=== PATIENT | male | born 1960 | race African-American/Black ===

== ENCOUNTER 2016-12-31 10:41 | Inpatient (IN) | payer OTHER ==
[2016-12-31 11:24] VITALS: BMI 21.8
--- NOTE | 2016-12-31 16:50 | HP ---
COWS - Scale Resting Pulse: 1= [place] 81-100 Sweatin= Chills/Flushing Restless Observation: 3= Extraneous Movement Pupil Size: 1= Pupils >than Normal Bone or Joint Aches: 2= Severe Diffuse Aches Runny Nose/ Eye Tearin= Runny Nose/Eyes GI Upset > 30mins: 3= Vomiting/Diarrhea Tremor Observation: 1= Tremor [place], Not Seen Yawning Observation: 1= 1-2x During Session Anxiety or Irritability: 1=Feels Anxious/Irritable Goose Flesh Skin: 0=Smooth Skin COWS Score: 16 CIWA Score - CIWA Score Nausea/Vomitin Muscle Tremors: 4-Moderate,w/Arms Extend Anxiety: 4-Mod. Anxious/Guarded Agitation: 1-Slight > Activity Paroxysmal Sweats: 1-Minimal Palms Moist Orientation: 3-Disoriented Date>2 days Tacttile Disturbances: 0-None Auditory Disturbances: 1-Very Mild Visual Disturbances: 1-Very Mild Sensitivity Headache: 2-Mild CIWA-Ar Total Score: 19 Admission [facility] - HPI Chief Complaint: WITHDRAWAL SX FELL 3-5 DAYS AGO, TREATED IN ED WITH LEFT KNEE SKIN ABRASION, AND ALCOHOL INTOXICATION AUDITORY HALLUCINATION - VOICES - UNKNOWN Allergies/Adverse Reactions: Allergies Allergy/AdvReac Type Severity Reaction Status Date / Time erythromycin base Allergy Severe Rash Verified 12/31/16 16:55 [Erythromycin Base] vancomycin Allergy Severe Rash Verified 12/31/16 16:55 chocolate flavor Allergy Intermediate Verified 12/31/16 16:55 History of Present Illness: 56 YEARS OLD MALE WITH LONG HISTORY OF ALCOHOL OPIATE NICOTINE DEPENDENCE, HIV 2008 ASTHMA AND SCHIZOPHRENIA IS ADMITTED TO DETOX Exam Limitations: No Limitations - Ebola screening Have you traveled outside of the country in the last 21 days: No Have you had contact with anyone from an Ebola affected area: No Have you been sick,other than usual withdrawal symptoms: No Do you have a fever: No - Review of Systems Constitutional: Chills, Loss of Appetite, Changes in sleep, Unintentional Wgt. Loss EENT: reports: Dental Problems (MULTIPLE TEETH MISSING) Respiratory: reports: SOB with Exertion, Productive cough (WHITISH) Cardiac: reports: No Symptoms Reported GI: reports: Diarrhea, Nausea, Poor Appetite, Poor Fluid Intake, Vomiting, Indigestion, Abdominal cramping : reports: No Symptoms Reported Musculoskeletal: reports: Back Pain, Joint Pain, Muscle Pain, Muscle Weakness, Neck Pain Integumentary: reports: Change in Color (LEFT KNEE SKIN ABRASION) Neuro: reports: Tingling (RIGHT ARM), Tremors Endocrine: reports: No Symptoms Reported Hematology: reports: No Symptoms Reported Psychiatric: reports: Judgement Intact, Anxious, Depressed Other Systems: Reviewed and Negative Patient History - Patient Medical History Hx Anemia: No Hx Asthma: Yes (ventolin) Hx Chronic Obstructive Pulmonary Disease (COPD): No Hx Cancer: No Hx Cardiac Disorders: No Hx Congestive Heart Failure: No Hx Hypertension: No Hx Hypercholesterolemia: No Hx Pacemaker: No HX Cerebrovascular Accident: No Hx Seizures: No Hx Dementia: No Hx Diabetes: No Hx Gastrointestinal Disorders: Yes Hx Liver Disease: No Hx Genitourinary Disorders: No Hx Sexually Transmitted Disorders: Yes (GONORRHEA ) Hx Renal Disease (ESRD): No Hx Thyroid Disease: No Hx Human Immunodeficiency Virus (HIV): Yes (since 2007; ON MEDS) Hx Hepatitis C: Yes Hx Depression: No Hx Suicide Attempt: Yes (tried to overdose in the .) Hx Bipolar Disorder: No Hx Schizophrenia: Yes - Patient Surgical History Past Surgical History: Yes Hx Neurologic Surgery: No Hx Cataract Extraction: No Hx Cardiac Surgery: No Hx Lung Surgery: No Hx Breast Surgery: No Hx Breast Biopsy: No Hx Abdominal Surgery: No Hx Appendectomy: No Hx Cholecystectomy: No Hx Genitourinary Surgery: No Hx Orthopedic Surgery: Yes Other Surgical History: skin graft/abscess, left upper arm in 1992 Anesthesia Reaction: No - PPD History Previous Implant?: Yes Documented Results: Negative w/o proof Implanted On Prior [facility] Admission?: Yes Date: 11/13/15 Results: 0 mm PPD to be Administered?: Yes - Smoking Cessation Smoking history: Current every day smoker Have you smoked in the past 12 months: Yes Aproximately how many cigarettes per day: 10 Cigars Per Day: 0 Hx Chewing Tobacco Use: No Initiated information on smoking cessation: Yes 'Breaking Loose' booklet given: 12/31/16 - Substance & Tx. History Hx Alcohol Use: Yes Hx Substance Use: Yes Substance Use Type: Alcohol, Opiates Hx Substance Use Treatment: Yes - Substances Abused Alcohol Route: Oral Frequency: Daily Amount used: CRISTINA BUNN Age of first use: 13 Date of Last Use: 12/31/16 Heroin Route: Inhalation Frequency: Daily Amount used: 8 BAGS Age of first use: 13 Date of Last Use: 12/31/16 Family Disease History - Family Disease History Family Disease History: Diabetes: Mother (etoh), CA: Father (COLON [place], etoh), Other: Father, Mother Admission Physical Exam S - Vital Signs Vital Signs: Vital Signs - 24 hr 12/31/16 11:21 Temperature 98.4 F Pulse Rate 87 Respiratory 18 Rate Blood Pressure 110/80 - Physical General Appearance: Yes: Appropriately Dressed, Moderate Distress, Alcohol on Breath, Thin, Tremorous, Irritable, Sweating, Anxious HEENTM: Yes: Hearing grossly Normal, Normal ENT Inspection, Normocephalic, Normal Voice Respiratory: Yes: Chest Non-Tender, No Respiratory Distress, No Accessory Muscle Use, Wheezing, Expiration Neck: Yes: Supple, Trachea in good position Breast: Yes: Breasts Symetrical Cardiology: Yes: Regular Rhythm, Regular Rate, S1, S2 Abdominal: Yes: Non Tender, Soft Genitourinary: Yes: Within Normal Limits Back: Yes: Normal Inspection Musculoskeletal: Yes: full range of Motion, Gait Steady, Back pain, Muscle Pain (LEFT KNEE) Extremities: Yes: Non-Tender, Tremors, Inflammation (LEFT KNEE SKIN ABRASION, TREATED IN ER X 3-5 DAYS AGO) Neurological: Yes: Alert, Motor Strength 5/5 (LEFT LEG WITHOUT GRAVITY), Normal Response, Numbness (RIGHT ARM) Integumentary: Yes: Warm, Erythema (LEFT KNEE), Clammy Lymphatic: Yes: Within Normal Limits - Diagnostic (1) Alcohol dependence with uncomplicated withdrawal Current Visit: Yes Status: Acute (2) Nicotine dependence Current Visit: Yes Status: Acute Qualifiers: Nicotine product type: cigarettes Substance use status: in withdrawal Qualified Code(s): F17.213 - Nicotine dependence, cigarettes, with withdrawal (3) Opioid dependence with withdrawal Current Visit: Yes Status: Acute (4) Asthma Current Visit: Yes Status: Acute (5) Hepatitis C Current Visit: Yes Status: Chronic Qualifiers: Viral hepatitis chronicity: unspecified Hepatic coma status: without hepatic coma Qualified Code(s): B19.20 - Unspecified viral hepatitis C without hepatic coma (6) GERD (gastroesophageal reflux disease) Current Visit: Yes Status: Acute Qualifiers: Esophagitis presence: without esophagitis Qualified Code(s): K21.9 - Gastro-esophageal reflux disease without esophagitis (7) Vomiting Current Visit: Yes Status: Acute Qualifiers: Vomiting type: unspecified Vomiting Intractability: unspecified Nausea presence: with nausea Qualified Code(s): R11.2 - Nausea with vomiting, unspecified Comment: ALCOHOL OPIATE WITHDRAWAL RELATED Cleared for Admission S - Detox or Rehab [facility] Level of Care: Medically Managed Detox Regimen/Protocol: Methadone/Librium S Breath Alcohol Content Breath Alcohol Content: 0.031 Vital Signs - Vital Signs Vital Signs Refused: No Temperature: 98.4 F Temperature Source: Oral Pulse Rate: 87 Respiratory Rate: 18 Blood Pressure: 110/80 BP Location: Left Arm Blood Pressure Position: Sitting - Height Height: 5 ft 9 in - Weight Weight: 148 lb Weight Measurement Method: Standing Scale Body Mass Index (BMI): 21.8 - Bowel Function Bowel Movement: Yes Urine Drug Screen - Control Is Test Valid: Yes - Results Drug Screen Negative: No Urine Drug Screen Results: OPI-Opiates, BZO-Benzodiazepines
[2016-12-31] MEDS ORDERED: MAG HYDROX/AL HYDROX/SIMETH 30 ML UNIT-DOSE CUP PO PRN (17:01)
[2016-12-31] MEDS ORDERED: MAGNESIUM HYDROX 2400MG/30ML ORAL SUSPENSION 30 ML CUP PO PRN (17:01)
[2016-12-31] MEDS ORDERED: chlordiazePOXIDE HCL 25 MG CAPSULE PO PRN (17:01)
[2016-12-31] MEDS ORDERED: P-EPHED 60MG/TRIPROLIDI 2.5MG TABLET PO PRN (17:01)
[2016-12-31] MEDS ORDERED: MENTHOL/PHENOL 1 EACH UD MM PRN (17:01)
[2016-12-31] MEDS ORDERED: NICOTINE POLACRILEX 4 MG GUM BC PRN (17:01)
[2016-12-31] MEDS ORDERED: ACETAMINOPHEN 325 MG TABLET (FP) PO PRN (17:01)
[2016-12-31] MEDS ORDERED: LOPERAMIDE HCL 2 MG CAPSULE PO PRN (17:01)
[2016-12-31] MEDS ORDERED: guaiFENesin/D-METHORPHAN HB 10 ML UNIT-DOSE CUPS PO PRN (17:01)
[2016-12-31] MEDS ORDERED: MAGNESIUM CITRATE 300 ML BOTTLE PO PRN (17:01)
[2016-12-31] MEDS ORDERED: ALBUTEROL SO4 6.7 GM HFA INHALER IH PRN (17:04)
[2016-12-31] MEDS ORDERED: ALBUTEROL SO4 2.5/IPRATROPIUM 0.5 INH SOL 3 ML VIAL.NEB. NEB PRN (17:05)
[2016-12-31] MEDS ORDERED: chlordiazePOXIDE HCL 25 MG CAPSULE PO ONE (18:30)
[2016-12-31] MEDS ORDERED: METHADONE HCL 10 MG TABLET (FOR DETOX USE ONLY) PO ONE ×2 (18:45→23:00)
[2016-12-31] MEDS: chlordiazePOXIDE HCL 25 MG CAPSULE PO SCH (22:43)
[2016-12-31] MEDS: THIAMINE HCL 100 MG TABLET (FP) PO SCH (22:43)
[2016-12-31] MEDS: RANITIDINE HCL 150 MG TABLET (FP) PO SCH (22:55)
[2016-12-31 23:34] LABS: URINE APPEARANCE CLEAR; URINE BILIRUBIN NEGATIVE (NEGATIVE); URINE BLOOD NEGATIVE (NEGATIVE); URINE COLOR DKYELLOW; URINE GLUCOSE (UA) NEGATIVE (NEGATIVE); URINE KETONE NEGATIVE (NEGATIVE); URINE LEUK ESTERASE NEGATIVE (NEGATIVE); URINE NITRITE NEGATIVE (NEGATIVE); URINE UROBILINOGEN 2.0 E.U/dl E.U./dl (0.2-1.0)
[2016-12-31 23:37] LABS: URINE PROTEIN 1+ (NEGATIVE)
[2016-12-31 23:39] LABS: URINE BACTERIA RARE /hpf (NONE SEEN); URINE HYALINE CAST 2 /lpf; URINE MUCUS RARE; URINE RBC 1 /hpf (0-3); URINE WBC 2 /hpf (3-5)
[2017-01-01] MEDS: chlordiazePOXIDE HCL 25 MG CAPSULE PO SCH ×4 (05:28→22:17)
[2017-01-01] MEDS ORDERED: METHADONE HCL 10 MG TABLET (FOR DETOX USE ONLY) PO SCH (10:00)
[2017-01-01 10:18] LABS: MCH 29.6 pg (25.7-33.7); MCHC 32.1 g/dl (32.0-35.9); MEAN CELL VOLUME 92.4 fl (80-96); MEAN PLT VOLUME 10.4 fl (7.5-11.1); PLATELET COUNT 136 K/MM3 (134-434); RDW 16.3 % (11.9-15.9); WHITE BLOOD COUNT 4.3 K/mm3 (4.0-10.0)
[2017-01-01] MEDS: PRENATAL VITAMINS W/ FOLIC ACID TABLET (FP) PO SCH (10:28)
[2017-01-01] MEDS: RANITIDINE HCL 150 MG TABLET (FP) PO SCH ×2 (10:29→22:17)
[2017-01-01] MEDS: NICOTINE 21 MG/24 HOURS TOPICAL PATCH TD SCH (10:30)
[2017-01-01 10:37] LABS: ALBUMIN 2.8 g/dl (3.4-5.0); ALK PHOS 261 U/L (45-117); ANION GAP 9 (8-16); BILIRUBIN,TOTAL 0.6 mg/dL (0.2-1.0); CALCIUM 8.1 mg/dL (8.5-10.1); CO2 23 mmol/L (21-32); CREATININE 1.1 mg/dL (0.7-1.3); GLUCOSE,RANDOM 105 mg/dL (74-106); SGOT/AST 66 U/L (15-37); SGPT/ALT 29 U/L (12-78); TOT PROT 8.1 g/dl (6.4-8.2)
--- NOTE | 2017-01-01 11:29 | PN ---
S CIWA - CIWA Score Nausea/Vomitin Muscle Tremors: 2 Anxiety: 2 Agitation: 2 Paroxysmal Sweats: 2 Orientation: 0-Oriented Tacttile Disturbances: 2-Mild Itch/Numbness/Burn Auditory Disturbances: 1-Very Mild Visual Disturbances: 2-Mild Sensitivity Headache: 2-Mild CIWA-Ar Total Score: 17 BHS COWS - Scale Resting Pulse: 0= [place] 80 or Below Sweatin=Flushed/Facial Moisture Restless Observation: 1= Difficult to Sit Still Pupil Size: 0= Normal to Room Light Bone or Joint Aches: 2= Severe Diffuse Aches Runny Nose/ Eye Tearin= Runny Nose/Eyes GI Upset > 30mins: 2= Nausea/Diarrhea Tremor Observation of Outstretched Hands: 2= Slight Tremor Visible Yawning Observation: 0= None Anxiety or Irritability: 2=Irritable/Anxious Goose Flesh Skin: 3=Piloerection COWS Score: 16 BHS Progress Note (SOAP) Subjective: shakes, sweats, nausea, sleeplessness and muscle/joint pain Objective: 01/01/17 11:28 withdrawal sx Vital Signs - 8 hr 01/01/17 01/01/17 01/01/17 03:30 06:00 11:06 Temperature 99.0 F 97.5 F L Pulse Rate 73 71 Respiratory 18 16 16 Rate Blood Pressure 139/64 110/79 Laboratory Last Values WBC 4.3 K/mm3 (4.0-10.0) 01/01/17 06:20 RBC 4.27 M/mm3 (4.00-5.60) 01/01/17 06:20 Hgb 12.7 GM/dL (11.7-16.9) 01/01/17 06:20 Hct 39.4 % (35.4-49) 01/01/17 06:20 MCV 92.4 fl (80-96) 01/01/17 06:20 MCHC 32.1 g/dl (32.0-35.9) 01/01/17 06:20 RDW 16.3 % (11.9-15.9) H D 01/01/17 06:20 Plt Count 136 K/MM3 (134-434) 01/01/17 06:20 MPV 10.4 fl (7.5-11.1) D 01/01/17 06:20 Sodium 137 mmol/L (136-145) 01/01/17 06:20 Potassium 4.0 mmol/L (3.5-5.1) 01/01/17 06:20 Chloride 105 mmol/L (98-107) 01/01/17 06:20 Carbon Dioxide 23 mmol/L (21-32) 01/01/17 06:20 Anion Gap 9 (8-16) 01/01/17 06:20 BUN 14 mg/dL (7-18) D 01/01/17 06:20 Creatinine 1.1 mg/dL (0.7-1.3) D 01/01/17 06:20 Creat Clearance w eGFR > 60 (>60) 01/01/17 06:20 Random Glucose 105 mg/dL (74-106) 01/01/17 06:20 Calcium 8.1 mg/dL (8.5-10.1) L 01/01/17 06:20 Total Bilirubin 0.6 mg/dL (0.2-1.0) 01/01/17 06:20 AST 66 U/L (15-37) H D 01/01/17 06:20 ALT 29 U/L (12-78) 01/01/17 06:20 Alkaline Phosphatase 261 U/L (45-117) H 01/01/17 06:20 Total Protein 8.1 g/dl (6.4-8.2) 01/01/17 06:20 Albumin 2.8 g/dl (3.4-5.0) L 01/01/17 06:20 Urine Color Dkyellow 12/31/16 20:00 Urine Appearance Clear 12/31/16 20:00 Urine pH 5.0 (5.0-8.0) 12/31/16 20:00 Ur Specific [place] 1.020 (1.001-1.035) 12/31/16 20:00 Urine Protein 1+ (NEGATIVE) H 12/31/16 20:00 Urine Glucose (UA) Negative (NEGATIVE) 12/31/16 20:00 Urine Ketones Negative (NEGATIVE) 12/31/16 20:00 Urine Blood Negative (NEGATIVE) 12/31/16 20:00 Urine Nitrite Negative (NEGATIVE) 12/31/16 20:00 Urine Bilirubin Negative (NEGATIVE) 12/31/16 20:00 Urine Urobilinogen 2.0 e.u/dl E.U./dl (0.2-1.0) 12/31/16 20:00 Ur Leukocyte Esterase Negative (NEGATIVE) 12/31/16 20:00 Urine RBC 1 /hpf (0-3) 12/31/16 20:00 Urine WBC 2 /hpf (3-5) 12/31/16 20:00 Ur Epithelial Cells Rare /hpf (FEW) 12/31/16 20:00 Urine Bacteria Rare /hpf (NONE SEEN) 12/31/16 20:00 Hyaline Casts 2 /lpf 12/31/16 20:00 Urine Mucus Rare 12/31/16 20:00 Labs noted Assessment: 01/01/17 11:28 withdrawal sx Plan: continue detox
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
--- NOTE | 2017-01-01 21:06 | EKG ---
Test Reason : Blood Pressure : / mmHG Vent. Rate : 085 BPM Atrial Rate : 085 BPM P-R Int : 142 ms QRS Dur : 090 ms QT Int : 374 ms P-R-T Axes : 074 -03 021 degrees QTc Int : 445 ms NORMAL SINUS RHYTHM POSSIBLE LEFT ATRIAL ENLARGEMENT BORDERLINE ECG NO PREVIOUS ECGS AVAILABLE Confirmed by ADA VELIZ, ALEX ([id number]) on 01/01/2017 9:05:29 PM Referred By: Penny Yancey Confirmed By:ALEX CABALLERO MD
[2017-01-01] MEDS: THIAMINE HCL 100 MG TABLET (FP) PO SCH (22:17)
[2017-01-02] MEDS: chlordiazePOXIDE HCL 25 MG CAPSULE PO SCH ×3 (05:44→17:05)
[2017-01-02] MEDS: PRENATAL VITAMINS W/ FOLIC ACID TABLET (FP) PO SCH (10:13)
[2017-01-02] MEDS: RANITIDINE HCL 150 MG TABLET (FP) PO SCH ×2 (10:13→23:01)
[2017-01-02] MEDS: METHADONE HCL 5 MG TABLET (FOR DETOX USE ONLY) PO SCH (10:14)
[2017-01-02] MEDS: NICOTINE 21 MG/24 HOURS TOPICAL PATCH TD SCH (10:14)
--- NOTE | 2017-01-02 11:04 | PN ---
S CIWA - CIWA Score Nausea/Vomitin Muscle Tremors: 4-Moderate,w/Arms Extend Anxiety: 4-Mod. Anxious/Guarded Agitation: 4-Moderately Restless Paroxysmal Sweats: No Perspiration Orientation: 0-Oriented Tacttile Disturbances: 1-Very Mild Itch/Numbness Auditory Disturbances: 0-None Visual Disturbances: 0-None Headache: 3-Moderate CIWA-Ar Total Score: 19 BHS COWS - Scale Resting Pulse: 1= [place] 81-100 Sweatin= Chills/Flushing Restless Observation: 1= Difficult to Sit Still Pupil Size: 1= Pupils >than Normal Bone or Joint Aches: 2= Severe Diffuse Aches Runny Nose/ Eye Tearin= Nasal Congestion GI Upset > 30mins: 2= Nausea/Diarrhea Tremor Observation of Outstretched Hands: 2= Slight Tremor Visible Yawning Observation: 1= 1-2x During Session Anxiety or Irritability: 2=Irritable/Anxious Goose Flesh Skin: 0=Smooth Skin COWS Score: 14 S Progress Note (SOAP) Subjective: Restlessness, Anxiety, Tremors, Interrupted sleep, Diarrhea, Reports sweats at night Objective: 01/02/17 11:03 Vital Signs Temperature 98.2 F 01/02/17 10:00 Pulse Rate 75 01/02/17 10:00 Respiratory Rate 18 01/02/17 10:00 Blood Pressure 116/88 01/02/17 10:00 O2 Sat by Pulse Oximetry (%) Laboratory Last Values WBC 4.3 K/mm3 (4.0-10.0) 01/01/17 06:20 RBC 4.27 M/mm3 (4.00-5.60) 01/01/17 06:20 Hgb 12.7 GM/dL (11.7-16.9) 01/01/17 06:20 Hct 39.4 % (35.4-49) 01/01/17 06:20 MCV 92.4 fl (80-96) 01/01/17 06:20 MCHC 32.1 g/dl (32.0-35.9) 01/01/17 06:20 RDW 16.3 % (11.9-15.9) H D 01/01/17 06:20 Plt Count 136 K/MM3 (134-434) 01/01/17 06:20 MPV 10.4 fl (7.5-11.1) D 01/01/17 06:20 Sodium 137 mmol/L (136-145) 01/01/17 06:20 Potassium 4.0 mmol/L (3.5-5.1) 01/01/17 06:20 Chloride 105 mmol/L (98-107) 01/01/17 06:20 Carbon Dioxide 23 mmol/L (21-32) 01/01/17 06:20 Anion Gap 9 (8-16) 01/01/17 06:20 BUN 14 mg/dL (7-18) D 01/01/17 06:20 Creatinine 1.1 mg/dL (0.7-1.3) D 01/01/17 06:20 Creat Clearance w eGFR > 60 (>60) 01/01/17 06:20 Random Glucose 105 mg/dL (74-106) 01/01/17 06:20 Calcium 8.1 mg/dL (8.5-10.1) L 01/01/17 06:20 Total Bilirubin 0.6 mg/dL (0.2-1.0) 01/01/17 06:20 AST 66 U/L (15-37) H D 01/01/17 06:20 ALT 29 U/L (12-78) 01/01/17 06:20 Alkaline Phosphatase 261 U/L (45-117) H 01/01/17 06:20 Total Protein 8.1 g/dl (6.4-8.2) 01/01/17 06:20 Albumin 2.8 g/dl (3.4-5.0) L 01/01/17 06:20 Urine Color Dkyellow 12/31/16 20:00 Urine Appearance Clear 12/31/16 20:00 Urine pH 5.0 (5.0-8.0) 12/31/16 20:00 Ur Specific [place] 1.020 (1.001-1.035) 12/31/16 20:00 Urine Protein 1+ (NEGATIVE) H 12/31/16 20:00 Urine Glucose (UA) Negative (NEGATIVE) 12/31/16 20:00 Urine Ketones Negative (NEGATIVE) 12/31/16 20:00 Urine Blood Negative (NEGATIVE) 12/31/16 20:00 Urine Nitrite Negative (NEGATIVE) 12/31/16 20:00 Urine Bilirubin Negative (NEGATIVE) 12/31/16 20:00 Urine Urobilinogen 2.0 e.u/dl E.U./dl (0.2-1.0) 12/31/16 20:00 Ur Leukocyte Esterase Negative (NEGATIVE) 12/31/16 20:00 Urine RBC 1 /hpf (0-3) 12/31/16 20:00 Urine WBC 2 /hpf (3-5) 12/31/16 20:00 Ur Epithelial Cells Rare /hpf (FEW) 12/31/16 20:00 Urine Bacteria Rare /hpf (NONE SEEN) 12/31/16 20:00 Hyaline Casts 2 /lpf 12/31/16 20:00 Urine Mucus Rare 12/31/16 20:00 RPR Titer Nonreactive (NONREACTIVE) 01/01/17 06:20 Labs noted Assessment: Withdrawal Symptoms Plan: Continue Detox
[2017-01-02] MEDS: EMTRICITABINE 200MG/TENOFOVIR 300MG PO SCH (14:08)
[2017-01-02] MEDS: RITONAVIR 100 MG TABLET PO SCH (14:09)
[2017-01-02] MEDS: DARUNAVIR ETHANOLATE 800 MG TAB PO SCH (14:10)
[2017-01-02] MEDS: ONDANSETRON *ODT* 4 MG TABLET SL PRN (17:05)
[2017-01-02] MEDS: THIAMINE HCL 100 MG TABLET (FP) PO SCH (22:12)
[2017-01-02] MEDS: diphenhydrAMINE HCL 50 MG CAPSULE PO PRN (22:12)
[2017-01-02] MEDS: chlordiazePOXIDE 5 MG CAPSULE PO SCH (22:14)
[2017-01-03] MEDS: chlordiazePOXIDE 5 MG CAPSULE PO SCH ×3 (05:40→17:59)
[2017-01-03] MEDS: RITONAVIR 100 MG TABLET PO SCH (07:08)
[2017-01-03] MEDS: DARUNAVIR ETHANOLATE 800 MG TAB PO SCH (07:08)
[2017-01-03] MEDS: METHADONE HCL 5 MG TABLET (FOR DETOX USE ONLY) PO SCH (10:11)
[2017-01-03] MEDS: RANITIDINE HCL 150 MG TABLET (FP) PO SCH ×2 (10:11→22:06)
[2017-01-03] MEDS: PRENATAL VITAMINS W/ FOLIC ACID TABLET (FP) PO SCH (10:11)
[2017-01-03] MEDS: NICOTINE 21 MG/24 HOURS TOPICAL PATCH TD SCH (10:12)
[2017-01-03] MEDS: EMTRICITABINE 200MG/TENOFOVIR 300MG PO SCH (10:12)
--- NOTE | 2017-01-03 11:36 | PN ---
BHS Progress Note (SOAP) Subjective: interrupted sleep, sweats, diarrhea, left knee scrap Objective: 01/03/17 11:34 Vital Signs Temperature 97.9 F 01/03/17 10:10 Pulse Rate 96 H 01/03/17 10:10 Respiratory Rate 18 01/03/17 10:10 Blood Pressure 122/80 01/03/17 10:10 O2 Sat by Pulse Oximetry (%) Laboratory Tests 12/31/16 01/01/17 01/01/17 20:00 06:20 06:20 WBC 4.3 RBC 4.27 Hgb 12.7 Hct 39.4 MCV 92.4 MCHC 32.1 RDW 16.3 H D Plt Count 136 MPV 10.4 D Sodium 137 Potassium 4.0 Chloride 105 Carbon Dioxide 23 Anion Gap 9 BUN 14 D Creatinine 1.1 D Creat Clearance w eGFR > 60 Random Glucose 105 Calcium 8.1 L Total Bilirubin 0.6 AST 66 H D ALT 29 Alkaline Phosphatase 261 H Total Protein 8.1 Albumin 2.8 L Urine Color Dkyellow Urine Appearance Clear Urine pH 5.0 Ur Specific [place] 1.020 Urine Protein 1+ H Urine Glucose (UA) Negative Urine Ketones Negative Urine Blood Negative Urine Nitrite Negative Urine Bilirubin Negative Urine Urobilinogen 2.0 e.u/dl Ur Leukocyte Esterase Negative Urine RBC 1 Urine WBC 2 Ur Epithelial Cells Rare Urine Bacteria Rare Hyaline Casts 2 Urine Mucus Rare RPR Titer 01/01/17 06:20 WBC RBC Hgb Hct MCV MCHC RDW Plt Count MPV Sodium Potassium Chloride Carbon Dioxide Anion Gap BUN Creatinine Creat Clearance w eGFR Random Glucose Calcium Total Bilirubin AST ALT Alkaline Phosphatase Total Protein Albumin Urine Color Urine Appearance Urine pH Ur Specific [place] Urine Protein Urine Glucose (UA) Urine Ketones Urine Blood Urine Nitrite Urine Bilirubin Urine Urobilinogen Ur Leukocyte Esterase Urine RBC Urine WBC Ur Epithelial Cells Urine Bacteria Hyaline Casts Urine Mucus RPR Titer Nonreactive pt aox3 in nad ambulating left knee abrasion -clean w/o d/c Assessment: 01/03/17 11:35 withdrawl sx;s left knee abrasion healing Plan: cont. detox increase fluids daily wound care imodium prn
[2017-01-03] MEDS ORDERED: COLLOIDAL OATMEAL 1 BAR EACH TP PRN (13:56)
[2017-01-03] MEDS: BACITRACIN 0.9 GM PACKET TP SCH (22:06)
[2017-01-03] MEDS: THIAMINE HCL 100 MG TABLET (FP) PO SCH (22:06)
[2017-01-03] MEDS: chlordiazePOXIDE HCL 10 MG CAPSULE PO SCH (22:06)
[2017-01-03] MEDS: AMMONIUM LACTATE 12% LOTION 225 GM BOTTLE TP PRN (22:07)
[2017-01-03] MEDS: TOLNAFTATE 1% CREAM 15 GM TUBE TP SCH (22:45)
[2017-01-04] MEDS: chlordiazePOXIDE HCL 10 MG CAPSULE PO SCH ×3 (05:20→17:59)
[2017-01-04] MEDS: DARUNAVIR ETHANOLATE 800 MG TAB PO SCH (07:55)
[2017-01-04] MEDS: RITONAVIR 100 MG TABLET PO SCH (07:55)
--- NOTE | 2017-01-04 09:46 | PN ---
BHS Progress Note (SOAP) Subjective: stomach ache sweats Objective: 01/04/17 09:46 Vital Signs Temperature 98.2 F 01/04/17 06:20 Pulse Rate 72 01/04/17 06:20 Respiratory Rate 18 01/04/17 06:20 Blood Pressure 116/72 01/04/17 06:20 O2 Sat by Pulse Oximetry (%) awake/alert lying in bed no acute distress Assessment: 01/04/17 09:46 withdrawal sx Plan: continue detox [place] d/c in am
[2017-01-04] MEDS: PRENATAL VITAMINS W/ FOLIC ACID TABLET (FP) PO SCH (09:53)
[2017-01-04] MEDS: BACITRACIN 0.9 GM PACKET TP SCH ×2 (09:53→22:14)
[2017-01-04] MEDS: EMTRICITABINE 200MG/TENOFOVIR 300MG PO SCH (09:53)
[2017-01-04] MEDS: NICOTINE 21 MG/24 HOURS TOPICAL PATCH TD SCH (09:54)
[2017-01-04] MEDS ORDERED: METHADONE HCL 10 MG TABLET (FOR DETOX USE ONLY) PO SCH (10:00)
[2017-01-04] MEDS: TOLNAFTATE 1% CREAM 15 GM TUBE TP SCH ×2 (10:06→22:14)
[2017-01-04] MEDS: AMMONIUM LACTATE 12% LOTION 225 GM BOTTLE TP PRN (10:07)
[2017-01-04] MEDS: RANITIDINE HCL 150 MG TABLET (FP) PO SCH ×2 (10:15→22:13)
--- NOTE | 2017-01-04 16:12 | PN ---
Psychiatric Progress Note Vital Signs: Vital Signs Period Temp Pulse Resp BP Sys/Blank Pulse Ox Last 24 Hr 97.9 F-98.6 F 63-74 18-20 94-123/64-88 Date of Session: 01/04/17 Chief Complaint:: " I feel fine." HPI: Case of a 56 y/o AA male undergoing detoxification for alcohol and heroin dependence.Nearing completion of his protocol. ROS: Unremarkable except for a persistent,dry cough.Alert and fully oriented.No evidence of distress.Patient is ambulatory,visible on the unit.Pleasant on approach.Not a management problem. Current Medications: Active Medications Generic Name Dose Route Start Last Admin Trade Name Freq PRN Reason Stop Dose Admin Acetaminophen 650 mg 12/31/16 17:01 Tylenol - PO Q4H PRN FEVER OR PAIN Al Hydroxide/Mg Hydroxide 30 ml 12/31/16 17:01 01/04/17 09:55 Mylanta Oral Suspension - PO 30 ml Q6H PRN Administration DYSPEPSIA Albuterol Sulfate 2 puff 12/31/16 17:04 Ventolin Hfa Inhaler - IH Q4H PRN SHORT OF BREATH/WHEEZING Bacitracin 0.9 gm 01/03/17 22:00 01/04/17 09:53 Bacitracin - TP 0.9 gm BID CATARINO Administration Chlordiazepoxide HCl 10 mg 01/03/17 23:00 01/04/17 10:06 Librium - PO 01/04/17 17:01 10 mg [id number] CATARINO Administration Colloidal Oatmeal 1 applic 01/03/17 13:56 Aveeno Soap - TP DAILY PRN HYGEINE Darunavir 800 mg 01/02/17 10:00 01/04/17 07:55 Prezista - PO 800 mg DAILY@0800 CATARINO Administration Diphenhydramine HCl 50 mg 12/31/16 17:01 01/02/17 22:12 Benadryl - PO 50 mg HSMR1 PRN Administration INSOMNIA Emtricitabine/Tenofovir 1 tab 01/02/17 10:00 01/04/17 09:53 Truvada PO 1 tab DAILY CATARINO Administration Eucalyptus/Menthol/Phenol/Sorbitol 1 each 12/31/16 17:01 Cepastat Lozenge - MM Q4H PRN SORE THROAT Guaifenesin 10 ml 12/31/16 17:01 01/04/17 15:50 Robitussin Dm - PO 10 ml Q6H PRN Administration COUGH Lactic Acid 1 applic 01/03/17 13:56 01/04/17 10:07 Lac-Hydrin 12 TP 1 applic BID PRN Administration FOR ITCHING Loperamide HCl 4 mg 12/31/16 17:01 Imodium - PO Q6H PRN DIARRHEA Magnesium Citrate 300 ml 12/31/16 17:01 Citroma - PO Q48H PRN CONSTIPATION Magnesium Hydroxide 30 ml 12/31/16 17:01 Milk Of Magnesia - PO DAILY PRN CONSTIPATION Methadone HCl 5 mg 01/05/17 06:00 Dolophine - PO 01/05/17 06:01 DAILY@0600 CATARINO Nicotine 21 mg 01/01/17 10:00 01/04/17 09:54 Nicoderm Patch - TD Not Given DAILY CATARINO Nicotine Polacrilex 4 mg 12/31/16 17:01 Nicorette Gum - BC Q2H PRN NICOTINE REPLACEMENT RX Ondansetron HCl 4 mg 12/31/16 17:06 01/02/17 17:05 Zofran Odt - SL 4 mg Q8H PRN Administration NAUSEA AND/OR VOMITING Multivit/Folic Acid/Iron 1 tab 01/01/17 10:00 01/04/17 09:53 Vitamins (Sjr) - PO 1 tab DAILY CATARINO Administration Pseudoephedrine/Triprolidine 1 combo 12/31/16 17:01 Actifed - PO TID PRN NASAL CONGESTION Ranitidine HCl 150 mg 12/31/16 22:00 01/04/17 10:15 Zantac - PO 150 mg BID CATARINO Administration Ritonavir 100 mg 01/02/17 10:00 01/04/17 07:55 Norvir - PO 100 mg DAILY@0800 CATARINO Administration Thiamine HCl 100 mg 12/31/16 22:00 01/03/17 22:06 Vitamin B1 - PO 100 mg HS CATARINO Administration Tolnaftate 1 applic 01/03/17 22:00 01/04/17 10:06 Tinactin 1% Cream - TP 1 applic BID CATARINO Administration Medication(s) Change(s): Patient maintains his decision to abstain from psychotropic medications. Current Side Effect: No Lab tests ordered: No Lab tests reviewed: Yes Provider note:: Asked to re-evaluate this patient.Reason (s) : unclear.Progress notes reviewed.Met with the patient at bedside.Mr Tomas is calm,conversant, friendly and well controlled.He states that he has no issues to discuss with psychiatrists.Pipe Stem Sawyer did observe this patient throughout the day.No acting out.Mr Tomas has been seen going around,staying in his own space without interfering into the matters of others.Besides appearing odd,the patient has not exhibited any behavior which would raise concern of any kind.He is adherent to his medical treatments and he remains compliant to unit rules.No evidence of psychosis.No complaint offered by the patient.Mr Tomas is at his baseline.See MSE report for details. Total face to face time:: 30 Mental Status Exam - Mental Status Exam Alert and Oriented to: Time, Place, Person Cognitive Function: Grossly Intact Patient Appearance: Well Groomed (acceptable level of personal hygiene) Mood: Euthymic (calm) Affect: Normal Range Patient Behavior: Appropriate (friendly), Cooperative Speech Pattern: Clear Voice Loudness: Normal Thought Process: Goal Oriented Thought Disorder: Bizarre (which seems to be his baseline) Hallucinations: Denies Suicidal Ideation: Denies Homicidal Ideation: Denies Insight/Judgement: Fair Sleep: Well Appetite: Good Muscle strength/Tone: Normal Gait/Station: Normal (ambulatory,steady gait) Psychiatric Treatment Plan - Problem List (1) Alcohol dependence with uncomplicated withdrawal Comment: . (2) Opioid dependence with withdrawal Comment: . (3) Nicotine dependence Qualifiers: Nicotine product type: cigarettes Substance use status: uncomplicated Qualified Code(s): F17.210 - Nicotine dependence, cigarettes, uncomplicated (4) Bipolar disorder Comment: By history. (5) Drug-induced mood disorder Comment: . (6) Asthma Comment: . (7) GERD (gastroesophageal reflux disease) Qualifiers: Esophagitis presence: without esophagitis Qualified Code(s): K21.9 - Gastro-esophageal reflux disease without esophagitis Comment: . (8) Hepatitis C Qualifiers: Viral hepatitis chronicity: unspecified Hepatic coma status: without hepatic coma Qualified Code(s): B19.20 - Unspecified viral hepatitis C without hepatic coma Comment: . (9) Acquired immune deficiency syndrome (AIDS) Comment: .
[2017-01-04] MEDS: THIAMINE HCL 100 MG TABLET (FP) PO SCH (22:13)
[2017-01-04] MEDS: diphenhydrAMINE HCL 50 MG CAPSULE PO PRN (22:14)
[2017-01-05] MEDS: ONDANSETRON *ODT* 4 MG TABLET SL PRN (00:06)
[2017-01-05] MEDS ORDERED: METHADONE HCL 5 MG TABLET (FOR DETOX USE ONLY) PO SCH (06:00)
[2017-01-05 06:21] VITALS: BP 123/76; PULSE 75; TEMP 97.5
--- NOTE | 2017-01-05 08:53 | DS ---
[facility] Summary Admission Date: 12/31/16 Discharge Date: 01/05/17 - History Present History: Alcohol Dependence, Cocaine Dependence, Opioid Dependence - Physical Exam Results Vital Signs: Vital Signs Temperature 97.5 F L 01/05/17 06:21 Pulse Rate 75 01/05/17 06:21 Respiratory Rate 18 01/05/17 06:21 Blood Pressure 123/76 01/05/17 06:21 O2 Sat by Pulse Oximetry (%) - Treatment Hospital Course: Detox Protocol Followed, Detoxed Safely, Responded well, Discharged Condition Good, Rehab Referral Accepted - Medication Discharge Medications: Ambulatory Orders Albuterol Sulfate Inhaler - [Ventolin HFA Inhaler -] 2 inh PO Q4H PRN #1 cartridge 12/15/15 Darunavir Ethanolate [Prezista] 800 mg PO DAILY #30 tablet 12/15/15 Emtricitabine/Tenofovir [Truvada -] 1 tab PO DAILY #30 tablet 12/15/15 Ritonavir [Norvir] 100 mg PO DAILY #30 tablet 12/15/15 - Diagnosis (1) Alcohol dependence with uncomplicated withdrawal Current Visit: Yes Status: Chronic (2) Asthma Current Visit: Yes Status: Chronic (3) Drug-induced mood disorder Current Visit: Yes Status: Acute (4) Nicotine dependence Current Visit: Yes Status: Chronic Qualifiers: Nicotine product type: cigarettes Substance use status: uncomplicated Qualified Code(s): F17.210 - Nicotine dependence, cigarettes, uncomplicated (5) Opioid dependence with withdrawal Current Visit: Yes Status: Chronic (6) Vomiting Current Visit: Yes Status: Acute Qualifiers: Vomiting type: unspecified Vomiting Intractability: unspecified Nausea presence: with nausea Qualified Code(s): R11.2 - Nausea with vomiting, unspecified (7) Acquired immune deficiency syndrome (AIDS) Current Visit: Yes Status: Chronic (8) GERD (gastroesophageal reflux disease) Current Visit: Yes Status: Chronic Qualifiers: Esophagitis presence: without esophagitis Qualified Code(s): K21.9 - Gastro-esophageal reflux disease without esophagitis (9) Hepatitis C Current Visit: Yes Status: Chronic Qualifiers: Viral hepatitis chronicity: unspecified Hepatic coma status: without hepatic coma Qualified Code(s): B19.20 - Unspecified viral hepatitis C without hepatic coma (10) Cocaine dependence Current Visit: Yes Status: Chronic Qualifiers: Substance use status: uncomplicated Qualified Code(s): F14.20 - Cocaine dependence, uncomplicated (11) Insomnia Current Visit: No Status: Acute (12) Open wound, lower leg Current Visit: No Status: Resolved Qualifiers: Encounter type: initial encounter Laterality: right Qualified Code( s): S81.801A - Unspecified open wound, right lower leg, initial encounter (13) Heartburn Current Visit: Yes Status: Chronic (14) Hypertension Current Visit: Yes Status: Chronic Qualifiers: Hypertension type: essential hypertension Qualified Code(s): I10 - Essential (primary) hypertension (15) Peripheral neuralgia Current Visit: No Status: Chronic (16) Tinea pedis Current Visit: No Status: Chronic Qualifiers: Laterality: bilateral Qualified Code(s): B35.3 - Tinea pedis (17) Vascular insufficiency of extremity Current Visit: No Status: Chronic (18) Blackout Current Visit: No Status: Suspected - AMA Did Patient Leave Against Medical Advice: No
[2017-01-05] MEDS: PRENATAL VITAMINS W/ FOLIC ACID TABLET (FP) PO SCH (09:50)
[2017-01-05] MEDS: DARUNAVIR ETHANOLATE 800 MG TAB PO SCH (09:50)
[2017-01-05] MEDS: EMTRICITABINE 200MG/TENOFOVIR 300MG PO SCH (09:51)
[2017-01-05] MEDS: RITONAVIR 100 MG TABLET PO SCH (09:51)
[2017-01-05] MEDS: RANITIDINE HCL 150 MG TABLET (FP) PO SCH (09:51)
[2017-01-05] MEDS: NICOTINE 21 MG/24 HOURS TOPICAL PATCH TD SCH (09:53)
[2017-01-05] MEDS: TOLNAFTATE 1% CREAM 15 GM TUBE TP SCH (10:03)
[2017-01-05] MEDS: BACITRACIN 0.9 GM PACKET TP SCH (10:03)
== END 2017-01-05 12:30 | disposition other institution (70) | DRG 773 ==
LOC: YASAS 10:41 → Y6N 18:11
PROVIDERS: ADMIT Internal Medicine; ATTEND Internal Medicine
PROC: HZ2ZZZZ Detoxification Services for Substance Abuse Treatment (ICD-10-PCS; principal; 2017-01-05)
PROC: HZ2ZZZZ Detoxification Services for Substance Abuse Treatment (ICD-10-PCS; 2017-01-05)
DX: F11.23 Opioid dependence with withdrawal (principal); F10.230 Alcohol dependence with withdrawal, uncomplicated; F14.20 Cocaine dependence, uncomplicated; F17.210 Nicotine dependence, cigarettes, uncomplicated; F19.24 Other psychoactive substance dependence with psychoactive substance-induced mood disorder; I10 Essential (primary) hypertension; J45.909 Unspecified asthma, uncomplicated; B18.2 Chronic viral hepatitis C; B20 Human immunodeficiency virus [HIV] disease; R11.2 Nausea with vomiting, unspecified; B35.3 Tinea pedis; S81.801A Unspecified open wound, right lower leg, initial encounter; I87.2 Venous insufficiency (chronic) (peripheral); K21.9 Gastro-esophageal reflux disease without esophagitis; M79.2 Neuralgia and neuritis, unspecified
CPT/HCPCS: 36415; 80053; 81003; 81015; 85027; 86593; 93005; 93010

== ENCOUNTER 2017-01-05 12:46 | Inpatient (IN) | payer OTHER ==
[2017-01-05] MEDS ORDERED: MAGNESIUM CITRATE 300 ML BOTTLE PO PRN (13:51)
[2017-01-05] MEDS ORDERED: MENTHOL/PHENOL 1 EACH UD MM PRN (13:51)
[2017-01-05] MEDS ORDERED: MAGNESIUM HYDROX 2400MG/30ML ORAL SUSPENSION 30 ML CUP PO PRN (13:51)
[2017-01-05] MEDS ORDERED: IBUPROFEN 400 MG TABLET (FP) PO PRN (13:51)
[2017-01-05] MEDS ORDERED: ACETAMINOPHEN 325 MG TABLET (FP) PO PRN (13:51)
[2017-01-05] MEDS ORDERED: LOPERAMIDE HCL 2 MG CAPSULE PO PRN (13:51)
[2017-01-05] MEDS ORDERED: NICOTINE POLACRILEX 4 MG GUM BUC PRN (13:51)
[2017-01-05] MEDS ORDERED: MAG HYDROX/AL HYDROX/SIMETH 30 ML UNIT-DOSE CUP PO PRN (13:51)
[2017-01-05] MEDS ORDERED: ALBUTEROL SO4 6.7 GM HFA INHALER IH PRN (13:52)
--- NOTE | 2017-01-05 16:24 | HP ---
[facility] Rehab Assess/Revision - Admission History Admitted to Rehab from: [facility] Date of Admission to Rehab: 01/05/17 - Vital signs Vital Signs: Vital Signs Period Temp Pulse Resp BP Sys/Blank Pulse Ox Last 24 Hr 97.7 F 73 18 98/68 - Findings Detox History & Physical reviewed: Yes Concur with findings: Yes Comments/Additional Findings: trasnferred from detox to rehab admission as per protocol
[2017-01-05] MEDS ORDERED: hydrOXYzine HCL 25 MG TABLET (FP) PO PRN (20:57)
[2017-01-05] MEDS: diphenhydrAMINE HCL 50 MG CAPSULE PO PRN (21:59)
[2017-01-05] MEDS: BACITRACIN 0.9 GM PACKET TP SCH (21:59)
[2017-01-05] MEDS: THIAMINE HCL 100 MG TABLET (FP) PO SCH (21:59)
[2017-01-05] MEDS: TOLNAFTATE 1% CREAM 15 GM TUBE TP SCH (22:00)
[2017-01-06] MEDS: DARUNAVIR ETHANOLATE 800 MG TAB PO SCH (07:00)
[2017-01-06] MEDS: EMTRICITABINE 200MG/TENOFOVIR 300MG PO SCH (07:00)
[2017-01-06] MEDS: RITONAVIR 100 MG TABLET PO SCH (07:00)
[2017-01-06] MEDS ORDERED: EMTRICITABINE 200MG/TENOFOVIR 300MG PO SCH ×2 (08:00→10:00)
[2017-01-06] MEDS: TOLNAFTATE 1% CREAM 15 GM TUBE TP SCH ×2 (10:01→21:24)
[2017-01-06] MEDS: NICOTINE 21 MG/24 HOURS TOPICAL PATCH TD SCH (10:01)
[2017-01-06] MEDS: BACITRACIN 0.9 GM PACKET TP SCH ×2 (10:01→21:24)
[2017-01-06] MEDS: PRENATAL VITAMINS W/ FOLIC ACID TABLET (FP) PO SCH (10:01)
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
[2017-01-06] MEDS: THIAMINE HCL 100 MG TABLET (FP) PO SCH (21:24)
[2017-01-06] MEDS: diphenhydrAMINE HCL 50 MG CAPSULE PO PRN (21:24)
[2017-01-07] MEDS: EMTRICITABINE 200MG/TENOFOVIR 300MG PO SCH (07:08)
[2017-01-07] MEDS: DARUNAVIR ETHANOLATE 800 MG TAB PO SCH (07:08)
[2017-01-07] MEDS: RITONAVIR 100 MG TABLET PO SCH (07:09)
[2017-01-07] MEDS: NICOTINE 21 MG/24 HOURS TOPICAL PATCH TD SCH (10:06)
[2017-01-07] MEDS: PRENATAL VITAMINS W/ FOLIC ACID TABLET (FP) PO SCH (10:06)
[2017-01-07] MEDS: BACITRACIN 0.9 GM PACKET TP SCH ×2 (10:06→21:50)
[2017-01-07] MEDS: TOLNAFTATE 1% CREAM 15 GM TUBE TP SCH ×2 (10:06→21:50)
[2017-01-07] MEDS: buPROPion HCL 100 MG TABLET PO SCH (10:06)
[2017-01-07] MEDS: P-EPHED 60MG/TRIPROLIDI 2.5MG TABLET PO PRN (20:07)
[2017-01-07] MEDS: THIAMINE HCL 100 MG TABLET (FP) PO SCH ×2 (21:50→23:51)
[2017-01-07] MEDS: diphenhydrAMINE HCL 50 MG CAPSULE PO PRN (23:51)
[2017-01-08] MEDS: P-EPHED 60MG/TRIPROLIDI 2.5MG TABLET PO PRN (07:02)
[2017-01-08] MEDS: DARUNAVIR ETHANOLATE 800 MG TAB PO SCH (07:03)
[2017-01-08] MEDS: EMTRICITABINE 200MG/TENOFOVIR 300MG PO SCH (07:03)
[2017-01-08] MEDS: RITONAVIR 100 MG TABLET PO SCH (07:03)
[2017-01-08] MEDS: BACITRACIN 0.9 GM PACKET TP SCH ×2 (10:29→21:26)
[2017-01-08] MEDS: NICOTINE 21 MG/24 HOURS TOPICAL PATCH TD SCH (10:29)
[2017-01-08] MEDS: PRENATAL VITAMINS W/ FOLIC ACID TABLET (FP) PO SCH (10:29)
[2017-01-08] MEDS: buPROPion HCL 100 MG TABLET PO SCH (10:30)
[2017-01-08] MEDS: TOLNAFTATE 1% CREAM 15 GM TUBE TP SCH ×2 (10:30→21:26)
[2017-01-08] MEDS: THIAMINE HCL 100 MG TABLET (FP) PO SCH (21:26)
[2017-01-08] MEDS: diphenhydrAMINE HCL 50 MG CAPSULE PO PRN (21:27)
[2017-01-09] MEDS: RITONAVIR 100 MG TABLET PO SCH (07:03)
[2017-01-09] MEDS: DARUNAVIR ETHANOLATE 800 MG TAB PO SCH (07:03)
[2017-01-09] MEDS: EMTRICITABINE 200MG/TENOFOVIR 300MG PO SCH (07:04)
[2017-01-09] MEDS: buPROPion HCL 100 MG TABLET PO SCH (10:20)
[2017-01-09] MEDS: NICOTINE 21 MG/24 HOURS TOPICAL PATCH TD SCH (10:20)
[2017-01-09] MEDS: PRENATAL VITAMINS W/ FOLIC ACID TABLET (FP) PO SCH (10:20)
[2017-01-09] MEDS: BACITRACIN 0.9 GM PACKET TP SCH ×2 (10:21→21:20)
[2017-01-09] MEDS: TOLNAFTATE 1% CREAM 15 GM TUBE TP SCH ×2 (10:21→21:21)
[2017-01-09] MEDS: diphenhydrAMINE HCL 50 MG CAPSULE PO PRN (21:20)
[2017-01-09] MEDS: THIAMINE HCL 100 MG TABLET (FP) PO SCH (21:20)
[2017-01-10] MEDS: EMTRICITABINE 200MG/TENOFOVIR 300MG PO SCH (07:15)
[2017-01-10] MEDS: RITONAVIR 100 MG TABLET PO SCH (07:15)
[2017-01-10] MEDS: DARUNAVIR ETHANOLATE 800 MG TAB PO SCH (07:15)
[2017-01-10] MEDS: BACITRACIN 0.9 GM PACKET TP SCH ×2 (10:16→22:06)
[2017-01-10] MEDS: buPROPion HCL 100 MG TABLET PO SCH (10:16)
[2017-01-10] MEDS: PRENATAL VITAMINS W/ FOLIC ACID TABLET (FP) PO SCH (10:16)
[2017-01-10] MEDS: TOLNAFTATE 1% CREAM 15 GM TUBE TP SCH ×2 (10:17→22:07)
[2017-01-10] MEDS: NICOTINE 21 MG/24 HOURS TOPICAL PATCH TD SCH (10:17)
[2017-01-10] MEDS: diphenhydrAMINE HCL 50 MG CAPSULE PO PRN (22:06)
[2017-01-10] MEDS: THIAMINE HCL 100 MG TABLET (FP) PO SCH (22:06)
[2017-01-11] MEDS: DARUNAVIR ETHANOLATE 800 MG TAB PO SCH (07:16)
[2017-01-11] MEDS: RITONAVIR 100 MG TABLET PO SCH (07:16)
[2017-01-11] MEDS: EMTRICITABINE 200MG/TENOFOVIR 300MG PO SCH (07:16)
[2017-01-11] MEDS: PRENATAL VITAMINS W/ FOLIC ACID TABLET (FP) PO SCH (10:11)
[2017-01-11] MEDS: BACITRACIN 0.9 GM PACKET TP SCH ×2 (10:11→21:27)
[2017-01-11] MEDS: buPROPion HCL 100 MG TABLET PO SCH (10:11)
[2017-01-11] MEDS: NICOTINE 21 MG/24 HOURS TOPICAL PATCH TD SCH (10:11)
[2017-01-11] MEDS: TOLNAFTATE 1% CREAM 15 GM TUBE TP SCH ×2 (10:13→21:29)
[2017-01-11] MEDS: diphenhydrAMINE HCL 50 MG CAPSULE PO PRN (21:27)
[2017-01-11] MEDS: THIAMINE HCL 100 MG TABLET (FP) PO SCH (21:27)
[2017-01-11] MEDS: guaiFENesin/D-METHORPHAN HB 10 ML UNIT-DOSE CUPS PO PRN (21:28)
[2017-01-12] MEDS: guaiFENesin/D-METHORPHAN HB 10 ML UNIT-DOSE CUPS PO PRN ×2 (06:14→14:28)
[2017-01-12] MEDS: DARUNAVIR ETHANOLATE 800 MG TAB PO SCH (07:08)
[2017-01-12] MEDS: EMTRICITABINE 200MG/TENOFOVIR 300MG PO SCH (07:08)
[2017-01-12] MEDS: RITONAVIR 100 MG TABLET PO SCH (07:08)
[2017-01-12] MEDS: TOLNAFTATE 1% CREAM 15 GM TUBE TP SCH ×2 (10:16→21:24)
[2017-01-12] MEDS: buPROPion HCL 100 MG TABLET PO SCH (10:16)
[2017-01-12] MEDS: NICOTINE 21 MG/24 HOURS TOPICAL PATCH TD SCH (10:16)
[2017-01-12] MEDS: PRENATAL VITAMINS W/ FOLIC ACID TABLET (FP) PO SCH (10:16)
[2017-01-12] MEDS: BACITRACIN 0.9 GM PACKET TP SCH ×2 (10:16→21:23)
[2017-01-12] MEDS: THIAMINE HCL 100 MG TABLET (FP) PO SCH (21:23)
[2017-01-12] MEDS: diphenhydrAMINE HCL 50 MG CAPSULE PO PRN (21:23)
[2017-01-13] MEDS: guaiFENesin/D-METHORPHAN HB 10 ML UNIT-DOSE CUPS PO PRN (06:18)
[2017-01-13] MEDS: RITONAVIR 100 MG TABLET PO SCH (07:03)
[2017-01-13] MEDS: DARUNAVIR ETHANOLATE 800 MG TAB PO SCH (07:03)
[2017-01-13] MEDS: EMTRICITABINE 200MG/TENOFOVIR 300MG PO SCH (07:03)
[2017-01-13] MEDS: PRENATAL VITAMINS W/ FOLIC ACID TABLET (FP) PO SCH (10:17)
[2017-01-13] MEDS: BACITRACIN 0.9 GM PACKET TP SCH ×2 (10:18→21:16)
[2017-01-13] MEDS: TOLNAFTATE 1% CREAM 15 GM TUBE TP SCH ×2 (10:18→21:16)
[2017-01-13] MEDS: buPROPion HCL 100 MG TABLET PO SCH (10:18)
[2017-01-13] MEDS: NICOTINE 21 MG/24 HOURS TOPICAL PATCH TD SCH (10:18)
[2017-01-13] MEDS: diphenhydrAMINE HCL 50 MG CAPSULE PO PRN (21:16)
[2017-01-13] MEDS: THIAMINE HCL 100 MG TABLET (FP) PO SCH (21:16)
[2017-01-14] MEDS: DARUNAVIR ETHANOLATE 800 MG TAB PO SCH (08:29)
[2017-01-14] MEDS: RITONAVIR 100 MG TABLET PO SCH (08:30)
[2017-01-14] MEDS: EMTRICITABINE 200MG/TENOFOVIR 300MG PO SCH (08:30)
[2017-01-14] MEDS: BACITRACIN 0.9 GM PACKET TP SCH ×2 (10:19→21:28)
[2017-01-14] MEDS: PRENATAL VITAMINS W/ FOLIC ACID TABLET (FP) PO SCH (10:19)
[2017-01-14] MEDS: TOLNAFTATE 1% CREAM 15 GM TUBE TP SCH ×2 (10:19→21:28)
[2017-01-14] MEDS: buPROPion HCL 100 MG TABLET PO SCH (10:19)
[2017-01-14] MEDS: NICOTINE 21 MG/24 HOURS TOPICAL PATCH TD SCH (10:20)
[2017-01-14] MEDS: guaiFENesin/D-METHORPHAN HB 10 ML UNIT-DOSE CUPS PO PRN (21:28)
[2017-01-14] MEDS: diphenhydrAMINE HCL 50 MG CAPSULE PO PRN (21:28)
[2017-01-14] MEDS: THIAMINE HCL 100 MG TABLET (FP) PO SCH (21:28)
[2017-01-15] MEDS: P-EPHED 60MG/TRIPROLIDI 2.5MG TABLET PO PRN ×2 (08:38→21:22)
[2017-01-15] MEDS: EMTRICITABINE 200MG/TENOFOVIR 300MG PO SCH (08:38)
[2017-01-15] MEDS: RITONAVIR 100 MG TABLET PO SCH (08:38)
[2017-01-15] MEDS: DARUNAVIR ETHANOLATE 800 MG TAB PO SCH (08:38)
[2017-01-15] MEDS: guaiFENesin/D-METHORPHAN HB 10 ML UNIT-DOSE CUPS PO PRN ×2 (08:39→21:23)
[2017-01-15] MEDS: PRENATAL VITAMINS W/ FOLIC ACID TABLET (FP) PO SCH (10:26)
[2017-01-15] MEDS: buPROPion HCL 100 MG TABLET PO SCH (10:26)
[2017-01-15] MEDS: TOLNAFTATE 1% CREAM 15 GM TUBE TP SCH ×2 (10:26→21:23)
[2017-01-15] MEDS: BACITRACIN 0.9 GM PACKET TP SCH ×2 (10:26→21:20)
[2017-01-15] MEDS: NICOTINE 21 MG/24 HOURS TOPICAL PATCH TD SCH (10:27)
[2017-01-15] MEDS: THIAMINE HCL 100 MG TABLET (FP) PO SCH (21:21)
[2017-01-16] MEDS: guaiFENesin/D-METHORPHAN HB 10 ML UNIT-DOSE CUPS PO PRN ×2 (05:04→21:44)
[2017-01-16] MEDS: P-EPHED 60MG/TRIPROLIDI 2.5MG TABLET PO PRN ×2 (05:04→21:44)
[2017-01-16] MEDS: RITONAVIR 100 MG TABLET PO SCH (08:45)
[2017-01-16] MEDS: EMTRICITABINE 200MG/TENOFOVIR 300MG PO SCH (08:45)
[2017-01-16] MEDS: DARUNAVIR ETHANOLATE 800 MG TAB PO SCH (08:45)
[2017-01-16] MEDS: PRENATAL VITAMINS W/ FOLIC ACID TABLET (FP) PO SCH (10:19)
[2017-01-16] MEDS: TOLNAFTATE 1% CREAM 15 GM TUBE TP SCH ×2 (10:19→21:45)
[2017-01-16] MEDS: buPROPion HCL 100 MG TABLET PO SCH (10:19)
[2017-01-16] MEDS: NICOTINE 21 MG/24 HOURS TOPICAL PATCH TD SCH (10:20)
[2017-01-16] MEDS: BACITRACIN 0.9 GM PACKET TP SCH ×2 (10:20→21:45)
[2017-01-16] MEDS: THIAMINE HCL 100 MG TABLET (FP) PO SCH (21:43)
[2017-01-16] MEDS: diphenhydrAMINE HCL 50 MG CAPSULE PO PRN (21:45)
[2017-01-17] MEDS: RITONAVIR 100 MG TABLET PO SCH (07:14)
[2017-01-17] MEDS: DARUNAVIR ETHANOLATE 800 MG TAB PO SCH (07:14)
[2017-01-17] MEDS: EMTRICITABINE 200MG/TENOFOVIR 300MG PO SCH (07:15)
[2017-01-17] MEDS: PRENATAL VITAMINS W/ FOLIC ACID TABLET (FP) PO SCH (09:44)
[2017-01-17] MEDS: guaiFENesin/D-METHORPHAN HB 10 ML UNIT-DOSE CUPS PO PRN ×2 (09:44→21:33)
[2017-01-17] MEDS: NICOTINE 21 MG/24 HOURS TOPICAL PATCH TD SCH (09:44)
[2017-01-17] MEDS: BACITRACIN 0.9 GM PACKET TP SCH ×2 (09:44→21:33)
[2017-01-17] MEDS: TOLNAFTATE 1% CREAM 15 GM TUBE TP SCH ×2 (09:45→21:33)
[2017-01-17] MEDS: buPROPion HCL 100 MG TABLET PO SCH (09:45)
[2017-01-17] MEDS: P-EPHED 60MG/TRIPROLIDI 2.5MG TABLET PO PRN ×2 (09:46→21:33)
[2017-01-17] MEDS: diphenhydrAMINE HCL 50 MG CAPSULE PO PRN (21:33)
[2017-01-17] MEDS: THIAMINE HCL 100 MG TABLET (FP) PO SCH (21:33)
[2017-01-18] MEDS: EMTRICITABINE 200MG/TENOFOVIR 300MG PO SCH (08:41)
[2017-01-18] MEDS: RITONAVIR 100 MG TABLET PO SCH (08:41)
[2017-01-18] MEDS: DARUNAVIR ETHANOLATE 800 MG TAB PO SCH (08:41)
[2017-01-18] MEDS: guaiFENesin/D-METHORPHAN HB 10 ML UNIT-DOSE CUPS PO PRN ×2 (08:42→21:46)
[2017-01-18] MEDS: P-EPHED 60MG/TRIPROLIDI 2.5MG TABLET PO PRN ×2 (08:44→21:46)
[2017-01-18] MEDS: TOLNAFTATE 1% CREAM 15 GM TUBE TP SCH ×2 (09:50→21:46)
[2017-01-18] MEDS: NICOTINE 21 MG/24 HOURS TOPICAL PATCH TD SCH (09:51)
[2017-01-18] MEDS: BACITRACIN 0.9 GM PACKET TP SCH ×2 (09:51→21:45)
[2017-01-18] MEDS: buPROPion HCL 100 MG TABLET PO SCH (09:51)
[2017-01-18] MEDS: PRENATAL VITAMINS W/ FOLIC ACID TABLET (FP) PO SCH (09:51)
[2017-01-18] MEDS: THIAMINE HCL 100 MG TABLET (FP) PO SCH (21:45)
[2017-01-18] MEDS: diphenhydrAMINE HCL 50 MG CAPSULE PO PRN (21:47)
[2017-01-19] MEDS: DARUNAVIR ETHANOLATE 800 MG TAB PO SCH (09:39)
[2017-01-19] MEDS: RITONAVIR 100 MG TABLET PO SCH (09:39)
[2017-01-19] MEDS: EMTRICITABINE 200MG/TENOFOVIR 300MG PO SCH (09:39)
[2017-01-19] MEDS: buPROPion HCL 100 MG TABLET PO SCH (09:39)
[2017-01-19] MEDS: PRENATAL VITAMINS W/ FOLIC ACID TABLET (FP) PO SCH (09:39)
[2017-01-19] MEDS: NICOTINE 21 MG/24 HOURS TOPICAL PATCH TD SCH (09:40)
[2017-01-19] MEDS: BACITRACIN 0.9 GM PACKET TP SCH ×2 (09:40→21:40)
[2017-01-19] MEDS: P-EPHED 60MG/TRIPROLIDI 2.5MG TABLET PO PRN ×2 (09:42→21:39)
[2017-01-19] MEDS: guaiFENesin/D-METHORPHAN HB 10 ML UNIT-DOSE CUPS PO PRN (09:42)
[2017-01-19] MEDS: TOLNAFTATE 1% CREAM 15 GM TUBE TP SCH ×2 (10:32→21:40)
[2017-01-19] MEDS: diphenhydrAMINE HCL 50 MG CAPSULE PO PRN (21:40)
[2017-01-19] MEDS: THIAMINE HCL 100 MG TABLET (FP) PO SCH (21:40)
[2017-01-20] MEDS: DARUNAVIR ETHANOLATE 800 MG TAB PO SCH (08:54)
[2017-01-20] MEDS: RITONAVIR 100 MG TABLET PO SCH (08:54)
[2017-01-20] MEDS: EMTRICITABINE 200MG/TENOFOVIR 300MG PO SCH (08:55)
[2017-01-20] MEDS: guaiFENesin/D-METHORPHAN HB 10 ML UNIT-DOSE CUPS PO PRN ×2 (08:59→22:10)
[2017-01-20] MEDS: P-EPHED 60MG/TRIPROLIDI 2.5MG TABLET PO PRN ×2 (08:59→22:10)
[2017-01-20] MEDS: buPROPion HCL 100 MG TABLET PO SCH (09:00)
[2017-01-20] MEDS: BACITRACIN 0.9 GM PACKET TP SCH ×2 (09:00→22:09)
[2017-01-20] MEDS: PRENATAL VITAMINS W/ FOLIC ACID TABLET (FP) PO SCH (09:01)
[2017-01-20] MEDS: NICOTINE 21 MG/24 HOURS TOPICAL PATCH TD SCH (09:42)
[2017-01-20] MEDS: TOLNAFTATE 1% CREAM 15 GM TUBE TP SCH ×2 (13:22→22:11)
[2017-01-20] MEDS: THIAMINE HCL 100 MG TABLET (FP) PO SCH (22:08)
[2017-01-20] MEDS: diphenhydrAMINE HCL 50 MG CAPSULE PO PRN (22:10)
[2017-01-21] MEDS: DARUNAVIR ETHANOLATE 800 MG TAB PO SCH (09:44)
[2017-01-21] MEDS: BACITRACIN 0.9 GM PACKET TP SCH ×2 (09:44→21:33)
[2017-01-21] MEDS: buPROPion HCL 100 MG TABLET PO SCH (09:44)
[2017-01-21] MEDS: TOLNAFTATE 1% CREAM 15 GM TUBE TP SCH ×2 (09:44→21:33)
[2017-01-21] MEDS: PRENATAL VITAMINS W/ FOLIC ACID TABLET (FP) PO SCH (09:44)
[2017-01-21] MEDS: EMTRICITABINE 200MG/TENOFOVIR 300MG PO SCH (09:45)
[2017-01-21] MEDS: NICOTINE 21 MG/24 HOURS TOPICAL PATCH TD SCH (09:45)
[2017-01-21] MEDS: RITONAVIR 100 MG TABLET PO SCH (09:52)
[2017-01-21] MEDS: guaiFENesin/D-METHORPHAN HB 10 ML UNIT-DOSE CUPS PO PRN ×2 (09:52→21:35)
[2017-01-21] MEDS: P-EPHED 60MG/TRIPROLIDI 2.5MG TABLET PO PRN ×2 (09:53→21:34)
[2017-01-21] MEDS: diphenhydrAMINE HCL 50 MG CAPSULE PO PRN (21:32)
[2017-01-21] MEDS: THIAMINE HCL 100 MG TABLET (FP) PO SCH (21:32)
[2017-01-22] MEDS: DARUNAVIR ETHANOLATE 800 MG TAB PO SCH (10:27)
[2017-01-22] MEDS: RITONAVIR 100 MG TABLET PO SCH (10:28)
[2017-01-22] MEDS: NICOTINE 21 MG/24 HOURS TOPICAL PATCH TD SCH (10:28)
[2017-01-22] MEDS: BACITRACIN 0.9 GM PACKET TP SCH ×3 (10:28→21:43)
[2017-01-22] MEDS: PRENATAL VITAMINS W/ FOLIC ACID TABLET (FP) PO SCH (10:28)
[2017-01-22] MEDS: TOLNAFTATE 1% CREAM 15 GM TUBE TP SCH ×2 (10:29→21:43)
[2017-01-22] MEDS: EMTRICITABINE 200MG/TENOFOVIR 300MG PO SCH (10:29)
[2017-01-22] MEDS: buPROPion HCL 100 MG TABLET PO SCH (10:30)
[2017-01-22] MEDS: guaiFENesin/D-METHORPHAN HB 10 ML UNIT-DOSE CUPS PO PRN ×2 (10:32→21:42)
[2017-01-22] MEDS: P-EPHED 60MG/TRIPROLIDI 2.5MG TABLET PO PRN ×2 (10:32→21:42)
[2017-01-22] MEDS: THIAMINE HCL 100 MG TABLET (FP) PO SCH (21:41)
[2017-01-22] MEDS: diphenhydrAMINE HCL 50 MG CAPSULE PO PRN (21:42)
[2017-01-23] MEDS ORDERED: PT OWN MED DRAWER 7, Y5N ONE (09:26)
[2017-01-23] MEDS: P-EPHED 60MG/TRIPROLIDI 2.5MG TABLET PO PRN (10:17)
[2017-01-23] MEDS: BACITRACIN 0.9 GM PACKET TP SCH ×2 (10:18→21:34)
[2017-01-23] MEDS: guaiFENesin/D-METHORPHAN HB 10 ML UNIT-DOSE CUPS PO PRN ×2 (10:18→21:34)
[2017-01-23] MEDS: buPROPion HCL 100 MG TABLET PO SCH (10:18)
[2017-01-23] MEDS: PRENATAL VITAMINS W/ FOLIC ACID TABLET (FP) PO SCH (10:19)
[2017-01-23] MEDS: NICOTINE 21 MG/24 HOURS TOPICAL PATCH TD SCH (10:19)
[2017-01-23] MEDS: EMTRICITABINE 200MG/TENOFOVIR 300MG PO SCH (10:19)
[2017-01-23] MEDS: DARUNAVIR ETHANOLATE 800 MG TAB PO SCH (10:19)
[2017-01-23] MEDS: TOLNAFTATE 1% CREAM 15 GM TUBE TP SCH ×2 (10:19→21:35)
[2017-01-23] MEDS: RITONAVIR 100 MG TABLET PO SCH (10:19)
[2017-01-23] MEDS: THIAMINE HCL 100 MG TABLET (FP) PO SCH (21:34)
[2017-01-23] MEDS: diphenhydrAMINE HCL 50 MG CAPSULE PO PRN (21:35)
[2017-01-24 07:01] VITALS: BP 123/84; PULSE 86; TEMP 97.4
[2017-01-24] MEDS: DARUNAVIR ETHANOLATE 800 MG TAB PO SCH (09:52)
[2017-01-24] MEDS: buPROPion HCL 100 MG TABLET PO SCH (09:52)
[2017-01-24] MEDS: NICOTINE 21 MG/24 HOURS TOPICAL PATCH TD SCH (09:52)
[2017-01-24] MEDS: RITONAVIR 100 MG TABLET PO SCH (09:53)
[2017-01-24] MEDS: TOLNAFTATE 1% CREAM 15 GM TUBE TP SCH (09:53)
[2017-01-24] MEDS: EMTRICITABINE 200MG/TENOFOVIR 300MG PO SCH (09:53)
[2017-01-24] MEDS: PRENATAL VITAMINS W/ FOLIC ACID TABLET (FP) PO SCH (09:54)
[2017-01-24] MEDS: BACITRACIN 0.9 GM PACKET TP SCH (09:54)
--- NOTE | 2017-01-24 10:00 | PN ---
Psychiatric Progress Note Vital Signs: Vital Signs Period Temp Pulse Resp BP Sys/Blank Pulse Ox Last 24 Hr 97.4 F 86 18-18 123/84 Date of Session: 01/24/17 Chief Complaint:: Discharge visit HPI: Patient addressed Alcohol and Opioid dependence comorbid with Bipolar disorder. ROS: Significant for AIDS,Hep C,GERD. Current Medications: Active Medications Generic Name Dose Route Start Last Admin Trade Name Freq PRN Reason Stop Dose Admin Acetaminophen 650 mg 01/05/17 13:51 Tylenol - PO Q4H PRN FEVER OR PAIN Al Hydroxide/Mg Hydroxide 30 ml 01/05/17 13:51 Mylanta Oral Suspension - PO Q6H PRN DYSPEPSIA Albuterol Sulfate 2 puff 01/05/17 13:52 Ventolin Hfa Inhaler - IH Q4H PRN ASTHMA Bacitracin 0.9 gm 01/05/17 22:00 01/24/17 09:54 Bacitracin - TP Not Given BID CATARINO Bupropion HCl 100 mg 01/07/17 10:00 01/24/17 09:52 Wellbutrin - PO 100 mg DAILY CATARINO Administration Darunavir 800 mg 01/21/17 10:00 01/24/17 09:52 Prezista - PO 800 mg DAILY@1000 CATARINO Administration Diphenhydramine HCl 50 mg 01/05/17 13:51 01/23/17 21:35 Benadryl - PO 50 mg HSMR1 PRN Administration FOR ITCHING Emtricitabine/Tenofovir 1 tab 01/21/17 10:00 01/24/17 09:53 Truvada PO 1 tab DAILY@1000 CATARINO Administration Eucalyptus/Menthol/Phenol/Sorbitol 1 each 01/05/17 13:51 Cepastat Lozenge - MM Q4H PRN SORE THROAT Guaifenesin 10 ml 01/05/17 13:51 01/23/17 21:34 Robitussin Dm - PO 10 ml Q6H PRN Administration COUGH Ibuprofen 400 mg 01/05/17 13:51 Motrin - PO Q6H PRN PAIN Loperamide HCl 4 mg 01/05/17 13:51 Imodium - PO Q6H PRN DIARRHEA Magnesium Hydroxide 30 ml 01/05/17 13:51 Milk Of Magnesia - PO DAILY PRN CONSTIPATION Nicotine 21 mg 01/06/17 10:00 01/24/17 09:52 Nicoderm Patch - TD Not Given DAILY CATARINO Nicotine Polacrilex 4 mg 01/05/17 13:51 Nicorette Gum - BUC Q2H PRN NICOTINE REPLACEMENT RX Multivit/Folic Acid/Iron 1 tab 01/06/17 10:00 01/24/17 09:54 Vitamins (Sjr) - PO Not Given DAILY CATARINO Pseudoephedrine/Triprolidine 1 combo 01/05/17 13:51 01/23/17 10:17 Actifed - PO 1 combo TID PRN Administration NASAL CONGESTION Ritonavir 100 mg 01/21/17 10:00 01/24/17 09:53 Norvir - PO 100 mg DAILY@1000 CATARINO Administration Thiamine HCl 100 mg 01/05/17 22:00 01/23/17 21:34 Vitamin B1 - PO 100 mg HS CATARINO Administration Tolnaftate 1 applic 01/05/17 22:00 01/24/17 09:53 Tinactin 1% Cream - TP Not Given BID CATARINO Current Side Effect: No Lab tests ordered: No Lab tests reviewed: Yes Provider note:: PAtient completed this program today.he has met his treatment plan and will continue to address his issues on outpatient basis at [facility]. Patient continues to find that Wellbutrin 100 mg po daily help to reduce his depressed mood,anxiety.Script for 30 days provided. Therapy provided focusing on relapse prevention including coping skills,support utilization to maintain recovery. Patient is stable for discharge today. Total face to face time:: 30 Mental Status Exam - Mental Status Exam Alert and Oriented to: Time, Place, Person Cognitive Function: Grossly Intact Patient Appearance: Well Groomed Mood: Euthymic Affect: Appropriate, Mood Congruent Patient Behavior: Cooperative Speech Pattern: Clear Voice Loudness: Normal Thought Process: Goal Oriented Thought Disorder: Not Present Hallucinations: Denies Suicidal Ideation: Denies Homicidal Ideation: Denies Insight/Judgement: Fair Sleep: Fair Appetite: Fair Muscle strength/Tone: Normal Gait/Station: Normal Psychiatric Treatment Plan - Problem List (1) Acquired immune deficiency syndrome (AIDS) Comment: . (3) Asthma Comment: . (5) GERD (gastroesophageal reflux disease) Qualifiers: Esophagitis presence: without esophagitis Qualified Code(s): K21.9 - Gastro-esophageal reflux disease without esophagitis Comment: . (6) Hypertension Qualifiers: Hypertension type: essential hypertension Qualified Code(s): I10 - Essential (primary) hypertension (7) Nicotine dependence Qualifiers: Nicotine product type: cigarettes Substance use status: uncomplicated Qualified Code(s): F17.210 - Nicotine dependence, cigarettes, uncomplicated
== END 2017-01-24 10:35 | disposition home or self-care (01) | DRG 772 ==
LOC: YASAS 12:46 → Y5N 12:47
PROVIDERS: ADMIT Psychiatry & Neurology Psychiatry; ATTEND Psychiatry & Neurology Psychiatry
PROC: HZ42ZZZ Group Counseling for Substance Abuse Treatment, Cognitive-Behavioral (ICD-10-PCS; principal; 2017-01-24)
DX: F11.20 Opioid dependence, uncomplicated (principal); F10.20 Alcohol dependence, uncomplicated; F17.210 Nicotine dependence, cigarettes, uncomplicated; F31.81 Bipolar II disorder

== ENCOUNTER 2017-12-02 09:42 | Inpatient (IN) | payer OTHER ==
[2017-12-02 10:08] VITALS: BMI 20.5
--- NOTE | 2017-12-02 13:21 | HP ---
COWS - Scale Resting Pulse: 0= [place] 80 or Below Sweatin= Chills/Flushing Restless Observation: 1= Difficult to Sit Still Pupil Size: 0= Normal to Room Light Bone or Joint Aches: 2= Severe Diffuse Aches Runny Nose/ Eye Tearin= Runny Nose/Eyes GI Upset > 30mins: 3= Vomiting/Diarrhea Tremor Observation: 2= Slight Tremor Visible Yawning Observation: 1= 1-2x During Session Anxiety or Irritability: 2=Irritable/Anxious Goose Flesh Skin: 3=Piloerection COWS Score: 17 CIWA Score - CIWA Score Nausea/Vomitin Muscle Tremors: 4-Moderate,w/Arms Extend Anxiety: 3 Agitation: 0-Normal Activity Paroxysmal Sweats: 3 Orientation: 0-Oriented Tacttile Disturbances: 2-Mild Itch/Numbness/Burn Auditory Disturbances: 1-Very Mild Visual Disturbances: 1-Very Mild Sensitivity Headache: 0-None Present CIWA-Ar Total Score: 19 Admission ROS BHS - HPI Chief Complaint: "I need to get off of this stuff. It does not do me any good." Patient is here to Detox from Alcohol and Heroin. Allergies/Adverse Reactions: Allergies Allergy/AdvReac Type Severity Reaction Status Date / Time erythromycin base Allergy Severe Rash Verified 12/02/17 10:32 [Erythromycin Base] vancomycin Allergy Severe Rash Verified 12/02/17 10:32 chocolate flavor Allergy Intermediate Verified 12/02/17 10:32 nut - unspecified AdvReac Mild Itching Verified 12/02/17 13:14 History of Present Illness: Patient is a 57 YO male here to Detox from Heroin and Alcohol. Patient has had several previous detox admissions at [facility] (last: 01/2018). Patient had a Detox admission at [facility] in 09/2017. Patient denies any periods of sobriety/non-drug use in recent years. Exam Limitations: No Limitations - Ebola screening Have you traveled outside of the country in the last 21 days: No Have you had contact with anyone from an Ebola affected area: No Have you been sick,other than usual withdrawal symptoms: No Do you have a fever: No - Review of Systems Constitutional: Chills, Diaphoresis, Fever, Loss of Appetite, Malaise, Night Sweats, Changes in sleep, Unintentional Wgt. Loss (Lost approx. 40 lbs. over last 6 months.) EENT: reports: Tearing, Nose Congestion, Sinus Pressure, Dental Problems ( Missing several teeth. Patient reports that he is still okay to chew regular diet.) Respiratory: reports: SOB with Exertion, Productive cough Cardiac: reports: No Symptoms Reported GI: reports: Diarrhea, Nausea, Poor Appetite, Vomiting, Indigestion : reports: No Symptoms Reported Musculoskeletal: reports: Back Pain, Joint Pain, Muscle Pain, Neck Pain, Joint Stiffness Integumentary: reports: No Symptoms Reported Neuro: reports: Numbness (Bilateral Hands and Bilateral Feet.), Tingling ( Bilateral Hands and Bilateral Feet.), Tremors Endocrine: reports: No Symptoms Reported Hematology: reports: No Symptoms Reported Psychiatric: reports: Judgement Intact, Mood/Affect Appropiate, Orientated x3, Anxious, Depressed Other Systems: Reviewed and Negative Patient History - Patient Medical History Hx Anemia: No Hx Asthma: Yes (Pt is on MDI) Hx Chronic Obstructive Pulmonary Disease (COPD): No Hx Cancer: No Hx Cardiac Disorders: Yes (Heart Murmur, Diagnosed 2016.) Hx Congestive Heart Failure: No Hx Hypertension: Yes (not on meds.) Hx Hypercholesterolemia: No Hx Pacemaker: No HX Cerebrovascular Accident: No Hx Seizures: No Hx Dementia: No Hx Diabetes: No Hx Gastrointestinal Disorders: No Hx Liver Disease: Yes (Hepatitis C (Diagnosed approx. 4 years ago); elevated Liver Enzymes.) Hx Genitourinary Disorders: No Hx Sexually Transmitted Disorders: Yes (Gonorrhea, syphilis, during teenage years, Both treated.) Hx Renal Disease (ESRD): No Hx Thyroid Disease: No Hx Human Immunodeficiency Virus (HIV): Yes (since 2007; Not currently on meds.) Hx Hepatitis C: Yes (Diagnosed @ 2013. No treatment yet.) Hx Depression: Yes (No previous treatment.) Hx Suicide Attempt: No (PATIENT DENIES CURRENT SI / HI.) Hx Bipolar Disorder: Yes (No treatment.) Hx Schizophrenia: No Other Medical History: DENIES. - Patient Surgical History Past Surgical History: Yes Hx Neurologic Surgery: No Hx Cataract Extraction: No Hx Cardiac Surgery: No Hx Lung Surgery: No Hx Breast Surgery: No Hx Breast Biopsy: No Hx Abdominal Surgery: No Hx Appendectomy: No Hx Cholecystectomy: No Hx Genitourinary Surgery: No Hx Section: No Hx Orthopedic Surgery: Yes Other Surgical History: skin graft/abscess, left upper arm in 1992 Anesthesia Reaction: No - PPD History Previous Implant?: Yes Documented Results: Negative w/proof Implanted On Prior [facility] Admission?: Yes Date: 01/02/17 Results: 0 mm PPD to be Administered?: No - Reproductive History Patient is a Female of Child Bearing Age (11 -55 yrs old): No (PATIENT IS MALE.) - Smoking Cessation Smoking history: Current every day smoker Have you smoked in the past 12 months: Yes Aproximately how many cigarettes per day: 20 Cigars Per Day: 0 Hx Chewing Tobacco Use: No Initiated information on smoking cessation: Yes 'Breaking Loose' booklet given: 12/02/17 (GIVE TO PATIENT.) - Substance & Tx. History Hx Alcohol Use: Yes Hx Substance Use: Yes Substance Use Type: Alcohol, Cocaine, Heroin, Marijuana, Tranquilizers Hx Substance Use Treatment: Yes (Previous Detox at [facility] (01/2017). Detox at [facility] (2016)) - Substances Abused Heroin Route: Inhalation Frequency: Daily Amount used: 7-10 bags Age of first use: 13 Date of Last Use: 12/02/17 Alcohol Route: Oral Frequency: Daily Amount used: 2 pints vodka or bourbon Age of first use: 21 Date of Last Use: 12/02/17 Alprazolam (Xanax) Route: Oral Frequency: 1-3 times last 30 days Amount used: 2mg Age of first use: 51 Date of Last Use: 11/30/17 Crack Route: Smoking Frequency: 1-3 times last 30 days Amount used: $20-30 Age of first use: 13 Date of Last Use: 11/25/17 Marijuana/Hashish Route: Smoking Frequency: 1-3 times last 30 days Amount used: 1 Joint. Age of first use: 13 Date of Last Use: 11/29/17 Family Disease History - Family Disease History Family Disease History: Diabetes: Mother (etoh; , [place].), [place]: Father ( [place], etoh), Mother, Sister (, Lung Ca.; Multiple Sclerosis.), Other : Grandparent (etoh.), Father, Mother, Sister Admission Physical Exam BHS - Vital Signs Vital Signs: Vital Signs - 24 hr 12/02/17 09:59 Temperature 98.2 F Pulse Rate 78 Respiratory 18 Rate Blood Pressure 135/100 - Physical General Appearance: Yes: Nourished, Appropriately Dressed, Mild Distress, Tremorous, Anxious HEENTM: Yes: Hearing grossly Normal, Normocephalic, Normal Voice, DAY[place], Pharynx Normal Respiratory: Yes: Chest Non-Tender, Lungs Clear, No Respiratory Distress, No Accessory Muscle Use Neck: Yes: No masses,lesions,Nodules, Supple, Trachea in good position Breast: Yes: Breast Exam Deferred Cardiology: Yes: Regular Rhythm, Regular Rate, S1, S2 Abdominal: Yes: Normal Bowel Sounds, Non Tender, Flat, Soft Genitourinary: Yes: Within Normal Limits Back: Yes: Decreased Range of Motion Musculoskeletal: Yes: Gait Steady, Back pain, Joint Stiffness, Muscle Pain Extremities: Yes: Tremors Neurological: Yes: Fully Oriented, Alert, Normal Mood/Affect, Normal Response Integumentary: Yes: Normal Color, Dry, Warm, Track [place] (Noted on Bilateral Hands. No signs of infection noted at affected sites.), Other (Break in skin noted near webbing between 2nd and 3rd toes of Ledft Foot. No bleeding noted. Patient denies any history of injury to affected area.) Lymphatic: Yes: Within Normal Limits - Diagnostic (1) History of hypertension Current Visit: Yes Status: Chronic (2) Alcohol dependence with uncomplicated withdrawal Current Visit: Yes Status: Acute Comment: . (3) Asthma Current Visit: Yes Status: Chronic Comment: . (4) GERD (gastroesophageal reflux disease) Current Visit: Yes Status: Chronic Qualifiers: Esophagitis presence: without esophagitis Qualified Code(s): K21.9 - Gastro -esophageal reflux disease without esophagitis Comment: . (5) Nicotine dependence Current Visit: Yes Status: Chronic Qualifiers: Nicotine product type: cigarettes Substance use status: uncomplicated Qualified Code(s): F17.210 - Nicotine dependence, cigarettes, uncomplicated (6) Opioid dependence with withdrawal Current Visit: Yes Status: Acute Comment: . (7) Hepatitis C Current Visit: Yes Status: Chronic Qualifiers: Viral hepatitis chronicity: unspecified Hepatic coma status: without hepatic coma Qualified Code(s): B19.20 - Unspecified viral hepatitis C without hepatic coma Comment: . (8) HIV (human immunodeficiency virus infection) Current Visit: Yes Status: Chronic (9) Depression (emotion) Current Visit: Yes Status: Suspected Qualifiers: Depression Type: unspecified Qualified Code(s): F32.9 - Major depressive disorder, single episode, unspecified (10) History of bipolar disorder Current Visit: Yes Status: Suspected Cleared for Admission [facility] - Detox or Rehab [facility] Level of Care: Medically Managed Detox Regimen/Protocol: Methadone/Librium [facility] Breath Alcohol Content Breath Alcohol Content: 0.020 Urine Drug Screen - Results Urine Drug Screen Results: SKYLAR-Cocaine, OPI-Opiates, BZO-Benzodiazepines, MTD- Methadone
[2017-12-02] MEDS ORDERED: chlordiazePOXIDE HCL 25 MG CAPSULE PO PRN (13:53)
[2017-12-02] MEDS ORDERED: ACETAMINOPHEN 325 MG TABLET (FP) PO PRN (13:53)
[2017-12-02] MEDS ORDERED: MAG HYDROX/AL HYDROX/SIMETH 30 ML UNIT-DOSE CUP PO PRN (13:53)
[2017-12-02] MEDS ORDERED: LOPERAMIDE HCL 2 MG CAPSULE PO PRN (13:53)
[2017-12-02] MEDS ORDERED: P-EPHED 60MG/TRIPROLIDI 2.5MG TABLET PO PRN (13:53)
[2017-12-02] MEDS ORDERED: MAGNESIUM HYDROX 2400MG/30ML ORAL SUSPENSION 30 ML CUP PO PRN (13:53)
[2017-12-02] MEDS ORDERED: MAGNESIUM CITRATE 300 ML BOTTLE PO PRN (13:53)
[2017-12-02] MEDS ORDERED: ALBUTEROL SO4 18 GM HFA INHALER IH PRN (13:56)
[2017-12-02] MEDS ORDERED: chlordiazePOXIDE HCL 25 MG CAPSULE PO ONE (15:42)
[2017-12-02] MEDS ORDERED: METHADONE HCL 10 MG TABLET (FOR DETOX USE ONLY) PO ONE ×2 (15:45→23:00)
[2017-12-02] MEDS ORDERED: METHADONE HCL 10 MG TABLET (FOR DETOX USE ONLY) ONE (18:02)
[2017-12-02] MEDS: NICOTINE 21 MG/24 HOURS TOPICAL PATCH TD SCH (18:05)
[2017-12-02] MEDS: chlordiazePOXIDE HCL 25 MG CAPSULE PO SCH ×2 (18:05→22:37)
[2017-12-02] MEDS: NICOTINE POLACRILEX 2 MG GUM BUC PRN (18:05)
[2017-12-02] MEDS: guaiFENesin/D-METHORPHAN HB 10 ML UNIT-DOSE CUPS PO PRN (18:05)
[2017-12-02 19:52] LABS: HEMATOCRIT 41.5 % (35.4-49); HEMOGLOBIN 13.7 GM/dL (11.7-16.9); MCH 31.9 pg (25.7-33.7); MEAN CELL VOLUME 96.5 fl (80-96); MEAN PLT VOLUME 10.2 fl (7.5-11.1); PLATELET COUNT 121 K/MM3 (134-434); RDW 14.6 % (11.9-15.9); WHITE BLOOD COUNT 4.7 K/mm3 (4.0-10.0)
[2017-12-02 19:56] LABS: CALCIUM 8.2 mg/dL (8.5-10.1); CHLORIDE 104 mmol/L (98-107); POTASSIUM 4.3 mmol/L (3.5-5.1); SODIUM 139 mmol/L (136-145)
[2017-12-02 20:02] LABS: ALBUMIN 2.4 g/dl (3.4-5.0); ALK PHOS 619 U/L (45-117); ANION GAP 5 (8-16); BILIRUBIN,TOTAL 1.1 mg/dL (0.2-1.0); BLOOD UREA NITROGEN 14 mg/dL (7-18); CO2 30 mmol/L (21-32); CREATININE 0.9 mg/dL (0.7-1.3); GLUCOSE,RANDOM 122 mg/dL (74-106); SGOT/AST 113 U/L (15-37); SGPT/ALT 37 U/L (12-78); TOT PROT 9.3 g/dl (6.4-8.2)
[2017-12-02 20:03] LABS: URINE APPEARANCE TURBID; URINE BILIRUBIN NEGATIVE (NEGATIVE); URINE BLOOD NEGATIVE (NEGATIVE); URINE COLOR YELLOW; URINE GLUCOSE (UA) NEGATIVE (NEGATIVE); URINE KETONE NEGATIVE (NEGATIVE); URINE LEUK ESTERASE NEGATIVE (NEGATIVE); URINE NITRITE NEGATIVE (NEGATIVE); URINE UROBILINOGEN 4.0 E.U/dl mg/dL (0.2-1.0)
[2017-12-02 20:27] LABS: URINE PROTEIN 1+ (NEGATIVE)
[2017-12-02 20:36] LABS: CALCIUM OXALATE CRYSTALS MODERATE /hpf (NONE SEEN); EPI CELLS RARE /HPF (FEW); URINE BACTERIA RARE /hpf (NONE SEEN); URINE MUCUS RARE
[2017-12-02] MEDS ORDERED: ALBUTEROL SO4 2.5/IPRATROPIUM 0.5 INH SOL 3 ML VIAL.NEB. NEB PRN (22:24)
[2017-12-02] MEDS: THIAMINE HCL 100 MG TABLET (FP) PO SCH (22:37)
[2017-12-02] MEDS: BACITRACIN 0.9 GM PACKET TP SCH (22:37)
[2017-12-03] MEDS: chlordiazePOXIDE HCL 25 MG CAPSULE PO SCH ×4 (06:11→22:34)
[2017-12-03] MEDS: guaiFENesin/D-METHORPHAN HB 10 ML UNIT-DOSE CUPS PO PRN ×2 (06:12→19:28)
[2017-12-03] MEDS ORDERED: METHADONE HCL 10 MG TABLET (FOR DETOX USE ONLY) PO SCH (10:00)
[2017-12-03] MEDS: BACITRACIN 0.9 GM PACKET TP SCH ×2 (10:17→22:34)
[2017-12-03] MEDS: PRENATAL VITAMINS W/ FOLIC ACID TABLET (FP) PO SCH (10:17)
[2017-12-03] MEDS: NICOTINE POLACRILEX 2 MG GUM BUC PRN (10:18)
[2017-12-03] MEDS: NICOTINE 21 MG/24 HOURS TOPICAL PATCH TD SCH (10:20)
[2017-12-03] MEDS: MENTHOL/PHENOL 1 EACH UD MM PRN (10:25)
--- NOTE | 2017-12-03 12:28 | EKG ---
Test Reason : Blood Pressure : / mmHG Vent. Rate : 066 BPM Atrial Rate : 066 BPM P-R Int : 140 ms QRS Dur : 088 ms QT Int : 412 ms P-R-T Axes : 076 -05 024 degrees QTc Int : 431 ms NORMAL SINUS RHYTHM MINIMAL VOLTAGE CRITERIA FOR LVH, MAY BE NORMAL VARIANT BORDERLINE ECG WHEN COMPARED WITH ECG OF 31-DEC-2016 19:03, NO SIGNIFICANT CHANGE WAS FOUND Confirmed by MD JASMINA, JUNIOR ([id number]) on 12/03/2017 12:27:33 PM Referred By: Confirmed By:JUNIOR FREEDMAN MD
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
--- NOTE | 2017-12-03 15:53 | PN ---
S CIWA - CIWA Score Nausea/Vomitin-No Nausea/No Vomiting Muscle Tremors: 3 Anxiety: 4-Mod. Anxious/Guarded Agitation: 2 Paroxysmal Sweats: No Perspiration Orientation: 0-Oriented Tacttile Disturbances: 2-Mild Itch/Numbness/Burn Auditory Disturbances: 1-Very Mild Visual Disturbances: 3-Moderate Sensitivity Headache: 0-None Present CIWA-Ar Total Score: 15 BHS COWS - Scale Resting Pulse: 0= [place] 80 or Below Sweatin= Chills/Flushing Restless Observation: 1= Difficult to Sit Still Pupil Size: 0= Normal to Room Light Bone or Joint Aches: 2= Severe Diffuse Aches Runny Nose/ Eye Tearin= Nasal Congestion GI Upset > 30mins: 1= Stomach Cramp Tremor Observation of Outstretched Hands: 2= Slight Tremor Visible Yawning Observation: 1= 1-2x During Session Anxiety or Irritability: 2=Irritable/Anxious Goose Flesh Skin: 3=Piloerection COWS Score: 14 BHS Progress Note (SOAP) Subjective: Constipation, Anxious, Stomach cramping, Body Aches, Tremors. Objective: PT. A & O X 3, OBSERVED AMBULATING ON UNIT. NO ACUTE DISTRESS. 12/03/17 15:50 Vital Signs Temperature 98.5 F 12/03/17 13:12 Pulse Rate 70 12/03/17 13:12 Respiratory Rate 18 12/03/17 13:12 Blood Pressure 127/83 12/03/17 13:12 O2 Sat by Pulse Oximetry (%) Laboratory Tests 12/02/17 12/02/17 12/02/17 15:50 15:50 15:50 WBC 4.7 RBC 4.30 Hgb 13.7 Hct 41.5 MCV 96.5 H MCH 31.9 MCHC 33.0 RDW 14.6 D Plt Count 121 L MPV 10.2 Sodium 139 Potassium 4.3 Chloride 104 Carbon Dioxide 30 D Anion Gap 5 L BUN 14 Creatinine 0.9 Creat Clearance w eGFR > 60 Random Glucose 122 H Calcium 8.2 L Total Bilirubin 1.1 H D AST 113 H D ALT 37 D Alkaline Phosphatase 619 H D Total Protein 9.3 H Albumin 2.4 L Urine Color Urine Appearance Urine pH Ur Specific [place] Urine Protein Urine Glucose (UA) Urine Ketones Urine Blood Urine Nitrite Urine Bilirubin Urine Urobilinogen Ur Leukocyte Esterase Urine WBC (Auto) Urine RBC (Auto) Ur Epithelial Cells Calcium Oxalate Crystal Urine Bacteria Urine Mucus RPR Titer Nonreactive 12/02/17 15:50 WBC RBC Hgb Hct MCV MCH MCHC RDW Plt Count MPV Sodium Potassium Chloride Carbon Dioxide Anion Gap BUN Creatinine Creat Clearance w eGFR Random Glucose Calcium Total Bilirubin AST ALT Alkaline Phosphatase Total Protein Albumin Urine Color Yellow Urine Appearance Turbid Urine pH 5.0 Ur Specific [place] 1.023 Urine Protein 1+ H Urine Glucose (UA) Negative Urine Ketones Negative Urine Blood Negative Urine Nitrite Negative Urine Bilirubin Negative Urine Urobilinogen 4.0 e.u/dl Ur Leukocyte Esterase Negative Urine WBC (Auto) <1 Urine RBC (Auto) 2 Ur Epithelial Cells Rare Calcium Oxalate Crystal Moderate Urine Bacteria Rare Urine Mucus Rare RPR Titer labs noted. Assessment: 12/03/17 15:50 WITHDRAWAL SYMPTOMS. Plan: CONTINUE DETOX. REPEAT AST, ALK. PHOS. TOMORROW AM FOR ELEVATED ADMISSION LEVELS. PRN MOM FOR CONSTIPATION. INCREASE DAILY PO FLUID INTAKE.
[2017-12-03] MEDS: IBUPROFEN 400 MG TABLET (FP) PO PRN (19:29)
[2017-12-03] MEDS: THIAMINE HCL 100 MG TABLET (FP) PO SCH (22:34)
[2017-12-04] MEDS: chlordiazePOXIDE HCL 25 MG CAPSULE PO SCH ×2 (05:29→10:35)
[2017-12-04] MEDS: BACITRACIN 0.9 GM PACKET TP SCH ×2 (10:35→22:49)
[2017-12-04] MEDS: METHADONE HCL 5 MG TABLET (FOR DETOX USE ONLY) PO SCH (10:36)
[2017-12-04] MEDS: NICOTINE 21 MG/24 HOURS TOPICAL PATCH TD SCH (10:36)
[2017-12-04] MEDS: PRENATAL VITAMINS W/ FOLIC ACID TABLET (FP) PO SCH (10:36)
[2017-12-04] MEDS: NICOTINE POLACRILEX 2 MG GUM BUC PRN (10:37)
[2017-12-04] MEDS: guaiFENesin/D-METHORPHAN HB 10 ML UNIT-DOSE CUPS PO PRN ×2 (10:37→18:11)
[2017-12-04] MEDS: MENTHOL/PHENOL 1 EACH UD MM PRN (13:22)
--- NOTE | 2017-12-04 13:26 | PN ---
[facility] CIWA - CIWA Score Nausea/Vomitin-Mild Nausea/No Vomiting Muscle Tremors: 4-Moderate,w/Arms Extend Anxiety: 3 Agitation: 3 Paroxysmal Sweats: 3 Orientation: 0-Oriented Tacttile Disturbances: 1-Very Mild Itch/Numbness Auditory Disturbances: 0-None Visual Disturbances: 0-None Headache: 0-None Present CIWA-Ar Total Score: 15 S COWS - Scale Resting Pulse: 0= [place] 80 or Below Sweatin= Chills/Flushing Restless Observation: 3= Extraneous Movement Pupil Size: 0= Normal to Room Light Bone or Joint Aches: 2= Severe Diffuse Aches Runny Nose/ Eye Tearin= Runny Nose/Eyes GI Upset > 30mins: 2= Nausea/Diarrhea Tremor Observation of Outstretched Hands: 2= Slight Tremor Visible Yawning Observation: 1= 1-2x During Session Anxiety or Irritability: 2=Irritable/Anxious Goose Flesh Skin: 0=Smooth Skin COWS Score: 15 [facility] Progress Note (SOAP) Subjective: Anxious, sweating, chills, interrupted sleep Objective: 12/04/17 13:22 Last Vital Signs Temp Pulse Resp BP Pulse Ox 97.5 F L 75 18 140/98 12/04/17 09:52 12/04/17 09:52 12/04/17 09:52 12/04/17 09:52 Laboratory Tests 12/02/17 12/02/17 12/02/17 15:50 15:50 15:50 WBC 4.7 RBC 4.30 Hgb 13.7 Hct 41.5 MCV 96.5 H MCH 31.9 MCHC 33.0 RDW 14.6 D Plt Count 121 L MPV 10.2 Sodium 139 Potassium 4.3 Chloride 104 Carbon Dioxide 30 D Anion Gap 5 L BUN 14 Creatinine 0.9 Creat Clearance w eGFR > 60 Random Glucose 122 H Calcium 8.2 L Total Bilirubin 1.1 H D AST 113 H D ALT 37 D Alkaline Phosphatase 619 H D Total Protein 9.3 H Albumin 2.4 L Urine Color Urine Appearance Urine pH Ur Specific [place] Urine Protein Urine Glucose (UA) Urine Ketones Urine Blood Urine Nitrite Urine Bilirubin Urine Urobilinogen Ur Leukocyte Esterase Urine WBC (Auto) Urine RBC (Auto) Ur Epithelial Cells Calcium Oxalate Crystal Urine Bacteria Urine Mucus RPR Titer Nonreactive 12/02/17 15:50 WBC RBC Hgb Hct MCV MCH MCHC RDW Plt Count MPV Sodium Potassium Chloride Carbon Dioxide Anion Gap BUN Creatinine Creat Clearance w eGFR Random Glucose Calcium Total Bilirubin AST ALT Alkaline Phosphatase Total Protein Albumin Urine Color Yellow Urine Appearance Turbid Urine pH 5.0 Ur Specific [place] 1.023 Urine Protein 1+ H Urine Glucose (UA) Negative Urine Ketones Negative Urine Blood Negative Urine Nitrite Negative Urine Bilirubin Negative Urine Urobilinogen 4.0 e.u/dl Ur Leukocyte Esterase Negative Urine WBC (Auto) <1 Urine RBC (Auto) 2 Ur Epithelial Cells Rare Calcium Oxalate Crystal Moderate Urine Bacteria Rare Urine Mucus Rare RPR Titer Labs noted: Elevated LFTs and abnormal UA Assessment: 12/04/17 13:26 Withdrawal symptoms Noted with elevated LFTs and abnormal UA Plan: Continue detox Elevated LFTs most likely due to hepatitis C, repeat LFTs as ordered Abnormal UA: encouraged to drink lots of water for hydration, repeat UA
[2017-12-04] MEDS: chlordiazePOXIDE 5 MG CAPSULE PO SCH ×2 (18:08→22:49)
[2017-12-04] MEDS: THIAMINE HCL 100 MG TABLET (FP) PO SCH (22:49)
[2017-12-05] MEDS: chlordiazePOXIDE 5 MG CAPSULE PO SCH ×2 (05:57→10:32)
[2017-12-05] MEDS: guaiFENesin/D-METHORPHAN HB 10 ML UNIT-DOSE CUPS PO PRN (05:59)
[2017-12-05] MEDS: NICOTINE POLACRILEX 2 MG GUM BUC PRN (06:00)
[2017-12-05] MEDS: MENTHOL/PHENOL 1 EACH UD MM PRN (10:32)
[2017-12-05] MEDS: BACITRACIN 0.9 GM PACKET TP SCH ×2 (10:32→22:31)
[2017-12-05] MEDS: PRENATAL VITAMINS W/ FOLIC ACID TABLET (FP) PO SCH (10:32)
[2017-12-05] MEDS: NICOTINE 21 MG/24 HOURS TOPICAL PATCH TD SCH (10:32)
[2017-12-05] MEDS: METHADONE HCL 5 MG TABLET (FOR DETOX USE ONLY) PO SCH (10:32)
--- NOTE | 2017-12-05 11:05 | PN ---
BHS Progress Note (SOAP) Subjective: C/O SLIGHT TREMORS,SWEATS, ANXIETY. Objective: 12/05/17 11:05 Vital Signs Temperature 98.3 F 12/05/17 09:12 Pulse Rate 88 12/05/17 09:12 Respiratory Rate 18 12/05/17 09:12 Blood Pressure 123/90 12/05/17 09:12 O2 Sat by Pulse Oximetry (%) Laboratory Last Values WBC 4.7 K/mm3 (4.0-10.0) 12/02/17 15:50 RBC 4.30 M/mm3 (4.00-5.60) 12/02/17 15:50 Hgb 13.7 GM/dL (11.7-16.9) 12/02/17 15:50 Hct 41.5 % (35.4-49) 12/02/17 15:50 MCV 96.5 fl (80-96) H 12/02/17 15:50 MCH 31.9 pg (25.7-33.7) 12/02/17 15:50 MCHC 33.0 g/dl (32.0-35.9) 12/02/17 15:50 RDW 14.6 % (11.9-15.9) D 12/02/17 15:50 Plt Count 121 K/MM3 (134-434) L 12/02/17 15:50 MPV 10.2 fl (7.5-11.1) 12/02/17 15:50 Sodium 139 mmol/L (136-145) 12/02/17 15:50 Potassium 4.3 mmol/L (3.5-5.1) 12/02/17 15:50 Chloride 104 mmol/L (98-107) 12/02/17 15:50 Carbon Dioxide 30 mmol/L (21-32) D 12/02/17 15:50 Anion Gap 5 (8-16) L 12/02/17 15:50 BUN 14 mg/dL (7-18) 12/02/17 15:50 Creatinine 0.9 mg/dL (0.7-1.3) 12/02/17 15:50 Creat Clearance w eGFR > 60 (>60) 12/02/17 15:50 Random Glucose 122 mg/dL (74-106) H 12/02/17 15:50 Calcium 8.2 mg/dL (8.5-10.1) L 12/02/17 15:50 Total Bilirubin 1.1 mg/dL (0.2-1.0) H D 12/02/17 15:50 AST 113 U/L (15-37) H D 12/02/17 15:50 ALT 37 U/L (12-78) D 12/02/17 15:50 Alkaline Phosphatase 619 U/L (45-117) H D 12/02/17 15:50 Total Protein 9.3 g/dl (6.4-8.2) H 12/02/17 15:50 Albumin 2.4 g/dl (3.4-5.0) L 12/02/17 15:50 Urine Color Yellow 12/02/17 15:50 Urine Appearance Turbid 12/02/17 15:50 Urine pH 5.0 (5.0-8.0) 12/02/17 15:50 Ur Specific [place] 1.023 (1.001-1.035) 12/02/17 15:50 Urine Protein 1+ (NEGATIVE) H 12/02/17 15:50 Urine Glucose (UA) Negative (NEGATIVE) 12/02/17 15:50 Urine Ketones Negative (NEGATIVE) 12/02/17 15:50 Urine Blood Negative (NEGATIVE) 12/02/17 15:50 Urine Nitrite Negative (NEGATIVE) 12/02/17 15:50 Urine Bilirubin Negative (NEGATIVE) 12/02/17 15:50 Urine Urobilinogen 4.0 e.u/dl mg/dL (0.2-1.0) 12/02/17 15:50 Ur Leukocyte Esterase Negative (NEGATIVE) 12/02/17 15:50 Urine WBC (Auto) <1 /hpf (3-5) 12/02/17 15:50 Urine RBC (Auto) 2 /hpf (0-3) 12/02/17 15:50 Ur Epithelial Cells Rare /HPF (FEW) 12/02/17 15:50 Calcium Oxalate Crystal Moderate /hpf (NONE SEEN) 12/02/17 15:50 Urine Bacteria Rare /hpf (NONE SEEN) 12/02/17 15:50 Urine Mucus Rare 12/02/17 15:50 RPR Titer Nonreactive (NONREACTIVE) 12/02/17 15:50 Assessment: 12/05/17 11:05 WITHDRAWAL SX Plan: CONTINUE DETOX
[2017-12-05 13:41] LABS: URINE APPEARANCE CLEAR; URINE BILIRUBIN NEGATIVE (NEGATIVE); URINE BLOOD NEGATIVE (NEGATIVE); URINE COLOR YELLOW; URINE GLUCOSE (UA) NEGATIVE (NEGATIVE); URINE KETONE NEGATIVE (NEGATIVE); URINE LEUK ESTERASE NEGATIVE (NEGATIVE); URINE NITRITE NEGATIVE (NEGATIVE); URINE PROTEIN NEGATIVE (NEGATIVE); URINE UROBILINOGEN 4.0 E.U/dl mg/dL (0.2-1.0)
[2017-12-05] MEDS: HYDROCORTISONE 1% TOPICAL CREAM 30 GM TUBE TP SCH ×2 (14:17→22:31)
[2017-12-05] MEDS: chlordiazePOXIDE HCL 10 MG CAPSULE PO SCH ×2 (17:18→22:31)
[2017-12-05] MEDS: THIAMINE HCL 100 MG TABLET (FP) PO SCH (22:31)
[2017-12-06] MEDS: chlordiazePOXIDE HCL 10 MG CAPSULE PO SCH ×2 (05:37→10:23)
[2017-12-06] MEDS: guaiFENesin/D-METHORPHAN HB 10 ML UNIT-DOSE CUPS PO PRN ×2 (05:39→15:08)
[2017-12-06] MEDS ORDERED: METHADONE HCL 10 MG TABLET (FOR DETOX USE ONLY) PO SCH (10:00)
[2017-12-06] MEDS: PRENATAL VITAMINS W/ FOLIC ACID TABLET (FP) PO SCH (10:23)
[2017-12-06] MEDS: BACITRACIN 0.9 GM PACKET TP SCH ×2 (10:23→22:27)
[2017-12-06] MEDS: HYDROCORTISONE 1% TOPICAL CREAM 30 GM TUBE TP SCH ×2 (10:24→22:28)
[2017-12-06] MEDS: NICOTINE 21 MG/24 HOURS TOPICAL PATCH TD SCH (10:27)
[2017-12-06] MEDS: NICOTINE POLACRILEX 2 MG GUM BUC PRN (10:27)
--- NOTE | 2017-12-06 12:01 | PN ---
[facility] Progress Note (SOAP) Subjective: ANXIETY, SWEATS,FATIGUE. ABRASION ON NOSE TIP AREA. Objective: 12/06/17 12:00 Vital Signs Temperature 97.1 F L 12/06/17 09:11 Pulse Rate 80 12/06/17 09:11 Respiratory Rate 18 12/06/17 09:11 Blood Pressure 127/84 12/06/17 09:11 O2 Sat by Pulse Oximetry (%) Laboratory Last Values WBC 4.7 K/mm3 (4.0-10.0) 12/02/17 15:50 RBC 4.30 M/mm3 (4.00-5.60) 12/02/17 15:50 Hgb 13.7 GM/dL (11.7-16.9) 12/02/17 15:50 Hct 41.5 % (35.4-49) 12/02/17 15:50 MCV 96.5 fl (80-96) H 12/02/17 15:50 MCH 31.9 pg (25.7-33.7) 12/02/17 15:50 MCHC 33.0 g/dl (32.0-35.9) 12/02/17 15:50 RDW 14.6 % (11.9-15.9) D 12/02/17 15:50 Plt Count 121 K/MM3 (134-434) L 12/02/17 15:50 MPV 10.2 fl (7.5-11.1) 12/02/17 15:50 Sodium 139 mmol/L (136-145) 12/02/17 15:50 Potassium 4.3 mmol/L (3.5-5.1) 12/02/17 15:50 Chloride 104 mmol/L (98-107) 12/02/17 15:50 Carbon Dioxide 30 mmol/L (21-32) D 12/02/17 15:50 Anion Gap 5 (8-16) L 12/02/17 15:50 BUN 14 mg/dL (7-18) 12/02/17 15:50 Creatinine 0.9 mg/dL (0.7-1.3) 12/02/17 15:50 Creat Clearance w eGFR > 60 (>60) 12/02/17 15:50 Random Glucose 122 mg/dL (74-106) H 12/02/17 15:50 Calcium 8.2 mg/dL (8.5-10.1) L 12/02/17 15:50 Total Bilirubin 1.1 mg/dL (0.2-1.0) H D 12/02/17 15:50 AST 113 U/L (15-37) H D 12/02/17 15:50 ALT 37 U/L (12-78) D 12/02/17 15:50 Alkaline Phosphatase 619 U/L (45-117) H D 12/02/17 15:50 Total Protein 9.3 g/dl (6.4-8.2) H 12/02/17 15:50 Albumin 2.4 g/dl (3.4-5.0) L 12/02/17 15:50 Urine Color Yellow 12/05/17 11:05 Urine Appearance Clear 12/05/17 11:05 Urine pH 6.0 (5.0-8.0) 12/05/17 11:05 Ur Specific [place] 1.015 (1.001-1.035) 12/05/17 11:05 Urine Protein Negative (NEGATIVE) 12/05/17 11:05 Urine Glucose (UA) Negative (NEGATIVE) 12/05/17 11:05 Urine Ketones Negative (NEGATIVE) 12/05/17 11:05 Urine Blood Negative (NEGATIVE) 12/05/17 11:05 Urine Nitrite Negative (NEGATIVE) 12/05/17 11:05 Urine Bilirubin Negative (NEGATIVE) 12/05/17 11:05 Urine Urobilinogen 4.0 e.u/dl mg/dL (0.2-1.0) 12/05/17 11:05 Ur Leukocyte Esterase Negative (NEGATIVE) 12/05/17 11:05 Urine WBC (Auto) <1 /hpf (3-5) 12/02/17 15:50 Urine RBC (Auto) 2 /hpf (0-3) 12/02/17 15:50 Ur Epithelial Cells Rare /HPF (FEW) 12/02/17 15:50 Calcium Oxalate Crystal Moderate /hpf (NONE SEEN) 12/02/17 15:50 Urine Bacteria Rare /hpf (NONE SEEN) 12/02/17 15:50 Urine Mucus Rare 12/02/17 15:50 RPR Titer Nonreactive (NONREACTIVE) 12/02/17 15:50 Assessment: 12/06/17 12:01 WITHDRAWAL SX Plan: CONTINUE DETOX APPLY BACITRACIN OINTMENT TO AFFECTED AREA
[2017-12-06] MEDS: IBUPROFEN 400 MG TABLET (FP) PO PRN (20:17)
[2017-12-06] MEDS ORDERED: ZOLPIDEM TARTRATE 5 MG TABLET PO PRN ×2 (22:00)
[2017-12-06] MEDS: THIAMINE HCL 100 MG TABLET (FP) PO SCH (22:27)
[2017-12-07] MEDS ORDERED: METHADONE HCL 5 MG TABLET (FOR DETOX USE ONLY) PO SCH (06:00)
--- NOTE | 2017-12-07 09:09 | DS ---
[facility] Detox Discharge Summary Admission Date: 12/02/17 Discharge Date: 12/07/17 - History Present History: Alcohol Dependence, Cocaine Dependence Additional Comments: DETOX COMPLETED. REFERRED TO REHAB TODAY. Pertinent Past History: SEE DX BELOW - Physical Exam Results Vital Signs: Vital Signs Temperature 97.4 F L 12/07/17 05:57 Pulse Rate 71 12/07/17 05:57 Respiratory Rate 20 12/07/17 05:57 Blood Pressure 152/94 12/07/17 05:57 O2 Sat by Pulse Oximetry (%) Pertinent Admission Physical Exam Findings: WITHDRAWAL SX Laboratory Last Values WBC 4.7 K/mm3 (4.0-10.0) 12/02/17 15:50 RBC 4.30 M/mm3 (4.00-5.60) 12/02/17 15:50 Hgb 13.7 GM/dL (11.7-16.9) 12/02/17 15:50 Hct 41.5 % (35.4-49) 12/02/17 15:50 MCV 96.5 fl (80-96) H 12/02/17 15:50 MCH 31.9 pg (25.7-33.7) 12/02/17 15:50 MCHC 33.0 g/dl (32.0-35.9) 12/02/17 15:50 RDW 14.6 % (11.9-15.9) D 12/02/17 15:50 Plt Count 121 K/MM3 (134-434) L 12/02/17 15:50 MPV 10.2 fl (7.5-11.1) 12/02/17 15:50 Sodium 139 mmol/L (136-145) 12/02/17 15:50 Potassium 4.3 mmol/L (3.5-5.1) 12/02/17 15:50 Chloride 104 mmol/L (98-107) 12/02/17 15:50 Carbon Dioxide 30 mmol/L (21-32) D 12/02/17 15:50 Anion Gap 5 (8-16) L 12/02/17 15:50 BUN 14 mg/dL (7-18) 12/02/17 15:50 Creatinine 0.9 mg/dL (0.7-1.3) 12/02/17 15:50 Creat Clearance w eGFR > 60 (>60) 12/02/17 15:50 Random Glucose 122 mg/dL (74-106) H 12/02/17 15:50 Calcium 8.2 mg/dL (8.5-10.1) L 12/02/17 15:50 Total Bilirubin 1.1 mg/dL (0.2-1.0) H D 12/02/17 15:50 AST 113 U/L (15-37) H D 12/02/17 15:50 ALT 37 U/L (12-78) D 12/02/17 15:50 Alkaline Phosphatase 619 U/L (45-117) H D 12/02/17 15:50 Total Protein 9.3 g/dl (6.4-8.2) H 12/02/17 15:50 Albumin 2.4 g/dl (3.4-5.0) L 12/02/17 15:50 Urine Color Yellow 12/05/17 11:05 Urine Appearance Clear 12/05/17 11:05 Urine pH 6.0 (5.0-8.0) 12/05/17 11:05 Ur Specific [place] 1.015 (1.001-1.035) 12/05/17 11:05 Urine Protein Negative (NEGATIVE) 12/05/17 11:05 Urine Glucose (UA) Negative (NEGATIVE) 12/05/17 11:05 Urine Ketones Negative (NEGATIVE) 12/05/17 11:05 Urine Blood Negative (NEGATIVE) 12/05/17 11:05 Urine Nitrite Negative (NEGATIVE) 12/05/17 11:05 Urine Bilirubin Negative (NEGATIVE) 12/05/17 11:05 Urine Urobilinogen 4.0 e.u/dl mg/dL (0.2-1.0) 12/05/17 11:05 Ur Leukocyte Esterase Negative (NEGATIVE) 12/05/17 11:05 Urine WBC (Auto) <1 /hpf (3-5) 12/02/17 15:50 Urine RBC (Auto) 2 /hpf (0-3) 12/02/17 15:50 Ur Epithelial Cells Rare /HPF (FEW) 12/02/17 15:50 Calcium Oxalate Crystal Moderate /hpf (NONE SEEN) 12/02/17 15:50 Urine Bacteria Rare /hpf (NONE SEEN) 12/02/17 15:50 Urine Mucus Rare 12/02/17 15:50 RPR Titer Nonreactive (NONREACTIVE) 12/02/17 15:50 - Treatment Hospital Course: Detox Protocol Followed, Detoxed Safely, Responded well, Discharged Condition Good, Rehab Referral Accepted Patient has Accepted a Rehab Referral to: [address] - Medication Discharge Medications: Ambulatory Orders Albuterol Sulfate Inhaler - [Ventolin HFA Inhaler -] 2 inh PO Q4H PRN #1 cartridge 12/15/15 - Diagnosis (1) Alcohol dependence with uncomplicated withdrawal Status: Acute (2) Asthma Status: Chronic (3) GERD (gastroesophageal reflux disease) Status: Chronic Qualifiers: Esophagitis presence: without esophagitis Qualified Code(s): K21.9 - Gastro -esophageal reflux disease without esophagitis (4) Hepatitis C Status: Chronic Qualifiers: Viral hepatitis chronicity: unspecified Hepatic coma status: without hepatic coma Qualified Code(s): B19.20 - Unspecified viral hepatitis C without hepatic coma (5) Nicotine dependence Status: Chronic Qualifiers: Nicotine product type: cigarettes Substance use status: uncomplicated Qualified Code(s): F17.210 - Nicotine dependence, cigarettes, uncomplicated (6) Acquired immune deficiency syndrome (AIDS) Status: Chronic (7) Cocaine dependence Status: Acute Qualifiers: Substance use status: uncomplicated Qualified Code(s): F14.20 - Cocaine dependence, uncomplicated (8) History of hypertension Status: Chronic - AMA Did Patient Leave Against Medical Advice: No
[2017-12-07 09:10] VITALS: BP 133/96; PULSE 78; TEMP 97
[2017-12-07] MEDS: NICOTINE 21 MG/24 HOURS TOPICAL PATCH TD SCH (10:36)
[2017-12-07] MEDS: HYDROCORTISONE 1% TOPICAL CREAM 30 GM TUBE TP SCH (10:36)
[2017-12-07] MEDS: PRENATAL VITAMINS W/ FOLIC ACID TABLET (FP) PO SCH (10:36)
[2017-12-07] MEDS: guaiFENesin/D-METHORPHAN HB 10 ML UNIT-DOSE CUPS PO PRN (10:38)
[2017-12-07] MEDS: NICOTINE POLACRILEX 2 MG GUM BUC PRN (10:38)
[2017-12-07] MEDS: BACITRACIN 0.9 GM PACKET TP SCH (10:39)
== END 2017-12-07 13:04 | disposition other institution (70) | DRG 773 ==
LOC: YASAS 09:42 → Y6N 15:40 → Y3N 17:15
PROVIDERS: ADMIT Internal Medicine; ATTEND Internal Medicine
PROC: HZ2ZZZZ Detoxification Services for Substance Abuse Treatment (ICD-10-PCS; principal; 2017-12-02)
DX: F11.23 Opioid dependence with withdrawal (principal); F10.230 Alcohol dependence with withdrawal, uncomplicated; F14.20 Cocaine dependence, uncomplicated; F17.210 Nicotine dependence, cigarettes, uncomplicated; F32.9 Major depressive disorder, single episode, unspecified; B20 Human immunodeficiency virus [HIV] disease; B19.20 Unspecified viral hepatitis C without hepatic coma; J45.909 Unspecified asthma, uncomplicated; K21.9 Gastro-esophageal reflux disease without esophagitis; I10 Essential (primary) hypertension; R01.1 Cardiac murmur, unspecified; R94.5 Abnormal results of liver function studies; R82.90 Unspecified abnormal findings in urine; Z88.1 Allergy status to other antibiotic agents; Z87.438 Personal history of other diseases of male genital organs
CPT/HCPCS: 36415; 80053; 81003; 81015; 85027; 86593; 93005; 93010; 94640

== ENCOUNTER 2017-12-07 12:45 | Inpatient (IN) | payer OTHER ==
[2017-12-07] MEDS ORDERED: ACETAMINOPHEN 325 MG TABLET (FP) PO PRN (13:36)
[2017-12-07] MEDS ORDERED: MENTHOL/PHENOL 1 EACH UD MM PRN (13:36)
[2017-12-07] MEDS ORDERED: IBUPROFEN 400 MG TABLET (FP) PO PRN (13:36)
[2017-12-07] MEDS ORDERED: MAGNESIUM HYDROX 2400MG/30ML ORAL SUSPENSION 30 ML CUP PO PRN (13:36)
[2017-12-07] MEDS ORDERED: LOPERAMIDE HCL 2 MG CAPSULE PO PRN (13:36)
[2017-12-07] MEDS ORDERED: MAGNESIUM CITRATE 300 ML BOTTLE PO PRN (13:36)
[2017-12-07] MEDS ORDERED: P-EPHED 60MG/TRIPROLIDI 2.5MG TABLET PO PRN (13:36)
[2017-12-07] MEDS ORDERED: MAG HYDROX/AL HYDROX/SIMETH 30 ML UNIT-DOSE CUP PO PRN (13:36)
[2017-12-07] MEDS ORDERED: ALBUTEROL SO4 2.5/IPRATROPIUM 0.5 INH SOL 3 ML VIAL.NEB. NEB PRN (13:37)
--- NOTE | 2017-12-07 13:38 | HP ---
[facility] Rehab Assess/Revision - Admission History Admitted to Rehab [facility]: [facility] Date of Admission to Rehab: 12/07/2017 - Vital signs Vital Signs: revewied, labs reveiwed from detox medically stable malnourised - Findings Detox History & Physical reviewed: Yes Concur with findings: Yes Inpatient Rehab Admission - Initial Determination Are CD services needed?: Yes Free of communicable disease: Yes Not in need of hospitalization: Yes - Rehab Admission Criteria Comorbidities: Yes Patient is meeting Inpatient Rehab admission criteria:: Yes
[2017-12-07] MEDS: ALBUTEROL SO4 18 GM HFA INHALER IH PRN (17:36)
[2017-12-07] MEDS: guaiFENesin/D-METHORPHAN HB 10 ML UNIT-DOSE CUPS PO PRN (17:36)
[2017-12-07] MEDS ORDERED: DOXYCYCLINE HYCLATE 100 MG CAPSULE PO SCH (19:15)
[2017-12-07] MEDS: THIAMINE HCL 100 MG TABLET (FP) PO SCH (21:44)
--- NOTE | 2017-12-07 22:24 | PN ---
S Progress Note (SOAP) Subjective: Patient reports cough x 1 month, generalized weakness, body ache, malaise / fatigue Objective: V/S BP 138/93, P108, T98.3 T98.3 Patient AOx3, self directing, THROAT: Normal, no erythema, Tonsillar exudate NECK: Cervical lymph nodes: mild Anterior adenopathy Bilaterally LUNGS: + cough and Scattered rhonchi through out HEART: Normal rate and rythm Assessment: 12/07/17 22:24 atypical pneumonia Plan: Increase Fluids Continue to monitor Doxy 100mg BID x 7 days
--- NOTE | 2017-12-07 23:44 | PN ---
S Progress Note Note: Patient stable. Patient to start on Suboxone 2mg s/l film qd, starting 12/08/17 at 10AM. Dose will be adjusted when patient has decided on out patient clinic for after care . Continue to monitor as needed.
[2017-12-07] MEDS ORDERED: hydrOXYzine PAMOATE 50 MG CAPSULE (FP) PO ONE (23:45)
[2017-12-08] MEDS ORDERED: BUPRENORPHINE/NALOXONE 2 MG/0.5 MG FILM PACKET SL SCH (10:00)
[2017-12-08] MEDS: PRENATAL VITAMINS W/ FOLIC ACID TABLET (FP) PO SCH (10:39)
[2017-12-08] MEDS: DOXYCYCLINE HYCLATE 100 MG TABLET PO SCH ×2 (10:39→17:53)
[2017-12-08] MEDS: guaiFENesin/D-METHORPHAN HB 10 ML UNIT-DOSE CUPS PO PRN (10:40)
[2017-12-08] MEDS ORDERED: FLU VACCINE QUAD 60 MCG/0.5 ML (MDV 17-18) IM ONE (12:00)
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
--- NOTE | 2017-12-08 16:15 | PN ---
[facility] Progress Note (SOAP) Subjective: C/o of weakness with moderate improvement from yesterday Objective: 12/08/17 16:15 Gertrudis through out Plan: Contonie abx Continue Neb PRN Increase Fluids Continue Suboxone
[2017-12-08] MEDS: THIAMINE HCL 100 MG TABLET (FP) PO SCH (21:47)
[2017-12-08] MEDS ORDERED: SUVOREXANT 10 MG TABLET PO PRN (22:00)
[2017-12-09] MEDS: buPROPion HCL 100 MG TABLET PO SCH (06:06)
[2017-12-09] MEDS: guaiFENesin/D-METHORPHAN HB 10 ML UNIT-DOSE CUPS PO PRN (06:45)
[2017-12-09] MEDS: PRENATAL VITAMINS W/ FOLIC ACID TABLET (FP) PO SCH (10:38)
[2017-12-09] MEDS ORDERED: DOXYCYCLINE HYCLATE 100 MG TABLET PO ONE (11:03)
[2017-12-09] MEDS: BUPRENORPHINE/NALOXONE 2 MG/0.5 MG FILM PACKET SL SCH (11:09)
[2017-12-09] MEDS: DOXYCYCLINE HYCLATE 100 MG TABLET PO SCH (17:09)
[2017-12-09] MEDS: THIAMINE HCL 100 MG TABLET (FP) PO SCH (21:51)
[2017-12-10] MEDS: buPROPion HCL 100 MG TABLET PO SCH (06:58)
[2017-12-10] MEDS: BUPRENORPHINE/NALOXONE 2 MG/0.5 MG FILM PACKET SL SCH (10:50)
[2017-12-10] MEDS: PRENATAL VITAMINS W/ FOLIC ACID TABLET (FP) PO SCH (10:50)
[2017-12-10] MEDS: DOXYCYCLINE HYCLATE 100 MG TABLET PO SCH ×2 (10:50→17:13)
[2017-12-10] MEDS ORDERED: NICOTINE POLACRILEX 2 MG GUM BUC PRN (11:46)
[2017-12-10] MEDS: THIAMINE HCL 100 MG TABLET (FP) PO SCH (22:22)
[2017-12-11] MEDS: buPROPion HCL 100 MG TABLET PO SCH (06:40)
[2017-12-11 07:06] VITALS: TEMP 97.9
[2017-12-11] MEDS: PRENATAL VITAMINS W/ FOLIC ACID TABLET (FP) PO SCH (11:00)
[2017-12-11] MEDS: DOXYCYCLINE HYCLATE 100 MG TABLET PO SCH ×2 (11:00→17:09)
[2017-12-11] MEDS: BUPRENORPHINE/NALOXONE 2 MG/0.5 MG FILM PACKET SL SCH (11:00)
[2017-12-11] MEDS: THIAMINE HCL 100 MG TABLET (FP) PO SCH (22:11)
[2017-12-12] MEDS: buPROPion HCL 100 MG TABLET PO SCH (06:36)
[2017-12-12 07:23] VITALS: BP 121/83; PULSE 91
[2017-12-12] MEDS: guaiFENesin/D-METHORPHAN HB 10 ML UNIT-DOSE CUPS PO PRN (10:58)
[2017-12-12] MEDS: BUPRENORPHINE/NALOXONE 2 MG/0.5 MG FILM PACKET SL SCH (10:58)
[2017-12-12] MEDS: ALBUTEROL SO4 18 GM HFA INHALER IH PRN (10:59)
[2017-12-12] MEDS: PRENATAL VITAMINS W/ FOLIC ACID TABLET (FP) PO SCH (10:59)
[2017-12-12] MEDS: DOXYCYCLINE HYCLATE 100 MG TABLET PO SCH (10:59)
[2017-12-12] MEDS ORDERED: AZITHROMYCIN 1 GM PACKET PO ONE (11:44)
--- NOTE | 2017-12-12 11:57 | PN ---
S Progress Note (SOAP) Subjective: kathy insisting on green pill for atypical pneumonia, he does not want doxycycline because it is causing him diarrhea, does not want increase in suboxone, very anxieous and agiatated stating he will leave if we cannot find the green pill, we are currently unaalbe to locate green pill. kathy also has allergy to erythromycin so zpak relatively contraindicated. Objective: 12/12/17 11:55 Vital Signs - 24 hr 12/12/17 12/12/17 12/12/17 00:30 03:30 07:23 Temperature 97.9 F Pulse Rate 91 H Respiratory 16 16 18 Rate Blood Pressure 121/83 labs revewied 12/12/17 11:56 chest congested, no SOB,no wheeze, medically stable Assessment: 12/12/17 11:56 broncitis, unablet o locate green pill, patient is not willing to take anything else at this time, 12/12/17 11:57 d/c doxycycline
[2017-12-12] MEDS ORDERED: hydrOXYzine PAMOATE 50 MG CAPSULE (FP) PO ONE (12:25)
--- NOTE | 2017-12-12 13:33 | PN ---
Psychiatric Progress Note Vital Signs: Vital Signs Period Temp Pulse Resp BP Sys/Blank Pulse Ox Last 24 Hr 97.9 F 91 16-18 121/83 Date of Session: 12/12/17 Chief Complaint:: "i need my green pills" HPI: patient is addressing alcohol, cocaine, benzo, opioid dependence comorbid bipolar disorder. Current Medications: Active Medications Generic Name Dose Route Start Last Admin Trade Name Freq PRN Reason Stop Dose Admin Acetaminophen 650 mg 12/07/17 13:36 Tylenol - PO Q4H PRN FEVER Al Hydroxide/Mg Hydroxide 30 ml 12/07/17 13:36 Mylanta Oral Suspension - PO Q6H PRN DYSPEPSIA Albuterol Sulfate 2 puff 12/07/17 13:37 12/12/17 10:59 Ventolin Hfa Inhaler - IH 2 puff Q4H PRN Administration ASTHMA Albuterol/Ipratropium 1 amp 12/07/17 13:37 Duoneb - NEB Q4H PRN SHORTNESS OF BREATH Buprenorphine/Naloxone 2 each 12/13/17 10:00 Suboxone 2mg/0.5mg Sl Film - SL 12/19/17 09:59 DAILY CATARINO Bupropion HCl 100 mg 12/09/17 07:00 12/12/17 06:36 Wellbutrin - PO Not Given AM CATARINO Eucalyptus/Menthol/Phenol/Sorbitol 1 each 12/07/17 13:36 Cepastat Lozenge - MM Q4H PRN SORE THROAT Guaifenesin 10 ml 12/07/17 13:36 12/12/17 10:58 Robitussin Dm - PO 10 ml Q6H PRN Administration COUGH Hydroxyzine Pamoate 50 mg 12/13/17 12:10 Vistaril - PO 12/13/17 12:11 DAILY ONE Ibuprofen 400 mg 12/07/17 13:36 Motrin - PO Q6H PRN Pain Level 4-6 Loperamide HCl 4 mg 12/07/17 13:36 Imodium - PO Q6H PRN DIARRHEA Magnesium Citrate 300 ml 12/07/17 13:36 Citroma - PO Q48H PRN CONSTIPATION Magnesium Hydroxide 30 ml 12/07/17 13:36 Milk Of Magnesia - PO DAILY PRN CONSTIPATION Nicotine Polacrilex 2 mg 12/10/17 11:46 12/11/17 06:40 Nicorette Gum - BUC 2 mg Q2H PRN Administration NICOTINE REPLACEMENT RX Multivit/Folic Acid/Iron 1 tab 12/08/17 10:00 12/12/17 10:59 Vitamins (Sjr) - PO Not Given DAILY CATARINO Pseudoephedrine/Triprolidine 1 combo 12/07/17 13:36 Actifed - PO TID PRN NASAL CONGESTION Thiamine HCl 100 mg 12/07/17 22:00 12/11/17 22:11 Vitamin B1 - PO Not Given HS CATARINO Current Side Effect: No Lab tests ordered: No Lab tests reviewed: Yes Provider note:: Patient was seen toay, he reported that he needs a green pills, states that it's not a wellbutrin he was on in his last treatment at [facility] on 01/21, "it's a different color" . patient visibly upset and states he does not want to continue with "this wellbutrin which is not a green color" and he is leaving ama , then he was talking about antibiotics he is on for bronchitis, which is not a green color, later he met with clinical electrician supervisor airplane Marcus Awan and Dr. Low Rodriguez for the same reaons(please see notes), he reported he is leaving this place and does not need any medications. Intervention to prevent patient from signing ama failed and patient is adamant to leave. Total face to face time:: 15 Mental Status Exam - Mental Status Exam Alert and Oriented to: Time, Place, Person Cognitive Function: Grossly Intact Patient Appearance: Well Groomed Mood: Irritable Affect: Mood Congruent Patient Behavior: Cooperative Speech Pattern: Clear, Appropriate Voice Loudness: Normal Thought Process: Intact Thought Disorder: Not Present Hallucinations: Denies Suicidal Ideation: Denies Homicidal Ideation: Denies Insight/Judgement: Fair Sleep: Fair Appetite: Fair Muscle strength/Tone: Normal Gait/Station: Normal Psychiatric Treatment Plan - Problem List (1) Alcohol dependence Current Visit: No (2) Benzodiazepine dependence Current Visit: No (3) Cocaine dependence Current Visit: No Qualifiers: Substance use status: uncomplicated Qualified Code(s): F14.20 - Cocaine dependence, uncomplicated (4) Opioid dependence Current Visit: No (5) Marijuana abuse Current Visit: No (6) Nicotine dependence Current Visit: No Qualifiers: Nicotine product type: cigarettes Substance use status: uncomplicated Qualified Code(s): F17.210 - Nicotine dependence, cigarettes, uncomplicated (7) Bipolar disorder Current Visit: No Comment: By history.
[2017-12-13] MEDS ORDERED: BUPRENORPHINE/NALOXONE 2 MG/0.5 MG FILM PACKET SL SCH ×2 (10:00)
[2017-12-13] MEDS ORDERED: hydrOXYzine PAMOATE 50 MG CAPSULE (FP) PO ONE (12:10)
== END 2017-12-12 13:00 | disposition left against medical advice (07) | DRG 770 ==
LOC: YASAS 12:45 → Y5N 12:46
PROVIDERS: ADMIT Psychiatry & Neurology Psychiatry; ATTEND Psychiatry & Neurology Psychiatry
PROC: HZ42ZZZ Group Counseling for Substance Abuse Treatment, Cognitive-Behavioral (ICD-10-PCS; principal; 2017-12-07)
DX: F11.20 Opioid dependence, uncomplicated (principal); F13.20 Sedative, hypnotic or anxiolytic dependence, uncomplicated; F10.20 Alcohol dependence, uncomplicated; F14.20 Cocaine dependence, uncomplicated; F12.20 Cannabis dependence, uncomplicated; F17.210 Nicotine dependence, cigarettes, uncomplicated; F31.9 Bipolar disorder, unspecified; J18.9 Pneumonia, unspecified organism; I10 Essential (primary) hypertension; B18.2 Chronic viral hepatitis C; G62.9 Polyneuropathy, unspecified; K21.9 Gastro-esophageal reflux disease without esophagitis; J45.909 Unspecified asthma, uncomplicated; Z21 Asymptomatic human immunodeficiency virus [HIV] infection status

== ENCOUNTER 2018-01-31 13:59 | Inpatient (IN) | payer OTHER ==
[2018-01-31 15:53] VITALS: BMI 20.9
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
[2018-01-31] MEDS ORDERED: MAG HYDROX/AL HYDROX/SIMETH 30 ML UNIT-DOSE CUP PO PRN (16:56)
[2018-01-31] MEDS ORDERED: NICOTINE POLACRILEX 4 MG GUM BC PRN (16:56)
[2018-01-31] MEDS ORDERED: P-EPHED 60MG/TRIPROLIDI 2.5MG TABLET PO PRN (16:56)
[2018-01-31] MEDS ORDERED: ACETAMINOPHEN 325 MG TABLET (FP) PO PRN (16:56)
[2018-01-31] MEDS ORDERED: MENTHOL/PHENOL 1 EACH UD MM PRN (16:56)
[2018-01-31] MEDS ORDERED: MAGNESIUM HYDROX 2400MG/30ML ORAL SUSPENSION 30 ML CUP PO PRN (16:56)
[2018-01-31] MEDS ORDERED: MAGNESIUM CITRATE 300 ML BOTTLE PO PRN (16:56)
[2018-01-31] MEDS ORDERED: LOPERAMIDE HCL 2 MG CAPSULE PO PRN (16:56)
[2018-01-31] MEDS ORDERED: ALBUTEROL SO4 18 GM HFA INHALER IH PRN (17:09)
[2018-01-31] MEDS ORDERED: diazePAM 5 MG TABLET PO ONE (18:00)
[2018-01-31] MEDS ORDERED: METHADONE HCL 10 MG TABLET (FOR DETOX USE ONLY) PO ONE ×2 (18:00→23:00)
[2018-01-31] MEDS: NICOTINE 21 MG/24 HOURS TOPICAL PATCH TD SCH (18:49)
[2018-01-31] MEDS: IBUPROFEN 400 MG TABLET (FP) PO PRN (20:57)
[2018-01-31 21:25] LABS: URINE APPEARANCE CLEAR; URINE BILIRUBIN NEGATIVE (<2.0 mg/dL); URINE BLOOD NEGATIVE (NEGATIVE); URINE COLOR YELLOW; URINE GLUCOSE (UA) NEGATIVE (NEGATIVE); URINE KETONE NEGATIVE (NEGATIVE); URINE LEUK ESTERASE NEGATIVE (NEGATIVE); URINE NITRITE NEGATIVE (NEGATIVE); URINE PROTEIN NEGATIVE (NEGATIVE)
[2018-01-31] MEDS ORDERED: ALBUTEROL SO4 0.083% IH SOL 2.5 MG/3 ML VIAL.NEB. NEB PRN (22:12)
[2018-01-31] MEDS: TOLNAFTATE 1% CREAM 15 GM TUBE TP SCH (22:54)
[2018-01-31] MEDS: THIAMINE HCL 100 MG TABLET (FP) PO SCH (22:54)
[2018-01-31] MEDS: diazePAM 5 MG TABLET PO SCH (22:55)
[2018-01-31] MEDS: MELATONIN 5 MG TABLETS PO PRN (22:55)
[2018-02-01] MEDS: diazePAM 5 MG TABLET PO PRN ×2 (01:37→10:36)
[2018-02-01] MEDS: diazePAM 5 MG TABLET PO SCH ×3 (05:43→22:19)
--- NOTE | 2018-02-01 09:48 | EKG ---
Test Reason : Blood Pressure : / mmHG Vent. Rate : 071 BPM Atrial Rate : 071 BPM P-R Int : 140 ms QRS Dur : 092 ms QT Int : 404 ms P-R-T Axes : 078 -18 018 degrees QTc Int : 439 ms NORMAL SINUS RHYTHM MINIMAL VOLTAGE CRITERIA FOR LVH, MAY BE NORMAL VARIANT BORDERLINE ECG WHEN COMPARED WITH ECG OF 02-DEC-2017 17:58, NO SIGNIFICANT CHANGE WAS FOUND Confirmed by LEONOR VELIZ, SHAMEKA ([id number]) on 02/01/2018 9:48:24 AM Referred By: Confirmed By:SHAMEKA GALVEZ MD
[2018-02-01] MEDS ORDERED: METHADONE HCL 10 MG TABLET (FOR DETOX USE ONLY) PO SCH (10:00)
[2018-02-01 10:17] LABS: CHLORIDE 102 mmol/L (98-107); POTASSIUM 4.2 mmol/L (3.5-5.1); SODIUM 134 mmol/L (136-145)
[2018-02-01 10:20] LABS: HEMOGLOBIN 12.6 GM/dL (11.7-16.9); MCH 31.9 pg (25.7-33.7); MEAN CELL VOLUME 96.5 fl (80-96); MEAN PLT VOLUME 8.4 fl (7.5-11.1); PLATELET COUNT 129 K/MM3 (134-434); RBC 3.94 M/mm3 (4.00-5.60); WHITE BLOOD COUNT 2.9 K/mm3 (4.0-10.0)
[2018-02-01 10:26] LABS: ALK PHOS 554 U/L (45-117); ANION GAP 5 (8-16); BILIRUBIN,TOTAL 0.6 mg/dL (0.2-1.0); BLOOD UREA NITROGEN 13 mg/dL (7-18); CALCIUM 8.2 mg/dL (8.5-10.1); CO2 27 mmol/L (21-32); CREATININE 0.7 mg/dL (0.7-1.3); GLUCOSE,RANDOM 57 mg/dL (74-106); SGOT/AST 85 U/L (15-37); SGPT/ALT 25 U/L (12-78); TOT PROT 8.6 g/dl (6.4-8.2)
[2018-02-01] MEDS: TOLNAFTATE 1% CREAM 15 GM TUBE TP SCH ×2 (10:36→22:21)
[2018-02-01] MEDS: PRENATAL VITAMINS W/ FOLIC ACID TABLET (FP) PO SCH (10:36)
[2018-02-01] MEDS: NICOTINE 21 MG/24 HOURS TOPICAL PATCH TD SCH (10:36)
[2018-02-01] MEDS: guaiFENesin/D-METHORPHAN HB 10 ML UNIT-DOSE CUPS PO PRN ×2 (10:39→23:02)
--- NOTE | 2018-02-01 11:28 | PN ---
[facility] CIWA - CIWA Score Nausea/Vomitin-No Nausea/No Vomiting Muscle Tremors: 4-Moderate,w/Arms Extend Anxiety: 4-Mod. Anxious/Guarded Agitation: 4-Moderately Restless Paroxysmal Sweats: 1-Minimal Palms Moist Orientation: 0-Oriented Tacttile Disturbances: 3-Moderate Itch/Numb/Burn Auditory Disturbances: 0-None Visual Disturbances: 0-None Headache: 0-None Present CIWA-Ar Total Score: 16 S COWS - Scale Resting Pulse: 1= SD 81-100 Sweatin= Chills/Flushing Restless Observation: 3= Extraneous Movement Pupil Size: 0= Normal to Room Light Bone or Joint Aches: 4=Acute Joint/Muscle Pain Runny Nose/ Eye Tearin= Nasal Congestion GI Upset > 30mins: 1= Stomach Cramp Tremor Observation of Outstretched Hands: 1= Tremor [place], Not Seen Yawning Observation: 1= 1-2x During Session Anxiety or Irritability: 2=Irritable/Anxious Goose Flesh Skin: 0=Smooth Skin COWS Score: 15 [facility] Progress Note (SOAP) Subjective: TREMORS,ANXIETY, DRY, SCALY ITCHY FEET. SWEATS AND INTERMITTENT SLEEP. Objective: 02/01/18 11:27 Vital Signs Temperature 96 F L 02/01/18 09:27 Pulse Rate 82 02/01/18 10:00 Respiratory Rate 20 02/01/18 10:00 Blood Pressure 141/86 02/01/18 09:27 O2 Sat by Pulse Oximetry (%) Laboratory Last Values WBC 2.9 K/mm3 (4.0-10.0) L D 02/01/18 07:30 RBC 3.94 M/mm3 (4.00-5.60) L 02/01/18 07:30 Hgb 12.6 GM/dL (11.7-16.9) 02/01/18 07:30 Hct 38.0 % (35.4-49) 02/01/18 07:30 MCV 96.5 fl (80-96) H 02/01/18 07:30 MCH 31.9 pg (25.7-33.7) 02/01/18 07:30 MCHC 33.0 g/dl (32.0-35.9) 02/01/18 07:30 RDW 15.0 % (11.9-15.9) 02/01/18 07:30 Plt Count 129 K/MM3 (134-434) L 02/01/18 07:30 MPV 8.4 fl (7.5-11.1) D 02/01/18 07:30 Sodium 134 mmol/L (136-145) L 02/01/18 07:30 Potassium 4.2 mmol/L (3.5-5.1) 02/01/18 07:30 Chloride 102 mmol/L (98-107) 02/01/18 07:30 Carbon Dioxide 27 mmol/L (21-32) 02/01/18 07:30 Anion Gap 5 (8-16) L 02/01/18 07:30 BUN 13 mg/dL (7-18) 02/01/18 07:30 Creatinine 0.7 mg/dL (0.7-1.3) D 02/01/18 07:30 Creat Clearance w eGFR > 60 (>60) 02/01/18 07:30 Random Glucose 57 mg/dL (74-106) L D 02/01/18 07:30 Calcium 8.2 mg/dL (8.5-10.1) L 02/01/18 07:30 Total Bilirubin 0.6 mg/dL (0.2-1.0) D 02/01/18 07:30 AST 85 U/L (15-37) H D 02/01/18 07:30 ALT 25 U/L (12-78) D 02/01/18 07:30 Alkaline Phosphatase 554 U/L (45-117) H 02/01/18 07:30 Total Protein 8.6 g/dl (6.4-8.2) H 02/01/18 07:30 Albumin 2.0 g/dl (3.4-5.0) L 02/01/18 07:30 Urine Color Yellow 01/31/18 20:00 Urine Appearance Clear 01/31/18 20:00 Urine pH 6.0 (5.0-8.0) 01/31/18 20:00 Ur Specific [place] 1.013 (1.001-1.035) 01/31/18 20:00 Urine Protein Negative (NEGATIVE) 01/31/18 20:00 Urine Glucose (UA) Negative (NEGATIVE) 01/31/18 20:00 Urine Ketones Negative (NEGATIVE) 01/31/18 20:00 Urine Blood Negative (NEGATIVE) 01/31/18 20:00 Urine Nitrite Negative (NEGATIVE) 01/31/18 20:00 Urine Bilirubin Negative (<2.0 mg/dL) 01/31/18 20:00 Urine Urobilinogen 2.0 mg/dL (0.2-1.0) 01/31/18 20:00 Ur Leukocyte Esterase Negative (NEGATIVE) 01/31/18 20:00 Assessment: 02/01/18 11:27 WITHDRAWAL SX Plan: CONTINUE DETOX WARM WATER AND BETADINE SOLUTION FOOT SOAKS DIRECTED.
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
[2018-02-01] MEDS ORDERED: ZOLPIDEM TARTRATE 5 MG TABLET PO PRN (22:00)
[2018-02-01] MEDS: THIAMINE HCL 100 MG TABLET (FP) PO SCH (22:19)
[2018-02-01] MEDS: IBUPROFEN 400 MG TABLET (FP) PO PRN (22:20)
[2018-02-01] MEDS: MELATONIN 5 MG TABLETS PO PRN (22:20)
[2018-02-02] MEDS: guaiFENesin/D-METHORPHAN HB 10 ML UNIT-DOSE CUPS PO PRN ×2 (08:12→19:54)
[2018-02-02] MEDS: NICOTINE 21 MG/24 HOURS TOPICAL PATCH TD SCH (10:20)
[2018-02-02] MEDS: diazePAM 5 MG TABLET PO SCH ×2 (10:20→22:45)
[2018-02-02] MEDS: PRENATAL VITAMINS W/ FOLIC ACID TABLET (FP) PO SCH (10:20)
[2018-02-02] MEDS: TOLNAFTATE 1% CREAM 15 GM TUBE TP SCH ×2 (10:20→22:46)
[2018-02-02] MEDS: METHADONE HCL 5 MG TABLET (FOR DETOX USE ONLY) PO SCH (10:20)
--- NOTE | 2018-02-02 15:39 | PN ---
[facility] CIWA - CIWA Score Nausea/Vomitin-No Nausea/No Vomiting Muscle Tremors: 4-Moderate,w/Arms Extend Anxiety: 4-Mod. Anxious/Guarded Agitation: 4-Moderately Restless Paroxysmal Sweats: 1-Minimal Palms Moist Orientation: 0-Oriented Tacttile Disturbances: 3-Moderate Itch/Numb/Burn Auditory Disturbances: 0-None Visual Disturbances: 0-None Headache: 0-None Present CIWA-Ar Total Score: 16 [facility] COWS - Scale Resting Pulse: 1= [place] 81-100 Sweatin= Chills/Flushing Restless Observation: 3= Extraneous Movement Pupil Size: 0= Normal to Room Light Bone or Joint Aches: 4=Acute Joint/Muscle Pain Runny Nose/ Eye Tearin= Nasal Congestion GI Upset > 30mins: 0= None Tremor Observation of Outstretched Hands: 2= Slight Tremor Visible Yawning Observation: 1= 1-2x During Session Anxiety or Irritability: 2=Irritable/Anxious Goose Flesh Skin: 0=Smooth Skin COWS Score: 15 S Progress Note (SOAP) Subjective: ANXIETY,SWEATS,SLIGHT TREMORS. OOB WITH STEADY GAIT USING CANE. Objective: 02/02/18 15:38 Vital Signs Temperature 95.5 F L 02/02/18 13:27 Pulse Rate 93 H 02/02/18 13:27 Respiratory Rate 18 02/02/18 13:27 Blood Pressure 136/95 02/02/18 13:27 O2 Sat by Pulse Oximetry (%) Laboratory Last Values WBC 2.9 K/mm3 (4.0-10.0) L D 02/01/18 07:30 RBC 3.94 M/mm3 (4.00-5.60) L 02/01/18 07:30 Hgb 12.6 GM/dL (11.7-16.9) 02/01/18 07:30 Hct 38.0 % (35.4-49) 02/01/18 07:30 MCV 96.5 fl (80-96) H 02/01/18 07:30 MCH 31.9 pg (25.7-33.7) 02/01/18 07:30 MCHC 33.0 g/dl (32.0-35.9) 02/01/18 07:30 RDW 15.0 % (11.9-15.9) 02/01/18 07:30 Plt Count 129 K/MM3 (134-434) L 02/01/18 07:30 MPV 8.4 fl (7.5-11.1) D 02/01/18 07:30 Sodium 134 mmol/L (136-145) L 02/01/18 07:30 Potassium 4.2 mmol/L (3.5-5.1) 02/01/18 07:30 Chloride 102 mmol/L (98-107) 02/01/18 07:30 Carbon Dioxide 27 mmol/L (21-32) 02/01/18 07:30 Anion Gap 5 (8-16) L 02/01/18 07:30 BUN 13 mg/dL (7-18) 02/01/18 07:30 Creatinine 0.7 mg/dL (0.7-1.3) D 02/01/18 07:30 Creat Clearance w eGFR > 60 (>60) 02/01/18 07:30 Random Glucose 57 mg/dL (74-106) L D 02/01/18 07:30 Calcium 8.2 mg/dL (8.5-10.1) L 02/01/18 07:30 Total Bilirubin 0.6 mg/dL (0.2-1.0) D 02/01/18 07:30 AST 85 U/L (15-37) H D 02/01/18 07:30 ALT 25 U/L (12-78) D 02/01/18 07:30 Alkaline Phosphatase 554 U/L (45-117) H 02/01/18 07:30 Total Protein 8.6 g/dl (6.4-8.2) H 02/01/18 07:30 Albumin 2.0 g/dl (3.4-5.0) L 02/01/18 07:30 Urine Color Yellow 01/31/18 20:00 Urine Appearance Clear 01/31/18 20:00 Urine pH 6.0 (5.0-8.0) 01/31/18 20:00 Ur Specific [place] 1.013 (1.001-1.035) 01/31/18 20:00 Urine Protein Negative (NEGATIVE) 01/31/18 20:00 Urine Glucose (UA) Negative (NEGATIVE) 01/31/18 20:00 Urine Ketones Negative (NEGATIVE) 01/31/18 20:00 Urine Blood Negative (NEGATIVE) 01/31/18 20:00 Urine Nitrite Negative (NEGATIVE) 01/31/18 20:00 Urine Bilirubin Negative (<2.0 mg/dL) 01/31/18 20:00 Urine Urobilinogen 2.0 mg/dL (0.2-1.0) 01/31/18 20:00 Ur Leukocyte Esterase Negative (NEGATIVE) 01/31/18 20:00 RPR Titer Nonreactive (NONREACTIVE) 02/01/18 07:30 LABS NOTED Assessment: 02/02/18 15:38 WITHDRAWAL SX Plan: CONTINUE DETOX REPEAT CMP AND CBC IN AM
[2018-02-02] MEDS: IBUPROFEN 400 MG TABLET (FP) PO PRN (19:53)
[2018-02-02] MEDS: THIAMINE HCL 100 MG TABLET (FP) PO SCH (22:45)
[2018-02-03] MEDS: IBUPROFEN 400 MG TABLET (FP) PO PRN (03:05)
[2018-02-03] MEDS: guaiFENesin/D-METHORPHAN HB 10 ML UNIT-DOSE CUPS PO PRN (03:08)
[2018-02-03] MEDS: TOLNAFTATE 1% CREAM 15 GM TUBE TP SCH (10:35)
[2018-02-03] MEDS: PRENATAL VITAMINS W/ FOLIC ACID TABLET (FP) PO SCH (10:35)
[2018-02-03] MEDS: METHADONE HCL 5 MG TABLET (FOR DETOX USE ONLY) PO SCH (10:35)
[2018-02-03] MEDS: diazePAM 5 MG TABLET PO SCH (10:36)
[2018-02-03] MEDS: NICOTINE 21 MG/24 HOURS TOPICAL PATCH TD SCH (10:36)
[2018-02-03 13:38] VITALS: BP 123/90; PULSE 81; TEMP 97.7
--- NOTE | 2018-02-03 15:19 | PN ---
[facility] Progress Note (SOAP) Subjective: PT DECLINE TO CONTINUE WITH DETOX(PLEASE SEE NURSING NOTE). NURSE DOLLY INFORMED CUSTOMER SERVICER OF PATIENT'S INTENTION AND PT DECLINED TO BE SPOKEN TO FURTHER AND INSIST ON LEAVING. PT WAS ENCOURAGED AND SPOKEN TO BY HIS NURSE AND COUNSELOR BUT DECLINED TO STAY TO RECIEVE FURTHER CARE. PT STATED HE WILL FOLLOW UP WITH THE [facility] IN [place] TO REMOVE THE 3 STITCHES THEY PUT ON HIS LEFT UPPER EYEBROW. ALERT O X 3. Objective: 02/03/18 15:22 Vital Signs Temperature 97.7 F 02/03/18 13:37 Pulse Rate 81 02/03/18 13:37 Respiratory Rate 18 02/03/18 13:37 Blood Pressure 123/90 02/03/18 13:37 O2 Sat by Pulse Oximetry (%) Laboratory Last Values WBC 2.9 K/mm3 (4.0-10.0) L D 02/01/18 07:30 RBC 3.94 M/mm3 (4.00-5.60) L 02/01/18 07:30 Hgb 12.6 GM/dL (11.7-16.9) 02/01/18 07:30 Hct 38.0 % (35.4-49) 02/01/18 07:30 MCV 96.5 fl (80-96) H 02/01/18 07:30 MCH 31.9 pg (25.7-33.7) 02/01/18 07:30 MCHC 33.0 g/dl (32.0-35.9) 02/01/18 07:30 RDW 15.0 % (11.9-15.9) 02/01/18 07:30 Plt Count 129 K/MM3 (134-434) L 02/01/18 07:30 MPV 8.4 fl (7.5-11.1) D 02/01/18 07:30 Sodium 134 mmol/L (136-145) L 02/01/18 07:30 Potassium 4.2 mmol/L (3.5-5.1) 02/01/18 07:30 Chloride 102 mmol/L (98-107) 02/01/18 07:30 Carbon Dioxide 27 mmol/L (21-32) 02/01/18 07:30 Anion Gap 5 (8-16) L 02/01/18 07:30 BUN 13 mg/dL (7-18) 02/01/18 07:30 Creatinine 0.7 mg/dL (0.7-1.3) D 02/01/18 07:30 Creat Clearance w eGFR > 60 (>60) 02/01/18 07:30 Random Glucose 57 mg/dL (74-106) L D 02/01/18 07:30 Calcium 8.2 mg/dL (8.5-10.1) L 02/01/18 07:30 Total Bilirubin 0.6 mg/dL (0.2-1.0) D 02/01/18 07:30 AST 85 U/L (15-37) H D 02/01/18 07:30 ALT 25 U/L (12-78) D 02/01/18 07:30 Alkaline Phosphatase 554 U/L (45-117) H 02/01/18 07:30 Total Protein 8.6 g/dl (6.4-8.2) H 02/01/18 07:30 Albumin 2.0 g/dl (3.4-5.0) L 02/01/18 07:30 Urine Color Yellow 01/31/18 20:00 Urine Appearance Clear 01/31/18 20:00 Urine pH 6.0 (5.0-8.0) 01/31/18 20:[address] 1.013 (1.001-1.035) 01/31/18 20:00 Urine Protein Negative (NEGATIVE) 01/31/18 20:00 Urine Glucose (UA) Negative (NEGATIVE) 01/31/18 20:00 Urine Ketones Negative (NEGATIVE) 01/31/18 20:00 Urine Blood Negative (NEGATIVE) 01/31/18 20:00 Urine Nitrite Negative (NEGATIVE) 01/31/18 20:00 Urine Bilirubin Negative (<2.0 mg/dL) 01/31/18 20:00 Urine Urobilinogen 2.0 mg/dL (0.2-1.0) 01/31/18 20:00 Ur Leukocyte Esterase Negative (NEGATIVE) 01/31/18 20:00 RPR Titer Nonreactive (NONREACTIVE) 02/01/18 07:30 Assessment: 02/03/18 15:22 NAD Plan: PT SIGNED OUT AMA
--- NOTE | 2018-02-03 15:27 | DS ---
[facility] Detox Discharge Summary Admission Date: 01/31/18 Discharge Date: 02/03/18 - History Present History: Alcohol Dependence, Opioid Dependence Additional Comments: PT SIGNED OUT AMA. IN NO ACUTE DISTRESS. INSTRUCTED TO FOLLOW UP WITH THE [facility] IN [place] FOR MEDICAL. Pertinent Past History: PLEASE SEE DX BELOW - Physical Exam Results Vital Signs: Vital Signs Temperature 97.7 F 02/03/18 13:37 Pulse Rate 81 02/03/18 13:37 Respiratory Rate 18 02/03/18 13:37 Blood Pressure 123/90 02/03/18 13:37 O2 Sat by Pulse Oximetry (%) Pertinent Admission Physical Exam Findings: WITHDRAWAL SX Laboratory Last Values WBC 2.9 K/mm3 (4.0-10.0) L D 02/01/18 07:30 RBC 3.94 M/mm3 (4.00-5.60) L 02/01/18 07:30 Hgb 12.6 GM/dL (11.7-16.9) 02/01/18 07:30 Hct 38.0 % (35.4-49) 02/01/18 07:30 MCV 96.5 fl (80-96) H 02/01/18 07:30 MCH 31.9 pg (25.7-33.7) 02/01/18 07:30 MCHC 33.0 g/dl (32.0-35.9) 02/01/18 07:30 RDW 15.0 % (11.9-15.9) 02/01/18 07:30 Plt Count 129 K/MM3 (134-434) L 02/01/18 07:30 MPV 8.4 fl (7.5-11.1) D 02/01/18 07:30 Sodium 134 mmol/L (136-145) L 02/01/18 07:30 Potassium 4.2 mmol/L (3.5-5.1) 02/01/18 07:30 Chloride 102 mmol/L (98-107) 02/01/18 07:30 Carbon Dioxide 27 mmol/L (21-32) 02/01/18 07:30 Anion Gap 5 (8-16) L 02/01/18 07:30 BUN 13 mg/dL (7-18) 02/01/18 07:30 Creatinine 0.7 mg/dL (0.7-1.3) D 02/01/18 07:30 Creat Clearance w eGFR > 60 (>60) 02/01/18 07:30 Random Glucose 57 mg/dL (74-106) L D 02/01/18 07:30 Calcium 8.2 mg/dL (8.5-10.1) L 02/01/18 07:30 Total Bilirubin 0.6 mg/dL (0.2-1.0) D 02/01/18 07:30 AST 85 U/L (15-37) H D 02/01/18 07:30 ALT 25 U/L (12-78) D 02/01/18 07:30 Alkaline Phosphatase 554 U/L (45-117) H 02/01/18 07:30 Total Protein 8.6 g/dl (6.4-8.2) H 02/01/18 07:30 Albumin 2.0 g/dl (3.4-5.0) L 02/01/18 07:30 Urine Color Yellow 01/31/18 20:00 Urine Appearance Clear 01/31/18 20:00 Urine pH 6.0 (5.0-8.0) 01/31/18 20:00 Ur Specific [place] 1.013 (1.001-1.035) 01/31/18 20:00 Urine Protein Negative (NEGATIVE) 01/31/18 20:00 Urine Glucose (UA) Negative (NEGATIVE) 01/31/18 20:00 Urine Ketones Negative (NEGATIVE) 01/31/18 20:00 Urine Blood Negative (NEGATIVE) 01/31/18 20:00 Urine Nitrite Negative (NEGATIVE) 01/31/18 20:00 Urine Bilirubin Negative (<2.0 mg/dL) 01/31/18 20:00 Urine Urobilinogen 2.0 mg/dL (0.2-1.0) 01/31/18 20:00 Ur Leukocyte Esterase Negative (NEGATIVE) 01/31/18 20:00 RPR Titer Nonreactive (NONREACTIVE) 02/01/18 07:30 - Treatment Hospital Course: Discharged Condition Good - Medication Discharge Medications: Ambulatory Orders Albuterol Sulfate Inhaler - [Ventolin HFA Inhaler -] 2 inh PO Q4H PRN #1 cartridge 12/12/17 Darunavir Ethanolate [Prezista -] 800 mg PO DAILY 01/31/18 Gabapentin [Neurontin -] 100 mg PO Q8H 01/31/18 Ritonavir [Norvir -] 100 mg PO DAILY 01/31/18 - Diagnosis (1) Alcohol dependence with uncomplicated withdrawal Status: Acute (2) Opioid dependence with withdrawal Status: Acute (3) Acquired immune deficiency syndrome (AIDS) Status: Chronic (4) GERD (gastroesophageal reflux disease) Status: Chronic Qualifiers: Esophagitis presence: without esophagitis Qualified Code(s): K21.9 - Gastro -esophageal reflux disease without esophagitis (5) Hepatitis C Status: Chronic Qualifiers: Viral hepatitis chronicity: unspecified Hepatic coma status: without hepatic coma Qualified Code(s): B19.20 - Unspecified viral hepatitis C without hepatic coma (6) History of hypertension Status: Chronic (7) Nicotine dependence Status: Acute Qualifiers: Nicotine product type: cigarettes Substance use status: in withdrawal Qualified Code(s): F17.213 - Nicotine dependence, cigarettes, with withdrawal (8) Tinea pedis Status: Chronic Qualifiers: Laterality: bilateral Qualified Code(s): B35.3 - Tinea pedis (9) Vascular insufficiency of extremity Status: Chronic (10) Hx of onychomycosis Status: Chronic - AMA Did Patient Leave Against Medical Advice: Yes (AMA)
[2018-02-04] MEDS ORDERED: METHADONE HCL 10 MG TABLET (FOR DETOX USE ONLY) PO SCH (10:00)
[2018-02-04] MEDS ORDERED: diazePAM 5 MG TABLET PO SCH (10:00)
[2018-02-05] MEDS ORDERED: METHADONE HCL 5 MG TABLET (FOR DETOX USE ONLY) PO SCH (06:00)
== END 2018-02-03 13:55 | disposition left against medical advice (07) | DRG 770 ==
LOC: YASAS 13:59 → Y3N 17:21
PROVIDERS: ADMIT Internal Medicine; ATTEND Internal Medicine
PROC: HZ2ZZZZ Detoxification Services for Substance Abuse Treatment (ICD-10-PCS; principal; 2018-01-31)
DX: F11.23 Opioid dependence with withdrawal (principal); F10.230 Alcohol dependence with withdrawal, uncomplicated; F17.210 Nicotine dependence, cigarettes, uncomplicated; F31.9 Bipolar disorder, unspecified; Z21 Asymptomatic human immunodeficiency virus [HIV] infection status; I10 Essential (primary) hypertension; B35.3 Tinea pedis; I99.8 Other disorder of circulatory system; I73.9 Peripheral vascular disease, unspecified; B35.1 Tinea unguium
CPT/HCPCS: 36415; 80053; 81003; 85027; 86593; 93005; 93010

== ENCOUNTER 2018-03-30 20:11 | Inpatient (IN) | payer OTHER ==
[~2018-03-30 20:11] MED LIST: METHADONE HCL 10 MG TABLET (FOR DETOX USE ONLY) PO ONE
[2018-03-30] MEDS ORDERED: MELATONIN 5 MG TABLETS PO PRN (22:00)
[2018-03-30] MEDS ORDERED: METHADONE HCL 10 MG TABLET (FOR DETOX USE ONLY) PO ONE ×2 (22:00→23:35)
--- NOTE | 2018-03-30 23:26 | HP ---
COWS - Scale Resting Pulse: 0= [place] 80 or Below Sweatin= Chills/Flushing Restless Observation: 1= Difficult to Sit Still Pupil Size: 0= Normal to Room Light Bone or Joint Aches: 4=Acute Joint/Muscle Pain Runny Nose/ Eye Tearin= None GI Upset > 30mins: 1= Stomach Cramp Tremor Observation: 2= Slight Tremor Visible Yawning Observation: 0= None Anxiety or Irritability: 4=Extreme Anxiety Goose Flesh Skin: 0=Smooth Skin COWS Score: 13 CIWA Score - CIWA Score Nausea/Vomitin Muscle Tremors: 4-Moderate,w/Arms Extend Anxiety: 4-Mod. Anxious/Guarded Agitation: 4-Moderately Restless Paroxysmal Sweats: 2 Orientation: 0-Oriented Tacttile Disturbances: 0-None Auditory Disturbances: 0-None Visual Disturbances: 0-None Headache: 0-None Present CIWA-Ar Total Score: 16 Admission ROS [facility] Chief Complaint: Heroin and alcohol withdrawal symptoms Allergies/Adverse Reactions: Allergies Allergy/AdvReac Type Severity Reaction Status Date / Time erythromycin base Allergy Severe Rash Verified 01/31/18 16:05 [Erythromycin Base] vancomycin Allergy Severe Rash Verified 01/31/18 16:05 chocolate flavor Allergy Intermediate Verified 01/31/18 16:05 nut - unspecified AdvReac Mild Itching Verified 01/31/18 16:05 History of Present Illness: 57 years old male with a long history of heroin and alcohol dependence is seeking admission to detox. Patient has been to previous detox and reports insignificant period of sobriety. He has medical history of asthma, GERD, Hep.C , syphilis, gonorrhea, HIV and depression. Reports suicide attempt in 1979 and denies suicidal ideation at this time. Exam Limitations: No Limitations - Ebola screening Have you traveled outside of the country in the last 21 days: No (N) Have you had contact with anyone from an Ebola affected area: No Have you been sick,other than usual withdrawal symptoms: No Do you have a fever: No - Review of Systems Constitutional: Chills, Loss of Appetite, Malaise, Night Sweats, Changes in sleep EENT: reports: Sinus Pressure Respiratory: reports: No Symptoms reported Cardiac: reports: No Symptoms Reported GI: reports: Diarrhea, Poor Appetite, Poor Fluid Intake : reports: No Symptoms Reported Musculoskeletal: reports: Back Pain, Muscle Pain, Neck Pain Integumentary: reports: Dryness, Flushing Neuro: reports: Headache, Tingling, Tremors Endocrine: reports: No Symptoms Reported Hematology: reports: No Symptoms Reported Psychiatric: reports: Orientated x3, Anxious, Depressed Other Systems: Reviewed and Negative Patient History - Patient Medical History Hx Anemia: No Hx Asthma: Yes (Pt is on MDI) Hx Chronic Obstructive Pulmonary Disease (COPD): No Hx Cancer: No Hx Cardiac Disorders: No (HEART MURMUR PER PT REPORT) Hx Congestive Heart Failure: No Hx Hypertension: No Hx Hypercholesterolemia: No Hx Pacemaker: No HX Cerebrovascular Accident: No Hx Seizures: No Hx Dementia: No Hx Diabetes: No Hx Gastrointestinal Disorders: Yes (GERD- Not on medication) Hx Liver Disease: Yes (Hepatitis C - Not on medication) Hx Genitourinary Disorders: No Hx Sexually Transmitted Disorders: Yes (HX SYPHILIS AND GONORHEA IN TEEN YEARS) Hx Renal Disease (ESRD): No Hx Thyroid Disease: No Hx Human Immunodeficiency Virus (HIV): Yes (since 2007;NOT TAKING ANY MEDS) Hx Hepatitis C: Yes (Diagnosed @ 2013. No treatment yet.) Hx Depression: Yes (Not on medication) Hx Suicide Attempt: Yes (SELF CUTTING OF WRIST IN ; DENIES CURRENT S/I) Hx Bipolar Disorder: Yes (No treatment.) Hx Schizophrenia: No - Patient Surgical History Past Surgical History: Yes Hx Neurologic Surgery: No Hx Cataract Extraction: No Hx Cardiac Surgery: No Hx Lung Surgery: No Hx Breast Surgery: No Hx Breast Biopsy: No Hx Abdominal Surgery: No Hx Appendectomy: No Hx Cholecystectomy: No Hx Genitourinary Surgery: No Hx Section: No Hx Orthopedic Surgery: Yes Other Surgical History: skin graft/abscess, left upper arm in 1992 Anesthesia Reaction: No - PPD History Previous Implant?: Yes Documented Results: Negative w/o proof Implanted On Prior R Admission?: Yes Date: 02/02/18 Results: 0 mm PPD to be Administered?: No - Reproductive History Patient is a Female of Child Bearing Age (11 -55 yrs old): No (Male) - Smoking Cessation Smoking history: Current every day smoker Have you smoked in the past 12 months: Yes Aproximately how many cigarettes per day: 20 Cigars Per Day: 0 Hx Chewing Tobacco Use: No Initiated information on smoking cessation: Yes 'Breaking Loose' booklet given: 03/30/18 - Substance & Tx. History Hx Alcohol Use: Yes Hx Substance Use: Yes Substance Use Type: Alcohol, Heroin, Marijuana Hx Substance Use Treatment: Yes ([facility]) - Substances Abused Heroin Route: Smoking Frequency: Daily Amount used: 70 bags Age of first use: 13 Date of Last Use: 03/30/18 Marijuana/Hashish Route: Smoking Frequency: Daily Amount used: 2 joints Age of first use: 13 Date of Last Use: 03/30/18 Family Disease History - Family Disease History Family Disease History: Diabetes: Mother (etoh; , [place]: Father ( [place], etoh), Mother, Sister (, Lung Ca.; Multiple Sclerosis.), Other : Grandparent (etoh.), Father, Mother, Sister Admission Physical Exam [facility] - Vital Signs Vital Signs: Vital Signs - 24 hr 03/30/18 22:36 Temperature 98.6 F Pulse Rate 79 Respiratory 20 Rate Blood Pressure 138/94 - Physical General Appearance: Yes: Disheveled, Moderate Distress, Tremorous, Irritable, Sweating, Anxious HEENTM: Yes: EOMI, Normal ENT Inspection, Normal Voice, DAYANA Respiratory: Yes: Lungs Clear, Normal Breath Sounds, No Respiratory Distress Neck: Yes: Supple Breast: Yes: Breast Exam Deferred Cardiology: Yes: Regular Rhythm, Regular Rate Abdominal: Yes: Normal Bowel Sounds, Soft Genitourinary: Yes: Within Normal Limits Back: Yes: Normal Inspection Musculoskeletal: Yes: Within Normal Limits Extremities: Yes: Tremors Neurological: Yes: Alert, Normal Mood/Affect Integumentary: Yes: Dry Lymphatic: Yes: Within Normal Limits - Diagnostic (1) Alcohol dependence with uncomplicated withdrawal Current Visit: Yes Status: Chronic Comment: . (2) Benzodiazepine dependence Current Visit: Yes Status: Chronic (3) Cocaine dependence Current Visit: Yes Status: Chronic Qualifiers: Substance use status: uncomplicated Qualified Code(s): F14.20 - Cocaine dependence, uncomplicated (4) Nicotine dependence Current Visit: Yes Status: Chronic Qualifiers: Nicotine product type: cigarettes Substance use status: in withdrawal Qualified Code(s): F17.213 - Nicotine dependence, cigarettes, with withdrawal (5) Asthma Current Visit: Yes Status: Chronic Comment: . (6) GERD (gastroesophageal reflux disease) Current Visit: No Status: Chronic Qualifiers: Esophagitis presence: without esophagitis Qualified Code(s): K21.9 - Gastro -esophageal reflux disease without esophagitis Comment: . (7) HIV (human immunodeficiency virus infection) Current Visit: Yes Status: Chronic (8) Hepatitis C Current Visit: Yes Status: Chronic Qualifiers: Viral hepatitis chronicity: unspecified Hepatic coma status: without hepatic coma Qualified Code(s): B19.20 - Unspecified viral hepatitis C without hepatic coma Comment: . (9) Hypertension Current Visit: Yes Status: Chronic Qualifiers: Hypertension type: essential hypertension Qualified Code(s): I10 - Essential (primary) hypertension (10) Depression (emotion) Current Visit: Yes Status: Suspected Qualifiers: Depression Type: unspecified Qualified Code(s): F32.9 - Major depressive disorder, single episode, unspecified Cleared for Admission [facility] - Detox or Rehab [facility] Level of Care: Medically Managed Detox Regimen/Protocol: Methadone/Librium S Breath Alcohol Content Breath Alcohol Content: 0 Urine Drug Screen - Results Drug Screen Negative: No Urine Drug Screen Results: THC-Marijuana, SKYLAR-Cocaine, BZO-Benzodiazepines
[2018-03-30] MEDS ORDERED: ACETAMINOPHEN 325 MG TABLET (FP) PO PRN (23:35)
[2018-03-30] MEDS ORDERED: NICOTINE POLACRILEX 2 MG GUM BC PRN (23:35)
[2018-03-30] MEDS ORDERED: chlordiazePOXIDE HCL 25 MG CAPSULE PO PRN (23:35)
[2018-03-30] MEDS ORDERED: guaiFENesin/D-METHORPHAN HB 10 ML UNIT-DOSE CUPS PO PRN (23:35)
[2018-03-30] MEDS ORDERED: LOPERAMIDE HCL 2 MG CAPSULE PO PRN (23:35)
[2018-03-30] MEDS ORDERED: P-EPHED 60MG/TRIPROLIDI 2.5MG TABLET PO PRN (23:35)
[2018-03-30] MEDS ORDERED: MAG HYDROX/AL HYDROX/SIMETH 30 ML UNIT-DOSE CUP PO PRN (23:35)
[2018-03-30] MEDS ORDERED: MAGNESIUM HYDROX 2400MG/30ML ORAL SUSPENSION 30 ML CUP PO PRN (23:35)
[2018-03-30] MEDS ORDERED: MAGNESIUM CITRATE 300 ML BOTTLE PO PRN (23:35)
[2018-03-30] MEDS ORDERED: MENTHOL/PHENOL 1 EACH UD MM PRN (23:35)
[2018-03-30] MEDS ORDERED: ALBUTEROL SO4 18 GM HFA INHALER IH PRN (23:37)
[2018-03-31] MEDS ORDERED: METHADONE HCL 10 MG TABLET (FOR DETOX USE ONLY) PO ONE ×3 (00:46→22:00)
[2018-03-31] MEDS: IBUPROFEN 400 MG TABLET (FP) PO PRN ×2 (01:27→22:57)
[2018-03-31] MEDS: chlordiazePOXIDE HCL 25 MG CAPSULE PO PRN (01:30)
[2018-03-31] MEDS: chlordiazePOXIDE HCL 25 MG CAPSULE PO SCH ×6 (01:33→22:51)
[2018-03-31] MEDS ORDERED: chlordiazePOXIDE HCL 25 MG CAPSULE PO SCH (05:00)
[2018-03-31] MEDS ORDERED: METHADONE HCL 5 MG TABLET (FOR DETOX USE ONLY) PO SCH (10:00)
[2018-03-31 10:04] LABS: HEMATOCRIT 45.6 % (35.4-49); HEMOGLOBIN 14.5 GM/dL (11.7-16.9); MCH 30.5 pg (25.7-33.7); MCHC 31.8 g/dl (32.0-35.9); MEAN PLT VOLUME 9.1 fl (7.5-11.1); PLATELET COUNT 175 K/MM3 (134-434); RBC 4.75 M/mm3 (4.00-5.60); RDW 15.6 % (11.9-15.9); WHITE BLOOD COUNT 3.6 K/mm3 (4.0-10.0)
[2018-03-31] MEDS: PRENATAL VITAMINS W/ FOLIC ACID TABLET (FP) PO SCH (10:22)
[2018-03-31] MEDS: NICOTINE 14 MG/24 HOURS TOPICAL PATCH TD SCH (10:22)
[2018-03-31 10:28] LABS: CHLORIDE 109 mmol/L (98-107); POTASSIUM 4.8 mmol/L (3.5-5.1); SODIUM 138 mmol/L (136-145)
[2018-03-31 10:54] LABS: ALBUMIN 2.1 g/dl (3.4-5.0); ALK PHOS 664 U/L (45-117); ANION GAP 6 (8-16); BILIRUBIN,TOTAL 1.8 mg/dL (0.2-1.0); BLOOD UREA NITROGEN 26 mg/dL (7-18); CALCIUM 8.5 mg/dL (8.5-10.1); CO2 23 mmol/L (21-32); CREATININE 1.2 mg/dL (0.7-1.3); GLUCOSE,RANDOM 59 mg/dL (74-106); SGOT/AST 97 U/L (15-37); SGPT/ALT 45 U/L (12-78)
--- NOTE | 2018-03-31 15:05 | CONSULT ---
[facility] Psychiatric Consult - Data Date of interview: 03/31/18 Admission source: [facility] Identifying data: Readmission to [facility] for this 57 y/o AA male seeking detox treatment on for alcohol,cocaine,cannabis and heroin dependence.Patient is single,a father of one,domiciled ([facility] setting),unemployed and supported on [employer] funds. Substance Abuse History: Confirmed by patient in this session.Smoking history: Current every day smoker. Have you smoked in the past 12 months: Yes. Aproximately how many cigarettes per day: 20. Cigars Per Day: 0. Hx Chewing Tobacco Use: No. Initiated information on smoking cessation: Yes. 'Breaking Loose' booklet given: 03/30/18. - Substance & Tx. History. Hx Alcohol Use: Yes. Hx Substance Use: Yes. Substance Use Type: Alcohol, Heroin, Marijuana. Hx Substance Use Treatment: Yes ([facility]). - Substances Abused. Heroin. Route : Smoking. Frequency: Daily. Amount used: 70 bags. Age of first use: 13. Date of Last Use: 03/30/18. Marijuana/Hashish. Route: Smoking. Frequency: Daily. Amount used: 2 joints. Age of first use: 13. Date of Last Use: Medical History: Medical co-morbidities : bronchial asthma,hypertension, hepatitis C,peripheral neuropathy,HIV infection since 2007 (on ART),GERD,past treatment for syphilis + gonorrhea (in the s) and surgery on left upper arm in 1992 (skin graft) due to abcesses from drug injection sites. Psychiatric History: Patient denies history of mental illness or psychiatric hospitalizations in spite of existing records attesting to multiple admissions to various facilities.Non-adherent to psychotropic medications.Totally lost to psychiatric OPD care.A more accurate history is taken from previous records at [facility] : " onset of emotional disturbances : age 18. Diagnosed with Learning Disorder.First psychiatric hospitalization was at [facility] in late s ( stayed for 3 weeks) for depression and suicidal ruminations.Also known to [facility] and [facility].Never follows with referrals after discharge.Past history of suicide attempts (wrist-cutting,overdoses with street drugs or medications)." End of quotation. Physical/Sexual Abuse/Trauma History: Patient denies. Additional Comment: Urine Drug Screen Results: THC-Marijuana, SKYLAR-Cocaine, BZO- Benzodiazepines.Noted. Mental Status Exam - Mental Status Exam Alert and Oriented to: Time, Place, Person Cognitive Function: Grossly Intact Patient Appearance: Unkempt, Disheveled Mood: Nervous, Withdrawn Affect: Mood Congruent, Constricted Patient Behavior: Fatigued, Cooperative (marginally cooperative) Speech Pattern: Clear Voice Loudness: Moderately Soft/Quiet Thought Process: Goal Oriented Hallucinations: Denies Suicidal Ideation: Denies Homicidal Ideation: Denies Insight/Judgement: Poor Sleep: Well Appetite: Poor, Weight loss Muscle strength/Tone: Normal Gait/Station: Other (slow gait) Psychiatric Findings - Problem List ([place] 1, 2,3) (1) Alcohol dependence with uncomplicated withdrawal Current Visit: Yes Status: Acute Comment: . (2) Opioid dependence with withdrawal Current Visit: Yes Status: Acute Comment: . (3) Cocaine dependence Current Visit: Yes Status: Acute Qualifiers: Substance use status: uncomplicated Qualified Code(s): F14.20 - Cocaine dependence, uncomplicated (4) Cannabis dependence Current Visit: Yes Status: Acute (5) Nicotine dependence Current Visit: Yes Status: Acute Qualifiers: Nicotine product type: cigarettes Substance use status: in withdrawal Qualified Code(s): F17.213 - Nicotine dependence, cigarettes, with withdrawal (6) Substance induced mood disorder Current Visit: Yes Status: Acute (7) Insomnia Current Visit: Yes Status: Acute - Initial Treatment Plan Initial Treatment Plan: Psychoeducation.Sleep hygiene.Detoxification in progress.Ambien 5 mg po hs prn.Side effects/benefits discussed with the patient.Agrees to this careplan.Observation.
--- NOTE | 2018-03-31 15:56 | PN ---
[facility] CIWA - CIWA Score Nausea/Vomitin-No Nausea/No Vomiting Muscle Tremors: 3 Anxiety: 4-Mod. Anxious/Guarded Agitation: 4-Moderately Restless Paroxysmal Sweats: 3 Orientation: 0-Oriented Tacttile Disturbances: 0-None Auditory Disturbances: 1-Very Mild Visual Disturbances: 2-Mild Sensitivity Headache: 0-None Present CIWA-Ar Total Score: 17 S COWS - Scale Resting Pulse: 1= [place] 81-100 Sweatin= Chills/Flushing Restless Observation: 1= Difficult to Sit Still Pupil Size: 0= Normal to Room Light Bone or Joint Aches: 0= None Runny Nose/ Eye Tearin= Nasal Congestion GI Upset > 30mins: 1= Stomach Cramp Tremor Observation of Outstretched Hands: 0= None Yawning Observation: 2= >3x During Session Anxiety or Irritability: 2=Irritable/Anxious Goose Flesh Skin: 3=Piloerection COWS Score: 12 S Progress Note (SOAP) Subjective: Tremors, Anxious, Sweating, Fatigue, Interrupted sleep, Stomach Cramping. Objective: PATIENT A & O X 3. NO ACUTE DISTRESS. 03/31/18 15:53 Vital Signs Temperature 97.7 F 03/31/18 13:05 Pulse Rate 81 03/31/18 13:05 Respiratory Rate 18 03/31/18 13:05 Blood Pressure 148/87 03/31/18 13:05 O2 Sat by Pulse Oximetry (%) Laboratory Tests 03/31/18 03/31/18 07:30 07:30 WBC 3.6 L RBC 4.75 D Hgb 14.5 D Hct 45.6 D MCV 96.0 MCH 30.5 MCHC 31.8 L RDW 15.6 Plt Count 175 D MPV 9.1 Sodium 138 Potassium 4.8 Chloride 109 H Carbon Dioxide 23 Anion Gap 6 L BUN 26 H D Creatinine 1.2 D Creat Clearance w eGFR > 60 Random Glucose 59 L Calcium 8.5 Total Bilirubin 1.8 H D AST 97 H ALT 45 D Alkaline Phosphatase 664 H Total Protein 10.0 H Albumin 2.1 L LABS NOTED. UA, RPR RESULTS PENDING. Assessment: 03/31/18 15:54 WITHDRAWAL SYMPTOMS. Plan: CONTINUE DETOX. CONTINUE TO MONITOR BP. HEPATIC FUNCTION PANEL AND PT/INR ON 04/02/2018 FOR ADMISSION HEPATIC ABNORMAL LAB VALUES.
[2018-03-31 16:42] VITALS: BMI 20.9
[2018-03-31] MEDS: ZOLPIDEM TARTRATE 5 MG TABLET PO PRN (22:51)
[2018-03-31] MEDS: THIAMINE HCL 100 MG TABLET (FP) PO SCH (22:51)
[2018-04-01] MEDS: chlordiazePOXIDE HCL 25 MG CAPSULE PO PRN (02:06)
[2018-04-01] MEDS ORDERED: chlordiazePOXIDE 5 MG CAPSULE PO SCH (05:00)
[2018-04-01] MEDS: chlordiazePOXIDE HCL 25 MG CAPSULE PO SCH ×4 (05:09→22:10)
--- NOTE | 2018-04-01 08:49 | EKG ---
Test Reason : Blood Pressure : / mmHG Vent. Rate : 071 BPM Atrial Rate : 071 BPM P-R Int : 140 ms QRS Dur : 096 ms QT Int : 406 ms P-R-T Axes : 063 -23 015 degrees QTc Int : 441 ms NORMAL SINUS RHYTHM NORMAL ECG WHEN COMPARED WITH ECG OF 31-MAR-2018 01:37, NO SIGNIFICANT CHANGE WAS FOUND Confirmed by SHAMEKA GALVEZ MD ([id number]) on 04/01/2018 8:48:24 AM Referred By: Confirmed By:SHAMEKA GALVEZ MD
--- NOTE | 2018-04-01 08:50 | EKG ---
Test Reason : Blood Pressure : / mmHG Vent. Rate : 070 BPM Atrial Rate : 070 BPM P-R Int : 140 ms QRS Dur : 094 ms QT Int : 402 ms P-R-T Axes : 076 -23 013 degrees QTc Int : 434 ms NORMAL SINUS RHYTHM CANNOT RULE OUT ANTERIOR INFARCT , AGE UNDETERMINED ABNORMAL ECG WHEN COMPARED WITH ECG OF 31-JAN-2018 18:36, NO SIGNIFICANT CHANGE WAS FOUND Confirmed by LEONOR VELIZ, SHAMEKA ([id number]) on 04/01/2018 8:49:42 AM Referred By: Confirmed By:SHAMEKA GALVEZ MD
[2018-04-01] MEDS ORDERED: METHADONE HCL 10 MG TABLET (FOR DETOX USE ONLY) PO SCH (10:00)
[2018-04-01] MEDS ORDERED: METHADONE HCL 5 MG TABLET (FOR DETOX USE ONLY) PO SCH (10:00)
[2018-04-01] MEDS: PRENATAL VITAMINS W/ FOLIC ACID TABLET (FP) PO SCH (10:21)
[2018-04-01] MEDS: NICOTINE 14 MG/24 HOURS TOPICAL PATCH TD SCH (10:21)
[2018-04-01] MEDS: AMMONIUM LACTATE 12% LOTION 225 GM BOTTLE TP SCH ×2 (12:24→22:13)
[2018-04-01] MEDS: NAPROXEN 250 MG TABLET (FP) PO SCH ×2 (14:03→22:10)
--- NOTE | 2018-04-01 14:51 | PN ---
[facility] CIWA - CIWA Score Nausea/Vomitin-No Nausea/No Vomiting Muscle Tremors: 3 Anxiety: 4-Mod. Anxious/Guarded Agitation: 3 Paroxysmal Sweats: No Perspiration Orientation: 2-Disoriented Date<2 days Tacttile Disturbances: 2-Mild Itch/Numbness/Burn Auditory Disturbances: 0-None Visual Disturbances: 2-Mild Sensitivity Headache: 0-None Present CIWA-Ar Total Score: 16 S COWS - Scale Resting Pulse: 1= [place] 81-100 Sweatin= No chills or Flushing Restless Observation: 1= Difficult to Sit Still Pupil Size: 0= Normal to Room Light Bone or Joint Aches: 4=Acute Joint/Muscle Pain Runny Nose/ Eye Tearin= None GI Upset > 30mins: 0= None Tremor Observation of Outstretched Hands: 2= Slight Tremor Visible Yawning Observation: 2= >3x During Session Anxiety or Irritability: 2=Irritable/Anxious Goose Flesh Skin: 0=Smooth Skin COWS Score: 12 S Progress Note (SOAP) Subjective: Body Aches, Tremors, Fatigue, Anxious. Objective: PATIENT A & O X 2 (UNCERTAIN ABOUT CURRENT DAY / DATE). PATIENT OBSERVED AMBULATING ON UNIT. NO ACUTE DISTRESS. 04/01/18 14:48 Vital Signs Temperature 98.6 F 04/01/18 14:42 Pulse Rate 98 H 04/01/18 14:42 Respiratory Rate 18 04/01/18 14:42 Blood Pressure 141/95 04/01/18 14:42 O2 Sat by Pulse Oximetry (%) Laboratory Tests 03/31/18 03/31/18 03/31/18 07:30 07:30 07:30 WBC 3.6 L RBC 4.75 D Hgb 14.5 D Hct 45.6 D MCV 96.0 MCH 30.5 MCHC 31.8 L RDW 15.6 Plt Count 175 D MPV 9.1 Sodium 138 Potassium 4.8 Chloride 109 H Carbon Dioxide 23 Anion Gap 6 L BUN 26 H D Creatinine 1.2 D Creat Clearance w eGFR > 60 Random Glucose 59 L Calcium 8.5 Total Bilirubin 1.8 H D AST 97 H ALT 45 D Alkaline Phosphatase 664 H Total Protein 10.0 H Albumin 2.1 L RPR Titer Nonreactive LABS NOTED. UA RESULTS PENDING. Assessment: 04/01/18 14:50 WITHDRAWAL SYMPTOMS. Plan: CONTINUE DETOX. INCREASE DAILY PO FLUID INTAKE. HEPATIC FUNCTION PANEL AND PT/INR FOR TOMORROW FOR ABNORMAL ADMISSION HEPATIC LAB VALUES.
[2018-04-01] MEDS: THIAMINE HCL 100 MG TABLET (FP) PO SCH (22:10)
[2018-04-02] MEDS: ZOLPIDEM TARTRATE 5 MG TABLET PO PRN (01:48)
[2018-04-02] MEDS ORDERED: chlordiazePOXIDE HCL 10 MG CAPSULE PO SCH (05:00)
[2018-04-02] MEDS: chlordiazePOXIDE 5 MG CAPSULE PO SCH ×4 (05:38→23:12)
[2018-04-02] MEDS: NAPROXEN 250 MG TABLET (FP) PO SCH ×2 (10:15→23:12)
[2018-04-02] MEDS: PRENATAL VITAMINS W/ FOLIC ACID TABLET (FP) PO SCH (10:15)
[2018-04-02] MEDS: METHADONE HCL 5 MG TABLET (FOR DETOX USE ONLY) PO SCH (10:15)
[2018-04-02] MEDS: AMMONIUM LACTATE 12% LOTION 225 GM BOTTLE TP SCH ×2 (10:16→23:12)
[2018-04-02] MEDS: NICOTINE 14 MG/24 HOURS TOPICAL PATCH TD SCH (10:16)
[2018-04-02 10:19] LABS: INR 1.06 (0.82-1.09)
[2018-04-02 10:39] LABS: BILIRUBIN,TOTAL 1.1 mg/dL (0.2-1.0); TOT PROT 9.2 g/dl (6.4-8.2)
--- NOTE | 2018-04-02 13:06 | PN ---
[facility] Progress Note (SOAP) Subjective: Chills, interrupted sleep, runny nose, anxious Objective: 04/02/18 13:04 Last Vital Signs Temp Pulse Resp BP Pulse Ox 96.9 F L 84 20 137/97 04/02/18 10:13 04/02/18 10:13 04/02/18 10:13 04/02/18 10:13 Laboratory Tests 03/31/18 03/31/18 03/31/18 07:30 07:30 07:30 WBC 3.6 L RBC 4.75 D Hgb 14.5 D Hct 45.6 D MCV 96.0 MCH 30.5 MCHC 31.8 L RDW 15.6 Plt Count 175 D MPV 9.1 PT with INR INR Sodium 138 Potassium 4.8 Chloride 109 H Carbon Dioxide 23 Anion Gap 6 L BUN 26 H D Creatinine 1.2 D Creat Clearance w eGFR > 60 Random Glucose 59 L Calcium 8.5 Total Bilirubin 1.8 H D Direct Bilirubin AST 97 H ALT 45 D Alkaline Phosphatase 664 H Total Protein 10.0 H Albumin 2.1 L RPR Titer Nonreactive 04/02/18 04/02/18 08:45 08:45 WBC RBC Hgb Hct MCV MCH MCHC RDW Plt Count MPV PT with INR 12.00 INR 1.06 Sodium Potassium Chloride Carbon Dioxide Anion Gap BUN Creatinine Creat Clearance w eGFR Random Glucose Calcium Total Bilirubin 1.1 H D Direct Bilirubin 1.0 H D AST 62 H D ALT 31 D Alkaline Phosphatase 500 H D Total Protein 9.2 H Albumin 2.0 L RPR Titer Labs reviewed: pre renal azotemia Assessment: 04/02/18 13:05 Withdrawal symptoms Noted with prerenal azotemia Plan: Continue detox Prerenal azotemia: encouraged PO hydration (water)
[2018-04-02] MEDS: THIAMINE HCL 100 MG TABLET (FP) PO SCH (23:12)
[2018-04-03] MEDS: chlordiazePOXIDE HCL 10 MG CAPSULE PO SCH ×4 (05:50→22:55)
--- NOTE | 2018-04-03 09:42 | PN ---
[facility] Progress Note (SOAP) Subjective: Sleep disturbance shakes sweats Objective: 04/03/18 09:40 A & O x 3 Ambulatory Vital Signs Temperature 96.9 F L 04/03/18 06:35 Pulse Rate 79 04/03/18 06:35 Respiratory Rate 18 04/03/18 06:35 Blood Pressure 132/83 04/03/18 06:35 O2 Sat by Pulse Oximetry (%) Assessment: 04/03/18 09:41 withdrawal sx Plan: continue detox
--- NOTE | 2018-04-03 09:49 | PN ---
S Progress Note Note: Was called to pt's room because he was found on the floor. Fall unwitnessed. Pt stated he tripped because "my leg got caught in something". A & O x 3, irritable, denies pain nor LOC Decline ED transfer, gets agitated while being educated on need for ED visit. Shouts angrily that "I am fine, nothing wrong with me, I just tripped. Will continue to have pt monitored by Nursing
[2018-04-03] MEDS ORDERED: METHADONE HCL 10 MG TABLET (FOR DETOX USE ONLY) PO SCH (10:00)
[2018-04-03] MEDS: METHADONE HCL 5 MG TABLET (FOR DETOX USE ONLY) PO SCH (10:48)
[2018-04-03] MEDS: NICOTINE 14 MG/24 HOURS TOPICAL PATCH TD SCH (10:49)
[2018-04-03] MEDS: PRENATAL VITAMINS W/ FOLIC ACID TABLET (FP) PO SCH (10:49)
[2018-04-03] MEDS: NAPROXEN 250 MG TABLET (FP) PO SCH ×2 (10:49→22:54)
[2018-04-03] MEDS: AMMONIUM LACTATE 12% LOTION 225 GM BOTTLE TP SCH ×2 (10:49→22:55)
[2018-04-03] MEDS: THIAMINE HCL 100 MG TABLET (FP) PO SCH (22:55)
[2018-04-04] MEDS ORDERED: METHADONE HCL 10 MG TABLET (FOR DETOX USE ONLY) PO SCH ×2 (06:00→10:00)
[2018-04-04 09:04] VITALS: BP 132/95; PULSE 89; TEMP 97.7
[2018-04-04] MEDS: PRENATAL VITAMINS W/ FOLIC ACID TABLET (FP) PO SCH (10:09)
[2018-04-04] MEDS: NAPROXEN 250 MG TABLET (FP) PO SCH (10:09)
[2018-04-04] MEDS: AMMONIUM LACTATE 12% LOTION 225 GM BOTTLE TP SCH (10:10)
[2018-04-04] MEDS: NICOTINE 14 MG/24 HOURS TOPICAL PATCH TD SCH (10:11)
--- NOTE | 2018-04-04 15:02 | PN ---
[facility] Progress Note (SOAP) Subjective: Patient denies current Detox symptoms and reports that he feels well overall. Objective: PATIENT A & O X 3, OBSERVED AMBULATING ON UNIT. NO ACUTE DISTRESS. 04/04/18 15:00 Vital Signs Temperature 97.7 F 04/04/18 09:30 Pulse Rate 89 04/04/18 09:30 Respiratory Rate 18 04/04/18 09:30 Blood Pressure 132/95 04/04/18 09:30 O2 Sat by Pulse Oximetry (%) Laboratory Tests 03/31/18 03/31/18 03/31/18 07:30 07:30 07:30 WBC 3.6 L RBC 4.75 D Hgb 14.5 D Hct 45.6 D MCV 96.0 MCH 30.5 MCHC 31.8 L RDW 15.6 Plt Count 175 D MPV 9.1 PT with INR INR Sodium 138 Potassium 4.8 Chloride 109 H Carbon Dioxide 23 Anion Gap 6 L BUN 26 H D Creatinine 1.2 D Creat Clearance w eGFR > 60 Random Glucose 59 L Calcium 8.5 Total Bilirubin 1.8 H D Direct Bilirubin AST 97 H ALT 45 D Alkaline Phosphatase 664 H Total Protein 10.0 H Albumin 2.1 L RPR Titer Nonreactive 04/02/18 04/02/18 08:45 08:45 WBC RBC Hgb Hct MCV MCH MCHC RDW Plt Count MPV PT with INR 12.00 INR 1.06 Sodium Potassium Chloride Carbon Dioxide Anion Gap BUN Creatinine Creat Clearance w eGFR Random Glucose Calcium Total Bilirubin 1.1 H D Direct Bilirubin 1.0 H D AST 62 H D ALT 31 D Alkaline Phosphatase 500 H D Total Protein 9.2 H Albumin 2.0 L RPR Titer LABS NOTED. Assessment: 04/04/18 15:01 COMPLETION OF DETOX REGIMEN. 04/04/18 15:05 Plan: PATIENT SCHEDULED FOR DISCHARGE FROM DETOX UNIT TODAY.
--- NOTE | 2018-04-04 15:12 | DS ---
[facility] Detox Discharge Summary Admission Date: 03/31/18 Discharge Date: 04/04/18 - History Present History: Alcohol Dependence, Cannabis Dependence, Opioid Dependence Additional Comments: PATIENT GOING TO [facility] ([place] [facility]) FOR AFTERCARE. PATIENT WAS DISCHARGED FROM DETOX UNIT IN STABLE MEDICAL CONDITION. Pertinent Past History: Hep C, HIV, Insomnia, HTN, Asthma, GERD, Bipolar Disorder, Nicotine Dependence. - Physical Exam Results Vital Signs: Vital Signs Temperature 97.7 F 04/04/18 09:30 Pulse Rate 89 04/04/18 09:30 Respiratory Rate 18 04/04/18 09:30 Blood Pressure 132/95 04/04/18 09:30 O2 Sat by Pulse Oximetry (%) Pertinent Admission Physical Exam Findings: WITHDRAWAL SYMPTOMS. Laboratory Tests 03/31/18 03/31/18 03/31/18 07:30 07:30 07:30 WBC 3.6 L RBC 4.75 D Hgb 14.5 D Hct 45.6 D MCV 96.0 MCH 30.5 MCHC 31.8 L RDW 15.6 Plt Count 175 D MPV 9.1 PT with INR INR Sodium 138 Potassium 4.8 Chloride 109 H Carbon Dioxide 23 Anion Gap 6 L BUN 26 H D Creatinine 1.2 D Creat Clearance w eGFR > 60 Random Glucose 59 L Calcium 8.5 Total Bilirubin 1.8 H D Direct Bilirubin AST 97 H ALT 45 D Alkaline Phosphatase 664 H Total Protein 10.0 H Albumin 2.1 L RPR Titer Nonreactive 04/02/18 04/02/18 08:45 08:45 WBC RBC Hgb Hct MCV MCH MCHC RDW Plt Count MPV PT with INR 12.00 INR 1.06 Sodium Potassium Chloride Carbon Dioxide Anion Gap BUN Creatinine Creat Clearance w eGFR Random Glucose Calcium Total Bilirubin 1.1 H D Direct Bilirubin 1.0 H D AST 62 H D ALT 31 D Alkaline Phosphatase 500 H D Total Protein 9.2 H Albumin 2.0 L RPR Titer LABS NOTED. - Treatment Hospital Course: Detox Protocol Followed, Detoxed Safely, Responded well, Discharged Condition Good, Rehab Referral Accepted Patient has Accepted a Rehab Referral to: [facility] ([place] [facility]) . - Medication Discharge Medications: Ambulatory Orders Albuterol Sulfate Inhaler - [Ventolin HFA Inhaler -] 2 inh PO Q4H PRN #1 cartridge 12/12/17 - Diagnosis (1) Alcohol dependence with uncomplicated withdrawal Status: Acute (2) Asthma Status: Chronic (3) Benzodiazepine dependence Status: Acute (4) Cocaine dependence Status: Chronic Qualifiers: Substance use status: uncomplicated Qualified Code(s): F14.20 - Cocaine dependence, uncomplicated (5) HIV (human immunodeficiency virus infection) Status: Chronic (6) Hepatitis C Status: Chronic Qualifiers: Viral hepatitis chronicity: unspecified Hepatic coma status: without hepatic coma Qualified Code(s): B19.20 - Unspecified viral hepatitis C without hepatic coma (7) Hypertension Status: Chronic Qualifiers: Hypertension type: essential hypertension Qualified Code(s): I10 - Essential (primary) hypertension (8) Nicotine dependence Status: Acute Qualifiers: Nicotine product type: cigarettes Substance use status: in withdrawal Qualified Code(s): F17.213 - Nicotine dependence, cigarettes, with withdrawal (9) GERD (gastroesophageal reflux disease) Status: Chronic Qualifiers: Esophagitis presence: without esophagitis Qualified Code(s): K21.9 - Gastro -esophageal reflux disease without esophagitis (10) Opioid dependence with withdrawal Status: Acute (11) Acquired immune deficiency syndrome (AIDS) Status: Chronic (12) Insomnia Status: Acute Qualifiers: Insomnia type: unspecified Qualified Code(s): G47.00 - Insomnia, unspecified (13) Substance induced mood disorder Status: Acute - AMA Did Patient Leave Against Medical Advice: No
[2018-04-05] MEDS ORDERED: METHADONE HCL 5 MG TABLET (FOR DETOX USE ONLY) PO SCH (06:00)
== END 2018-04-04 13:17 | disposition other institution (70) | DRG 773 ==
LOC: YASAS 20:11 → Y3N 03-31 00:05
PROVIDERS: ADMIT Internal Medicine; ATTEND Internal Medicine
PROC: HZ2ZZZZ Detoxification Services for Substance Abuse Treatment (ICD-10-PCS; principal; 2018-03-31)
DX: F11.23 Opioid dependence with withdrawal (principal); F13.20 Sedative, hypnotic or anxiolytic dependence, uncomplicated; F14.20 Cocaine dependence, uncomplicated; F12.20 Cannabis dependence, uncomplicated; F17.213 Nicotine dependence, cigarettes, with withdrawal; F31.9 Bipolar disorder, unspecified; F19.24 Other psychoactive substance dependence with psychoactive substance-induced mood disorder; I10 Essential (primary) hypertension; J45.909 Unspecified asthma, uncomplicated; K21.9 Gastro-esophageal reflux disease without esophagitis; G47.00 Insomnia, unspecified; B20 Human immunodeficiency virus [HIV] disease; B18.2 Chronic viral hepatitis C; R82.90 Unspecified abnormal findings in urine; R79.89 Other specified abnormal findings of blood chemistry; Z88.8 Allergy status to other drugs, medicaments and biological substances; Z91.5 Personal history of self-harm
CPT/HCPCS: 36415; 80053; 80076; 85027; 85610; 86593; 93005; 93010

== ENCOUNTER 2018-04-04 13:14 | Inpatient (IN) | payer OTHER ==
[2018-04-04 13:28] VITALS: BMI 20.8
[2018-04-04] MEDS ORDERED: P-EPHED 60MG/TRIPROLIDI 2.5MG TABLET PO PRN (15:16)
[2018-04-04] MEDS ORDERED: LOPERAMIDE HCL 2 MG CAPSULE PO PRN (15:16)
[2018-04-04] MEDS ORDERED: NICOTINE POLACRILEX 2 MG GUM BUC PRN (15:16)
[2018-04-04] MEDS ORDERED: MAG HYDROX/AL HYDROX/SIMETH 30 ML UNIT-DOSE CUP PO PRN (15:16)
[2018-04-04] MEDS ORDERED: ALBUTEROL SO4 18 GM HFA INHALER IH PRN (15:16)
[2018-04-04] MEDS ORDERED: MENTHOL/PHENOL 1 EACH UD MM PRN (15:16)
[2018-04-04] MEDS ORDERED: MAGNESIUM CITRATE 300 ML BOTTLE PO PRN (15:16)
[2018-04-04] MEDS ORDERED: MAGNESIUM HYDROX 2400MG/30ML ORAL SUSPENSION 30 ML CUP PO PRN (15:16)
[2018-04-04] MEDS ORDERED: ACETAMINOPHEN 325 MG TABLET (FP) PO PRN (15:16)
[2018-04-04] MEDS ORDERED: guaiFENesin/D-METHORPHAN HB 10 ML UNIT-DOSE CUPS PO PRN (15:16)
--- NOTE | 2018-04-04 15:18 | HP ---
[facility] Rehab Assess/Revision - Admission History Admitted to Rehab from: [facility] Date of Admission to Rehab: 04/04/2018 - Vital signs Vital Signs: Vital Signs Period Temp Pulse Resp BP Sys/Blank Pulse Ox Last 24 Hr 97.5 F 84 18 140/84 - Findings Detox History & Physical reviewed: Yes Concur with findings: Yes Comments/Additional Findings: PATIENT'S MEDICAL / MEDICATION HISTORY REVIEWED PRIOR TO DISCHARGE FROM DETOX UNIT. PATIENT WAS DISCHARGED FROM DETOX UNIT TO BE TAKEN TO REHAB UNIT IN STABLE MEDICAL CONDITION. Inpatient Rehab Admission - Initial Determination Are CD services needed?: Yes Free of communicable disease: Yes Not in need of hospitalization: Yes - Rehab Admission Criteria Previous failed treatment: Yes Comorbidities: Yes Patient is meeting Inpatient Rehab admission criteria:: Yes
[2018-04-04] MEDS: IBUPROFEN 400 MG TABLET (FP) PO PRN (17:10)
[2018-04-04] MEDS: THIAMINE HCL 100 MG TABLET (FP) PO SCH (21:57)
[2018-04-04] MEDS ORDERED: MELATONIN 5 MG TABLETS PO PRN (22:00)
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
[2018-04-05] MEDS ORDERED: PRENATAL VITAMINS W/ FOLIC ACID TABLET (FP) PO SCH (10:00)
[2018-04-05] MEDS ORDERED: NICOTINE 21 MG/24 HOURS TOPICAL PATCH TD SCH (10:00)
[2018-04-05] MEDS: IBUPROFEN 400 MG TABLET (FP) PO PRN (15:30)
[2018-04-05 15:41] VITALS: BP 148/108; PULSE 20; TEMP 97.4
--- NOTE | 2018-04-05 16:19 | PN ---
[facility] Progress Note Note: Patient presents with c/o pain to left heel. Patient has history of Hepatitis C (untreated) and HIV. Admitted for detox on 03/30/18 from Heroin and Alcohol withdrawal. Vital Signs Temperature 97.4 F L 04/05/18 15:35 Pulse Rate 20 L 04/05/18 15:35 Respiratory Rate 67 H 04/05/18 15:35 Blood Pressure 148/108 04/05/18 15:35 O2 Sat by Pulse Oximetry (%) subj: patient has c/o left heel pain. Denies fever, sob and chest pain. Obj: General: alert and oriented x 3. In no acute distress. Afebrile Skin: warm and dry Car: S1S2 Resp: CTA BL. No wheezes or rales Ext: left heel with open wound, +foul smell, +yellow brown discharge. Surrounding area macerated. + tenderness to left heel. A/P: Infected left heel ulcer Will transfer to [facility] ER for evaluation Report given to Dr. Stroud.
[2018-04-05] MEDS ORDERED: SUVOREXANT 10 MG TABLET PO PRN (22:00)
[2018-04-05] MEDS: THIAMINE HCL 100 MG TABLET (FP) PO SCH (22:05)
== END 2018-04-05 23:55 | disposition short-term general hospital (02) | DRG 772 ==
LOC: YASAS 13:14 → Y3W 13:15
PROVIDERS: ADMIT Psychiatry & Neurology Psychiatry; ATTEND Internal Medicine
PROC: HZ42ZZZ Group Counseling for Substance Abuse Treatment, Cognitive-Behavioral (ICD-10-PCS; principal; 2018-04-04)
DX: F11.20 Opioid dependence, uncomplicated (principal); F10.20 Alcohol dependence, uncomplicated; F14.20 Cocaine dependence, uncomplicated; F12.20 Cannabis dependence, uncomplicated; F17.213 Nicotine dependence, cigarettes, with withdrawal; F19.24 Other psychoactive substance dependence with psychoactive substance-induced mood disorder; I10 Essential (primary) hypertension; G47.00 Insomnia, unspecified; K21.9 Gastro-esophageal reflux disease without esophagitis; Z21 Asymptomatic human immunodeficiency virus [HIV] infection status; G62.9 Polyneuropathy, unspecified; J45.909 Unspecified asthma, uncomplicated; B18.2 Chronic viral hepatitis C; Z87.438 Personal history of other diseases of male genital organs; Z88.1 Allergy status to other antibiotic agents; Z91.018 Allergy to other foods; Z91.5 Personal history of self-harm

== ENCOUNTER 2018-04-05 16:58 | Inpatient (IN) | payer OTHER ==
--- NOTE | 2018-04-05 17:10 | PDOC ---
History of Present Illness - General Stated Complaint: Wound Time Seen by Provider: 04/05/18 17:10 - History of Present Illness Initial Comments: 57 year old male with PMH of heroin dependence, alcohol dependence, Hep C, syphilis, gonorrhea, HIV (non-medicated), depression, asthma, and GERD presenting from detox at [facility] for a large right heel ulcer that has been draining purulent fluid. Patient complains of overall fatigue, pain, cough, fevers, and chills for the past days. Per the detox facility, he has finished his treatment course and they noticed a blister on his right heel a few days prior that has now opened and is draining purulent, malodorous fluid. 04/05/18 17:13 Past History - Past Medical History Allergies/Adverse Reactions: Allergies Allergy/AdvReac Type Severity Reaction Status Date / Time erythromycin base Allergy Severe Rash Verified 04/04/18 14:20 [Erythromycin Base] vancomycin Allergy Severe Rash Verified 04/04/18 14:20 chocolate flavor Allergy Intermediate Verified 04/04/18 14:20 nut - unspecified AdvReac Mild Itching Verified 04/04/18 14:20 Home Medications: Ambulatory Orders Albuterol Sulfate Inhaler - [Ventolin HFA Inhaler -] 2 inh PO Q4H PRN #1 cartridge 12/12/17 Anemia: No Asthma: Yes (Pt is on MDI) Cancer: No Cardiac Disorders: No (HEART MURMUR PER PT REPORT) CVA: No COPD: No CHF: No Dementia: No Diabetes: No GI Disorders: Yes (GERD- Not on medication) Disorders: No HTN: No Hypercholesterolemia: No Kidney Stones: No Liver Disease: Yes (Hepatitis C - Not on medication) Seizures: No Thyroid Disease: No - Surgical History Abdominal Surgery: No Appendectomy: No Cardiac Surgery: No Cholecystectomy: No Lung Surgery: No Neurologic Surgery: No Orthopedic Surgery: Yes - Reproductive History Testicular Surgery: No - Suicide/Smoking/Psychosocial Hx Smoking History: Current every day smoker Have you smoked in the past 12 months: Yes Number of Cigarettes Smoked Daily: 20 Cigars Per Day: 0 'Breaking Loose' booklet given: 03/30/18 Hx Alcohol Use: Yes Drug/Substance Use Hx: Yes Substance Use Type: Alcohol, Heroin, Marijuana Hx Substance Use Treatment: Yes ([facility]) ED Treatment Course - LABORATORY CBC & Chemistry Diagram: 04/05/18 17:25 04/05/18 17:25
--- NOTE | 2018-04-05 17:24 | PDOC ---
Attending Attestation - HPI HPI: 04/05/18 18:43 The patient is a 57 year old male with past medical history of HIV (untreated), Hepatitis C (untreated), syphilis, gonorrhea, depression, GERD, asthma, alcohol dependence, and heroine dependence presents to the emergency department from [facility] with a right heel ulcer. The patient was admitted at [facility] for heroin and alcohol detox (completed). The patient reports he first noticed the wound about a month ago, but denies seeking care. As per the [facility] facility , they noticed a small blister recently which has increased in size then eventually opened up. The facility recommend that the patient to seek care yesterday which he refused. The wound is noted to have pus discharge but no odor. The patient reports associated symptoms of generalized weakness, chills, cough and malise. Denies any numbness, tingling or loss of sensation. Denies chest pain or sob. Denies diarrhea or constipation. Denies dysuria, hematuria, frequency or urgency to urinate. Allergies: erythromycin base, vancomycin, chocolate flavor, nut - unspecified] Social history: Reports the daily history of smoking. Reports the use of alcohol , marijuana,and heroin. Surgical History: Orthopedic surgery PCP: None reported. <Ya Tineo - Last Filed: 04/05/18 18:43> - Resident Resident Name: Kevin Stroud - ED Attending Attestation I have performed the following: I have examined & evaluated the patient, The case was reviewed & discussed with the resident, I agree w/resident's findings & plan, Exceptions are as noted - Physicial Exam PE: GENERAL: Awake, alert, and fully oriented, in no acute distress. Appears thin, chronically ill. HEAD: No signs of trauma EYES: PERRLA, EOMI, sclera anicteric, conjunctiva clear ENT: Auricles normal inspection, hearing grossly normal, nares patent, oropharynx clear without exudates. Moist mucosa NECK: Normal ROM, supple, no lymphadenopathy, JVD, or masses LUNGS: Breath sounds equal, +rhonchi B/L. HEART: Regular rate and rhythm, normal S1 and S2, no murmurs, rubs or gallops ABDOMEN: Soft, nontender, normoactive bowel sounds. No guarding, no rebound. No masses EXTREMITIES: Normal range of motion, no edema. No clubbing or cyanosis. No cords, erythema, or tenderness NEUROLOGICAL: Cranial nerves II through XII grossly intact. Normal speech. Motor and sensation grossly intact. SKIN: Warm, Dry, normal turgor, no rashes or lesions noted. +Tactile fever. - Medical Decision Making 04/05/18 18:16 Pt with R heel ulcer, worsening for past few weeks. Now with subjective fevers, weakness x1 week. Patient appears ill but nontoxic. Will send basic labs, CRP, UA/UCx, BCx. Will obtain CXR and foot XR. Likely admission. <Maryjo Mendoza - Last Filed: 04/06/18 01:48>
[2018-04-05 17:45] LABS: HEMATOCRIT 40.2 % (35.4-49); HEMOGLOBIN 13.3 GM/dL (11.7-16.9); MCH 31.3 pg (25.7-33.7); MEAN CELL VOLUME 94.8 fl (80-96); MEAN PLT VOLUME 9.3 fl (7.5-11.1); PLATELET COUNT 100 K/MM3 (134-434); RBC 4.24 M/mm3 (4.00-5.60); RDW 15.3 % (11.9-15.9); WHITE BLOOD COUNT 4.4 K/mm3 (4.0-10.0)
[2018-04-05 18:11] LABS: ALBUMIN 1.7 g/dl (3.4-5.0); ANION GAP -1 (8-16); BILIRUBIN,TOTAL 0.9 mg/dL (0.2-1.0); BLOOD UREA NITROGEN 17 mg/dL (7-18); CALCIUM 7.5 mg/dL (8.5-10.1); CHLORIDE 108 mmol/L (98-107); CO2 30 mmol/L (21-32); CREATININE 0.7 mg/dL (0.7-1.3); GLUCOSE,RANDOM 88 mg/dL (74-106); POTASSIUM 3.9 mmol/L (3.5-5.1); SGOT/AST 50 U/L (15-37); SGPT/ALT 25 U/L (12-78); SODIUM 137 mmol/L (136-145); TOT PROT 8.5 g/dl (6.4-8.2)
[2018-04-05 18:12] LABS: ALK PHOS 366 U/L (45-117)
[2018-04-05 18:16] LABS: INR 1.09 (0.82-1.09); PROTHROMBIN TIME (PATIENT) 12.3 SEC (9.7-13.0)
[2018-04-05] MEDS ORDERED: PIPERACILLIN/TAZOB 4.5 GM 4.5 GM in DEXTROSE 5%-WATER 100 ML IVPB ONE (19:05)
--- NOTE | 2018-04-05 19:10 | PDOC ---
*Physical Exam - Vital Signs Last Vital Signs Temp Pulse Resp BP Pulse Ox 98.4 F 68 20 152/102 100 04/05/18 17:13 04/05/18 17:13 04/05/18 17:13 04/05/18 17:13 04/05/18 17:13 ED Treatment Course - LABORATORY CBC & Chemistry Diagram: 04/05/18 17:25 04/05/18 17:25 - ADDITIONAL ORDERS Additional order review: Laboratory Results 04/05/18 04/05/18 04/05/18 17:29 17:25 17:25 PT with INR 12.30 INR 1.09 Sodium 137 Potassium 3.9 Chloride 108 H Carbon Dioxide 30 D Anion Gap -1 L BUN 17 D Creatinine 0.7 D Creat Clearance w eGFR > 60 Random Glucose 88 D Calcium 7.5 L Total Bilirubin 0.9 AST 50 H ALT 25 Alkaline Phosphatase 366 H D LD Total 142 C-Reactive Protein < 0.3 Total Protein 8.5 H Albumin 1.7 L 04/05/18 17:25 RBC 4.24 MCV 94.8 MCHC 33.0 RDW 15.3 MPV 9.3 Neutrophils % No Result Required. Lymphocytes % No Result Required. Medical Decision Making - Medical Decision Making 04/05/18 19:10 Care taken over from Dr. Stroud. 04/05/18 19:45 Patient evaluation concerning for infected foot with untreated HIV/Hepatitis C. Admitting patient to hospitalist for further care. 04/05/18 20:14 Patient admitted to inpatient team. *DC/Admit/Observation/Transfer Diagnosis at time of Disposition: Acquired immune deficiency syndrome (AIDS), Cellulitis and abscess of foot Hepatitis C Qualifiers: Viral hepatitis chronicity: unspecified Hepatic coma status: without hepatic coma Qualified Code(s): B19.20 - Unspecified viral hepatitis C without hepatic coma - Discharge Dispostion Decision to Admit order: Yes - Referrals - Patient Instructions - Post Discharge Activity
[2018-04-05] MEDS ORDERED: PIPERACILLIN/TAZOB 4.5 GM 4.5 GM/100 ML BAG IVPB ONE (19:24)
[2018-04-05 19:36] LABS: ERYTHROCYTE SEDIMENTATION RATE 72 mm/hr (0-20)
[2018-04-05 19:49] LABS: PLATELET ESTIMATE DECREASED
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
[2018-04-05] MEDS ORDERED: ACETAMINOPHEN 325 MG TABLET (FP) PO PRN (22:15)
[2018-04-05] MEDS ORDERED: IBUPROFEN 600 MG TABLET (FP) PO PRN (22:15)
--- NOTE | 2018-04-05 22:31 | PN ---
Teaching Attending Note Name of Resident: Pauly Gant ATTENDING PHYSICIAN STATEMENT I saw and evaluated the patient. Chart, data, imaging reviewed. I reviewed the resident's note and discussed the case with the resident. I agree with the resident's findings and plan as documented. SUBJECTIVE: 57yo man with PMH of HIV (dx 2007, not on ART, VL/CD4 unknown), HCV (no tx), syphillis and gonorrhea (RPR non-reactive), depression, GERD, asthma, polysubstance abuse (EtOH, heroin, marijuana) sent from [facility] for care of infected right heal ulcer. Pt has had this ulcer for about one month and he thinks it may be related to wearing new shoes. No other recent skin infections. OBJECTIVE: Last Vital Signs Temp Pulse Resp BP Pulse Ox 98.4 F 68 20 152/102 100 04/05/18 17:13 04/05/18 17:13 04/05/18 17:13 04/05/18 17:13 04/05/18 17:13 General- nad, aaox3 heent -at, nc neck -supple cv-s1+s2+rrr chest - cta abdomen -soft , nt ext -right heal ulcer with purulence visible Abnormal Lab Results 04/05/18 04/05/18 17:25 17:25 Plt Count 100 L D Eosinophils % (Manual) 6.0 H ESR 72 H Chloride 108 H Anion Gap -1 L Calcium 7.5 L AST 50 H Alkaline Phosphatase 366 H D Total Protein 8.5 H Albumin 1.7 L ASSESSMENT AND PLAN: #Right heal ulcer- appears infected as pus is able to be expelled from ulcer. No signs of systemic infection. Allergy to vancomycin. -blood cultures x2 and wound culture sent -zosyn 3.375g IV q6hrs -podiatry consult -local wound care -esr -f/u foot x ray official read -consider MRI of foot #HIV/Hep C -hiv/ hep c PCRs -CD4 coun -hep B serology -ID consult for ART medications #syphilis -rpr -contact ESTELA to find out treatment history DVT ppx - heparin sc
[2018-04-05] MEDS ORDERED: MELATONIN 5 MG TABLETS PO PRN (22:47)
[2018-04-05] MEDS ORDERED: NICOTINE POLACRILEX 2 MG GUM BUC PRN (22:47)
[2018-04-06] MEDS: THIAMINE HCL 100 MG TABLET (FP) PO SCH ×2 (00:17→21:10)
[2018-04-06] MEDS ORDERED: PIPERACILLIN/TAZOB 3.375 GM 3.375 GM in DEXTROSE 5%-WATER - 50 ML IVPB SCH (02:00)
[2018-04-06] MEDS ORDERED: PIPERACILLIN/TAZOB 3.375 GM 3.375 GM/50 ML BAG IVPB ONE (02:23)
[2018-04-06] MEDS: PIPERACILLIN/TAZOB 3.375 GM 3.375 GM in DEXTROSE 5%-WATER - 50 ML IVPB SCH ×3 (02:27→18:15)
[2018-04-06] MEDS: HEPARIN NA (PORCINE) 5,000 UNITS/ML 1ML VIAL SQ SCH ×4 (06:19→21:10)
[2018-04-06 07:31] LABS: BASO % 1.2 % (0-2.0); EOS % 7.6 % (0-4.5); HEMATOCRIT 39.2 % (35.4-49); HEMOGLOBIN 13.2 GM/dL (11.7-16.9); LYMPH % 29.5 % (8-40); MCH 31.8 pg (25.7-33.7); MCHC 33.5 g/dl (32.0-35.9); MEAN CELL VOLUME 94.7 fl (80-96); MEAN PLT VOLUME 9.7 fl (7.5-11.1); MONO % 15.6 % (3.8-10.2); NEUT % 46.1 % (42.8-82.8); PLATELET COUNT 87 K/MM3 (134-434); RBC 4.14 M/mm3 (4.00-5.60); RDW 15.4 % (11.9-15.9)
--- NOTE | 2018-04-06 07:35 | PN ---
Physical Exam: SUBJECTIVE: Patient seen and examined. No chills or fevers overnight. No heel pain (pt says he feels pain only when bearing pressure on the heel). OBJECTIVE: Vital Signs Period Temp Pulse Resp BP Sys/Blank Pulse Ox Last 24 Hr 98.2 F-98.4 F 68-90 16-20 142-152/91-102 96-100 Vital Signs Temp 98.2 F 04/06/18 06:00 Pulse 74 04/06/18 06:00 Resp 18 04/06/18 06:00 BP 142/100 04/06/18 06:00 Pulse Ox 96 04/05/18 23:23 Intake & Output 04/05/18 04/05/18 04/06/18 11:59 23:59 11:59 Weight 62.142 kg Other: Height 1.75 m Body Mass Index (BMI) 20.2 Weight Measurement Method Est/Stated by Patient GENERAL: Thin, awake, alert, and fully oriented, in no acute distress. EYES: PERRL, extraocular movements intact ENT: Prominent papillae on tongue, oropharynx clear without exudates, moist mucous membranes. NECK: full range of motion, supple. LUNGS: Breath sounds equal, clear to auscultation bilaterally HEART: Regular rate and rhythm, S1, S2 ABDOMEN: Scaphoid, Soft, nontender, nondistended, normoactive bowel sounds EXTREMITIES: 2+ pulses, warm, well-perfused, no edema LLE. RLE hyperpigmented from ankle to toes. R heel with fluctuant swelling medially with 4cm irregular break in skin, with serosanguinous drainage. Non tender, no wayne bleeding. NEUROLOGICAL: Cranial nerves II through XII grossly intact. Normal speech, gait not observed. CBC, BMP 04/06/18 06:20 04/06/18 06:20 Laboratory Results - last 24 hr 04/05/18 04/05/18 04/05/18 17:25 17:25 17:25 WBC 4.4 RBC 4.24 Hgb 13.3 Hct 40.2 MCV 94.8 MCH 31.3 MCHC 33.0 RDW 15.3 Plt Count 100 L D MPV 9.3 Neutrophils % No Result Required. Neutrophils % (Manual) 56.0 Band Neutrophils % 1.0 Lymphocytes % No Result Required. Lymphocytes % (Manual) 25.0 Monocytes % (Manual) 8 Eosinophils % (Manual) 6.0 H Basophils % (Manual) 0.0 Nucleated RBC % 0 Platelet Estimate Decreased Platelet Comment No clumping noted ESR 72 H PT with INR 12.30 INR 1.09 Sodium 137 Potassium 3.9 Chloride 108 H Carbon Dioxide 30 D Anion Gap -1 L BUN 17 D Creatinine 0.7 D Creat Clearance w eGFR > 60 Random Glucose 88 D Lactic Acid Calcium 7.5 L Total Bilirubin 0.9 AST 50 H ALT 25 Alkaline Phosphatase 366 H D LD Total C-Reactive Protein < 0.3 Total Protein 8.5 H Albumin 1.7 L 04/05/18 04/05/18 17:29 19:32 WBC RBC Hgb Hct MCV MCH MCHC RDW Plt Count MPV Neutrophils % Neutrophils % (Manual) Band Neutrophils % Lymphocytes % Lymphocytes % (Manual) Monocytes % (Manual) Eosinophils % (Manual) Basophils % (Manual) Nucleated RBC % Platelet Estimate Platelet Comment ESR PT with INR INR Sodium Potassium Chloride Carbon Dioxide Anion Gap BUN Creatinine Creat Clearance w eGFR Random Glucose Lactic Acid 1.4 Calcium Total Bilirubin AST ALT Alkaline Phosphatase LD Total 142 C-Reactive Protein Total Protein Albumin Active Medications Generic Name Dose Route Start Last Admin Trade Name Freq PRN Reason Stop Dose Admin Acetaminophen 650 mg 04/05/18 22:15 Tylenol - PO Q4H PRN PAIN LEVEL 1-5 Heparin Sodium (Porcine) 5,000 unit 04/06/18 06:00 04/06/18 06:19 Heparin - SQ 5,000 unit TID CATARINO Administration Piperacillin Sod/Tazobactam 50 mls @ 100 mls/hr 04/06/18 02:00 Sod 3.375 gm/ Dextrose IVPB Q8H-IV CATARINO Protocol Piperacillin Sod/Tazobactam 50 mls @ 100 mls/hr 04/06/18 02:00 04/06/18 02:27 Sod 3.375 gm/ Dextrose IVPB 04/06/18 10:29 100 mls/hr Q8H-IV CATARINO Administration Ibuprofen 600 mg 04/05/18 22:15 Motrin - PO Q6H PRN FEVER Melatonin 5 mg 04/05/18 22:47 Melatonin PO HS PRN INSOMNIA Nicotine 21 mg 04/06/18 10:00 Nicoderm Patch - TD DAILY CATARINO Nicotine Polacrilex 2 mg 04/05/18 22:47 Nicorette Gum - BUC Q2H PRN NICOTINE REPLACEMENT RX Multivit/Folic Acid/Iron 1 tab 04/06/18 10:00 Vitamins (Sjr) - PO DAILY [facility] Thiamine HCl 100 mg 04/05/18 22:30 04/06/18 00:17 Vitamin B1 - PO 100 mg HS [facility] Administration Trimethoprim/Sulfamethoxazole 1 each 04/06/18 10:00 Bactrim Ds - PO DAILY [facility] Ambulatory Orders Albuterol Sulfate Inhaler - [Ventolin HFA Inhaler -] 2 inh PO Q4H PRN #1 cartridge 12/12/17 Current Medications Acetaminophen (Tylenol -) 650 mg PO Q4H PRN PRN Reason: PAIN LEVEL 1-5 Heparin Sodium (Porcine) (Heparin -) 5,000 unit SQ TID [facility] Last Admin: 04/06/18 06:19 Dose: 5,000 unit Piperacillin Sod/Tazobactam (Sod 3.375 gm/ Dextrose) 50 mls @ 100 mls/hr IVPB Q8H-IV [facility]; Protocol Piperacillin Sod/Tazobactam (Sod 3.375 gm/ Dextrose) 50 mls @ 100 mls/hr IVPB Q8H-IV [facility] Stop: 04/06/18 10:29 Last Admin: 04/06/18 02:27 Dose: 100 mls/hr Ibuprofen (Motrin -) 600 mg PO Q6H PRN PRN Reason: FEVER Melatonin (Melatonin) 5 mg PO HS PRN PRN Reason: INSOMNIA Nicotine (Nicoderm Patch -) 21 mg TD DAILY [facility] Nicotine Polacrilex (Nicorette Gum -) 2 mg BUC Q2H PRN PRN Reason: NICOTINE REPLACEMENT RX Multivit/Folic Acid/Iron ( Vitamins (Sjr) -) 1 tab PO DAILY [facility] Thiamine HCl (Vitamin B1 -) 100 mg PO HS [facility] Last Admin: 04/06/18 00:17 Dose: 100 mg Trimethoprim/Sulfamethoxazole (Bactrim Ds -) 1 each PO DAILY [facility] ASSESSMENT/PLAN: 57 yo man with PMHx of HIV (dx 2007, not on HAART, VL/CD4 unknown), HCV (no tx) , h/o syphillis and gonorrhea (RPR non-reactive), depression, GERD, asthma, polysubstance abuse (EtOH, heroine, marijuana) who was sent from [facility] for evaluation of R heel ulcer. #R foot ulcer, +purulent drainage without surrounding cellulitis/crepitis, CRP wnl, ESR 72 -Podiatry consulted (Dr. Patel) -F/u wound and blood cultures -Check MRSA nares swab -c/w Zosyn 3.375gm Q8H (patient reports Rash from Vancomycin) - Clindamycin 600mg Q6H added -Motrin 400mg PO Q6H PRN and Tylenol 650mg Q4H PRN for pain #HIV, not on HAART -ID consulted- to likely resume-Truvada, Ritonavir, and Darunavir -Empiric Bactrim DS daily for ppx -Viral load and CD4 counts- pending #h/o HCV -Hepatitis panel and HCV- pending #IVDU, completed Heroine detox -2D ECHO to r/o vegetations #EtOH abuse, completed detox, no signs of withdrawal - 1 tab PO daily -Thiamine 100mg PO HS #Nicotine dependence -Nicotine patch 21mg TD daily -Nicorette gum - 2mg BUC Q2H PRN #Insomnia - Melatonin 5mg PO HS PRN #FEN PO intake Monitor lytes and replete as needed Na controlled diet + Ensure BID #PPX DVT - HSQ Q8H #DISPO - m/s, patient interested in returning to rehab FULL code Visit type - Emergency Visit Emergency Visit: Yes ED Registration Date: 04/05/18 Care time: The patient presented to the Emergency Department on the above date and was hospitalized for further evaluation of their emergent condition. - New Patient This patient is new to me today: Yes Date on this admission: 04/06/18 - Critical Care Critical Care patient: No - Discharge Referral Referred to [facility] Med P.C.: No
[2018-04-06 08:04] LABS: CHLORIDE 107 mmol/L (98-107); POTASSIUM 3.9 mmol/L (3.5-5.1); SODIUM 136 mmol/L (136-145)
[2018-04-06 08:15] LABS: ALBUMIN 1.7 g/dl (3.4-5.0); ALK PHOS 374 U/L (45-117); ANION GAP 6 (8-16); CALCIUM 7.7 mg/dL (8.5-10.1); CO2 23 mmol/L (21-32); CREATININE 0.8 mg/dL (0.7-1.3); GLUCOSE,RANDOM 78 mg/dL (74-106); SGOT/AST 53 U/L (15-37); SGPT/ALT 23 U/L (12-78); TOT PROT 8.3 g/dl (6.4-8.2)
[2018-04-06 08:41] LABS: BLOOD UREA NITROGEN 17 mg/dL (7-18)
--- NOTE | 2018-04-06 09:27 | CONSULT ---
Consultation: REQUESTING PROVIDER: CONSULT REQUEST: We have been asked to medically evaluate this patient for HIV+ , not on medication. HISTORY OF PRESENT ILLNESS: 57M with PMH of HIV (since 2007, most recent viral load and CD4 count unknown, discontinued HAART 1 yr ago), HCV, syphilis (RPR non-reactive), gonorrhea, depression, PSA (just completed detox for etoh with librium and heroin with methadone), presented to hospital from [facility] for infected Right heel ulcer. Pt reports blister appeared 1 mo ago on Right heel, which he attributes to new shoes. Blister progressed to ulcer which is now draining purulent material. Pt reported fever, chills, malaise a few days ago, but none now. Pt denies chest pain, sob, abdominal pain. Pt reports being compliant with HAART medications (Truvada, Ritonavir, and Darunavir) up until 1 yr ago. He was told with his insurance he could only pickling solution maker his medication from a location on [address] and he had no transportation out to that site. Pt endorses being interested in resuming [facility] treatment. REVIEW OF SYSTEMS: CONSTITUTIONAL: Absent: fever, chills, diaphoresis HEENT: Absent: rhinorrhea, nasal congestion, ear pain, eye pain, visual changes CARDIOVASCULAR: Absent: chest pain, palpitations, irregular heart rate, peripheral edema RESPIRATORY: Absent: cough, shortness of breath, wheezing, stridor GASTROINTESTINAL: Absent: abdominal pain, abdominal distension, nausea, vomiting, diarrhea, constipation GENITOURINARY: Absent: dysuria, hematuria MUSCULOSKELETAL: Absent: myalgia, arthralgia, joint swelling, back pain, neck pain SKIN: Absent: rash, itching, pallor NEUROLOGIC: Absent: headache, focal weakness or paresthesias PSYCHIATRIC: Absent: anxiety, depression PHYSICAL EXAMINATION Vital Signs - 24 hr 04/05/18 04/05/18 04/06/18 17:13 23:23 06:00 Temperature 98.4 F 98.2 F Pulse Rate 68 74 Pulse Rate [ 90 Right] Respiratory 20 16 18 Rate Blood Pressure 152/102 142/100 Blood Pressure 149/91 [Left Arm] O2 Sat by Pulse 100 96 Oximetry (%) 04/06/18 07:45 Temperature 98.1 F Pulse Rate Pulse Rate [ Right] Respiratory 18 Rate Blood Pressure Blood Pressure 146/98 [Left Arm] O2 Sat by Pulse 100 Oximetry (%) GENERAL: Awake, alert, and fully oriented, in no acute distress. LUNGS: Breath sounds equal, clear to auscultation bilaterally. No wheezes, and no crackles. No accessory muscle use. HEART: Regular rate and rhythm, normal S1 and S2 without murmur, rub or gallop. ABDOMEN: Soft, nontender, not distended, normoactive bowel sounds, no guarding. LOWER EXTREMITIES: Warm, well-perfused. No calf tenderness. No peripheral edema. PSYCHIATRIC: Cooperative. Good eye contact. Appropriate mood and affect. SKIN: Right medial heel with 3cm x 3cm area of fluctuance and darkened skin, with 2cm vertical slit in skin draining purulent and bloody material Laboratory Results - last 24 hr 04/05/18 04/05/18 04/05/18 17:25 17:25 17:25 WBC 4.4 RBC 4.24 Hgb 13.3 Hct 40.2 MCV 94.8 MCH 31.3 MCHC 33.0 RDW 15.3 Plt Count 100 L D MPV 9.3 Neutrophils % No Result Required. Neutrophils % (Manual) 56.0 Band Neutrophils % 1.0 Lymphocytes % No Result Required. Lymphocytes % (Manual) 25.0 Monocytes % Monocytes % (Manual) 8 Eosinophils % Eosinophils % (Manual) 6.0 H Basophils % Basophils % (Manual) 0.0 Nucleated RBC % 0 Platelet Estimate Decreased Platelet Comment No clumping noted ESR 72 H PT with INR 12.30 INR 1.09 Sodium 137 Potassium 3.9 Chloride 108 H Carbon Dioxide 30 D Anion Gap -1 L BUN 17 D Creatinine 0.7 D Creat Clearance w eGFR > 60 Random Glucose 88 D Lactic Acid Calcium 7.5 L Total Bilirubin 0.9 AST 50 H ALT 25 Alkaline Phosphatase 366 H D LD Total C-Reactive Protein < 0.3 Total Protein 8.5 H Albumin 1.7 L 04/05/18 04/05/18 04/06/18 17:29 19:32 06:20 WBC 4.0 RBC 4.14 Hgb 13.2 Hct 39.2 MCV 94.7 MCH 31.8 MCHC 33.5 RDW 15.4 Plt Count 87 L MPV 9.7 Neutrophils % 46.1 Neutrophils % (Manual) Band Neutrophils % Lymphocytes % 29.5 Lymphocytes % (Manual) Monocytes % 15.6 H Monocytes % (Manual) Eosinophils % 7.6 H Eosinophils % (Manual) Basophils % 1.2 Basophils % (Manual) Nucleated RBC % 0 Platelet Estimate Platelet Comment ESR PT with INR INR Sodium Potassium Chloride Carbon Dioxide Anion Gap BUN Creatinine Creat Clearance w eGFR Random Glucose Lactic Acid 1.4 Calcium Total Bilirubin AST ALT Alkaline Phosphatase LD Total 142 C-Reactive Protein Total Protein Albumin 04/06/18 06:20 WBC RBC Hgb Hct MCV MCH MCHC RDW Plt Count MPV Neutrophils % Neutrophils % (Manual) Band Neutrophils % Lymphocytes % Lymphocytes % (Manual) Monocytes % Monocytes % (Manual) Eosinophils % Eosinophils % (Manual) Basophils % Basophils % (Manual) Nucleated RBC % Platelet Estimate Platelet Comment ESR PT with INR INR Sodium 136 Potassium 3.9 Chloride 107 Carbon Dioxide 23 D Anion Gap 6 L BUN 17 Creatinine 0.8 Creat Clearance w eGFR > 60 Random Glucose 78 Lactic Acid Calcium 7.7 L Total Bilirubin 1.0 AST 53 H ALT 23 Alkaline Phosphatase 374 H LD Total C-Reactive Protein Total Protein 8.3 H Albumin 1.7 L Active Medications Generic Name Dose Route Start Last Admin Trade Name Freq PRN Reason Stop Dose Admin Acetaminophen 650 mg 04/05/18 22:15 Tylenol - PO Q4H PRN PAIN LEVEL 1-5 Heparin Sodium (Porcine) 5,000 unit 04/06/18 06:00 04/06/18 06:19 Heparin - SQ 5,000 unit TID CATARINO Administration Piperacillin Sod/Tazobactam 50 mls @ 100 mls/hr 04/06/18 02:00 Sod 3.375 gm/ Dextrose IVPB Q8H-IV [facility]INO Protocol Piperacillin Sod/Tazobactam 50 mls @ 100 mls/hr 04/06/18 02:00 04/06/18 02:27 Sod 3.375 gm/ Dextrose IVPB 04/06/18 10:29 100 mls/hr Q8H-IV CATARINO Administration Ibuprofen 600 mg 04/05/18 22:15 Motrin - PO Q6H PRN FEVER Melatonin 5 mg 04/05/18 22:47 Melatonin PO HS PRN INSOMNIA Nicotine 21 mg 04/06/18 10:00 Nicoderm Patch - TD DAILY [facility] Nicotine Polacrilex 2 mg 04/05/18 22:47 Nicorette Gum - BUC Q2H PRN NICOTINE REPLACEMENT RX Multivit/Folic Acid/Iron 1 tab 05/31/18 10:00 Vitamins (Sjr) - PO DAILY [facility] Thiamine HCl 100 mg 04/05/18 22:30 04/06/18 00:17 Vitamin B1 - PO 100 mg HS [facility]ARINO Administration Trimethoprim/Sulfamethoxazole 1 each 04/06/18 10:00 Bactrim Ds - PO DAILY [facility] ASSESSMENT/PLAN: 57M with PMH of HIV (since 2007, most recent viral load and CD4 count unknown, discontinued HAART 1 yr ago), HCV, syphilis (RPR non-reactive), gonorrhea, depression, PSA (just completed detox for etoh with librium and heroin with methadone), presented to hospital from [facility] for infected Right heel ulcer. # HIV - f/u HIV, CD4, and hepatitis panel - resume Truvada, Ritonavir, and Darunavir - continue Bactrim for PCP prophylaxis # Right heel ulcer - f/u Right foot xray, consider MRI to assess for OM - pt is afebrile - no leukocytosis - elevated ESR noted - allergy to Vancomycin noted - producing rash - pt received 2 doses of Zosyn in ER - continue IV Zosyn, consider adding an abx to cover MRSA Plan discussed with Dr. Christianson. Dispo: We will continue to follow the patient. Thank you for this consultative opportunity. Visit type - Emergency Visit Emergency Visit: Yes ED Registration Date: 04/05/18 Care time: The patient presented to the Emergency Department on the above date and was hospitalized for further evaluation of their emergent condition. - New Patient This patient is new to me today: Yes Date on this admission: 04/06/18 - Critical Care Critical Care patient: No
[2018-04-06] MEDS ORDERED: PIPERACILLIN/TAZOBACTAM 3.375 GM VIAL IVPB ONE ×2 (10:11→17:38)
[2018-04-06] MEDS ORDERED: DEXTROSE 5%-WATER - 50 ML IVPB ONE ×2 (10:11→17:38)
[2018-04-06] MEDS: SULFAMETHOXAZOLE/TRIMETHOPRIM 800MG/160MG D.S. TABLET PO SCH (10:20)
[2018-04-06] MEDS: NICOTINE 21 MG/24 HOURS TOPICAL PATCH TD SCH (10:20)
[2018-04-06 10:38] LABS: MAGNESIUM 1.2 mg/dL (1.8-2.4); PHOSPHOROUS 3.1 mg/dL (2.5-4.9)
--- NOTE | 2018-04-06 12:19 | PN ---
Teaching Attending Note Name of Resident: Enriqueta Hernandez ATTENDING PHYSICIAN STATEMENT I saw and evaluated the patient. I reviewed the resident's note and discussed the case with the resident. I agree with the resident's findings and plan as documented. SUBJECTIVE:asymptomatic. states he has no pain but has had difficulty ambulating due to the foot requiring him to use a cane. denies CP, SOB, fever, chills, N/V/C/D, pain in the foot. states he was wearing new shoes that cut his heel and then the shoe was rubbing on the back of the foot leading to a larger cut states he was detox at [facility] for heroin and ETOH. he has hx of snorting and injecting heroin, injected only into his arms and never his LE OBJECTIVE: Last Vital Signs Temp Pulse Resp BP Pulse Ox 97.2 F L 65 24 145/91 96 04/06/18 09:04 04/06/18 09:10 04/06/18 09:10 04/06/18 09:10 04/06/18 09:27 General NAD CV S1 S2 RRR no murmur/rub/gallop Lungs CTA B/L no wheezing/rales/rhonchi Extremities R heel with laceration noted to back of heel with surrounding fluctuance. minimal white drainage on expression. area not tender, no swelling ASSESSMENT AND PLAN: 57yo M wtih PMH HIV on HARRT, HCV, syphillis, Continuous polysubstance abuse presented to the ER with progressively worsening R heel ulcer [id number] 1. R heel abscess- concern for underlying OM. elevated ESR. foot XR done awaiting read. may need to consider MRI of the foot. started on zosyn in the ER and not vanco due to vanco allergy. will start clinda for MRSA coverage at this time. ID and podiatry consulted. A1c 5 2. Elevated BP- will monitor for now, consider starting antihypertensive if persists 3. HIV on HARRT- cont medications. ID consulted. PCP ppx with bactrim 4. Syphillis- will need to call [facility] if being treated 5. DVT ppx- hep sq
--- NOTE | 2018-04-06 13:27 | EKG ---
Test Reason : Blood Pressure : / mmHG Vent. Rate : 068 BPM Atrial Rate : 068 BPM P-R Int : 150 ms QRS Dur : 096 ms QT Int : 396 ms P-R-T Axes : 078 -22 015 degrees QTc Int : 421 ms NORMAL SINUS RHYTHM NORMAL ECG WHEN COMPARED WITH ECG OF 31-MAR-2018 09:36, NO SIGNIFICANT CHANGE WAS FOUND Confirmed by ANAIS CHERY MD ([id number]) on 04/06/2018 1:27:02 PM Referred By: Confirmed By:ANAIS CHERY MD
[2018-04-06] MEDS ORDERED: MAGNESIUM SULF 50% (8.12 MEQ/2 ML-1 GM VIAL) IVPB ONE (13:57)
[2018-04-06] MEDS ORDERED: ALBUTEROL SO4 18 GM HFA INHALER IH PRN (14:11)
[2018-04-06] MEDS ORDERED: CLINDAMYCIN 600MG PREMIX IVPB 600 MG/50 ML BAG IVPB SCH (15:00)
[2018-04-06] MEDS ORDERED: MAGNESIUM SULFATE IN WATER 2 GM/50 ML IVPB IVPB ONE (15:15)
[2018-04-06] MEDS ORDERED: DARUNAVIR ETHANOLATE 100 MG/ML BULK BOTTLE PO SCH (16:00)
[2018-04-06] MEDS: RITONAVIR 100 MG TABLET PO SCH (17:31)
[2018-04-06] MEDS: EMTRICITABINE 200MG/TENOFOVIR 300MG PO SCH (17:31)
[2018-04-06] MEDS: PRENATAL VITAMINS W/ FOLIC ACID TABLET (FP) PO SCH (17:32)
[2018-04-06] MEDS: CLINDAMYCIN 600MG PREMIX IVPB 600 MG/50 ML BAG IVPB SCH (18:13)
[2018-04-06] MEDS ORDERED: PT OWN MED DRAWER 7, Y5N ONE ×2 (18:26→23:36)
[2018-04-07] MEDS ORDERED: DEXTROSE 5%-WATER - 50 ML IVPB ONE ×3 (01:20→17:02)
[2018-04-07] MEDS ORDERED: PIPERACILLIN/TAZOBACTAM 3.375 GM VIAL IVPB ONE ×3 (01:20→17:02)
[2018-04-07] MEDS: CLINDAMYCIN 600MG PREMIX IVPB 600 MG/50 ML BAG IVPB SCH ×3 (01:54→18:28)
[2018-04-07] MEDS: PIPERACILLIN/TAZOB 3.375 GM 3.375 GM in DEXTROSE 5%-WATER - 50 ML IVPB SCH ×3 (01:55→17:18)
[2018-04-07] MEDS ORDERED: PT OWN MED DRAWER 7, Y5N ONE ×4 (02:16→17:02)
[2018-04-07 06:11] LABS: HEPATITIS B CORE ANTIBODY,IGM Negative (Negative)
--- NOTE | 2018-04-07 06:50 | FALL ---
Fall Exam - Event Witnessed fall: No Location of Fall: Patient Room Fall from: Bed - Pre-Fall Mental Status: Alert, Oriented, Cooperative Current Medications: Current Medications Generic Name Dose Route Start Last Admin Trade Name Freq PRN Reason Stop Dose Admin Acetaminophen 650 mg 04/05/18 22:15 Tylenol - PO Q4H PRN PAIN LEVEL 1-5 Albuterol Sulfate 2 puff 04/06/18 14:11 04/06/18 15:46 Ventolin Hfa Inhaler - IH 2 puff Q4H PRN Administration ASTHMA Darunavir 800 mg 04/07/18 10:00 Prezista - PO DAILY CATARINO Emtricitabine/Tenofovir 1 tab 04/06/18 16:00 04/06/18 17:31 Truvada PO 1 tab DAILY CATARINO Administration Heparin Sodium (Porcine) 5,000 unit 04/06/18 06:00 04/06/18 21:10 Heparin - SQ 5,000 unit TID CATARINO Administration Piperacillin Sod/Tazobactam 50 mls @ 100 mls/hr 04/06/18 16:30 04/07/18 01:55 Sod 3.375 gm/ Dextrose IVPB 100 mls/hr Q8H-IV CATARINO Administration Protocol Clindamycin Phosphate 600 mg in 50 mls @ 100 mls/hr 04/06/18 18:00 04/07/18 01:54 Cleocin 600 Mg Premix Ivpb - IVPB 100 mls/hr Q8H-IV CATARINO Administration Protocol Ibuprofen 600 mg 04/05/18 22:15 Motrin - PO Q6H PRN FEVER Melatonin 5 mg 04/05/18 22:47 Melatonin PO HS PRN INSOMNIA Nicotine 21 mg 04/06/18 10:00 04/06/18 10:20 Nicoderm Patch - TD 21 mg DAILY CATARINO Administration Nicotine Polacrilex 2 mg 04/05/18 22:47 Nicorette Gum - BUC Q2H PRN NICOTINE REPLACEMENT RX Multivit/Folic Acid/Iron 1 tab 04/06/18 10:00 04/06/18 17:32 Vitamins (Sjr) - PO 1 tab DAILY CATARINO Administration Ritonavir 100 mg 04/06/18 16:00 04/06/18 17:31 Norvir - PO 100 mg DAILY CATARINO Administration Thiamine HCl 100 mg 04/05/18 22:30 04/06/18 21:10 Vitamin B1 - PO 100 mg HS CATARINO Administration Trimethoprim/Sulfamethoxazole 1 each 04/06/18 10:00 04/06/18 10:20 Bactrim Ds - PO 1 each DAILY CATARINO Administration - Post-Fall Patient Outcome: No Injury Exam Findings: Pt reported slipped while getting out of bed and falling on R knee. Denies pain in the R knee. No tenderness to palpation of R knee or surrounding area. Full ROM of R knee. Patient is able to bear weight. Treatment: None Vital Signs: Vital Signs Temperature 97.9 F 04/07/18 06:00 Pulse Rate 71 04/07/18 06:00 Respiratory Rate 20 04/07/18 06:00 Blood Pressure 131/85 04/07/18 06:00 O2 Sat by Pulse Oximetry (%) 96 04/06/18 21:00 Identify factors for HIGH RISK for Head Injury: None of the above
[2018-04-07] MEDS: HEPARIN NA (PORCINE) 5,000 UNITS/ML 1ML VIAL SQ SCH ×3 (06:54→22:11)
[2018-04-07 07:12] LABS: BASO % 0.6 % (0-2.0); EOS % 7.9 % (0-4.5); HEMATOCRIT 40.4 % (35.4-49); HEMOGLOBIN 13.9 GM/dL (11.7-16.9); LYMPH % 36.5 % (8-40); MCH 31.7 pg (25.7-33.7); MCHC 34.5 g/dl (32.0-35.9); MEAN CELL VOLUME 91.9 fl (80-96); MEAN PLT VOLUME 9.6 fl (7.5-11.1); MONO % 15.3 % (3.8-10.2); NEUT % 39.7 % (42.8-82.8); PLATELET COUNT 123 K/MM3 (134-434); RDW 16.3 % (11.9-15.9); WHITE BLOOD COUNT 4.5 K/mm3 (4.0-10.0)
[2018-04-07] MEDS ORDERED: ALBUTEROL SO4 0.083% IH SOL 2.5 MG/3 ML VIAL.NEB. NEB PRN (07:15)
--- NOTE | 2018-04-07 08:24 | PN ---
Physical Exam: SUBJECTIVE: Patient seen and examined. Said to have slipped this morning on to his R knee when trying to sweet pickle maker his urinal. Did not hit his head. No bleedding noted. Pt asking for wound cleaning with iodine. Says he does not want debridement. Requesting percocet for R ankle pain. OBJECTIVE: Vital Signs Period Temp Pulse Resp BP Sys/Blank Pulse Ox Last 24 Hr 97.2 F-98.6 F 64-82 18-28 122-149/81-99 96-96 Vital Signs Temp 97.5 F L 04/07/18 06:47 Pulse 66 04/07/18 06:47 Resp 18 04/07/18 06:47 BP 137/90 04/07/18 06:47 Pulse Ox 96 04/06/18 21:00 Intake & Output 04/06/18 04/06/18 04/07/18 11:59 23:59 11:59 Intake Total 620 500 100 Output Total 600 Balance 620 500 -500 Weight 59.874 kg Intake: IVPB 100 150 100 Oral 520 350 Output: Urine 600 Void 600 Other: Voiding Method Urinal Urinal # Unmeasured Voids Void 1 1 Bowel Movement No Height 1.78 m Body Mass Index (BMI) 18.9 Weight Measurement Method Standing Scale GENERAL: The patient is awake, alert, and fully oriented, in no acute distress. Refusing full exam HEAD: Normal with no signs of trauma. EYES: PERRL, extraocular movements intact, LUNGS: Scattered rhonchi, not dyspneic HEART: Regular rate and rhythm, S1, S2 without murmur ABDOMEN: Soft, nontender, nondistended, normoactive bowel sounds EXTREMITIES: 2+ pulses, warm, well-perfused, no edema. R heel with blood stained dressing. Refusing to have the foot examined. No obvious bleeding or bruising on the R knee. NEUROLOGICAL: AAO x3. Normal speech, gait not observed. CBC, BMP 04/07/18 06:35 04/07/18 09:25 Laboratory Results - last 24 hr 04/05/18 04/06/18 04/06/18 10:20 06:20 06:30 WBC RBC Hgb Hct MCV MCH MCHC RDW Neutrophils % Lymphocytes % Monocytes % Eosinophils % Basophils % Nucleated RBC % Sodium 136 Potassium 3.9 Chloride 107 Carbon Dioxide 23 D Anion Gap 6 L BUN 17 Creatinine 0.8 Creat Clearance w eGFR > 60 Random Glucose 78 Hemoglobin A1c % Calcium 7.7 L Phosphorus 3.1 Cancelled Magnesium 1.2 L Cancelled Total Bilirubin 1.0 AST 53 H ALT 23 Alkaline Phosphatase 374 H Total Protein 8.3 H Albumin 1.7 L Hep B Core IgM Ab Negative 04/06/18 04/07/18 10:52 06:35 WBC 4.5 RBC 4.40 Hgb 13.9 Hct 40.4 MCV 91.9 MCH 31.7 MCHC 34.5 RDW 16.3 H Neutrophils % 39.7 L Lymphocytes % 36.5 D Monocytes % 15.3 H Eosinophils % 7.9 H Basophils % 0.6 Nucleated RBC % 0 Sodium Potassium Chloride Carbon Dioxide Anion Gap BUN Creatinine Creat Clearance w eGFR Random Glucose Hemoglobin A1c % 5.0 Calcium Phosphorus Magnesium Total Bilirubin AST ALT Alkaline Phosphatase Total Protein Albumin Hep B Core IgM Ab Active Medications Generic Name Dose Route Start Last Admin Trade Name Freq PRN Reason Stop Dose Admin Acetaminophen 650 mg 04/05/18 22:15 Tylenol - PO Q4H PRN PAIN LEVEL 1-5 Albuterol Sulfate 1 amp 04/07/18 07:15 Ventolin 0.083% Nebulizer Soln - NEB Q4H PRN SHORT OF BREATH/WHEEZING Darunavir 800 mg 04/07/18 10:00 Prezista - PO DAILY CATARINO Emtricitabine/Tenofovir 1 tab 04/06/18 16:00 04/06/18 17:31 Truvada PO 1 tab DAILY CATARINO Administration Heparin Sodium (Porcine) 5,000 unit 04/06/18 06:00 04/07/18 06:54 Heparin - SQ 5,000 unit TID CATARINO Administration Piperacillin Sod/Tazobactam 50 mls @ 100 mls/hr 04/06/18 16:30 04/07/18 01:55 Sod 3.375 gm/ Dextrose IVPB 100 mls/hr Q8H-IV CATARINO Administration Protocol Clindamycin Phosphate 600 mg in 50 mls @ 100 mls/hr 04/06/18 18:00 04/07/18 01:54 Cleocin 600 Mg Premix Ivpb - IVPB 100 mls/hr Q8H-IV CATARINO Administration Protocol Ibuprofen 600 mg 04/05/18 22:15 Motrin - PO Q6H PRN FEVER Nicotine 21 mg 04/06/18 10:00 04/06/18 10:20 Nicoderm Patch - TD 21 mg DAILY CATARINO Administration Nicotine Polacrilex 2 mg 04/05/18 22:47 Nicorette Gum - BUC Q2H PRN NICOTINE REPLACEMENT RX Multivit/Folic Acid/Iron 1 tab 04/06/18 10:00 04/06/18 17:32 Vitamins (Sjr) - PO 1 tab DAILY CATARINO Administration Ritonavir 100 mg 04/06/18 16:00 04/06/18 17:31 Norvir - PO 100 mg DAILY CATARINO Administration Thiamine HCl 100 mg 04/05/18 22:30 04/06/18 21:10 Vitamin B1 - PO 100 mg HS CATARINO Administration Trimethoprim/Sulfamethoxazole 1 each 04/06/18 10:00 04/06/18 10:20 Bactrim Ds - PO 1 each DAILY CATARINO Administration ASSESSMENT/PLAN: 57 yo man with PMHx of HIV (dx 2007, not on HAART, VL/CD4 unknown), HCV (no tx) , h/o syphillis and gonorrhea (RPR non-reactive), depression, GERD, asthma, polysubstance abuse (EtOH, heroine, marijuana) who was sent from [facility] for evaluation of R heel ulcer. #R foot ulcer, +purulent drainage without surrounding cellulitis/crepitis, CRP wnl, ESR 72 -Podiatry consulted (Dr. Patel)-- for MRI w/w/o contrast -F/u wound and blood cultures -c/w Zosyn 3.375gm Q8H (patient reports Rash from Vancomycin) - Clindamycin 600mg Q6H added -Pt requesting percocet. Will give iv toradol considering substance abuse hx -pending MRI to R/O osteomyelitis #Hx of fall -Pt said to have tripped while trying to sweet pickle maker urinal, no syncope, no palpitations prior -No head trauma, not trauma to knee -Able to move all joints, no need for imaging at this time. -Pain mx as needed #HIV, not on HAART -ID consulted- resumed-Truvada, Ritonavir, and Darunavir -Empiric Bactrim DS daily for ppx -Viral load and CD4 counts- pending #h/o HCV Hep B virus IgM -rest of Hepatitis panel - pending #IVDU, completed Heroine detox -2D ECHO to r/o vegetations #EtOH abuse, completed detox, no signs of withdrawal - 1 tab PO daily -Thiamine 100mg PO HS -Banana bag #Nicotine dependence -Nicotine patch 21mg TD daily -Nicorette gum - 2mg BUC Q2H PRN #Insomnia - Melatonin 5mg PO HS PRN #FEN PO intake Monitor lytes and replete as needed Na controlled diet + Ensure BID #PPX DVT - HSQ Q8H #DISPO - m/s, patient interested in returning to rehab FULL code Visit type - Emergency Visit Emergency Visit: Yes ED Registration Date: 04/05/18 Care time: The patient presented to the Emergency Department on the above date and was hospitalized for further evaluation of their emergent condition. - New Patient This patient is new to me today: No - Critical Care Critical Care patient: No - Discharge Referral Referred to [facility] Med P.C.: No
[2018-04-07 09:53] LABS: PLATELET ESTIMATE DECREASED
[2018-04-07] MEDS: SULFAMETHOXAZOLE/TRIMETHOPRIM 800MG/160MG D.S. TABLET PO SCH (09:54)
[2018-04-07] MEDS: NICOTINE 21 MG/24 HOURS TOPICAL PATCH TD SCH (09:54)
--- NOTE | 2018-04-07 10:11 | CONSULT ---
Consult - text type - Consultation Consultation Note: PT seen at bedside with right heel wound Discussed with medicine service as per potential for calcaneal osteomyelitis PT presents today very lethargic stating he " is just very tired today" Pt has known hepatitis and is HIV (+) DERIC Palpable pedal pulses NVS intact epicritic sensations grossly intact Tender on palpation NO pain or crepitus on ROM of ankle or Subtalar joint No signs of ascending cellulitis Negative popliteal or inguinal adenopathy NO lymphangiitis Impression Calcaneal wound left foot Plan: IVABX MRI ordered Cont local wound care
[2018-04-07 11:29] LABS: ALBUMIN 1.8 g/dl (3.4-5.0); ANION GAP 9 (8-16); BLOOD UREA NITROGEN 14 mg/dL (7-18); CALCIUM 7.7 mg/dL (8.5-10.1); CHLORIDE 105 mmol/L (98-107); CO2 21 mmol/L (21-32); GLUCOSE,RANDOM 130 mg/dL (74-106); MAGNESIUM 1.7 mg/dL (1.8-2.4); POTASSIUM 3.8 mmol/L (3.5-5.1); SGOT/AST 66 U/L (15-37); SODIUM 135 mmol/L (136-145); TOT PROT 8.9 g/dl (6.4-8.2)
[2018-04-07 11:45] LABS: ALK PHOS 370 U/L (45-117); BILIRUBIN,TOTAL 1.1 mg/dL (0.2-1.0); SGPT/ALT 28 U/L (12-78)
[2018-04-07] MEDS ORDERED: MAGNESIUM OXIDE 400 MG TABLET (FP) PO ONE ×2 (12:59→16:45)
--- NOTE | 2018-04-07 13:20 | PN ---
Teaching Attending Note Name of Resident: Enriqueta Hernandez ATTENDING PHYSICIAN STATEMENT I saw and evaluated the patient. I reviewed the resident's note and discussed the case with the resident. I agree with the resident's findings and plan as documented. SUBJECTIVE:c/o pain in the R ankle after falling. stated last night he slipped getting out of bed and landed on his R knee. no pain in the knee or swelling. denies Cp, SOB, fever, chills, N/V/C/D OBJECTIVE: Last Vital Signs Temp Pulse Resp BP Pulse Ox 98.7 F 70 24 118/85 97 04/07/18 12:47 04/07/18 12:47 04/07/18 12:47 04/07/18 12:47 04/07/18 10:45 General NAD Extremities R heel with laceration noted to back of heel with surrounding fluctuance. restricted movement of flexion/dorsiflexion. R knee skin intact, no effusion, full ROM, no patellar pain, no point tenderness, R hip full ROM, no point tenderness. pulse 2+ ASSESSMENT AND PLAN: 57yo M wtih PMH HIV on HARRT, HCV, syphillis, Continuous polysubstance abuse presented to the ER with progressively worsening R heel ulcer [id number] 1. R heel abscess- concern for underlying OM. elevated ESR. foot XR negative. will obtain MRI with/without contrast to further evaluate. cont zosyn/clinda day 2. ID and podiatry on board. toradol as needed for pain. will try to avoid narcotics as pt was recently detox for heroin. 2. Elevated BP- now controlled. 3. HIV on HARRT- cont medications. ID consulted. PCP ppx with bactrim 4. Syphillis- will need to call [facility] if being treated 5. continuous polysubstance abuse- recently detoxed at [facility] for ETOH and heroin. will return to [facility] for rehab once medically optimized 6. DVT ppx- hep sq
[2018-04-07 14:36] VITALS: BMI 19.5
[2018-04-07] MEDS: PRENATAL VITAMINS W/ FOLIC ACID TABLET (FP) PO SCH (15:03)
[2018-04-07] MEDS: EMTRICITABINE 200MG/TENOFOVIR 300MG PO SCH (15:03)
[2018-04-07] MEDS: RITONAVIR 100 MG TABLET PO SCH (15:04)
[2018-04-07] MEDS: DARUNAVIR ETHANOLATE 800 MG TAB PO SCH (15:05)
[2018-04-07] MEDS: THIAMINE HCL 100 MG TABLET (FP) PO SCH (22:11)
[2018-04-08 00:11] LABS: HBSAG SCREEN Negative (Negative); HEP A AB, IGM Negative (Negative); HEP B CORE AB, TOT Positive (Negative)
[2018-04-08] MEDS ORDERED: DEXTROSE 5%-WATER - 50 ML IVPB ONE ×3 (01:22→17:00)
[2018-04-08] MEDS ORDERED: PIPERACILLIN/TAZOBACTAM 3.375 GM VIAL IVPB ONE ×3 (01:22→17:00)
[2018-04-08] MEDS: PIPERACILLIN/TAZOB 3.375 GM 3.375 GM in DEXTROSE 5%-WATER - 50 ML IVPB SCH ×3 (01:34→17:15)
[2018-04-08] MEDS: CLINDAMYCIN 600MG PREMIX IVPB 600 MG/50 ML BAG IVPB SCH ×3 (01:34→17:15)
[2018-04-08] MEDS: HEPARIN NA (PORCINE) 5,000 UNITS/ML 1ML VIAL SQ SCH ×3 (06:48→21:40)
--- NOTE | 2018-04-08 07:12 | PN ---
Progress Note (short form) - Note Progress Note: Podiatry F/U: Seen/evaluated at bedside, NAD. Feels "Tired and lazy" today. Denies F/V/N/C/ SOB/CP. Afebrile. DERIC: R foot: posterior heel pressure ulcer granular base, some fluctuance noted, no soft tissue crepitus, no streaking cellulitis, no signs of active infection. Minimal tenderness to palpation. Wound Cx: staph coag positive, pending org WBC: 4.5 Imp: 57 year old (+) HIV M with R heel pressure wound 1. IV abx 2. Local wound care 3. MRI 4. May need bone biopsy if MRI (+) 5. Will follow Sohail Patel DPM
[2018-04-08 08:13] LABS: BASO % 1.2 % (0-2.0); EOS % 9.9 % (0-4.5); HEMATOCRIT 40.9 % (35.4-49); HEMOGLOBIN 13.6 GM/dL (11.7-16.9); LYMPH % 39.2 % (8-40); MCH 31.3 pg (25.7-33.7); MCHC 33.3 g/dl (32.0-35.9); MEAN PLT VOLUME 9.7 fl (7.5-11.1); MONO % 14.4 % (3.8-10.2); NEUT % 35.3 % (42.8-82.8); PLATELET COUNT 98 K/MM3 (134-434); RBC 4.35 M/mm3 (4.00-5.60); RDW 15.1 % (11.9-15.9); WHITE BLOOD COUNT 4.2 K/mm3 (4.0-10.0)
[2018-04-08 08:31] LABS: ALBUMIN 1.7 g/dl (3.4-5.0); ANION GAP 6 (8-16); BLOOD UREA NITROGEN 14 mg/dL (7-18); CHLORIDE 105 mmol/L (98-107); CO2 23 mmol/L (21-32); GLUCOSE,RANDOM 73 mg/dL (74-106); MAGNESIUM 1.6 mg/dL (1.8-2.4); PHOSPHOROUS 3.1 mg/dL (2.5-4.9); POTASSIUM 4.5 mmol/L (3.5-5.1); SGOT/AST 61 U/L (15-37); SGPT/ALT 26 U/L (12-78); SODIUM 134 mmol/L (136-145)
[2018-04-08 08:34] LABS: ALK PHOS 347 U/L (45-117); TOT PROT 8.5 g/dl (6.4-8.2)
[2018-04-08] MEDS ORDERED: PT OWN MED DRAWER 7, Y5N ONE (10:00)
[2018-04-08] MEDS: SULFAMETHOXAZOLE/TRIMETHOPRIM 800MG/160MG D.S. TABLET PO SCH (10:14)
[2018-04-08] MEDS: RITONAVIR 100 MG TABLET PO SCH (10:14)
[2018-04-08] MEDS: PRENATAL VITAMINS W/ FOLIC ACID TABLET (FP) PO SCH (10:14)
[2018-04-08] MEDS: NICOTINE 21 MG/24 HOURS TOPICAL PATCH TD SCH (10:14)
[2018-04-08] MEDS: EMTRICITABINE 200MG/TENOFOVIR 300MG PO SCH (10:15)
[2018-04-08] MEDS: DARUNAVIR ETHANOLATE 800 MG TAB PO SCH (10:15)
--- NOTE | 2018-04-08 13:37 | PN ---
Progress Note (short form) - Note Progress Note: requesting to shower. denies Cp, SOB, fever, chills, N/V/C/D Current Medications Generic Name Dose Route Start Last Admin Trade Name Freq PRN Reason Stop Dose Admin Acetaminophen 650 mg 04/05/18 22:15 Tylenol - PO Q4H PRN PAIN LEVEL 1-5 Albuterol Sulfate 1 amp 04/07/18 07:15 Ventolin 0.083% Nebulizer Soln - NEB Q4H PRN SHORT OF BREATH/WHEEZING Darunavir 800 mg 04/07/18 10:00 04/08/18 10:15 Prezista - PO 800 mg DAILY CATARINO Administration Emtricitabine/Tenofovir 1 tab 04/06/18 16:00 04/08/18 10:15 Truvada PO 1 tab DAILY CATARINO Administration Heparin Sodium (Porcine) 5,000 unit 04/06/18 06:00 04/08/18 06:48 Heparin - SQ 5,000 unit TID CATARINO Administration Piperacillin Sod/Tazobactam 50 mls @ 100 mls/hr 04/06/18 16:30 04/08/18 10:13 Sod 3.375 gm/ Dextrose IVPB 100 mls/hr Q8H-IV CATARINO Administration Protocol Clindamycin Phosphate 600 mg in 50 mls @ 100 mls/hr 04/06/18 18:00 04/08/18 10:14 Cleocin 600 Mg Premix Ivpb - IVPB 100 mls/hr Q8H-IV CATARINO Administration Protocol Ibuprofen 600 mg 04/05/18 22:15 Motrin - PO Q6H PRN FEVER Ketorolac Tromethamine 15 mg 04/07/18 13:48 Toradol Injection - IVPUSH 04/12/18 13:47 Q6H PRN PAIN LEVEL 4 - 6 Nicotine 21 mg 04/06/18 10:00 04/08/18 10:14 Nicoderm Patch - TD 21 mg DAILY CATARINO Administration Nicotine Polacrilex 2 mg 04/05/18 22:47 Nicorette Gum - BUC Q2H PRN NICOTINE REPLACEMENT RX Multivit/Folic Acid/Iron 1 tab 04/06/18 10:00 04/08/18 10:14 Vitamins (Sjr) - PO 1 tab DAILY CATARINO Administration Ritonavir 100 mg 04/06/18 16:00 04/08/18 10:14 Norvir - PO 100 mg DAILY CATARINO Administration Thiamine HCl 100 mg 04/05/18 22:30 04/07/18 22:11 Vitamin B1 - PO 100 mg HS CATARINO Administration Trimethoprim/Sulfamethoxazole 1 each 04/06/18 10:00 04/08/18 10:14 Bactrim Ds - PO 1 each DAILY CATARINO Administration Last Vital Signs Temp Pulse Resp BP Pulse Ox 98.0 F 79 18 126/79 97 04/08/18 06:00 04/08/18 10:00 04/08/18 10:00 04/08/18 10:00 04/07/18 21:00 General NAD Extremities R heel with laceration noted to back of heel with surrounding fluctuance. restricted movement of flexion/dorsiflexion. R knee skin intact, no effusion, full ROM, no patellar pain, no point tenderness, R hip full ROM, no point tenderness. pulse 2+ CBCD WBC 4.2 K/mm3 (4.0-10.0) 04/08/18 07:00 RBC 4.35 M/mm3 (4.00-5.60) 04/08/18 07:00 Hgb 13.6 GM/dL (11.7-16.9) 04/08/18 07:00 Hct 40.9 % (35.4-49) 04/08/18 07:00 MCV 94.0 fl (80-96) 04/08/18 07:00 MCHC 33.3 g/dl (32.0-35.9) 04/08/18 07:00 RDW 15.1 % (11.9-15.9) 04/08/18 07:00 Plt Count 98 K/MM3 (134-434) L D 04/08/18 07:00 MPV 9.7 fl (7.5-11.1) 04/08/18 07:00 CMP Sodium 134 mmol/L (136-145) L 04/08/18 07:00 Potassium 4.5 mmol/L (3.5-5.1) 04/08/18 07:00 Chloride 105 mmol/L (98-107) 04/08/18 07:00 Carbon Dioxide 23 mmol/L (21-32) 04/08/18 07:00 Anion Gap 6 (8-16) L 04/08/18 07:00 BUN 14 mg/dL (7-18) 04/08/18 07:00 Creatinine 1.0 mg/dL (0.7-1.3) 04/08/18 07:00 Creat Clearance w eGFR > 60 (>60) 04/08/18 07:00 Calcium 8.0 mg/dL (8.5-10.1) L 04/08/18 07:00 Total Bilirubin 1.0 mg/dL (0.2-1.0) 04/08/18 07:00 AST 61 U/L (15-37) H 04/08/18 07:00 ALT 26 U/L (12-78) 04/08/18 07:00 Alkaline Phosphatase 347 U/L (45-117) H 04/08/18 07:00 Total Protein 8.5 g/dl (6.4-8.2) H 04/08/18 07:00 Albumin 1.7 g/dl (3.4-5.0) L 04/08/18 07:00 Microbiology 04/05/18 17:49 Foot - Right Heel Gram Stain - Final 04/05/18 17:49 Foot - Right Heel Wound Culture - Preliminary Staphylococcus Latex Coag Pos Staphylococcus Coagulase Neg Pending Organism 04/05/18 17:25 Blood - Peripheral Venous Blood Culture - Preliminary NO GROWTH OBTAINED AFTER 48 HOURS, INCUBATION TO CONTINUE FOR 3 DAYS. 04/05/18 17:25 Blood - Peripheral Venous Blood Culture - Preliminary NO GROWTH OBTAINED AFTER 48 HOURS, INCUBATION TO CONTINUE FOR 3 DAYS. 04/06/18 06:30 Nares - Mrsa Screen - Left MRSA Screen - Final NO MRSA ISOLATED 04/06/18 06:30 Nares - Right Nares MRSA Screen - Final NO MRSA ISOLATED ASSESSMENT AND PLAN: 57yo M wtih PMH HIV on HARRT, HCV, syphillis, Continuous polysubstance abuse presented to the ER with progressively worsening R heel ulcer [id number] 1. R heel abscess- concern for underlying OM. elevated ESR. foot XR negative. awaiting MRI to r/o OM. Cx with +organism. cont zosyn/clinda day 3. ID and podiatry on board. toradol as needed for pain. will try to avoid narcotics as pt was recently detox for heroin. 2. Elevated BP- now controlled. 3. HIV on HARRT- cont medications. ID consulted. PCP ppx with bactrim 4. Syphillis- will need to call [facility] if being treated 5. continuous polysubstance abuse- recently detoxed at [facility] for ETOH and heroin. will return to [facility] for rehab once medically optimized 6. DVT ppx- hep sq Visit type - Emergency Visit Emergency Visit: Yes ED Registration Date: 04/05/18 Care time: The patient presented to the Emergency Department on the above date and was hospitalized for further evaluation of their emergent condition. - New Patient This patient is new to me today: No - Critical Care Critical Care patient: No - Discharge Referral Referred to [facility] Med P.C.: No
[2018-04-08] MEDS ORDERED: MAGNESIUM OXIDE 400 MG TABLET (FP) PO ONE (14:21)
[2018-04-08] MEDS ORDERED: MELATONIN 5 MG TABLETS PO ONE (21:15)
[2018-04-08] MEDS: THIAMINE HCL 100 MG TABLET (FP) PO SCH (21:40)
[2018-04-09] MEDS ORDERED: DEXTROSE 5%-WATER - 50 ML IVPB ONE ×3 (01:44→17:13)
[2018-04-09] MEDS ORDERED: PIPERACILLIN/TAZOBACTAM 3.375 GM VIAL IVPB ONE ×3 (01:44→17:13)
[2018-04-09] MEDS: CLINDAMYCIN 600MG PREMIX IVPB 600 MG/50 ML BAG IVPB SCH ×3 (01:51→17:32)
[2018-04-09] MEDS: PIPERACILLIN/TAZOB 3.375 GM 3.375 GM in DEXTROSE 5%-WATER - 50 ML IVPB SCH ×3 (02:23→17:32)
[2018-04-09] MEDS: HEPARIN NA (PORCINE) 5,000 UNITS/ML 1ML VIAL SQ SCH ×3 (06:24→21:21)
--- NOTE | 2018-04-09 07:08 | PN ---
Physical Exam: SUBJECTIVE: Patient seen and examined. Pt says he is bored. No fevers, has mild to no pain in R heel. Able to shower yesterday. Sitting up having breakfast. Refused to have the dressing taken off the R foot. OBJECTIVE: Vital Signs Period Temp Pulse Resp BP Sys/Blank Pulse Ox Last 24 Hr 97.9 F-98.3 F 68-79 18-18 124-134/77-93 97-100 Vital Signs Temp 97.9 F 04/09/18 06:00 Pulse 68 04/09/18 06:00 Resp 18 04/09/18 06:00 BP 124/84 04/09/18 06:00 Pulse Ox 100 04/08/18 21:00 Intake & Output 04/06/18 04/07/18 04/08/18 04/09/18 23:59 23:59 23:59 23:59 Intake Total 1120 800 800 100 Output Total 800 1600 Balance 1120 0 -800 100 Weight 59.874 kg 59.874 kg GENERAL: The patient is awake, alert, and fully oriented, in no acute respiratory distress. LUNGS: Breath sounds equal, mild rhonchi, no wheezes, no crackles HEART: Regular rate and rhythm, S1, S2 without murmur ABDOMEN: Soft, nontender, nondistended, normoactive bowel sounds EXTREMITIES: 2+ pulses, warm, well-perfused, no edema. R foot wrapped in dressing , clean dry. NEUROLOGICAL: AAOx3. Normal speech, gait not observed. Normal tone, with muscle strength 5/5 globally. Laboratory Results - last 24 hr 04/08/18 04/08/18 07:00 07:00 WBC 4.2 RBC 4.35 Hgb 13.6 Hct 40.9 MCV 94.0 MCH 31.3 MCHC 33.3 RDW 15.1 Plt Count 98 L D MPV 9.7 Neutrophils % 35.3 L Lymphocytes % 39.2 Monocytes % 14.4 H Eosinophils % 9.9 H Basophils % 1.2 Nucleated RBC % 0 Sodium 134 L Potassium 4.5 Chloride 105 Carbon Dioxide 23 Anion Gap 6 L BUN 14 Creatinine 1.0 Creat Clearance w eGFR > 60 Random Glucose 73 L D Calcium 8.0 L Phosphorus 3.1 Magnesium 1.6 L Total Bilirubin 1.0 AST 61 H ALT 26 Alkaline Phosphatase 347 H Total Protein 8.5 H Albumin 1.7 L Active Medications Generic Name Dose Route Start Last Admin Trade Name Freq PRN Reason Stop Dose Admin Acetaminophen 650 mg 04/05/18 22:15 Tylenol - PO Q4H PRN PAIN LEVEL 1-5 Albuterol Sulfate 1 amp 04/07/18 07:15 Ventolin 0.083% Nebulizer Soln - NEB Q4H PRN SHORT OF BREATH/WHEEZING Darunavir 800 mg 04/07/18 10:00 04/08/18 10:15 Prezista - PO 800 mg DAILY CATARINO Administration Emtricitabine/Tenofovir 1 tab 04/06/18 16:00 04/08/18 10:15 Truvada PO 1 tab DAILY CATARINO Administration Heparin Sodium (Porcine) 5,000 unit 04/06/18 06:00 04/09/18 06:24 Heparin - SQ 5,000 unit TID CATARINO Administration Piperacillin Sod/Tazobactam 50 mls @ 100 mls/hr 04/06/18 16:30 04/09/18 02:23 Sod 3.375 gm/ Dextrose IVPB 100 mls/hr Q8H-IV CATARINO Administration Protocol Clindamycin Phosphate 600 mg in 50 mls @ 100 mls/hr 04/06/18 18:00 04/09/18 01:51 Cleocin 600 Mg Premix Ivpb - IVPB 100 mls/hr Q8H-IV CATARINO Administration Protocol Ibuprofen 600 mg 04/05/18 22:15 Motrin - PO Q6H PRN FEVER Ketorolac Tromethamine 15 mg 04/07/18 13:48 Toradol Injection - IVPUSH 04/12/18 13:47 Q6H PRN PAIN LEVEL 4 - 6 Nicotine 21 mg 04/06/18 10:00 04/08/18 10:14 Nicoderm Patch - TD 21 mg DAILY CATARINO Administration Nicotine Polacrilex 2 mg 04/05/18 22:47 Nicorette Gum - BUC Q2H PRN NICOTINE REPLACEMENT RX Multivit/Folic Acid/Iron 1 tab 04/06/18 10:00 04/08/18 10:14 Vitamins (Sjr) - PO 1 tab DAILY CATARINO Administration Ritonavir 100 mg 04/06/18 16:00 04/08/18 10:14 Norvir - PO 100 mg DAILY CATARINO Administration Thiamine HCl 100 mg 04/05/18 22:30 04/08/18 21:40 Vitamin B1 - PO 100 mg HS CATARINO Administration Trimethoprim/Sulfamethoxazole 1 each 04/06/18 10:00 04/08/18 10:14 Bactrim Ds - PO 1 each DAILY CATARINO Administration CD3-955, % lymphocytes-79.6, CD4-130, %CD4-10.8, Absolute CD8-9%, CD4; CD8 ratio : 0.16 MRI 04/08/18: Negative for osteomyelitis ASSESSMENT/PLAN: 57 yo man with PMHx of HIV (dx 2007, not on HAART, VL/CD4 unknown), HCV (no tx) , h/o syphillis and gonorrhea (RPR non-reactive), depression, GERD, asthma, polysubstance abuse (EtOH, heroine, marijuana) who was sent from [facility] for evaluation of R heel ulcer. #R foot ulcer, s/p dressing - CRP wnl, ESR 72 -Podiatry consulted (Dr. Patel)-- for MRI w/w/o contrast -F/u wound and blood cultures -c/w Zosyn 3.375gm Q8H (patient reports Rash from Vancomycin) - Clindamycin 600mg Q6H added -Pt requesting percocet. Will give iv toradol considering substance abuse hx -MRI -ve for osteomyelitis - D/W Dr Christianson Can be discharged on Augmentin 875 PO bid for 7d - Continue Bactrim DS MWF #Hx of fall -Pt said to have tripped while trying to apple picker urinal, no syncope, no palpitations prior -No head trauma, not trauma to knee -Able to move all joints, no need for imaging at this time. -Pain mx as needed #HIV -ID consulted- resumed-Truvada, Ritonavir, and Darunavir -Empiric Bactrim DS daily for ppx -Viral load and CD4 counts- CD4- 130 #h/o HCV Hep B virus IgM -rest of Hepatitis panel - pending #IVDU, completed Heroine detox No need for ECHO as pt has negative cultures and fevers with no new murmur #EtOH abuse, completed detox, no signs of withdrawal - 1 tab PO daily -Thiamine 100mg PO HS -Banana bag #Nicotine dependence -Nicotine patch 21mg TD daily -Nicorette gum - 2mg BUC Q2H PRN #Insomnia - Melatonin 5mg PO HS PRN #FEN PO intake Monitor lytes and replete as needed Na controlled diet + Ensure BID #PPX DVT - HSQ Q8H #DISPO - m/s, patient interested in returning to rehab FULL code Visit type - Emergency Visit Emergency Visit: Yes ED Registration Date: 04/05/18 Care time: The patient presented to the Emergency Department on the above date and was hospitalized for further evaluation of their emergent condition. - New Patient This patient is new to me today: No - Critical Care Critical Care patient: No - Discharge Referral Referred to [facility] Med P.C[facility] No
[2018-04-09 09:20] LABS: HEMATOCRIT 41.9 % (35.4-49); HEMOGLOBIN 13.9 GM/dL (11.7-16.9); MCH 31.1 pg (25.7-33.7); MCHC 33.2 g/dl (32.0-35.9); MEAN CELL VOLUME 93.6 fl (80-96); MEAN PLT VOLUME 10.1 fl (7.5-11.1); PLATELET COUNT 113 K/MM3 (134-434); RBC 4.47 M/mm3 (4.00-5.60); WHITE BLOOD COUNT 4.7 K/mm3 (4.0-10.0)
[2018-04-09] MEDS ORDERED: PT OWN MED DRAWER 7, Y5N ONE (10:05)
[2018-04-09] MEDS: PRENATAL VITAMINS W/ FOLIC ACID TABLET (FP) PO SCH (10:13)
[2018-04-09] MEDS: NICOTINE 21 MG/24 HOURS TOPICAL PATCH TD SCH (10:13)
[2018-04-09] MEDS: DARUNAVIR ETHANOLATE 800 MG TAB PO SCH (10:13)
[2018-04-09] MEDS: SULFAMETHOXAZOLE/TRIMETHOPRIM 800MG/160MG D.S. TABLET PO SCH (10:13)
[2018-04-09] MEDS: EMTRICITABINE 200MG/TENOFOVIR 300MG PO SCH (10:14)
[2018-04-09] MEDS: RITONAVIR 100 MG TABLET PO SCH (10:14)
--- NOTE | 2018-04-09 13:11 | PN ---
Teaching Attending Note Name of Resident: Enriqueta Hernandez ATTENDING PHYSICIAN STATEMENT I saw and evaluated the patient. I reviewed the resident's note and discussed the case with the resident. I agree with the resident's findings and plan as documented. SUBJECTIVE:agitated and does not want to be here. wants to go home because he is miserable here. OBJECTIVE: Last Vital Signs Temp Pulse Resp BP Pulse Ox 97.9 F 78 18 120/79 100 04/09/18 06:00 04/09/18 10:00 04/09/18 10:00 04/09/18 10:00 04/08/18 21:00 refused my physical exam General mildly annoyed ASSESSMENT AND PLAN: 57yo M wtih PMH HIV on HARRT, HCV, syphillis, Continuous polysubstance abuse presented to the ER with progressively worsening R heel ulcer [id number] 1. R heel abscess- concern for underlying OM. MRI negative for OM. as per RN, podiatry plans to re-evluate the foot tomorrow to monitor improvment to determine if there is underlying OM despite MRI reading. Cx with pending organism. will cont current treatment for now. cont zosyn/clinda day 4. ID and podiatry on board. toradol as needed for pain. will try to avoid narcotics as pt was recently detox for heroin. 2. Elevated BP- now controlled. 3. HIV on HARRT- cont medications. ID consulted. PCP ppx with bactrim 4. Syphillis- will need to call [facility] if being treated 5. continuous polysubstance abuse- recently detoxed at [facility] for ETOH and heroin. no longer desires to complete inpatient rehab once medically optimized. 6. DVT ppx- hep sq 7. agitated about being in the hospital and refusing to go anywhere but home tomorrow. states he does not want to be sent to some SNF because hes a "grown man" expressed how he feels like a "prisoner" in the hospital. expressed to him that he is free to go home at any time but would not recommend until deemed safe to be discharged. explained risks assoc with incomplete treatment of infection and if he does indeed have OM may loose his foot. expressed understanding of the risks and willing to stay at this time but will only go home tomorrow.
[2018-04-09] MEDS ORDERED: MELATONIN 5 MG TABLETS PO PRN (20:16)
[2018-04-09] MEDS: KETOROLAC TROMETHAMINE 15 MG/ML VIAL IVPUSH PRN (20:26)
[2018-04-09] MEDS: THIAMINE HCL 100 MG TABLET (FP) PO SCH (21:22)
[2018-04-10] MEDS ORDERED: DEXTROSE 5%-WATER - 50 ML IVPB ONE ×2 (01:26→10:39)
[2018-04-10] MEDS ORDERED: PIPERACILLIN/TAZOBACTAM 3.375 GM VIAL IVPB ONE ×2 (01:26→10:39)
[2018-04-10] MEDS: CLINDAMYCIN 600MG PREMIX IVPB 600 MG/50 ML BAG IVPB SCH ×2 (01:32→10:44)
[2018-04-10] MEDS: KETOROLAC TROMETHAMINE 15 MG/ML VIAL IVPUSH PRN (02:08)
[2018-04-10] MEDS: PIPERACILLIN/TAZOB 3.375 GM 3.375 GM in DEXTROSE 5%-WATER - 50 ML IVPB SCH ×2 (02:09→11:25)
[2018-04-10] MEDS: HEPARIN NA (PORCINE) 5,000 UNITS/ML 1ML VIAL SQ SCH ×2 (06:27→14:34)
[2018-04-10 07:06] VITALS: TEMP 98.3
[2018-04-10 08:23] LABS: PHOSPHOROUS 3.5 mg/dL (2.5-4.9)
[2018-04-10] MEDS ORDERED: PT OWN MED DRAWER 7, Y5N ONE (10:38)
[2018-04-10] MEDS: NICOTINE 21 MG/24 HOURS TOPICAL PATCH TD SCH (10:44)
[2018-04-10] MEDS: RITONAVIR 100 MG TABLET PO SCH (10:44)
[2018-04-10] MEDS: PRENATAL VITAMINS W/ FOLIC ACID TABLET (FP) PO SCH (10:44)
[2018-04-10] MEDS: SULFAMETHOXAZOLE/TRIMETHOPRIM 800MG/160MG D.S. TABLET PO SCH (10:44)
[2018-04-10] MEDS: DARUNAVIR ETHANOLATE 800 MG TAB PO SCH (10:45)
[2018-04-10] MEDS: EMTRICITABINE 200MG/TENOFOVIR 300MG PO SCH (10:45)
--- NOTE | 2018-04-10 11:01 | PN ---
Physical Exam: SUBJECTIVE: Patient seen and examined OBJECTIVE: Vital Signs Period Temp Pulse Resp BP Sys/Blank Pulse Ox Last 24 Hr 97.6 F-98.3 F 62-80 18-20 108-125/77-89 100 GENERAL: The patient is awake, alert, and fully oriented, in no acute distress. HEAD: Normal with no signs of trauma. EYES: PERRL, extraocular movements intact, sclera anicteric, conjunctiva clear. No ptosis. ENT: Ears normal, nares patent, oropharynx clear without exudates, moist mucous membranes. NECK: Trachea midline, full range of motion, supple. LUNGS: Breath sounds equal, clear to auscultation bilaterally, no wheezes, no crackles, no accessory muscle use. HEART: Regular rate and rhythm, S1, S2 without murmur, rub or gallop. ABDOMEN: Soft, nontender, nondistended, normoactive bowel sounds, no guarding, no rebound, no hepatosplenomegaly, no masses. EXTREMITIES: 2+ pulses, warm, well-perfused, no edema. NEUROLOGICAL: Cranial nerves II through XII grossly intact. Normal speech, gait not observed. PSYCH: Normal mood, normal affect. SKIN: Warm, dry, normal turgor, no rashes or lesions noted Laboratory Results - last 24 hr 04/05/18 04/10/18 10:20 07:00 Phosphorus 3.5 Magnesium 2.0 HIV-1 RNA Quant [id number] HIV-1 RNA (PCR) log10 5.049 Active Medications Generic Name Dose Route Start Last Admin Trade Name Freq PRN Reason Stop Dose Admin Acetaminophen 650 mg 04/05/18 22:15 Tylenol - PO Q4H PRN PAIN LEVEL 1-5 Albuterol Sulfate 1 amp 04/07/18 07:15 Ventolin 0.083% Nebulizer Soln - NEB Q4H PRN SHORT OF BREATH/WHEEZING Darunavir 800 mg 04/07/18 10:00 04/10/18 10:45 Prezista - PO 800 mg DAILY CATARINO Administration Emtricitabine/Tenofovir 1 tab 04/06/18 16:00 04/10/18 10:45 Truvada PO 1 tab DAILY CATARINO Administration Heparin Sodium (Porcine) 5,000 unit 04/06/18 06:00 04/10/18 06:27 Heparin - SQ 5,000 unit TID CATARINO Administration Piperacillin Sod/Tazobactam 50 mls @ 100 mls/hr 04/06/18 16:30 04/10/18 02:09 Sod 3.375 gm/ Dextrose IVPB 100 mls/hr Q8H-IV CATARINO Administration Protocol Clindamycin Phosphate 600 mg in 50 mls @ 100 mls/hr 04/06/18 18:00 04/10/18 10:44 Cleocin 600 Mg Premix Ivpb - IVPB 100 mls/hr Q8H-IV CATARINO Administration Protocol Ibuprofen 600 mg 04/05/18 22:15 Motrin - PO Q6H PRN FEVER Ketorolac Tromethamine 15 mg 04/07/18 13:48 04/10/18 02:08 Toradol Injection - IVPUSH 04/12/18 13:47 15 mg Q6H PRN Administration PAIN LEVEL 4 - 6 Melatonin 5 mg 04/09/18 20:16 04/09/18 21:21 Melatonin PO 5 mg HS PRN Administration INSOMNIA Nicotine 21 mg 04/06/18 10:00 04/10/18 10:44 Nicoderm Patch - TD 21 mg DAILY CATARINO Administration Nicotine Polacrilex 2 mg 04/05/18 22:47 Nicorette Gum - BUC Q2H PRN NICOTINE REPLACEMENT RX Multivit/Folic Acid/Iron 1 tab 04/06/18 10:00 04/10/18 10:44 Vitamins (Sjr) - PO 1 tab DAILY CATARINO Administration Ritonavir 100 mg 04/06/18 16:00 04/10/18 10:44 Norvir - PO 100 mg DAILY CATARINO Administration Thiamine HCl 100 mg 04/05/18 22:30 04/09/18 21:22 Vitamin B1 - PO 100 mg HS CATARINO Administration Trimethoprim/Sulfamethoxazole 1 each 04/06/18 10:00 04/10/18 10:44 Bactrim Ds - PO 1 each DAILY CATARINO Administration ASSESSMENT/PLAN: Pending eval by Dr Patel for osteromyelitis If negative, for likely D/C to rehab
--- NOTE | 2018-04-10 14:21 | PN ---
Progress Note (short form) - Note Progress Note: Podiatry F/U: Seen/evaluated at bedside, NAD. Denies F/V/N/C/SOB/CP. Afebrile, VSS. Anxious to be discharged. DERIC: R foot: medial heel pressure ulcer stage 3 with strong granular base, mild serosanguinous drainage, no probing to bone, no purulence, no fluctuance, no ascending cellulitis, no active SOIs. Minimal tenderness to palpation. Wound Cx: staph coag negative, E. Faecalis Imp: 57 year old DM M with R heel pressure ulcer stage 3 1. Abx per Infectious Disease 2. Rx bactroban + DSD R foot daily 3. Discussed case with Dr. Downs from Radiology. Bone marrow edema not suggestive of osteomyelitis, rather swelling from prior injury. Patient does relate history of injury in the past, and as such is not suggestive of OM. 4. Heel offloading measures. 5. Can f/u upon discharge in wound care. Sohail Patel DPM
--- NOTE | 2018-04-10 14:49 | PN ---
Teaching Attending Note Name of Resident: Enriqueta Hernandez ATTENDING PHYSICIAN STATEMENT I saw and evaluated the patient. I reviewed the resident's note and discussed the case with the resident. I agree with the resident's findings and plan as documented. SUBJECTIVE: OBJECTIVE: Last Vital Signs Temp Pulse Resp BP Pulse Ox 98.3 F 77 20 108/77 97 04/10/18 10:32 04/10/18 10:32 04/10/18 10:32 04/10/18 10:32 04/10/18 10:45 refused my physical exam General mildly annoyed ASSESSMENT AND PLAN: 57yo M wtih PMH HIV on HARRT, HCV, syphillis, Continuous polysubstance abuse presented to the ER with progressively worsening R heel ulcer [id number] 1. R heel abscess- concern for underlying OM. MRI negative for OM. as per RN, podiatry plans to re-evluate the foot tomorrow to monitor improvment to determine if there is underlying OM despite MRI reading. Cx with pending organism. will cont current treatment for now. cont zosyn/clinda day 4. ID and podiatry on board. toradol as needed for pain. will try to avoid narcotics as pt was recently detox for heroin. 2. Elevated BP- now controlled. 3. HIV on HARRT- cont medications. ID consulted. PCP ppx with bactrim 4. Syphillis- will need to call [facility] if being treated 5. continuous polysubstance abuse- recently detoxed at [facility] for ETOH and heroin. no longer desires to complete inpatient rehab once medically optimized. 6. DVT ppx- hep sq 7. agitated about being in the hospital and refusing to go anywhere but home tomorrow. states he does not want to be sent to some SNF because hes a "grown man" expressed how he feels like a "prisoner" in the hospital. expressed to him that he is free to go home at any time but would not recommend until deemed safe to be discharged. explained risks assoc with incomplete treatment of infection and if he does indeed have OM may loose his foot. expressed understanding of the risks and willing to stay at this time but will only go home tomorrow.
--- NOTE | 2018-04-10 14:54 | DS ---
Physical Exam: SUBJECTIVE: Patient seen and examined. No new c/o. Pain is managed on pain medications. Wants to go to [facility] rehab. OBJECTIVE: Vital Signs Period Temp Pulse Resp BP Sys/Blank Pulse Ox Last 24 Hr 97.6 F-98.3 F 62-80 18-20 108-125/77-89 97-100 Vital Signs Temp 98.3 F 04/10/18 14:02 Pulse 86 04/10/18 14:02 Resp 22 04/10/18 14:02 BP 125/90 04/10/18 14:02 Pulse Ox 97 04/10/18 10:45 Intake & Output 04/09/18 04/10/18 04/10/18 23:59 11:59 23:59 Intake Total 420 535 380 Output Total 500 500 Balance -80 35 380 Intake: IVPB 150 Oral 420 385 380 Output: Urine 500 500 Void 500 500 Other: Voiding Method Toilet Urinal # Unmeasured Voids Void 2 2 Bowel Movement Yes No Yes # Bowel Movements 1 Intake & Output 04/07/18 04/08/18 04/09/18 04/10/18 23:59 23:59 23:59 23:59 Intake Total 800 800 980 915 Output Total 800 1600 800 500 Balance 0 -800 180 415 Weight 59.874 kg PHYSICAL EXAM GENERAL: The patient is awake, alert, and fully oriented, in no acute respiratory/ painful distress. LUNGS: Breath sounds equal, clear to auscultation bilaterally, no wheezes, no crackles HEART: Regular rate and rhythm, S1, S2 without murmur ABDOMEN: Soft, nontender, nondistended, normoactive bowel sounds EXTREMITIES: 2+ pulses, warm, well-perfused, no edema. R heel, dry clean no obvious pus. NEUROLOGICAL: AAOx 3. Normal speech, gait not observed. Normal tone, with muscle strength 5/5 globally. CBC, BMP 04/09/18 06:45 04/08/18 07:00 LABS Laboratory Results - last 24 hr 04/05/18 04/10/18 10:20 07:00 Phosphorus 3.5 Magnesium 2.0 HIV-1 RNA Quant [id number] HIV-1 RNA (PCR) log10 5.049 Ambulatory Orders Albuterol Sulfate Inhaler - [Ventolin HFA Inhaler -] 2 inh PO Q4H PRN #1 cartridge 12/12/17 Amoxicillin/Potassium Clav [Augmentin 875-125 Tablet] 1 each PO BID #14 tablet 04/09/18 Sulfamethoxazole/Trimethoprim [Bactrim Ds -] 1 tab PO UTDICT 30 Days #30 tablet 04/09/18 Darunavir Ethanolate [Prezista -] 800 mg PO DAILY #30 tablet 04/10/18 Emtricitabine/Tenofovir [Truvada -] 1 tab PO DAILY #30 tablet 04/10/18 Nicotine Patch [Nicoderm Patch -] 21 mg TD DAILY #30 patch 04/10/18 Nicotine Polacrilex [Nicorelief -] 2 mg BUC Q2H PRN #30 gum 04/10/18 Vitamins (Sjr) - 1 tab PO DAILY #30 tablet 04/10/18 Ritonavir [Norvir -] 100 mg PO DAILY #30 tab 04/10/18 Thiamine HCl [Vitamin B1 -] 100 mg PO HS tablet 04/10/18 Microbiology 04/05/18 17:49 Foot - Right Heel Gram Stain - Final 04/05/18 17:49 Foot - Right Heel Wound Culture - Final Staphylococcus Aureus Staphylococcus Coagulase Neg Enterococcus Faecalis 04/05/18 17:25 Blood - Peripheral Venous Blood Culture - Preliminary NO GROWTH OBTAINED AFTER 96 HOURS, INCUBATION TO CONTINUE FOR 1 DAYS. 04/05/18 17:25 Blood - Peripheral Venous Blood Culture - Preliminary NO GROWTH OBTAINED AFTER 96 HOURS, INCUBATION TO CONTINUE FOR 1 DAYS. 04/06/18 06:30 Nares - Mrsa Screen - Left MRSA Screen - Final NO MRSA ISOLATED 04/06/18 06:30 Nares - Right Nares MRSA Screen - Final NO MRSA ISOLATED Hep B Ab total-positive, Hep B core Ab-positive CD3-955, % lymphocytes-79.6, CD4-130, %CD4-10.8, Absolute CD8-9%, CD4; CD8 ratio : 0.16 MRI 04/08/18: Negative for osteomyelitis CRP wnl, ESR 72 HOSPITAL COURSE: Date of Admission:04/05/18 Date of Discharge: 04/10/18 Prehospital course 57yo man with PMH of HIV (dx 2007, not on HAART, VL/CD4 unknown), HCV (no tx), h /o syphillis and gonorrhea (RPR non-reactive), depression, GERD, asthma, polysubstance abuse (EtOH, heroine, marijuana) who was sent from [facility] for evaluation of R heel wound. Patient completed EtOH and heroine detox with Librium and Methadone, respectively. Patient was last on HAART about 1 year ago (Truvada, ritonavir, darunavir) through [facility] and would like to restart treatment. Patient first noticed small blister on R heel about 1 month ago after wearing new shoes, which has now progressively increased in size and starting yesterday draining pus with malodor. Hospital course: Pt was evaluated for osteomyelitis of the R heel that was negative with both Xrays and MRIs. Foot will be dressed with wet/dry dressing. Pt received Zosyn and - Clindamycin (patient reports Rash from Vancomycin). He is being discharged on Augmentin 875 PO bid for 7d While here, Pt was seen by ID and resumed his HAART -Truvada, Ritonavir, and Darunavir to follow up with ID and to continue Bactrim DS MWF for HIV. Pt completed ETOH detox prior to admission and did not show any signs of withdrawal. He is being discharged on tablets and thiamine. He was also placed Nicotine patch and Nicorette gum Pt was accepted in [facility] rehabilitation and will be evaluated for his functional level. D/W Dr Braun Minutes to complete discharge: 40 Discharge Summary Reason For Visit: ACQUIRED IMMUNE DEFICIENCY SYNDROME (AIDS) Current Active Problems Cellulitis and abscess of foot (Acute) Acquired immune deficiency syndrome (AIDS) (Chronic) Hepatitis C (Chronic) Condition: Improved - Instructions Diet, Activity, Other Instructions: You came in with a wound on your right heel We did tests that did not show infection of your bone We put you on iv antibiotics and are discharging you on outpatient oral antibiotics- augmentin 875mg twice daily for one week You had not been taking medication for HIV for a while We put you back on your HIV medication We checked your CD4 count and because it is low, we are continuing you on Bactrim DS on Tuesday, Tuesday and Fridays Please follow up with the infectious disease doctor as an outpatient to continue to monitor your treatment for HIV and prevent other infections Continue to follow up with your primary care doctor in one week We are discharging you back to [facility] Continue all of your medications as prescribed If you think your symptoms are not getting better nor you have fever, foul smell from the wound or pus drainage from the wound, please return to the nearest emergency room Referrals: Mahendra Patel MD [Staff Physician] - Disposition: I.P. ALCOHOL/SUBS ABUSE REHAB - Home Medications Comprehensive Discharge Medication List: Ambulatory Orders Albuterol Sulfate Inhaler - [Ventolin HFA Inhaler -] 2 inh PO Q4H PRN #1 cartridge 12/12/17 Amoxicillin/Potassium Clav [Augmentin 875-125 Tablet] 1 each PO BID #14 tablet 04/09/18 Sulfamethoxazole/Trimethoprim [Bactrim Ds -] 1 tab PO UTDICT 30 Days #30 tablet 04/09/18 Darunavir Ethanolate [Prezista -] 800 mg PO DAILY #30 tablet 04/10/18 Emtricitabine/Tenofovir [Truvada -] 1 tab PO DAILY #30 tablet 04/10/18 Nicotine Patch [Nicoderm Patch -] 21 mg TD DAILY #30 patch 04/10/18 Nicotine Polacrilex [Nicorelief -] 2 mg BUC Q2H PRN #30 gum 04/10/18 Vitamins (Sjr) - 1 tab PO DAILY #30 tablet 04/10/18 Ritonavir [Norvir -] 100 mg PO DAILY #30 tab 04/10/18 Thiamine HCl [Vitamin B1 -] 100 mg PO HS tablet 04/10/18 This patient is new to me today: No Emergency Visit: Yes ED Registration Date: 04/05/18 Care time: The patient presented to the Emergency Department on the above date and was hospitalized for further evaluation of their emergent condition. Critical Care patient: No - Discharge Referral Referred to [facility] No
[2018-04-10 15:04] VITALS: BP 125/90; PULSE 86
[2018-04-11] MEDS ORDERED: MUPIROCIN 2% TOPICAL OINTMENT 22 GM TUBE TP SCH (10:00)
== END 2018-04-10 17:04 | disposition other institution (70) | DRG 893 ==
LOC: JER 16:58 → JERBED 20:14 → J5S 04-06 08:59
PROVIDERS: ADMIT Internal Medicine; ATTEND Internal Medicine
DX: L03.115 Cellulitis of right lower limb (principal); B20 Human immunodeficiency virus [HIV] disease; L89.613 Pressure ulcer of right heel, stage 3; F11.20 Opioid dependence, uncomplicated; E83.42 Hypomagnesemia; L02.611 Cutaneous abscess of right foot; F10.20 Alcohol dependence, uncomplicated; B19.20 Unspecified viral hepatitis C without hepatic coma; F32.9 Major depressive disorder, single episode, unspecified; J45.909 Unspecified asthma, uncomplicated; K21.9 Gastro-esophageal reflux disease without esophagitis; F17.210 Nicotine dependence, cigarettes, uncomplicated; F12.10 Cannabis abuse, uncomplicated; G47.00 Insomnia, unspecified
CPT/HCPCS: 36415; 71045-TC-FY; 73630-TC-RT-FY; 73721-RT-TC; 80053; 83036; 83605; 83615; 83735; 84100; 85025; 85027; 85610; 85651; 86140; 86359; 86360; 86704; 86705; 86706; 86708; 87040; 87070; 87081; 87186; 87205; 87340; 87522; 93005; 93010; 93306-TC; 99284-25; J1644

== ENCOUNTER 2018-04-10 17:26 | Inpatient (IN) | payer OTHER ==
[2018-04-10 17:53] VITALS: BMI 20.7
--- NOTE | 2018-04-10 19:37 | HP ---
<AlecNathalie Krystle - Last Filed: 04/10/18 19:54> Admission ROS [facility] - [facility] Chief Complaint: Here for rehab post heroin and alcohol detox. Allergies/Adverse Reactions: Allergies Allergy/AdvReac Type Severity Reaction Status Date / Time erythromycin base Allergy Severe Rash Verified 04/10/18 18:33 [Erythromycin Base] vancomycin Allergy Severe Rash Verified 04/10/18 18:33 chocolate flavor Allergy Intermediate Verified 04/10/18 18:33 nut - unspecified AdvReac Mild Itching Verified 04/10/18 18:33 History of Present Illness: Here for rehab. Hx of HIV and recently restarted on HAART meds. Hx depression, GERD, asthma, alcohol, heroin and marijuana use disorder. Was in detox on 03/31 and then wnt to rehab and then transferred to [facility] for evaluation of R heel wound. Patient discharged from [facility] today. Exam Limitations: Physical Impairment (Unable to weight bear on (R) foot secondary to (R) heel lesion.) - Ebola screening Have you traveled outside of the country in the last 21 days: No Have you had contact with anyone from an Ebola affected area: No Have you been sick,other than usual withdrawal symptoms: No Do you have a fever: No - Review of Systems Constitutional: Changes in sleep (Difficulty falling and staying asleep.) EENT: reports: Dental Problems (Only a few teeth. Able to chew most soft foods and meats.) Respiratory: reports: Other (Hx. Asthma w/ recent wheezing episodes.) Cardiac: reports: Irregular Heart Rate, Other (Hx. heart mumur. No chest paoin.) GI: reports: Abd. Pain w/ defecation (Hx. acid reflux w/ chest burning sensation. Occ maalox.), Indigestion : reports: No Symptoms Reported Musculoskeletal: reports: Joint Pain (Hx. (R) ankle sprain 1 month ago.) Integumentary: reports: Lesions (Abrasion (R) heel and discharged from hospital today.) Neuro: reports: No Symptoms reported Endocrine: reports: No Symptoms Reported Hematology: reports: No Symptoms Reported, Other (HIV (+)) Psychiatric: reports: Orientated x3, Depressed (Hx depression for many years. Denies suicide or violent ideation.) Patient History - Patient Medical History Hx Anemia: No Hx Asthma: Yes (Pt is on MDI) Hx Chronic Obstructive Pulmonary Disease (COPD): No Hx Cancer: No Hx Cardiac Disorders: Yes (HEART MURMUR PER PT REPORT) Hx Congestive Heart Failure: No Hx Hypertension: Yes Hx Hypercholesterolemia: No Hx Pacemaker: No HX Cerebrovascular Accident: No Hx Seizures: No Hx Dementia: No Hx Diabetes: No Hx Gastrointestinal Disorders: Yes (GERD- Not on medication) Hx Liver Disease: Yes (Hepatitis C - Not on medication) Hx Genitourinary Disorders: No Hx Sexually Transmitted Disorders: Yes (HX SYPHILIS AND GONORHEA IN TEEN YEARS) Hx Renal Disease (ESRD): No Hx Thyroid Disease: No Hx Human Immunodeficiency Virus (HIV): Yes (since 2007; Started on HAART meds while in [facility].) Hx Hepatitis C: Yes Hx Depression: Yes (Not on medication) Hx Suicide Attempt: Yes (SELF CUTTING OF WRIST IN ; DENIES CURRENT S/I) Hx Bipolar Disorder: Yes (No treatment.) Hx Schizophrenia: No - Patient Surgical History Past Surgical History: Yes Hx Neurologic Surgery: No Hx Cataract Extraction: No Hx Cardiac Surgery: No Hx Lung Surgery: No Hx Breast Surgery: No Hx Breast Biopsy: No Hx Abdominal Surgery: No Hx Appendectomy: No Hx Cholecystectomy: No Hx Genitourinary Surgery: No Hx Section: No Hx Orthopedic Surgery: Yes (l upper arm surgery-skin graft for abscess) Hx Hysterectomy: No Other Surgical History: skin graft/abscess, left upper arm in 1992 Anesthesia Reaction: No - PPD History Previous Implant?: Yes Documented Results: Negative w/proof Implanted On Prior [facility] Admission?: Yes Date: 02/02/18 Results: 0 mm PPD to be Administered?: No - Smoking Cessation Smoking history: Current every day smoker Have you smoked in the past 12 months: Yes Aproximately how many cigarettes per day: 20 Cigars Per Day: 0 Hx Chewing Tobacco Use: No Initiated information on smoking cessation: Yes 'Breaking Loose' booklet given: 04/10/18 - Substance & Tx. History Hx Alcohol Use: Yes Hx Substance Use: Yes Substance Use Type: Alcohol, Heroin, Marijuana Hx Substance Use Treatment: Yes ([facility] detox 04/05/18) - Substances Abused Heroin Route: Injection Frequency: Daily Amount used: 7-8 bags daily Age of first use: 13 Date of Last Use: 03/31/18 Alcohol Route: Oral Frequency: Daily Amount used: 1-2 pints Age of first use: 13 Date of Last Use: 03/31/18 Marijuana/Hashish Route: Smoking Frequency: Daily Amount used: $ 5-10 Age of first use: 13 Date of Last Use: 03/31/18 Family Disease History - Family Disease History Family Disease History: Diabetes: Mother (etoh; , [place]: Father ( [place], etoh), Mother, Sister (, Lung Ca.; Multiple Sclerosis.), Other : Grandparent (etoh.), Father, Mother, Sister Admission Physical Exam [facility] - Vital Signs Vital Signs: Vital Signs - 24 hr 04/10/18 17:51 Temperature 98.8 F Pulse Rate 83 Respiratory 18 Rate Blood Pressure 114/88 - Physical General Appearance: Yes: Mild Distress (c/o heel pain.) HEENTM: Yes: EOMI, Hearing grossly Normal, Normocephalic, Normal Voice, DAYANA, Other (Only 6 lower fron teeth.) Respiratory: Yes: Chest Non-Tender, Lungs Clear, Normal Breath Sounds, No Respiratory Distress Neck: Yes: No masses,lesions,Nodules, Supple Breast: Yes: Breast Exam Deferred Cardiology: Yes: Regular Rhythm, Regular Rate, Systolic Murmur (No edema: denies SOB. Denies chest pain.) Abdominal: Yes: Normal Bowel Sounds, Non Tender, Flat, Soft Genitourinary: Yes: Within Normal Limits Back: Yes: Other (Sitting straight. No spinal tenderness upon palpation.) Musculoskeletal: Yes: full range of Motion, Other (Unable to weight bear on (R) foot secondary to (R) heel lesion.) Extremities: Yes: Normal Capillary Refill, Normal Range of Motion Neurological: Yes: lamination inspector II-XII NML intact, Fully Oriented, Motor Strength 5/5 Integumentary: Yes: Dry, Track Medrano, Other (Superficial (R) heel lesion w/ sero -sanguinous drainage.) Lymphatic: Yes: Within Normal Limits (HIV (+)), Other - Diagnostic (1) Alcohol dependence Current Visit: No Status: Acute Qualifiers: Substance use status: in remission Qualified Code(s): F10.21 - Alcohol dependence, in remission (2) Insomnia Current Visit: Yes Status: Chronic Qualifiers: Insomnia type: unspecified Qualified Code(s): G47.00 - Insomnia, unspecified (3) Nicotine dependence Current Visit: Yes Status: Chronic Qualifiers: Nicotine product type: cigarettes Substance use status: in withdrawal Qualified Code(s): F17.213 - Nicotine dependence, cigarettes, with withdrawal (4) Opioid dependence Current Visit: No Status: Chronic Qualifiers: Substance use status: in remission Qualified Code(s): F11.21 - Opioid dependence, in remission (5) Acquired immune deficiency syndrome (AIDS) Current Visit: Yes Status: Chronic Comment: . (6) Asthma Current Visit: Yes Status: Chronic Comment: . (7) Cannabis dependence Current Visit: No Status: Chronic (8) History of hypertension Current Visit: No Status: Chronic (9) Blister of left heel with infection Current Visit: Yes Status: Acute Qualifiers: Encounter type: subsequent encounter Qualified Code(s): S90.822D - Blister (nonthermal), left foot, subsequent encounter; L08.9 - Local infection of the skin and subcutaneous tissue, unspecified (10) GERD (gastroesophageal reflux disease) Current Visit: No Status: Chronic Qualifiers: Esophagitis presence: without esophagitis Qualified Code(s): K21.9 - Gastro -esophageal reflux disease without esophagitis Comment: . Cleared for Admission [facility] - Detox or Rehab [facility] Level of Care: Medically Managed Claeared for Rehab Admission: Yes [facility] Breath Alcohol Content Breath Alcohol Content: 0 Inpatient Rehab Admission - Initial Determination Are CD services needed?: Yes Free of communicable disease: Yes Not in need of hospitalization: Yes - Rehab Admission Criteria Previous failed treatment: Yes Poor recovery environment: Yes Comorbidities: Yes Lacks judgement: No Patient is meeting Inpatient Rehab admission criteria:: Yes <Bonnie Braun - Last Filed: 04/11/18 07:46> Admission Physical Exam [facility] - Vital Signs Vital Signs: Vital Signs - 24 hr 04/10/18 04/10/18 04/11/18 17:51 23:28 03:30 Temperature 98.8 F 98.7 F Pulse Rate 83 85 Respiratory 18 20 18 Rate Blood Pressure 114/88 110/79 04/11/18 06:51 Temperature 97 F L Pulse Rate 103 H Respiratory 20 Rate Blood Pressure 118/79
[2018-04-10] MEDS ORDERED: P-EPHED 60MG/TRIPROLIDI 2.5MG TABLET PO PRN (20:13)
[2018-04-10] MEDS ORDERED: MAGNESIUM CITRATE 300 ML BOTTLE PO PRN (20:13)
[2018-04-10] MEDS ORDERED: NICOTINE POLACRILEX 2 MG GUM BUC PRN (20:13)
[2018-04-10] MEDS ORDERED: MENTHOL/PHENOL 1 EACH UD MM PRN (20:13)
[2018-04-10] MEDS ORDERED: LOPERAMIDE HCL 2 MG CAPSULE PO PRN (20:13)
[2018-04-10] MEDS ORDERED: MAGNESIUM HYDROX 2400MG/30ML ORAL SUSPENSION 30 ML CUP PO PRN (20:13)
[2018-04-10] MEDS ORDERED: MAG HYDROX/AL HYDROX/SIMETH 30 ML UNIT-DOSE CUP PO PRN (20:13)
[2018-04-10] MEDS ORDERED: VITAMINS A AND D TOPICAL OINTMENT 60 GM TUBE TP PRN (20:15)
[2018-04-10] MEDS ORDERED: ALBUTEROL SO4 18 GM HFA INHALER IH PRN (20:18)
[2018-04-10] MEDS ORDERED: COLLOIDAL OATMEAL 1 BAR EACH TP PRN (20:21)
[2018-04-10] MEDS ORDERED: MELATONIN 5 MG TABLETS PO PRN (22:00)
[2018-04-11] MEDS: AMOX TR/POT CLAV 875MG/125MG TABLETS (FP) PO SCH ×3 (00:02→17:00)
[2018-04-11] MEDS: SULFAMETHOXAZOLE/TRIMETHOPRIM 800MG/160MG D.S. TABLET PO SCH (00:02)
[2018-04-11] MEDS: THIAMINE HCL 100 MG TABLET (FP) PO SCH ×2 (00:02→22:02)
[2018-04-11] MEDS: hydrOXYzine PAMOATE 50 MG CAPSULE (FP) PO PRN ×2 (00:05→22:02)
[2018-04-11] MEDS: IBUPROFEN 400 MG TABLET (FP) PO PRN (07:09)
[2018-04-11] MEDS ORDERED: DARUNAVIR ETHANOLATE 800 MG TAB PO SCH (10:00)
[2018-04-11] MEDS ORDERED: EMTRICITABINE 200MG/TENOFOVIR 300MG PO SCH (10:00)
[2018-04-11] MEDS: PRENATAL VITAMINS W/ FOLIC ACID TABLET (FP) PO SCH (10:55)
[2018-04-11] MEDS: NICOTINE 21 MG/24 HOURS TOPICAL PATCH TD SCH (10:58)
[2018-04-11] MEDS: RITONAVIR 100 MG TABLET PO SCH (11:58)
--- NOTE | 2018-04-11 13:23 | PN ---
Psychiatric Progress Note Vital Signs: Vital Signs Period Temp Pulse Resp BP Sys/Blank Pulse Ox Last 24 Hr 97 F-98.8 F 83-103 18-20 110-118/79-88 Date of Session: 04/11/18 Chief Complaint:: Readmission Note HPI: Patient addressing Alcohol, Opioid and Cannabis Dependence comorbid with Nicotine Dependence and Substance-Induced Mood Disorder ROS: Asthma, HTN, Hep C, HIV, GeRD, Peripheral Neuropathy Current Medications: Active Medications Generic Name Dose Route Start Last Admin Trade Name Freq PRN Reason Stop Dose Admin Al Hydroxide/Mg Hydroxide 30 ml 04/10/18 20:13 Mylanta Oral Suspension - PO Q6H PRN DYSPEPSIA Albuterol Sulfate 2 puff 04/10/18 20:18 Ventolin Hfa Inhaler - IH Q4H PRN ASTHMA Amoxicillin/Clavulanate Potassium 1 tab 04/10/18 22:00 04/11/18 07:11 Augmentin - 875mg Tablet PO 1 tab BIDWM CATARINO Administration Colloidal Oatmeal 1 applic 04/10/18 20:21 Aveeno Soap - TP DAILY PRN HYGEINE Darunavir 800 mg 04/12/18 08:00 Prezista - PO DAILY@0800 CATARINO Emtricitabine/Tenofovir 1 tab 04/12/18 08:00 Truvada PO DAILY@0800 CATARINO Eucalyptus/Menthol/Phenol/Sorbitol 1 each 04/10/18 20:13 Cepastat Lozenge - MM Q4H PRN SORE THROAT Guaifenesin 10 ml 04/10/18 20:13 Robitussin Dm - PO Q6H PRN COUGH Hydroxyzine Pamoate 50 mg 04/10/18 20:13 04/11/18 00:05 Vistaril - PO 50 mg Q4H PRN Administration AGITATION Ibuprofen 400 mg 04/10/18 20:13 04/11/18 07:09 Motrin - PO 400 mg Q6H PRN Administration Pain Level 4-6 Loperamide HCl 4 mg 04/10/18 20:13 Imodium - PO Q6H PRN DIARRHEA Magnesium Citrate 300 ml 04/10/18 20:13 Citroma - PO Q48H PRN CONSTIPATION Magnesium Hydroxide 30 ml 04/10/18 20:13 Milk Of Magnesia - PO DAILY PRN CONSTIPATION Melatonin 5 mg 04/10/18 22:00 Melatonin PO HS PRN INSOMNIA Nicotine 21 mg 04/11/18 10:00 04/11/18 10:58 Nicoderm Patch - TD 21 mg DAILY CATARINO Administration Nicotine Polacrilex 2 mg 04/10/18 20:13 Nicorette Gum - BUC Q2H PRN NICOTINE REPLACEMENT RX Multivit/Folic Acid/Iron 1 tab 04/11/18 10:00 04/11/18 10:55 Vitamins (Sjr) - PO 1 tab DAILY CATARINO Administration Pseudoephedrine/Triprolidine 1 combo 04/10/18 20:13 Actifed - PO TID PRN NASAL CONGESTION Ritonavir 100 mg 04/11/18 11:15 04/11/18 11:58 Norvir - PO 100 mg DAILY@0800 CATARINO Administration Thiamine HCl 100 mg 04/10/18 22:00 04/11/18 00:02 Vitamin B1 - PO 100 mg HS CATARINO Administration Trimethoprim/Sulfamethoxazole 1 each 04/10/18 22:45 04/11/18 00:02 Bactrim Ds - PO 1 each MoWeFr@1000 CATARINO Administration Vitamin A/Vitamin D 1 applic 04/10/18 20:15 Vitamin A & D Top Oint - TP Q6H PRN DRY SKIN Current Side Effect: No Lab tests ordered: Yes Lab tests reviewed: Yes Provider note:: Patient was transferred back from [facility] where he was referred on 04/05/18 due infected left heel ulcer. He was treated with IV antibiotic( Zosyn + Clindamycin). He was dischaged yesterday on Augmaentin 875 mg po BID and transferred back to complete his rehab. He was initially directly admitted to rehab from detox on 04/04/18 Total face to face time:: 25 Mental Status Exam - Mental Status Exam Alert and Oriented to: Time, Place, Person Cognitive Function: Fair Patient Appearance: Unkempt Patient Behavior: Cooperative Speech Pattern: Clear Voice Loudness: Normal Thought Process: Intact, Goal Oriented Thought Disorder: Not Present Hallucinations: Denies Suicidal Ideation: Denies Homicidal Ideation: Denies Insight/Judgement: Fair Sleep: Fair Appetite: Fair Muscle strength/Tone: Normal Gait/Station: Normal Psychiatric Treatment Plan - Problem List (1) Alcohol dependence Current Visit: No Qualifiers: Substance use status: in remission Qualified Code(s): F10.21 - Alcohol dependence, in remission (2) Opioid dependence Current Visit: No Qualifiers: Substance use status: in remission Qualified Code(s): F11.21 - Opioid dependence, in remission (3) Cannabis dependence Current Visit: No (4) Nicotine dependence Current Visit: Yes Qualifiers: Nicotine product type: cigarettes Substance use status: in withdrawal Qualified Code(s): F17.213 - Nicotine dependence, cigarettes, with withdrawal (5) Substance induced mood disorder Current Visit: No (6) Bipolar II disorder Current Visit: No (7) Blister of left heel with infection Current Visit: Yes Qualifiers: Encounter type: subsequent encounter Qualified Code(s): S90.822D - Blister (nonthermal), left foot, subsequent encounter; L08.9 - Local infection of the skin and subcutaneous tissue, unspecified (8) Acquired immune deficiency syndrome (AIDS) Current Visit: Yes Comment: . (9) GERD (gastroesophageal reflux disease) Current Visit: No Qualifiers: Esophagitis presence: without esophagitis Qualified Code(s): K21.9 - Gastro -esophageal reflux disease without esophagitis Comment: . (10) HIV (human immunodeficiency virus infection) Current Visit: No (11) Hepatitis C Current Visit: No Qualifiers: Viral hepatitis chronicity: unspecified Hepatic coma status: without hepatic coma Qualified Code(s): B19.20 - Unspecified viral hepatitis C without hepatic coma Comment: . (12) Hypertension Current Visit: No Qualifiers: Hypertension type: essential hypertension Qualified Code(s): I10 - Essential (primary) hypertension Initial treatment plan: 1) Resume Belsomra 10 mg po HS prn for insomnia. 2) Monitor progress
--- NOTE | 2018-04-11 16:46 | PN ---
S Progress Note Note: Vital Signs Temperature 97 F L 04/11/18 06:51 Pulse Rate 103 H 04/11/18 06:51 Respiratory Rate 20 04/11/18 06:51 Blood Pressure 118/79 04/11/18 06:51 O2 Sat by Pulse Oximetry (%) Patient s/p osteo secondary to wound on right heel. Wound + mild serous sanguineous drainage, wound eges approximate with granualting tissue, no signs of infection present continue wet to dry dressing patient to minimize wearing sneakers which causes friction on the wound continue to monitor
[2018-04-11] MEDS: guaiFENesin/D-METHORPHAN HB 10 ML UNIT-DOSE CUPS PO PRN (22:43)
[2018-04-12] MEDS: IBUPROFEN 400 MG TABLET (FP) PO PRN (06:46)
[2018-04-12] MEDS: RITONAVIR 100 MG TABLET PO SCH (07:13)
[2018-04-12] MEDS: DARUNAVIR ETHANOLATE 800 MG TAB PO SCH (07:13)
[2018-04-12] MEDS: AMOX TR/POT CLAV 875MG/125MG TABLETS (FP) PO SCH ×2 (07:14→16:45)
[2018-04-12] MEDS: EMTRICITABINE 200MG/TENOFOVIR 300MG PO SCH (07:14)
[2018-04-12] MEDS: NICOTINE 21 MG/24 HOURS TOPICAL PATCH TD SCH (10:35)
[2018-04-12] MEDS: PRENATAL VITAMINS W/ FOLIC ACID TABLET (FP) PO SCH (10:35)
[2018-04-12] MEDS: SULFAMETHOXAZOLE/TRIMETHOPRIM 800MG/160MG D.S. TABLET PO SCH (10:35)
[2018-04-12] MEDS: THIAMINE HCL 100 MG TABLET (FP) PO SCH (22:04)
[2018-04-12] MEDS: guaiFENesin/D-METHORPHAN HB 10 ML UNIT-DOSE CUPS PO PRN (22:04)
[2018-04-13] MEDS: DARUNAVIR ETHANOLATE 800 MG TAB PO SCH (07:06)
[2018-04-13] MEDS: AMOX TR/POT CLAV 875MG/125MG TABLETS (FP) PO SCH ×2 (07:06→15:30)
[2018-04-13] MEDS: EMTRICITABINE 200MG/TENOFOVIR 300MG PO SCH (07:06)
[2018-04-13] MEDS: RITONAVIR 100 MG TABLET PO SCH (07:06)
[2018-04-13] MEDS: NICOTINE 21 MG/24 HOURS TOPICAL PATCH TD SCH (10:57)
[2018-04-13] MEDS: PRENATAL VITAMINS W/ FOLIC ACID TABLET (FP) PO SCH (10:57)
[2018-04-13] MEDS: THIAMINE HCL 100 MG TABLET (FP) PO SCH (22:06)
[2018-04-14] MEDS: hydrOXYzine PAMOATE 50 MG CAPSULE (FP) PO PRN (03:34)
[2018-04-14] MEDS: AMOX TR/POT CLAV 875MG/125MG TABLETS (FP) PO SCH ×2 (07:09→16:42)
[2018-04-14] MEDS: EMTRICITABINE 200MG/TENOFOVIR 300MG PO SCH (07:09)
[2018-04-14] MEDS: DARUNAVIR ETHANOLATE 800 MG TAB PO SCH (07:09)
[2018-04-14] MEDS: RITONAVIR 100 MG TABLET PO SCH (07:09)
[2018-04-14] MEDS: SULFAMETHOXAZOLE/TRIMETHOPRIM 800MG/160MG D.S. TABLET PO SCH (10:57)
[2018-04-14] MEDS: NICOTINE 21 MG/24 HOURS TOPICAL PATCH TD SCH (10:57)
[2018-04-14] MEDS: PRENATAL VITAMINS W/ FOLIC ACID TABLET (FP) PO SCH (10:57)
[2018-04-14] MEDS: guaiFENesin/D-METHORPHAN HB 10 ML UNIT-DOSE CUPS PO PRN ×2 (12:47→21:24)
[2018-04-14] MEDS: IBUPROFEN 400 MG TABLET (FP) PO PRN (12:49)
[2018-04-14] MEDS: THIAMINE HCL 100 MG TABLET (FP) PO SCH (21:24)
[2018-04-15] MEDS: EMTRICITABINE 200MG/TENOFOVIR 300MG PO SCH (07:04)
[2018-04-15] MEDS: AMOX TR/POT CLAV 875MG/125MG TABLETS (FP) PO SCH ×2 (07:04→16:37)
[2018-04-15] MEDS: RITONAVIR 100 MG TABLET PO SCH (07:04)
[2018-04-15] MEDS: DARUNAVIR ETHANOLATE 800 MG TAB PO SCH (07:04)
[2018-04-15] MEDS: NICOTINE 21 MG/24 HOURS TOPICAL PATCH TD SCH (09:54)
[2018-04-15] MEDS: PRENATAL VITAMINS W/ FOLIC ACID TABLET (FP) PO SCH (09:54)
[2018-04-15] MEDS: THIAMINE HCL 100 MG TABLET (FP) PO SCH (21:48)
[2018-04-15] MEDS: guaiFENesin/D-METHORPHAN HB 10 ML UNIT-DOSE CUPS PO PRN (21:48)
[2018-04-16] MEDS: hydrOXYzine PAMOATE 50 MG CAPSULE (FP) PO PRN ×2 (02:03→21:26)
[2018-04-16] MEDS: EMTRICITABINE 200MG/TENOFOVIR 300MG PO SCH (07:12)
[2018-04-16] MEDS: DARUNAVIR ETHANOLATE 800 MG TAB PO SCH (07:12)
[2018-04-16] MEDS: AMOX TR/POT CLAV 875MG/125MG TABLETS (FP) PO SCH ×2 (07:12→16:56)
[2018-04-16] MEDS: RITONAVIR 100 MG TABLET PO SCH (07:12)
[2018-04-16] MEDS: NICOTINE 21 MG/24 HOURS TOPICAL PATCH TD SCH (09:44)
[2018-04-16] MEDS: PRENATAL VITAMINS W/ FOLIC ACID TABLET (FP) PO SCH (09:44)
[2018-04-16] MEDS: IBUPROFEN 400 MG TABLET (FP) PO PRN (09:45)
[2018-04-16] MEDS ORDERED: PT OWN MED DRAWER 7, Y5N ONE (16:55)
[2018-04-16] MEDS: THIAMINE HCL 100 MG TABLET (FP) PO SCH (21:26)
[2018-04-17] MEDS: EMTRICITABINE 200MG/TENOFOVIR 300MG PO SCH (07:00)
[2018-04-17] MEDS: AMOX TR/POT CLAV 875MG/125MG TABLETS (FP) PO SCH (07:00)
[2018-04-17] MEDS: RITONAVIR 100 MG TABLET PO SCH (07:00)
[2018-04-17] MEDS: DARUNAVIR ETHANOLATE 800 MG TAB PO SCH (07:00)
[2018-04-17 07:07] VITALS: BP 114/79; PULSE 82; TEMP 97.5
[2018-04-17] MEDS: PRENATAL VITAMINS W/ FOLIC ACID TABLET (FP) PO SCH (10:28)
[2018-04-17] MEDS: SULFAMETHOXAZOLE/TRIMETHOPRIM 800MG/160MG D.S. TABLET PO SCH (10:28)
[2018-04-17] MEDS: NICOTINE 21 MG/24 HOURS TOPICAL PATCH TD SCH (10:28)
--- NOTE | 2018-04-17 12:12 | PN ---
Psychiatric Progress Note Vital Signs: Vital Signs Period Temp Pulse Resp BP Sys/Blank Pulse Ox Last 24 Hr 97.5 F 82 18-18 114/79 Date of Session: 04/17/18 Chief Complaint:: Discharge Note HPI: Patient addessing Alcohol, Opioid and Cannabis Dependence comorbid with Nicotine Dependence and Substance-Induced Mood Disorder ROS: Asthma, HTN, Hep C, HIV, Peripheral neuropathy, GERD, Abscess left upper arm Current Medications: Active Medications Generic Name Dose Route Start Last Admin Trade Name Freq PRN Reason Stop Dose Admin Al Hydroxide/Mg Hydroxide 30 ml 04/10/18 20:13 Mylanta Oral Suspension - PO Q6H PRN DYSPEPSIA Albuterol Sulfate 2 puff 04/10/18 20:18 Ventolin Hfa Inhaler - IH Q4H PRN ASTHMA Amoxicillin/Clavulanate Potassium 1 tab 04/10/18 22:00 04/17/18 07:00 Augmentin - 875mg Tablet PO 1 tab BIDWM CATARINO Administration Colloidal Oatmeal 1 applic 04/10/18 20:21 04/14/18 03:36 Aveeno Soap - TP 1 applic DAILY PRN Administration HYGEINE Darunavir 800 mg 04/12/18 08:00 04/17/18 07:00 Prezista - PO 800 mg DAILY@0800 CATARINO Administration Emtricitabine/Tenofovir 1 tab 04/12/18 08:00 04/17/18 07:00 Truvada PO 1 tab DAILY@0800 CATARINO Administration Eucalyptus/Menthol/Phenol/Sorbitol 1 each 04/10/18 20:13 Cepastat Lozenge - MM Q4H PRN SORE THROAT Guaifenesin 10 ml 04/10/18 20:13 04/15/18 21:48 Robitussin Dm - PO 10 ml Q6H PRN Administration COUGH Hydroxyzine Pamoate 50 mg 04/10/18 20:13 04/16/18 21:26 Vistaril - PO 50 mg Q4H PRN Administration AGITATION Ibuprofen 400 mg 04/10/18 20:13 04/16/18 09:45 Motrin - PO 400 mg Q6H PRN Administration Pain Level 4-6 Loperamide HCl 4 mg 04/10/18 20:13 Imodium - PO Q6H PRN DIARRHEA Magnesium Citrate 300 ml 04/10/18 20:13 Citroma - PO Q48H PRN CONSTIPATION Magnesium Hydroxide 30 ml 04/10/18 20:13 Milk Of Magnesia - PO DAILY PRN CONSTIPATION Melatonin 5 mg 04/10/18 22:00 Melatonin PO HS PRN INSOMNIA Nicotine 21 mg 04/11/18 10:00 04/17/18 10:28 Nicoderm Patch - TD 21 mg DAILY CATARINO Administration Nicotine Polacrilex 2 mg 04/10/18 20:13 Nicorette Gum - BUC Q2H PRN NICOTINE REPLACEMENT RX Multivit/Folic Acid/Iron 1 tab 04/11/18 10:00 04/17/18 10:28 Vitamins (Sjr) - PO 1 tab DAILY CATARINO Administration Pseudoephedrine/Triprolidine 1 combo 04/10/18 20:13 Actifed - PO TID PRN NASAL CONGESTION Ritonavir 100 mg 04/11/18 11:15 04/17/18 07:00 Norvir - PO 100 mg DAILY@0800 CATARINO Administration Thiamine HCl 100 mg 04/10/18 22:00 04/16/18 21:26 Vitamin B1 - PO 100 mg HS CATARINO Administration Trimethoprim/Sulfamethoxazole 1 each 04/10/18 22:45 04/17/18 10:28 Bactrim Ds - PO 1 each MoWeFr@1000 CATARINO Administration Vitamin A/Vitamin D 1 applic 04/10/18 20:15 04/16/18 16:56 Vitamin A & D Top Oint - TP 1 applic Q6H PRN Administration DRY SKIN Current Side Effect: No Lab tests ordered: Yes Lab tests reviewed: Yes Provider note:: Patient has completed this program today. He has partially met his treatment goals but has refused referral to outpatient treatment. Told play writer that from his participation in this program, he has learned the importance of makingmeeings and have a sponsor. He is stable for discharge today Total face to face time:: 35 Mental Status Exam - Mental Status Exam Alert and Oriented to: Time, Place, Person Cognitive Function: Fair Mood: Hopeful, Euthymic Affect: Appropriate Patient Behavior: Cooperative Speech Pattern: Clear Voice Loudness: Normal Thought Process: Intact, Goal Oriented Thought Disorder: Not Present Hallucinations: Denies Suicidal Ideation: Denies Homicidal Ideation: Denies Insight/Judgement: Fair Sleep: Fair Appetite: Good Muscle strength/Tone: Normal Gait/Station: Normal Psychiatric Treatment Plan - Problem List (1) Alcohol dependence Current Visit: No Qualifiers: Substance use status: in remission Qualified Code(s): F10.21 - Alcohol dependence, in remission (2) Opioid dependence Current Visit: No Qualifiers: Substance use status: in remission Qualified Code(s): F11.21 - Opioid dependence, in remission (3) Cannabis dependence Current Visit: No (4) Nicotine dependence Current Visit: Yes Qualifiers: Nicotine product type: cigarettes Substance use status: in withdrawal Qualified Code(s): F17.213 - Nicotine dependence, cigarettes, with withdrawal (5) Substance induced mood disorder Current Visit: No (6) Bipolar II disorder Current Visit: No (7) Blister of left heel with infection Current Visit: Yes Qualifiers: Encounter type: subsequent encounter Qualified Code(s): S90.822D - Blister (nonthermal), left foot, subsequent encounter; L08.9 - Local infection of the skin and subcutaneous tissue, unspecified (8) Acquired immune deficiency syndrome (AIDS) Current Visit: Yes Comment: . (9) GERD (gastroesophageal reflux disease) Current Visit: No Qualifiers: Esophagitis presence: without esophagitis Qualified Code(s): K21.9 - Gastro -esophageal reflux disease without esophagitis Comment: . (10) HIV (human immunodeficiency virus infection) Current Visit: No (11) Hepatitis C Current Visit: No Qualifiers: Viral hepatitis chronicity: unspecified Hepatic coma status: without hepatic coma Qualified Code(s): B19.20 - Unspecified viral hepatitis C without hepatic coma Comment: . (12) Hypertension Current Visit: No Qualifiers: Hypertension type: essential hypertension Qualified Code(s): I10 - Essential (primary) hypertension Initial treatment plan: Patient is discharged today and according to primary counselor, he has refused referral to outpatient treatment.
--- NOTE | 2018-04-17 13:24 | PN ---
[facility] Progress Note Note: Notified by RN patient requesting to sign out AMA for personal reasons. Patient refused to wait to speak to [employer]. Discharge medication ordered.
== END 2018-04-17 13:07 | disposition home or self-care (01) | DRG 772 ==
LOC: YASAS 17:26 → Y3W 18:59
PROVIDERS: ADMIT Psychiatry & Neurology Psychiatry; ATTEND Psychiatry & Neurology Psychiatry
PROC: HZ42ZZZ Group Counseling for Substance Abuse Treatment, Cognitive-Behavioral (ICD-10-PCS; principal; 2018-04-10)
DX: F14.20 Cocaine dependence, uncomplicated (principal); F11.21 Opioid dependence, in remission; F10.21 Alcohol dependence, in remission; F17.213 Nicotine dependence, cigarettes, with withdrawal; F19.24 Other psychoactive substance dependence with psychoactive substance-induced mood disorder; F31.81 Bipolar II disorder; I10 Essential (primary) hypertension; B20 Human immunodeficiency virus [HIV] disease; B19.20 Unspecified viral hepatitis C without hepatic coma; K21.9 Gastro-esophageal reflux disease without esophagitis; S90.822D Blister (nonthermal), left foot, subsequent encounter; L08.9 Local infection of the skin and subcutaneous tissue, unspecified; G62.9 Polyneuropathy, unspecified; G47.00 Insomnia, unspecified; J45.909 Unspecified asthma, uncomplicated; Z88.1 Allergy status to other antibiotic agents; Z87.438 Personal history of other diseases of male genital organs; Z91.5 Personal history of self-harm; X58.XXXD Exposure to other specified factors, subsequent encounter

== ENCOUNTER 2018-06-09 14:00 | Inpatient (IN) | payer OTHER ==
[2018-06-09 16:53] VITALS: BMI 20.3
--- NOTE | 2018-06-09 18:48 | HP ---
"COWS - Scale Resting Pulse: 0= [place] 80 or Below Sweatin= Beads of Sweat on Face Restless Observation: 1= Difficult to Sit Still Pupil Size: 2= Moderately Dilated Bone or Joint Aches: 1= Mild Discomfort Runny Nose/ Eye Tearin= Nasal Congestion GI Upset > 30mins: 2= Nausea/Diarrhea Tremor Observation: 2= Slight Tremor Visible Yawning Observation: 0= None Anxiety or Irritability: 1=Feels Anxious/Irritable Goose Flesh Skin: 0=Smooth Skin COWS Score: 13 CIWA Score - CIWA Score Nausea/Vomitin-Mild Nausea/No Vomiting Muscle Tremors: 4-Moderate,w/Arms Extend Anxiety: 2 Agitation: 1-Slight > Activity Paroxysmal Sweats: 4-Forehead w/Sweat Beads Orientation: 0-Oriented Tacttile Disturbances: 0-None Auditory Disturbances: 0-None Visual Disturbances: 0-None Headache: 2-Mild CIWA-Ar Total Score: 14 Admission [facility] Chief Complaint: Here for heroin and alcohol withdrawal. Allergies/Adverse Reactions: Allergies Allergy/AdvReac Type Severity Reaction Status Date / Time erythromycin base Allergy Severe Rash Verified 06/09/18 17:37 [Erythromycin Base] vancomycin Allergy Severe Rash Verified 06/09/18 17:37 chocolate flavor Allergy Intermediate Verified 06/09/18 17:37 nut - unspecified AdvReac Mild Itching Verified 06/09/18 17:37 History of Present Illness: 57 yom Heroin use via intranasal since age 13. Last use today. Alcohol us since age 13. Currently drinks vodka. Last use today. States took 1 klonopin today for the first time. Denies other illicit drug use. Hx; HIV (+), asthma, tinea pedis, Murmur. Denies chest pain, Here for detox and then wants to go to rehab to get life together. Search Terms: Anand Tomas, 1960 Search Date: 06/09/2018 06:37:20 PM The Drug Utilization Report below displays all of the controlled substance prescriptions, if any, that your patient has filled in the last twelve months. The information displayed on this report is compiled from pharmacy submissions to the Department, and accurately reflects the information as submitted by the pharmacies. This report was requested by: Nathalie Michael | Reference #: [id number] There are no results for the search terms that you entered. Exam Limitations: Clinical Condition (Alert byt slow to respond to questions.) - Ebola screening Have you traveled outside of the country in the last 21 days: No Have you had contact with anyone from an Ebola affected area: No Have you been sick,other than usual withdrawal symptoms: No Do you have a fever: No - Review of Systems Constitutional: Chills, Diaphoresis, Changes in sleep (Difficulty falling and staying asleep), Unintentional Wgt. Loss (r/t drug use) EENT: reports: Dental Problems (Missing alot of teeth. Chews and swallows w/o difficulty.) Respiratory: reports: Other (Occ wheeze r/t increased rushing about. Last wheeze 1 week ago. Resolves on own) Cardiac: reports: Other (Hx murmur. Denies chest pain or irregular heart beat.) GI: reports: Diarrhea (r/t withdrawal), Nausea, Other (acid reflux resolves w/ gingerale.) : reports: Other (Occ difficulty holding urination. Denies burning/pain w/ urination) Musculoskeletal: reports: No Symptoms Reported Integumentary: reports: Other (Itchy, painful feet causes difficulty walking.) Neuro: reports: Headache (mild r/t withdrawal) Endocrine: reports: No Symptoms Reported Hematology: reports: No Symptoms Reported, Other (HIV(+). Does not take medications or follow-up.) Psychiatric: reports: Orientated x3, Agitated, Anxious, Depressed (Denies thoughts of harm to self or others.) Patient History - Patient Medical History Hx Anemia: No Hx Asthma: Yes Hx Chronic Obstructive Pulmonary Disease (COPD): No Hx Cancer: No Hx Cardiac Disorders: No Hx Congestive Heart Failure: No Hx Hypertension: Yes Hx Hypercholesterolemia: No Hx Pacemaker: No HX Cerebrovascular Accident: No Hx Seizures: No Hx Dementia: No Hx Diabetes: No Hx Gastrointestinal Disorders: No Hx Liver Disease: Yes (Hepatitis C - Not on medication) Hx Genitourinary Disorders: No Hx Sexually Transmitted Disorders: No Hx Renal Disease (ESRD): No Hx Thyroid Disease: No Hx Human Immunodeficiency Virus (HIV): Yes (since 2007; Started on HAART meds while in [facility].) Hx Hepatitis C: Yes Hx Depression: Yes Hx Suicide Attempt: No Hx Bipolar Disorder: Yes (No treatment.) Hx Schizophrenia: No - Patient Surgical History Past Surgical History: Yes Hx Neurologic Surgery: No Hx Cataract Extraction: No Hx Cardiac Surgery: No Hx Lung Surgery: No Hx Breast Surgery: No Hx Breast Biopsy: No Hx Abdominal Surgery: No Hx Appendectomy: No Hx Cholecystectomy: No Hx Genitourinary Surgery: No Hx Section: No Hx Orthopedic Surgery: Yes (l upper arm surgery-skin graft for abscess) Hx Hysterectomy: No Other Surgical History: skin graft/abscess, left upper arm in 1992 Anesthesia Reaction: No - PPD History Previous Implant?: Yes Documented Results: Negative w/proof Date: 02/02/18 Results: 0 mm PPD to be Administered?: No - Smoking Cessation Smoking history: Current every day smoker Have you smoked in the past 12 months: Yes Aproximately how many cigarettes per day: 30 Cigars Per Day: 0 Hx Chewing Tobacco Use: No Initiated information on smoking cessation: Yes 'Breaking Loose' booklet given: 06/09/18 - Substance & Tx. History Hx Alcohol Use: Yes Hx Substance Use: Yes Substance Use Type: Alcohol, Heroin Hx Substance Use Treatment: Yes (prior detox and rehabs. ) - Substances Abused Alcohol Route: Oral Frequency: Daily Amount used: liquor- 2 pints Age of first use: 13 Date of Last Use: 06/09/18 (8 am) Heroin Route: Inhalation Frequency: Daily Amount used: 8 bags Age of first use: 13 Date of Last Use: 06/09/18 (7 - 8 am) Family Disease History - Family Disease History Family Disease History: Diabetes: Mother (etoh; , [place]: Father ( [place], etoh), Mother, Sister (, Lung Ca.; Multiple Sclerosis.), Other : Grandparent (etoh.), Father, Mother, Sister Admission Physical Exam S - Vital Signs Vital Signs: Vital Signs - 24 hr 06/09/18 16:38 Temperature 97.6 F Pulse Rate 76 Respiratory 18 Rate Blood Pressure 137/92 - Physical General Appearance: Yes: Disheveled, Thin, Tremorous, Irritable, Sweating, Anxious HEENTM: Yes: EOMI, Hearing grossly Normal, DAYANA (pupils = 4 mm) Respiratory: Yes: Lungs Clear, Normal Breath Sounds, No Respiratory Distress Neck: Yes: No masses,lesions,Nodules, Supple Breast: Yes: Breast Exam Deferred Cardiology: Yes: Regular Rhythm, Regular Rate, S1, S2, Murmur Abdominal: Yes: Normal Bowel Sounds, Non Tender, Flat, Soft Genitourinary: Yes: Within Normal Limits Back: Yes: Normal Inspection Musculoskeletal: Yes: full range of Motion, Other (Gait unsteady r/t foot pain.) Extremities: Yes: Normal Capillary Refill, Normal Inspection, Normal Range of Motion, Tremors Neurological: Yes: 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 Foul smelling. Elongated, thickened, darkenend toe nail. Legs) Lymphatic: Yes: Within Normal Limits - Diagnostic (1) Alcohol dependence with uncomplicated withdrawal Current Visit: Yes Status: Acute Comment: . (2) Opioid dependence with withdrawal Current Visit: Yes Status: Acute Comment: . (3) Acquired immune deficiency syndrome (AIDS) Current Visit: Yes Status: Chronic Comment: . (4) Asthma Current Visit: Yes Status: Chronic Comment: . (5) GERD (gastroesophageal reflux disease) Current Visit: No Status: Chronic Qualifiers: Esophagitis presence: without esophagitis Qualified Code(s): K21.9 - Gastro -esophageal reflux disease without esophagitis Comment: . (6) Hx of onychomycosis Current Visit: Yes Status: Chronic (7) Nicotine dependence Current Visit: Yes Status: Chronic Qualifiers: Nicotine product type: cigarettes Substance use status: in withdrawal Qualified Code(s): F17.213 - Nicotine dependence, cigarettes, with withdrawal (8) Tinea pedis Current Visit: Yes Status: Chronic Qualifiers: Laterality: bilateral Qualified Code(s): B35.3 - Tinea pedis (9) Murmur, cardiac Current Visit: Yes Status: Chronic Cleared for Admission S - Detox or Rehab [facility] Level of Care: Medically Managed Detox Regimen/Protocol: Methadone/Librium S Breath Alcohol Content Breath Alcohol Content: 0 Urine Drug Screen - Results Drug Screen Negative: No Urine Drug Screen Results: OPI-Opiates, BZO-Benzodiazepines"
[2018-06-09] MEDS ORDERED: ACETAMINOPHEN 325 MG TABLET (FP) PO PRN (19:13)
[2018-06-09] MEDS ORDERED: NICOTINE POLACRILEX 4 MG GUM BC PRN (19:13)
[2018-06-09] MEDS ORDERED: MENTHOL/PHENOL 1 EACH UD MM PRN (19:13)
[2018-06-09] MEDS ORDERED: chlordiazePOXIDE HCL 25 MG CAPSULE PO PRN (19:13)
[2018-06-09] MEDS ORDERED: MAG HYDROX/AL HYDROX/SIMETH 30 ML UNIT-DOSE CUP PO PRN (19:13)
[2018-06-09] MEDS ORDERED: MAGNESIUM CITRATE 300 ML BOTTLE PO PRN (19:13)
[2018-06-09] MEDS ORDERED: METHADONE HCL 10 MG TABLET (FOR DETOX USE ONLY) PO ONE ×2 (19:13→23:00)
[2018-06-09] MEDS ORDERED: MAGNESIUM HYDROX 2400MG/30ML ORAL SUSPENSION 30 ML CUP PO PRN (19:13)
[2018-06-09] MEDS ORDERED: LOPERAMIDE HCL 2 MG CAPSULE PO PRN (19:13)
[2018-06-09] MEDS ORDERED: P-EPHED 60MG/TRIPROLIDI 2.5MG TABLET PO PRN (19:13)
[2018-06-09] MEDS ORDERED: guaiFENesin/D-METHORPHAN HB 10 ML UNIT-DOSE CUPS PO PRN (19:13)
[2018-06-09] MEDS ORDERED: hydrOXYzine PAMOATE 25 MG CAPSULE (FP) PO PRN (19:13)
[2018-06-09] MEDS ORDERED: ALBUTEROL SO4 8 GM HFA INHALER IH PRN (19:17)
[2018-06-09] MEDS ORDERED: MELATONIN 5 MG TABLETS PO PRN (22:00)
[2018-06-09] MEDS: THIAMINE HCL 100 MG TABLET (FP) PO SCH (22:41)
[2018-06-09] MEDS: chlordiazePOXIDE HCL 25 MG CAPSULE PO SCH (22:41)
[2018-06-09] MEDS: TOLNAFTATE 1% CREAM 15 GM TUBE TP SCH (22:42)
[2018-06-10] MEDS: chlordiazePOXIDE HCL 25 MG CAPSULE PO SCH ×4 (06:00→23:04)
[2018-06-10] MEDS: IBUPROFEN 400 MG TABLET (FP) PO PRN (08:04)
[2018-06-10] MEDS ORDERED: METHADONE HCL 10 MG TABLET (FOR DETOX USE ONLY) PO SCH (10:00)
--- NOTE | 2018-06-10 10:18 | EKG ---
Test Reason : Blood Pressure : / mmHG Vent. Rate : 073 BPM Atrial Rate : 073 BPM P-R Int : 142 ms QRS Dur : 096 ms QT Int : 402 ms P-R-T Axes : 075 -18 012 degrees QTc Int : 442 ms NORMAL SINUS RHYTHM WITH SINUS ARRHYTHMIA NORMAL ECG WHEN COMPARED WITH ECG OF 05-APR-2018 17:44, NO SIGNIFICANT CHANGE WAS FOUND Confirmed by LEONOR VELIZ, SHAMEKA ([id number]) on 06/10/2018 10:17:54 AM Referred By: Confirmed By:SHAMEKA GALVEZ MD
[2018-06-10 10:34] LABS: HEMOGLOBIN 13.5 GM/dL (11.7-16.9); MCH 31.6 pg (25.7-33.7); MCHC 33.7 g/dl (32.0-35.9); MEAN PLT VOLUME 9.3 fl (7.5-11.1); PLATELET COUNT 57 K/MM3 (134-434); RBC 4.26 M/mm3 (4.00-5.60); RDW 15.4 % (11.9-15.9)
[2018-06-10] MEDS: PRENATAL VITAMINS W/ FOLIC ACID TABLET (FP) PO SCH (10:34)
[2018-06-10] MEDS: TOLNAFTATE 1% CREAM 15 GM TUBE TP SCH ×2 (10:35→23:04)
[2018-06-10] MEDS: NICOTINE 21 MG/24 HOURS TOPICAL PATCH TD SCH (10:37)
[2018-06-10 10:43] LABS: CHLORIDE 103 mmol/L (98-107); SODIUM 134 mmol/L (136-145)
[2018-06-10 11:02] LABS: ALBUMIN 1.6 g/dl (3.4-5.0); ALK PHOS 474 U/L (45-117); ANION GAP 5 (8-16); BILIRUBIN,TOTAL 1.5 mg/dL (0.2-1.0); BLOOD UREA NITROGEN 14 mg/dL (7-18); CALCIUM 7.8 mg/dL (8.5-10.1); CO2 26 mmol/L (21-32); CREATININE 0.8 mg/dL (0.7-1.3); GLUCOSE,RANDOM 100 mg/dL (74-106); SGPT/ALT 26 U/L (12-78); TOT PROT 7.9 g/dl (6.4-8.2)
[2018-06-10 11:05] LABS: POTASSIUM 3.9 mmol/L (3.5-5.1)
[2018-06-10 11:06] LABS: SGOT/AST 111 U/L (15-37)
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
[2018-06-10 13:58] LABS: URINE APPEARANCE CLEAR; URINE BILIRUBIN NEGATIVE (<2.0 mg/dL); URINE COLOR YELLOW; URINE GLUCOSE (UA) NEGATIVE (NEGATIVE); URINE KETONE NEGATIVE (NEGATIVE); URINE LEUK ESTERASE NEGATIVE (NEGATIVE); URINE NITRITE NEGATIVE (NEGATIVE); URINE PROTEIN NEGATIVE (NEGATIVE); URINE UROBILINOGEN 4.0 E.U/dl mg/dL (0.2-1.0)
--- NOTE | 2018-06-10 18:44 | PN ---
S CIWA - CIWA Score Nausea/Vomitin-No Nausea/No Vomiting Muscle Tremors: None Anxiety: 4-Mod. Anxious/Guarded Agitation: 3 Paroxysmal Sweats: 3 Orientation: 0-Oriented Tacttile Disturbances: 2-Mild Itch/Numbness/Burn Auditory Disturbances: 0-None Visual Disturbances: 2-Mild Sensitivity Headache: 0-None Present CIWA-Ar Total Score: 14 S COWS - Scale Resting Pulse: 0= [place] 80 or Below Sweatin=Flushed/Facial Moisture Restless Observation: 1= Difficult to Sit Still Pupil Size: 0= Normal to Room Light Bone or Joint Aches: 2= Severe Diffuse Aches Runny Nose/ Eye Tearin= None GI Upset > 30mins: 0= None Tremor Observation of Outstretched Hands: 0= None Yawning Observation: 1= 1-2x During Session Anxiety or Irritability: 2=Irritable/Anxious Goose Flesh Skin: 3=[place]il[place] COWS Score: 11 S Progress Note (SOAP) Subjective: Interrupted Sleep, Sweating, Body Aches. Objective: PATIENT A & O X 3, OBSERVED AMBULATING ON UNIT. NO ACUTE DISTRESS. PATIENT DENIES CHEST PAIN. 06/10/18 18:45 Vital Signs Temperature 98.6 F 06/10/18 09:56 Pulse Rate 80 06/10/18 09:56 Respiratory Rate 20 06/10/18 09:56 Blood Pressure 140/70 06/10/18 09:56 O2 Sat by Pulse Oximetry (%) Laboratory Tests 06/10/18 06/10/18 06/10/18 08:00 08:00 08:00 WBC 4.0 RBC 4.26 Hgb 13.5 Hct 40.0 MCV 94.0 MCH 31.6 MCHC 33.7 RDW 15.4 Plt Count 57 L D MPV 9.3 Sodium 134 L Potassium 3.9 Chloride 103 Carbon Dioxide 26 Anion Gap 5 L BUN 14 Creatinine 0.8 Creat Clearance w eGFR > 60 Random Glucose 100 D Calcium 7.8 L Total Bilirubin 1.5 H AST 111 H D ALT 26 Alkaline Phosphatase 474 H Total Protein 7.9 Albumin 1.6 L Urine Color Urine Appearance Urine pH Ur Specific [place] Urine Protein Urine Glucose (UA) Urine Ketones Urine Blood Urine Nitrite Urine Bilirubin Urine Urobilinogen Ur Leukocyte Esterase RPR Titer Nonreactive 06/10/18 11:00 WBC RBC Hgb Hct MCV MCH MCHC RDW Plt Count MPV Sodium Potassium Chloride Carbon Dioxide Anion Gap BUN Creatinine Creat Clearance w eGFR Random Glucose Calcium Total Bilirubin AST ALT Alkaline Phosphatase Total Protein Albumin Urine Color Yellow Urine Appearance Clear Urine pH 7.0 Ur Specific [place] 1.011 Urine Protein Negative Urine Glucose (UA) Negative Urine Ketones Negative Urine Blood Negative Urine Nitrite Negative Urine Bilirubin Negative Urine Urobilinogen 4.0 e.u/dl Ur Leukocyte Esterase Negative RPR Titer LABS NOTED. PATIENT HAS HAD LOW PLATELET LEVELS ON SEVERAL PREVIOUS ADMISSIONS. 06/10/18 18:50 Assessment: 06/10/18 18:45 WITHDRAWAL SYMPTOMS. THROMBOCYTOPENIA. Plan: CONTINUE DETOX. INCREASE DAILY PO FLUID INTAKE. REPEAT PLATELET LEVEL AND HEPATIC FUNCTION PANEL ON 06/12/2018 FOR ADMISSION ABNORMALITIES.
[2018-06-10] MEDS: THIAMINE HCL 100 MG TABLET (FP) PO SCH (23:04)
[2018-06-11] MEDS: chlordiazePOXIDE HCL 25 MG CAPSULE PO SCH ×3 (06:05→17:41)
[2018-06-11] MEDS: METHADONE HCL 5 MG TABLET (FOR DETOX USE ONLY) PO SCH (10:28)
[2018-06-11] MEDS: PRENATAL VITAMINS W/ FOLIC ACID TABLET (FP) PO SCH (10:29)
[2018-06-11] MEDS: TOLNAFTATE 1% CREAM 15 GM TUBE TP SCH ×2 (10:29→23:12)
[2018-06-11] MEDS: NICOTINE 21 MG/24 HOURS TOPICAL PATCH TD SCH (10:29)
--- NOTE | 2018-06-11 17:08 | PN ---
S CIWA - CIWA Score Nausea/Vomitin Muscle Tremors: 3 Anxiety: 3 Agitation: 3 Paroxysmal Sweats: 2 Orientation: 0-Oriented Tacttile Disturbances: 0-None Auditory Disturbances: 0-None Visual Disturbances: 0-None Headache: 1-Very Mild CIWA-Ar Total Score: 14 [facility] COWS - Scale Resting Pulse: 0= [place] 80 or Below Sweatin= Chills/Flushing Restless Observation: 3= Extraneous Movement Pupil Size: 1= Pupils >than Normal Bone or Joint Aches: 2= Severe Diffuse Aches Runny Nose/ Eye Tearin= Runny Nose/Eyes GI Upset > 30mins: 2= Nausea/Diarrhea Tremor Observation of Outstretched Hands: 2= Slight Tremor Visible Yawning Observation: 2= >3x During Session Anxiety or Irritability: 2=Irritable/Anxious Goose Flesh Skin: 0=Smooth Skin COWS Score: 17 S Progress Note (SOAP) Subjective: Diarrhea (x 4) today, vomited x 3 this AM, interrupted sleep Objective: 06/11/18 17:06 Last Vital Signs Temp Pulse Resp BP Pulse Ox 97.0 F L 77 18 116/87 06/11/18 15:03 06/11/18 15:03 06/11/18 15:03 06/11/18 15:03 Laboratory Tests 06/10/18 06/10/18 06/10/18 08:00 08:00 08:00 WBC 4.0 RBC 4.26 Hgb 13.5 Hct 40.0 MCV 94.0 MCH 31.6 MCHC 33.7 RDW 15.4 Plt Count 57 L D MPV 9.3 Sodium 134 L Potassium 3.9 Chloride 103 Carbon Dioxide 26 Anion Gap 5 L BUN 14 Creatinine 0.8 Creat Clearance w eGFR > 60 Random Glucose 100 D Calcium 7.8 L Total Bilirubin 1.5 H AST 111 H D ALT 26 Alkaline Phosphatase 474 H Total Protein 7.9 Albumin 1.6 L Urine Color Urine Appearance Urine pH Ur Specific [place] Urine Protein Urine Glucose (UA) Urine Ketones Urine Blood Urine Nitrite Urine Bilirubin Urine Urobilinogen Ur Leukocyte Esterase RPR Titer Nonreactive 06/10/18 11:00 WBC RBC Hgb Hct MCV MCH MCHC RDW Plt Count MPV Sodium Potassium Chloride Carbon Dioxide Anion Gap BUN Creatinine Creat Clearance w eGFR Random Glucose Calcium Total Bilirubin AST ALT Alkaline Phosphatase Total Protein Albumin Urine Color Yellow Urine Appearance Clear Urine pH 7.0 Ur Specific [place] 1.011 Urine Protein Negative Urine Glucose (UA) Negative Urine Ketones Negative Urine Blood Negative Urine Nitrite Negative Urine Bilirubin Negative Urine Urobilinogen 4.0 e.u/dl Ur Leukocyte Esterase Negative RPR Titer Labs reviewed Assessment: 06/11/18 17:07 Withdrawal symptoms Plan: Continue detox Encouraged PO water hydration Repeat BMP in AM due to c/o vomiting and diarrhea
[2018-06-11] MEDS: IBUPROFEN 400 MG TABLET (FP) PO PRN (19:27)
[2018-06-11] MEDS: chlordiazePOXIDE 5 MG CAPSULE PO SCH (23:12)
[2018-06-11] MEDS: THIAMINE HCL 100 MG TABLET (FP) PO SCH (23:12)
[2018-06-12] MEDS: chlordiazePOXIDE 5 MG CAPSULE PO SCH ×3 (05:46→17:55)
[2018-06-12] MEDS: PRENATAL VITAMINS W/ FOLIC ACID TABLET (FP) PO SCH (10:42)
[2018-06-12] MEDS: NICOTINE 21 MG/24 HOURS TOPICAL PATCH TD SCH (10:42)
[2018-06-12] MEDS: METHADONE HCL 5 MG TABLET (FOR DETOX USE ONLY) PO SCH (10:42)
[2018-06-12] MEDS: TOLNAFTATE 1% CREAM 15 GM TUBE TP SCH ×3 (10:42→23:20)
[2018-06-12 13:29] LABS: CHLORIDE 107 mmol/L (98-107); POTASSIUM 4.5 mmol/L (3.5-5.1); SODIUM 141 mmol/L (136-145)
[2018-06-12 14:27] LABS: ALBUMIN 1.8 g/dl (3.4-5.0); ALK PHOS 508 U/L (45-117); ANION GAP 8 (8-16); BILIRUBIN,DIRECT 1.5 mg/dL (0.0-0.2); BILIRUBIN,TOTAL 1.9 mg/dL (0.2-1.0); BLOOD UREA NITROGEN 16 mg/dL (7-18); CALCIUM 8.1 mg/dL (8.5-10.1); CO2 26 mmol/L (21-32); CREATININE 0.9 mg/dL (0.7-1.3); GLUCOSE,RANDOM 79 mg/dL (74-106); SGOT/AST 89 U/L (15-37); SGPT/ALT 25 U/L (12-78); TOT PROT 8.5 g/dl (6.4-8.2)
--- NOTE | 2018-06-12 16:30 | PN ---
[facility] Progress Note (SOAP) Subjective: Body Aches, Interrupted Sleep, Diarrhea. Objective: PATIENT A & O X 3, OBSERVED AMBULATING ON UNIT. NO ACUTE DISTRESS. 06/12/18 16:27 Vital Signs Temperature 96.8 F L 06/12/18 13:48 Pulse Rate 81 06/12/18 13:48 Respiratory Rate 18 06/12/18 13:48 Blood Pressure 130/93 06/12/18 13:48 O2 Sat by Pulse Oximetry (%) Laboratory Tests 06/10/18 06/10/18 06/10/18 08:00 08:00 08:00 WBC 4.0 RBC 4.26 Hgb 13.5 Hct 40.0 MCV 94.0 MCH 31.6 MCHC 33.7 RDW 15.4 Plt Count 57 L D MPV 9.3 Sodium 134 L Potassium 3.9 Chloride 103 Carbon Dioxide 26 Anion Gap 5 L BUN 14 Creatinine 0.8 Creat Clearance w eGFR > 60 Random Glucose 100 D Calcium 7.8 L Total Bilirubin 1.5 H Direct Bilirubin AST 111 H D ALT 26 Alkaline Phosphatase 474 H Total Protein 7.9 Albumin 1.6 L Urine Color Urine Appearance Urine pH Ur Specific [place] Urine Protein Urine Glucose (UA) Urine Ketones Urine Blood Urine Nitrite Urine Bilirubin Urine Urobilinogen Ur Leukocyte Esterase RPR Titer Nonreactive 06/10/18 06/12/18 06/12/18 11:00 08:30 08:30 WBC RBC Hgb Hct MCV MCH MCHC RDW Plt Count 67 L MPV Sodium 141 Potassium 4.5 Chloride 107 Carbon Dioxide 26 Anion Gap 8 BUN 16 Creatinine 0.9 Creat Clearance w eGFR > 60 Random Glucose 79 D Calcium 8.1 L Total Bilirubin 1.9 H Direct Bilirubin 1.5 H D AST 89 H ALT 25 Alkaline Phosphatase 508 H D Total Protein 8.5 H Albumin 1.8 L Urine Color Yellow Urine Appearance Clear Urine pH 7.0 Ur Specific [place] 1.011 Urine Protein Negative Urine Glucose (UA) Negative Urine Ketones Negative Urine Blood Negative Urine Nitrite Negative Urine Bilirubin Negative Urine Urobilinogen 4.0 e.u/dl Ur Leukocyte Esterase Negative RPR Titer LABS NOTED. RESULTS OF REPEAT PLATELET LEVELS AND HEPATIC FUNCTION PANEL NOTED. 06/12/18 16:29 Assessment: 06/12/18 16:28 WITHDRAWAL SYMPTOMS. THROMBOCYTOPENIA. 06/12/18 16:29 Plan: CONTINUE DETOX.
[2018-06-12] MEDS: IBUPROFEN 400 MG TABLET (FP) PO PRN (19:36)
[2018-06-12] MEDS: chlordiazePOXIDE HCL 10 MG CAPSULE PO SCH (22:37)
[2018-06-12] MEDS: THIAMINE HCL 100 MG TABLET (FP) PO SCH (22:37)
[2018-06-13] MEDS: chlordiazePOXIDE HCL 10 MG CAPSULE PO SCH ×2 (05:28→11:20)
[2018-06-13 06:32] VITALS: TEMP 98.2
[2018-06-13 09:39] VITALS: BP 128/93; PULSE 73
[2018-06-13] MEDS ORDERED: METHADONE HCL 10 MG TABLET (FOR DETOX USE ONLY) PO SCH (10:00)
[2018-06-13] MEDS: TOLNAFTATE 1% CREAM 15 GM TUBE TP SCH (10:20)
[2018-06-13] MEDS: NICOTINE 21 MG/24 HOURS TOPICAL PATCH TD SCH (10:20)
[2018-06-13] MEDS: PRENATAL VITAMINS W/ FOLIC ACID TABLET (FP) PO SCH (10:20)
--- NOTE | 2018-06-13 12:50 | PN ---
[facility] Progress Note (SOAP) Subjective: Sweating, Anxious, Body Aches. Objective: PATIENT A & O X 3, OBSERVED AMBULATING ON UNIT WITH ASSISTANCE OF A CANE. NO ACUTE DISTRESS. 06/13/18 12:48 Vital Signs Temperature 98.2 F 06/13/18 09:39 Pulse Rate 73 06/13/18 09:39 Respiratory Rate 16 06/13/18 09:39 Blood Pressure 128/93 06/13/18 09:39 O2 Sat by Pulse Oximetry (%) Laboratory Tests 06/10/18 06/10/18 06/10/18 08:00 08:00 08:00 WBC 4.0 RBC 4.26 Hgb 13.5 Hct 40.0 MCV 94.0 MCH 31.6 MCHC 33.7 RDW 15.4 Plt Count 57 L D MPV 9.3 Sodium 134 L Potassium 3.9 Chloride 103 Carbon Dioxide 26 Anion Gap 5 L BUN 14 Creatinine 0.8 Creat Clearance w eGFR > 60 Random Glucose 100 D Calcium 7.8 L Total Bilirubin 1.5 H Direct Bilirubin AST 111 H D ALT 26 Alkaline Phosphatase 474 H Total Protein 7.9 Albumin 1.6 L Urine Color Urine Appearance Urine pH Ur Specific [place] Urine Protein Urine Glucose (UA) Urine Ketones Urine Blood Urine Nitrite Urine Bilirubin Urine Urobilinogen Ur Leukocyte Esterase RPR Titer Nonreactive 06/10/18 06/12/18 06/12/18 11:00 08:30 08:30 WBC RBC Hgb Hct MCV MCH MCHC RDW Plt Count 67 L MPV Sodium 141 Potassium 4.5 Chloride 107 Carbon Dioxide 26 Anion Gap 8 BUN 16 Creatinine 0.9 Creat Clearance w eGFR > 60 Random Glucose 79 D Calcium 8.1 L Total Bilirubin 1.9 H Direct Bilirubin 1.5 H D AST 89 H ALT 25 Alkaline Phosphatase 508 H D Total Protein 8.5 H Albumin 1.8 L Urine Color Yellow Urine Appearance Clear Urine pH 7.0 Ur Specific [place] 1.011 Urine Protein Negative Urine Glucose (UA) Negative Urine Ketones Negative Urine Blood Negative Urine Nitrite Negative Urine Bilirubin Negative Urine Urobilinogen 4.0 e.u/dl Ur Leukocyte Esterase Negative RPR Titer LABS NOTED. Assessment: 06/13/18 12:49 WITHDRAWAL SYMPTOMS. THROMBOCYTOPENIA. 06/13/18 12:50 Plan: CONTINUE DETOX.
--- NOTE | 2018-06-13 12:55 | DS ---
[facility] Detox Discharge Summary Admission Date: 06/09/18 Discharge Date: 06/13/18 - History Present History: Alcohol Dependence, Opioid Dependence Additional Comments: PATIENT DOES NOT WISH TO REMAIN TO COMPLETE DETOX REGIMEN. RISKS OF LEAVING DETOX UNIT AGAINST MEDICAL ADVICE AND PRIOR TO COMPLETION OF DETOX REGIMEN EXPLAINED TO PATIENT. AT TIME IN WHICH HE WAS LEAVING, PATIENT DECLINED OFFER OF MEDICATION PRESCRIPTION FOR HOME MEDICATION, NOTING THAT HE CURRENTLY HAS ADEQUATE SUPPLIES OF ALL PRESCRIBED HOME MEDICATIONS AT HOME. PATIENT ADVISED TO GO IMMEDIATELY TO NEAREST ER SHOULD ANY INTOLERABLE DETOX SYMPTOMS DEVELOP AT ANY TIME. PATIENT LEFT DETOX UNIT IN STABLE MEDICAL CONDITION. Pertinent Past History: History of Depression, HIV, Hep C, History of Onchmycosis, HTN, Nicotine Dependence, History of Tinea Pedis, History of Cardiac Murmur, Insomnia, Asthma , History of Bipolar Disorder. - Physical Exam Results Vital Signs: Vital Signs Temperature 98.2 F 06/13/18 09:39 Pulse Rate 73 06/13/18 09:39 Respiratory Rate 16 06/13/18 09:39 Blood Pressure 128/93 06/13/18 09:39 O2 Sat by Pulse Oximetry (%) Pertinent Admission Physical Exam Findings: WITHDRAWAL SYMPTOMS. Laboratory Tests 06/10/18 06/10/18 06/10/18 08:00 08:00 08:00 WBC 4.0 RBC 4.26 Hgb 13.5 Hct 40.0 MCV 94.0 MCH 31.6 MCHC 33.7 RDW 15.4 Plt Count 57 L D MPV 9.3 Sodium 134 L Potassium 3.9 Chloride 103 Carbon Dioxide 26 Anion Gap 5 L BUN 14 Creatinine 0.8 Creat Clearance w eGFR > 60 Random Glucose 100 D Calcium 7.8 L Total Bilirubin 1.5 H Direct Bilirubin AST 111 H D ALT 26 Alkaline Phosphatase 474 H Total Protein 7.9 Albumin 1.6 L Urine Color Urine Appearance Urine pH Ur Specific [place] Urine Protein Urine Glucose (UA) Urine Ketones Urine Blood Urine Nitrite Urine Bilirubin Urine Urobilinogen Ur Leukocyte Esterase RPR Titer Nonreactive 06/10/18 06/12/18 06/12/18 11:00 08:30 08:30 WBC RBC Hgb Hct MCV MCH MCHC RDW Plt Count 67 L MPV Sodium 141 Potassium 4.5 Chloride 107 Carbon Dioxide 26 Anion Gap 8 BUN 16 Creatinine 0.9 Creat Clearance w eGFR > 60 Random Glucose 79 D Calcium 8.1 L Total Bilirubin 1.9 H Direct Bilirubin 1.5 H D AST 89 H ALT 25 Alkaline Phosphatase 508 H D Total Protein 8.5 H Albumin 1.8 L Urine Color Yellow Urine Appearance Clear Urine pH 7.0 Ur Specific [place] 1.011 Urine Protein Negative Urine Glucose (UA) Negative Urine Ketones Negative Urine Blood Negative Urine Nitrite Negative Urine Bilirubin Negative Urine Urobilinogen 4.0 e.u/dl Ur Leukocyte Esterase Negative RPR Titer LABS NOTED. - Treatment Hospital Course: Detoxed Safely - Medication Discharge Medications: Ambulatory Orders Amoxicillin/Potassium Clav [Augmentin 875-125 Tablet] 1 each PO BID #14 tablet 04/09/18 Nicotine Patch [Nicoderm Patch -] 21 mg TD DAILY #30 patch 04/10/18 Nicotine Polacrilex [Nicorelief -] 2 mg BUC Q2H PRN #30 gum 04/10/18 Vitamins (Sjr) - 1 tab PO DAILY #30 tablet 04/10/18 Thiamine HCl [Vitamin B1 -] 100 mg PO HS tablet 04/10/18 Albuterol Sulfate Inhaler - [Ventolin HFA Inhaler -] 2 inh PO Q4H PRN #1 cartridge 04/17/18 Darunavir Ethanolate [Prezista -] 800 mg PO DAILY #30 tablet 04/17/18 Emtricitabine/Tenofovir [Truvada -] 1 tab PO DAILY #30 tablet 04/17/18 Ritonavir [Norvir -] 100 mg PO DAILY #30 tab 04/17/18 Sulfamethoxazole/Trimethoprim [Bactrim DS -] 1 tab PO UTDICT 30 Days #30 tablet 04/17/18 - Diagnosis (1) Alcohol dependence with uncomplicated withdrawal Status: Acute (2) Opioid dependence with withdrawal Status: Acute (3) Acquired immune deficiency syndrome (AIDS) Status: Chronic (4) Asthma Status: Chronic (5) GERD (gastroesophageal reflux disease) Status: Chronic Qualifiers: Esophagitis presence: without esophagitis Qualified Code(s): K21.9 - Gastro -esophageal reflux disease without esophagitis (6) Hx of onychomycosis Status: Chronic (7) Murmur, cardiac Status: Chronic (8) Tinea pedis Status: Chronic Qualifiers: Laterality: bilateral Qualified Code(s): B35.3 - Tinea pedis (9) Nicotine dependence Status: Chronic Qualifiers: Nicotine product type: cigarettes Substance use status: in withdrawal Qualified Code(s): F17.213 - Nicotine dependence, cigarettes, with withdrawal (10) Substance induced mood disorder Status: Acute (11) Bipolar disorder Status: Chronic Qualifiers: Active/Remission status: remission status unspecified Qualified Code(s): F31.9 - Bipolar disorder, unspecified (12) HIV (human immunodeficiency virus infection) Status: Chronic (13) Hepatitis C Status: Chronic Qualifiers: Viral hepatitis chronicity: unspecified Hepatic coma status: without hepatic coma Qualified Code(s): B19.20 - Unspecified viral hepatitis C without hepatic coma (14) Hypertension Status: Chronic Qualifiers: Hypertension type: essential hypertension Qualified Code(s): I10 - Essential (primary) hypertension (15) Non compliance w medication regimen Status: Chronic - AMA Did Patient Leave Against Medical Advice: Yes (PATIENT DID NOT WISH TO REMAIN TO COMPLETE DETOX REIGMEN.)
[2018-06-14] MEDS ORDERED: METHADONE HCL 5 MG TABLET (FOR DETOX USE ONLY) PO SCH (06:00)
== END 2018-06-13 12:44 | disposition left against medical advice (07) | DRG 770 ==
LOC: YASAS 14:00 → Y3N 17:44
PROVIDERS: ADMIT Surgery; ATTEND Surgery
PROC: HZ2ZZZZ Detoxification Services for Substance Abuse Treatment (ICD-10-PCS; principal; 2018-06-09)
DX: F11.23 Opioid dependence with withdrawal (principal); F10.230 Alcohol dependence with withdrawal, uncomplicated; F17.213 Nicotine dependence, cigarettes, with withdrawal; F19.24 Other psychoactive substance dependence with psychoactive substance-induced mood disorder; F31.9 Bipolar disorder, unspecified; B20 Human immunodeficiency virus [HIV] disease; K21.9 Gastro-esophageal reflux disease without esophagitis; R01.1 Cardiac murmur, unspecified; B35.3 Tinea pedis; B19.20 Unspecified viral hepatitis C without hepatic coma; J45.909 Unspecified asthma, uncomplicated; I10 Essential (primary) hypertension; Z99.0 Dependence on aspirator; Z87.438 Personal history of other diseases of male genital organs; Z91.14 Patient's other noncompliance with medication regimen; Z59.0 Homelessness
CPT/HCPCS: 36415; 80048; 80053; 80076; 81003; 85027; 85032; 86593; 93005; 93010

== ENCOUNTER 2018-07-18 11:57 | Inpatient (IN) | payer OTHER ==
[2018-07-18 13:41] VITALS: BMI 20.2
--- NOTE | 2018-07-18 20:38 | HP ---
COWS - Scale Resting Pulse: 1= [place] 81-100 Sweatin=Flushed/Facial Moisture Restless Observation: 1= Difficult to Sit Still Pupil Size: 1= Pupils >than Normal Bone or Joint Aches: 4=Acute Joint/Muscle Pain Runny Nose/ Eye Tearin= Nasal Congestion GI Upset > 30mins: 3= Vomiting/Diarrhea (vomiting x 3, diarrhea x 8) Tremor Observation: 2= Slight Tremor Visible Yawning Observation: 0= None Anxiety or Irritability: 1=Feels Anxious/Irritable Goose Flesh Skin: 0=Smooth Skin COWS Score: 16 CIWA Score - CIWA Score Nausea/Vomitin Muscle Tremors: 4-Moderate,w/Arms Extend Anxiety: 4-Mod. Anxious/Guarded Agitation: 4-Moderately Restless Paroxysmal Sweats: No Perspiration Orientation: 1-Uncertain about Date Tacttile Disturbances: 0-None Auditory Disturbances: 0-None Visual Disturbances: 0-None Headache: 0-None Present CIWA-Ar Total Score: [address] [facility] Chief Complaint: .Heroin and alcohol withdrawal symptoms Allergies/Adverse Reactions: Allergies Allergy/AdvReac Type Severity Reaction Status Date / Time erythromycin base Allergy Severe Rash Verified 07/18/18 17:52 [Erythromycin Base] vancomycin Allergy Severe Rash Verified 07/18/18 17:52 chocolate flavor Allergy Intermediate Verified 07/18/18 17:52 nut - unspecified AdvReac Mild Itching Verified 07/18/18 17:52 History of Present Illness: 57 year old male with heroin dependence and alcohol dependence is seeking admission to detox. Patient has been in previous detox and reports insignificant period of sobriety. He has medical history of Hepatitis C ( untreated), syphilis, gonorrhea, HIV + (untreated), depression, asthma, and GERD Patient denies suicide attempt and suicidal ideation at this time - Ebola screening Have you traveled outside of the country in the last 21 days: No Have you had contact with anyone from an Ebola affected area: No Have you been sick,other than usual withdrawal symptoms: No Do you have a fever: No - Review of Systems Constitutional: Chills, Weakness EENT: reports: No Symptoms Reported Respiratory: reports: No Symptoms reported Cardiac: reports: No Symptoms Reported GI: reports: Diarrhea, Nausea, Poor Appetite, Poor Fluid Intake, Vomiting, Abdominal cramping : reports: No Symptoms Reported Musculoskeletal: reports: Back Pain Integumentary: reports: Bruising, Dryness, Flushing, Pallor, Rash Neuro: reports: Headache, Tremors Endocrine: reports: No Symptoms Reported Hematology: reports: Anemia Psychiatric: reports: Anxious, Depressed Other Systems: Reviewed and Negative Patient History - Patient Medical History Hx Anemia: No Hx Asthma: Yes Hx Chronic Obstructive Pulmonary Disease (COPD): No Hx Cancer: No Hx Cardiac Disorders: No Hx Congestive Heart Failure: No Hx Hypertension: Yes Hx Hypercholesterolemia: No Hx Pacemaker: No HX Cerebrovascular Accident: No Hx Seizures: No Hx Dementia: No Hx Diabetes: No Hx Gastrointestinal Disorders: Yes (GERD- Not on medication n) Hx Liver Disease: Yes (Hepatitis C - Not on medication) Hx Genitourinary Disorders: No Hx Sexually Transmitted Disorders: Yes (Gonorrhea, Syphilis) Hx Renal Disease (ESRD): No Hx Thyroid Disease: No Hx Human Immunodeficiency Virus (HIV): Yes (since 2007; Started on HAART meds while in [facility].) Hx Hepatitis C: Yes Hx Depression: Yes Hx Suicide Attempt: No Hx Bipolar Disorder: Yes (No treatment.) Hx Schizophrenia: No - Patient Surgical History Past Surgical History: Yes Hx Neurologic Surgery: No Hx Cataract Extraction: No Hx Cardiac Surgery: No Hx Lung Surgery: No Hx Breast Surgery: No Hx Abdominal Surgery: No Hx Appendectomy: No Hx Cholecystectomy: No Hx Genitourinary Surgery: No Hx Orthopedic Surgery: Yes (l upper arm surgery-skin graft for abscess) Other Surgical History: skin graft/abscess, left upper arm in 1992 Anesthesia Reaction: No - PPD History Documented Results: Negative w/proof Implanted On Prior R Admission?: Yes Date: 02/02/18 Results: 0 mm PPD to be Administered?: No - Reproductive History Patient is a Female of Child Bearing Age (11 -55 yrs old): No (male) - Smoking Cessation Smoking history: Current every day smoker Have you smoked in the past 12 months: Yes Aproximately how many cigarettes per day: 30 Cigars Per Day: 0 Hx Chewing Tobacco Use: No Initiated information on smoking cessation: Yes 'Breaking Loose' booklet given: 07/18/18 - Substance & Tx. History Hx Alcohol Use: Yes Hx Substance Use: Yes Substance Use Type: Opiates Hx Substance Use Treatment: Yes - Substances Abused Alcohol Route: Oral Frequency: Daily Amount used: LIQUOR- 1 PINT, BEER- 2 CANS (16oz) Age of first use: 13 Date of Last Use: 07/18/18 Heroin Route: Injection Frequency: Daily Amount used: 7 bags Age of first use: 13 Date of Last Use: 07/18/18 Family Disease History - Family Disease History Family Disease History: Diabetes: Mother (etoh; , [place]: Father ( [place], etoh), Mother, Sister (, Lung Ca.; Multiple Sclerosis.), Other : Grandparent (etoh.), Father, Mother, Sister Admission Physical Exam S - Vital Signs Vital Signs: Vital Signs - 24 hr 07/18/18 13:37 Temperature 98.3 F Pulse Rate 81 Respiratory 18 Rate Blood Pressure 117/80 - Physical General Appearance: Yes: Moderate Distress, Tremorous, Irritable, Sweating, Anxious HEENTM: Yes: Thrush Respiratory: Yes: Normal Breath Sounds, No Respiratory Distress Neck: Yes: Supple Breast: Yes: Breast Exam Deferred Cardiology: Yes: Regular Rhythm, Regular Rate Abdominal: Yes: Normal Bowel Sounds Genitourinary: Yes: Within Normal Limits Back: Yes: Normal Inspection Extremities: Yes: Normal Inspection Neurological: Yes: Confused Integumentary: Yes: Pale, Rash, Pitting Edema, Other (generalized bnrash and bruises) Lymphatic: Yes: Within Normal Limits - Diagnostic (1) Alcohol dependence with uncomplicated withdrawal Current Visit: Yes Status: Chronic Comment: . (2) Benzodiazepine dependence Current Visit: Yes Status: Chronic (3) Opioid dependence with withdrawal Current Visit: Yes Status: Chronic Comment: . (4) Asthma Current Visit: Yes Status: Chronic Comment: . (5) Depression (emotion) Current Visit: Yes Status: Chronic Qualifiers: Depression Type: unspecified Qualified Code(s): F32.9 - Major depressive disorder, single episode, unspecified (6) GERD (gastroesophageal reflux disease) Current Visit: Yes Status: Chronic Qualifiers: Esophagitis presence: without esophagitis Qualified Code(s): K21.9 - Gastro -esophageal reflux disease without esophagitis Comment: . (7) HIV (human immunodeficiency virus infection) Current Visit: Yes Status: Chronic (8) Hepatitis C Current Visit: Yes Status: Chronic Qualifiers: Viral hepatitis chronicity: unspecified Hepatic coma status: without hepatic coma Qualified Code(s): B19.20 - Unspecified viral hepatitis C without hepatic coma Comment: . (9) Hypertension Current Visit: Yes Status: Chronic Qualifiers: Hypertension type: essential hypertension Qualified Code(s): I10 - Essential (primary) hypertension (10) Nicotine dependence Current Visit: Yes Status: Chronic Qualifiers: Nicotine product type: cigarettes Substance use status: in withdrawal Qualified Code(s): F17.213 - Nicotine dependence, cigarettes, with withdrawal (11) Non compliance w medication regimen Current Visit: Yes Status: Chronic Cleared for Admission S - Detox or Rehab [facility] Level of Care: Medically Managed Detox Regimen/Protocol: Methadone/Librium [facility] Breath Alcohol Content Breath Alcohol Content: 0 Urine Drug Screen - Results Drug Screen Negative: No Urine Drug Screen Results: OPI-Opiates, BZO-Benzodiazepines, MTD-Methadone
[2018-07-18] MEDS ORDERED: LOPERAMIDE HCL 2 MG CAPSULE PO PRN (21:09)
[2018-07-18] MEDS ORDERED: IBUPROFEN 400 MG TABLET (FP) PO PRN (21:09)
[2018-07-18] MEDS ORDERED: MENTHOL/PHENOL 1 EACH UD MM PRN (21:09)
[2018-07-18] MEDS ORDERED: MAGNESIUM HYDROX 2400MG/30ML ORAL SUSPENSION 30 ML CUP PO PRN (21:09)
[2018-07-18] MEDS ORDERED: MAGNESIUM CITRATE 300 ML BOTTLE PO PRN (21:09)
[2018-07-18] MEDS ORDERED: P-EPHED 60MG/TRIPROLIDI 2.5MG TABLET PO PRN (21:09)
[2018-07-18] MEDS ORDERED: METHADONE HCL 10 MG TABLET (FOR DETOX USE ONLY) PO ONE ×2 (21:09→23:00)
[2018-07-18] MEDS ORDERED: guaiFENesin/D-METHORPHAN HB 10 ML UNIT-DOSE CUPS PO PRN (21:09)
[2018-07-18] MEDS ORDERED: MAG HYDROX/AL HYDROX/SIMETH 30 ML UNIT-DOSE CUP PO PRN (21:09)
[2018-07-18] MEDS ORDERED: NICOTINE POLACRILEX 2 MG GUM BC PRN (21:09)
[2018-07-18] MEDS ORDERED: chlordiazePOXIDE HCL 25 MG CAPSULE PO PRN (21:09)
[2018-07-18] MEDS ORDERED: MELATONIN 5 MG TABLETS PO PRN (22:00)
[2018-07-18] MEDS: chlordiazePOXIDE HCL 25 MG CAPSULE PO SCH (22:27)
[2018-07-18] MEDS: THIAMINE HCL 100 MG TABLET (FP) PO SCH (22:27)
[2018-07-18] MEDS: BACITRACIN 0.9 GM PACKET TP SCH (22:29)
[2018-07-19 00:56] LABS: URINE APPEARANCE CLOUDY; URINE COLOR AMBER; URINE GLUCOSE (UA) NEGATIVE (NEGATIVE); URINE KETONE NEGATIVE (NEGATIVE); URINE LEUK ESTERASE NEGATIVE (NEGATIVE); URINE NITRITE NEGATIVE (NEGATIVE); URINE UROBILINOGEN 4.0 E.U/dl mg/dL (0.2-1.0)
[2018-07-19 01:04] LABS: URINE PROTEIN 1+ (NEGATIVE)
[2018-07-19 01:10] LABS: CALCIUM OXALATE CRYSTALS MANY /hpf (NONE SEEN); EPI CELLS RARE /HPF (FEW); URINE BACTERIA RARE /hpf (NONE SEEN); URINE MUCUS RARE
[2018-07-19] MEDS: chlordiazePOXIDE HCL 25 MG CAPSULE PO SCH ×4 (05:31→22:25)
--- NOTE | 2018-07-19 09:12 | CONSULT ---
[facility] Psychiatric Consult - Data Date of interview: 07/19/18 Admission source: [facility] Identifying data: This is a 57 year old male, single, unemployed, homeless, on HASSA support, with history of Bipolar Disorder and with no psychiatric hospitalization history, with multiple medical problems history, with heroin, alcohol, nicotine dependence and alcohol withdrawal symptoms seking detox. Patient has been in previous detoxes and reports insignificant period of sobriety. Substance Abuse History: Smoking history: Current every day smoker. Have you smoked in the past 12 months: Yes. Aproximately how many cigarettes per day: 30. Cigars Per Day: 0. Hx Chewing Tobacco Use: No. Initiated information on smoking cessation: Yes. 'Breaking Loose' booklet given: 07/18/18. - Substance & Tx. History. Hx Alcohol Use: Yes. Hx Substance Use: Yes. Substance Use Type : Opiates. Hx Substance Use Treatment: Yes. - Substances Abused. Alcohol. Route: Oral. Frequency: Daily. Amount used: LIQUOR- 1 PINT, BEER- 2 CANS ( 16oz). Age of first use: 13. Date of Last Use: 07/18/18. Heroin. Route: Injection. Frequency: Daily. Amount used: 7 bags. Age of first use: 13. Date of Last Use: 07/18/18 Medical History: HepC+, HIV+,M Astyhma, GERD, Syphiis history, HTN, Vascular lower extrmities insufficiency, cardiac murmur history Psychiatric History: As per computer patient carries Bipolar Disorder, reports no medications taking prior to admission, denies suicdial, homicidal history. Physical/Sexual Abuse/Trauma History: Denies Additional Comment: Observation. Detox Unit Care Protocol Mental Status Exam - Mental Status Exam Alert and Oriented to: Person Cognitive Function: Fair Patient Appearance: Unkempt Mood: Sad Affect: Flat Patient Behavior: Sedated Speech Pattern: Delayed Voice Loudness: Mildly Soft/Quiet Thought Process: Circumstantial Thought Disorder: Being Controlled Hallucinations: Denies Suicidal Ideation: Denies Homicidal Ideation: Denies Insight/Judgement: Fair Sleep: Difficulty falling asleep Appetite: Weight loss Muscle strength/Tone: Mild Hypotonicity Gait/Station: Shuffling Additional Comments: Observation. Detox Unit Care Protocol Psychiatric Findings - Problem List ([place] 1, 2,3) (1) Alcohol dependence with uncomplicated withdrawal Current Visit: Yes Status: Chronic Comment: . (2) Asthma Current Visit: Yes Status: Chronic Comment: . (3) Benzodiazepine dependence Current Visit: Yes Status: Chronic (4) GERD (gastroesophageal reflux disease) Current Visit: Yes Status: Chronic Qualifiers: Esophagitis presence: without esophagitis Qualified Code(s): K21.9 - Gastro -esophageal reflux disease without esophagitis Comment: . (5) HIV (human immunodeficiency virus infection) Current Visit: Yes Status: Chronic (6) Hepatitis C Current Visit: Yes Status: Chronic Qualifiers: Viral hepatitis chronicity: unspecified Hepatic coma status: without hepatic coma Qualified Code(s): B19.20 - Unspecified viral hepatitis C without hepatic coma Comment: . (7) Hypertension Current Visit: Yes Status: Chronic Qualifiers: Hypertension type: essential hypertension Qualified Code(s): I10 - Essential (primary) hypertension (8) Nicotine dependence Current Visit: Yes Status: Chronic Qualifiers: Nicotine product type: cigarettes Substance use status: in withdrawal Qualified Code(s): F17.213 - Nicotine dependence, cigarettes, with withdrawal (9) Non compliance w medication regimen Current Visit: Yes Status: Chronic (10) Opioid dependence with withdrawal Current Visit: Yes Status: Chronic Comment: . (11) Acute prerenal azotemia Current Visit: No Status: Acute (12) Alcohol dependence Current Visit: No Status: Acute Qualifiers: Substance use status: in remission Qualified Code(s): F10.21 - Alcohol dependence, in remission (13) Atypical pneumonia Current Visit: No Status: Acute (14) Bipolar II disorder Current Visit: No Status: Acute (15) Cellulitis and abscess of foot Current Visit: No Status: Acute (16) Elevated LFTs Current Visit: No Status: Acute (17) Peripheral neuralgia Current Visit: No Status: Acute (18) Substance induced mood disorder Current Visit: No Status: Acute (19) Acquired immune deficiency syndrome (AIDS) Current Visit: No Status: Chronic Comment: . (20) Cannabis dependence Current Visit: No Status: Chronic (21) Cocaine dependence Current Visit: No Status: Chronic Qualifiers: Substance use status: uncomplicated Qualified Code(s): F14.20 - Cocaine dependence, uncomplicated (22) History of hypertension Current Visit: No Status: Chronic (23) Hx of onychomycosis Current Visit: No Status: Chronic (24) Marijuana abuse Current Visit: No Status: Chronic (25) Vascular insufficiency of extremity Current Visit: No Status: Chronic - Initial Treatment Plan Initial Treatment Plan: Observation. Detox Unit Care Protocol
[2018-07-19 09:59] LABS: HEMATOCRIT 41.1 % (35.4-49); HEMOGLOBIN 13.4 GM/dL (11.7-16.9); MCH 30.6 pg (25.7-33.7); MCHC 32.5 g/dl (32.0-35.9); PLATELET COUNT 68 K/MM3 (134-434); RBC 4.37 M/mm3 (4.00-5.60); RDW 15.7 % (11.9-15.9); WHITE BLOOD COUNT 5.6 K/mm3 (4.0-10.0)
[2018-07-19] MEDS ORDERED: METHADONE HCL 10 MG TABLET (FOR DETOX USE ONLY) PO SCH (10:00)
[2018-07-19] MEDS: LIDOCAINE 5% TOPICAL PATCH TP SCH (10:00)
[2018-07-19 10:12] LABS: ALBUMIN 1.7 g/dl (3.4-5.0); ANION GAP 8 MMOL/L (8-16); BLOOD UREA NITROGEN 16 mg/dL (7-18); CALCIUM 7.6 mg/dL (8.5-10.1); CHLORIDE 98 mmol/L (98-107); CO2 26 mmol/L (21-32); GLUCOSE,RANDOM 80 mg/dL (74-106); POTASSIUM 3.2 mmol/L (3.5-5.1); SODIUM 132 mmol/L (136-145)
[2018-07-19 10:14] LABS: ALK PHOS 417 U/L (45-117); BILIRUBIN,TOTAL 1.6 mg/dL (0.2-1.0); CREATININE 0.9 mg/dL (0.7-1.3); SGOT/AST 149 U/L (15-37); SGPT/ALT 38 U/L (12-78); TOT PROT 8.1 g/dl (6.4-8.2)
[2018-07-19] MEDS: PRENATAL VITAMINS W/ FOLIC ACID TABLET (FP) PO SCH (10:35)
[2018-07-19] MEDS: BACITRACIN 0.9 GM PACKET TP SCH ×2 (10:36→22:25)
[2018-07-19] MEDS: NICOTINE 14 MG/24 HOURS TOPICAL PATCH TD SCH (10:36)
[2018-07-19] MEDS: ACETAMINOPHEN 325 MG TABLET (FP) PO PRN (10:37)
--- NOTE | 2018-07-19 11:02 | PN ---
S CIWA - CIWA Score Nausea/Vomitin Muscle Tremors: 3 Anxiety: 3 Agitation: 2 Paroxysmal Sweats: 3 Orientation: 0-Oriented Tacttile Disturbances: 2-Mild Itch/Numbness/Burn Auditory Disturbances: 0-None Visual Disturbances: 0-None Headache: 0-None Present CIWA-Ar Total Score: 15 BHS COWS - Scale Resting Pulse: 0= [place] 80 or Below Sweatin=Flushed/Facial Moisture Restless Observation: 1= Difficult to Sit Still Pupil Size: 1= Pupils >than Normal Bone or Joint Aches: 2= Severe Diffuse Aches Runny Nose/ Eye Tearin= Nasal Congestion GI Upset > 30mins: 1= Stomach Cramp Tremor Observation of Outstretched Hands: 2= Slight Tremor Visible Yawning Observation: 0= None Anxiety or Irritability: 2=Irritable/Anxious Goose Flesh Skin: 0=Smooth Skin COWS Score: 12 BHS Progress Note (SOAP) Subjective: interrupted sleep, sweats, shakes left hip pain Objective: 07/19/18 10:58 Vital Signs Temperature 97.7 F 07/19/18 09:39 Pulse Rate 85 07/19/18 09:39 Respiratory Rate 18 07/19/18 09:39 Blood Pressure 133/90 07/19/18 09:39 O2 Sat by Pulse Oximetry (%) Laboratory Tests 07/18/18 07/19/18 07/19/18 23:22 07:00 07:00 WBC 5.6 RBC 4.37 Hgb 13.4 Hct 41.1 MCV 94.0 MCH 30.6 MCHC 32.5 RDW 15.7 Plt Count 68 L MPV 10.0 Sodium 132 L Potassium 3.2 L D Chloride 98 Carbon Dioxide 26 Anion Gap 8 BUN 16 Creatinine 0.9 Creat Clearance w eGFR > 60 Random Glucose 80 Calcium 7.6 L Total Bilirubin 1.6 H AST 149 H D ALT 38 D Alkaline Phosphatase 417 H Total Protein 8.1 Albumin 1.7 L Urine Color [place] Urine Appearance Cloudy Urine pH 6.0 Ur Specific [place] 1.023 Urine Protein 1+ H Urine Glucose (UA) Negative Urine Ketones Negative Urine Blood Negative Urine Nitrite Negative Urine Bilirubin 2.0 Urine Urobilinogen 4.0 e.u/dl Ur Leukocyte Esterase Negative Urine WBC (Auto) 1 Urine RBC (Auto) 1 Ur Epithelial Cells Rare Calcium Oxalate Crystal Many Urine Bacteria Rare Urine Mucus Rare pt aox3 c/o hip pain left hip ulcer w/o d/c surrounded by hyperpigmented areas / erythema 07/19/18 11:00 Assessment: 07/19/18 11:01 withdrawal sx's rt hip ulcer/pain hiv hyponatremia 132 hypokalemia 3.2 ast 149 thrombocytopenia 68k 07/19/18 11:06 Plan: cont. detox increase fluids x ray left hip bacitracin to ulcer repeat labs basic chemistry
--- NOTE | 2018-07-19 11:45 | EKG ---
Test Reason : Blood Pressure : / mmHG Vent. Rate : 058 BPM Atrial Rate : 058 BPM P-R Int : 136 ms QRS Dur : 098 ms QT Int : 446 ms P-R-T Axes : 073 -10 017 degrees QTc Int : 437 ms SINUS BRADYCARDIA WITH SINUS ARRHYTHMIA OTHERWISE NORMAL ECG WHEN COMPARED WITH ECG OF 09-JUN-2018 20:39, NO SIGNIFICANT CHANGE WAS FOUND Confirmed by SHAMEKA GALVEZ MD ([id number]) on 07/19/2018 11:45:14 AM Referred By: Confirmed By:SHAMEKA GALVEZ MD
[2018-07-19] MEDS: THIAMINE HCL 100 MG TABLET (FP) PO SCH (22:25)
[2018-07-19] MEDS: POTASSIUM CHLORIDE ORAL LIQUID 20 MEQ/15 ML PO SCH (22:25)
[2018-07-19] MEDS: LIDOCAINE PATCH REMOVAL MC SCH (22:28)
[2018-07-20] MEDS: chlordiazePOXIDE HCL 25 MG CAPSULE PO SCH ×3 (06:01→18:38)
--- NOTE | 2018-07-20 09:29 | PN ---
[facility] CIWA - CIWA Score Nausea/Vomitin-Mild Nausea/No Vomiting Muscle Tremors: 3 Anxiety: 3 Agitation: 3 Paroxysmal Sweats: 1-Minimal Palms Moist Orientation: 0-Oriented Tacttile Disturbances: 1-Very Mild Itch/Numbness Auditory Disturbances: 0-None Visual Disturbances: 0-None Headache: 0-None Present CIWA-Ar Total Score: 12 BHS COWS - Scale Resting Pulse: 0= [place] 80 or Below Sweatin= Chills/Flushing Restless Observation: 1= Difficult to Sit Still Pupil Size: 0= Normal to Room Light Bone or Joint Aches: 2= Severe Diffuse Aches Runny Nose/ Eye Tearin= Nasal Congestion GI Upset > 30mins: 2= Nausea/Diarrhea Tremor Observation of Outstretched Hands: 2= Slight Tremor Visible Yawning Observation: 1= 1-2x During Session Anxiety or Irritability: 2=Irritable/Anxious Goose Flesh Skin: 0=Smooth Skin COWS Score: 12 S Progress Note (SOAP) Subjective: tremor sweat shake gi distress constipation Objective: 07/20/18 09:29 Vital Signs Temperature 98.8 F 07/20/18 09:02 Pulse Rate 78 07/20/18 09:02 Respiratory Rate 18 07/20/18 09:02 Blood Pressure 131/84 07/20/18 09:02 O2 Sat by Pulse Oximetry (%) Laboratory Last Values WBC 5.6 K/mm3 (4.0-10.0) 07/19/18 07:00 RBC 4.37 M/mm3 (4.00-5.60) 07/19/18 07:00 Hgb 13.4 GM/dL (11.7-16.9) 07/19/18 07:00 Hct 41.1 % (35.4-49) 07/19/18 07:00 MCV 94.0 fl (80-96) 07/19/18 07:00 MCH 30.6 pg (25.7-33.7) 07/19/18 07:00 MCHC 32.5 g/dl (32.0-35.9) 07/19/18 07:00 RDW 15.7 % (11.9-15.9) 07/19/18 07:00 Plt Count 68 K/MM3 (134-434) L 07/19/18 07:00 MPV 10.0 fl (7.5-11.1) 07/19/18 07:00 Sodium 132 mmol/L (136-145) L 07/19/18 07:00 Potassium 3.2 mmol/L (3.5-5.1) L D 07/19/18 07:00 Chloride 98 mmol/L (98-107) 07/19/18 07:00 Carbon Dioxide 26 mmol/L (21-32) 07/19/18 07:00 Anion Gap 8 MMOL/L (8-16) 07/19/18 07:00 BUN 16 mg/dL (7-18) 07/19/18 07:00 Creatinine 0.9 mg/dL (0.7-1.3) 07/19/18 07:00 Creat Clearance w eGFR > 60 (>60) 07/19/18 07:00 Random Glucose 80 mg/dL (74-106) 07/19/18 07:00 Calcium 7.6 mg/dL (8.5-10.1) L 07/19/18 07:00 Total Bilirubin 1.6 mg/dL (0.2-1.0) H 07/19/18 07:00 AST 149 U/L (15-37) H D 07/19/18 07:00 ALT 38 U/L (12-78) D 07/19/18 07:00 Alkaline Phosphatase 417 U/L (45-117) H 07/19/18 07:00 Total Protein 8.1 g/dl (6.4-8.2) 07/19/18 07:00 Albumin 1.7 g/dl (3.4-5.0) L 07/19/18 07:00 Urine Color [place] 07/18/18 23:22 Urine Appearance Cloudy 07/18/18 23:22 Urine pH 6.0 (5.0-8.0) 07/18/18 23:22 Ur Specific [place] 1.023 (1.001-1.035) 07/18/18 23:22 Urine Protein 1+ (NEGATIVE) H 07/18/18 23:22 Urine Glucose (UA) Negative (NEGATIVE) 07/18/18 23:22 Urine Ketones Negative (NEGATIVE) 07/18/18 23:22 Urine Blood Negative (NEGATIVE) 07/18/18 23:22 Urine Nitrite Negative (NEGATIVE) 07/18/18 23:22 Urine Bilirubin 2.0 (<2.0 mg/dL) 07/18/18 23:22 Urine Urobilinogen 4.0 e.u/dl mg/dL (0.2-1.0) 07/18/18 23:22 Ur Leukocyte Esterase Negative (NEGATIVE) 07/18/18 23:22 Urine WBC (Auto) 1 /hpf (3-5) 07/18/18 23:22 Urine RBC (Auto) 1 /hpf (0-3) 07/18/18 23:22 Ur Epithelial Cells Rare /HPF (FEW) 07/18/18 23:22 Calcium Oxalate Crystal Many /hpf (NONE SEEN) 07/18/18 23:22 Urine Bacteria Rare /hpf (NONE SEEN) 07/18/18 23:22 Urine Mucus Rare 07/18/18 23:22 RPR Titer Nonreactive (NONREACTIVE) 07/19/18 07:00 07/20/18 09:30 lab noted low K+ Assessment: 07/20/18 09:32 withdrawal sx low K+ Plan: continue detox continue K+ repeat K+ lab 07/22/18
[2018-07-20] MEDS: PRENATAL VITAMINS W/ FOLIC ACID TABLET (FP) PO SCH (10:25)
[2018-07-20] MEDS: BACITRACIN 0.9 GM PACKET TP SCH ×2 (10:25→23:02)
[2018-07-20] MEDS: METHADONE HCL 5 MG TABLET (FOR DETOX USE ONLY) PO SCH (10:26)
[2018-07-20] MEDS: LIDOCAINE 5% TOPICAL PATCH TP SCH (10:29)
[2018-07-20] MEDS: NICOTINE 14 MG/24 HOURS TOPICAL PATCH TD SCH (10:29)
[2018-07-20] MEDS: POTASSIUM CHLORIDE ORAL LIQUID 20 MEQ/15 ML PO SCH ×2 (10:32→23:05)
[2018-07-20] MEDS: THIAMINE HCL 100 MG TABLET (FP) PO SCH (23:02)
[2018-07-20] MEDS: chlordiazePOXIDE 5 MG CAPSULE PO SCH (23:02)
[2018-07-20] MEDS: LIDOCAINE PATCH REMOVAL MC SCH (23:06)
[2018-07-21] MEDS: chlordiazePOXIDE 5 MG CAPSULE PO SCH ×3 (05:58→18:34)
[2018-07-21] MEDS: METHADONE HCL 5 MG TABLET (FOR DETOX USE ONLY) PO SCH (10:00)
[2018-07-21] MEDS: BACITRACIN 0.9 GM PACKET TP SCH ×2 (10:00→23:13)
[2018-07-21] MEDS: POTASSIUM CHLORIDE ORAL LIQUID 20 MEQ/15 ML PO SCH ×2 (10:00→23:17)
[2018-07-21] MEDS: PRENATAL VITAMINS W/ FOLIC ACID TABLET (FP) PO SCH (10:00)
--- NOTE | 2018-07-21 12:28 | PN ---
[facility] Progress Note (SOAP) Subjective: interrupted sleep, diarrhea Objective: 07/21/18 12:27 Vital Signs Temp 98 F 07/21/18 09:49 Pulse 87 07/21/18 09:49 Resp 20 07/21/18 09:49 BP 122/84 07/21/18 09:49 Pulse Ox Laboratory Tests 07/18/18 07/19/18 07/19/18 23:22 07:00 07:00 WBC 5.6 RBC 4.37 Hgb 13.4 Hct 41.1 MCV 94.0 MCH 30.6 MCHC 32.5 RDW 15.7 Plt Count 68 L MPV 10.0 Sodium 132 L Potassium 3.2 L D Chloride 98 Carbon Dioxide 26 Anion Gap 8 BUN 16 Creatinine 0.9 Creat Clearance w eGFR > 60 Random Glucose 80 Calcium 7.6 L Total Bilirubin 1.6 H AST 149 H D ALT 38 D Alkaline Phosphatase 417 H Total Protein 8.1 Albumin 1.7 L Urine Color [place] Urine Appearance Cloudy Urine pH 6.0 Ur Specific [place] 1.023 Urine Protein 1+ H Urine Glucose (UA) Negative Urine Ketones Negative Urine Blood Negative Urine Nitrite Negative Urine Bilirubin 2.0 Urine Urobilinogen 4.0 e.u/dl Ur Leukocyte Esterase Negative Urine WBC (Auto) 1 Urine RBC (Auto) 1 Ur Epithelial Cells Rare Calcium Oxalate Crystal Many Urine Bacteria Rare Urine Mucus Rare RPR Titer 07/19/18 07:00 WBC RBC Hgb Hct MCV MCH MCHC RDW Plt Count MPV Sodium Potassium Chloride Carbon Dioxide Anion Gap BUN Creatinine Creat Clearance w eGFR Random Glucose Calcium Total Bilirubin AST ALT Alkaline Phosphatase Total Protein Albumin Urine Color Urine Appearance Urine pH Ur Specific [place] Urine Protein Urine Glucose (UA) Urine Ketones Urine Blood Urine Nitrite Urine Bilirubin Urine Urobilinogen Ur Leukocyte Esterase Urine WBC (Auto) Urine RBC (Auto) Ur Epithelial Cells Calcium Oxalate Crystal Urine Bacteria Urine Mucus RPR Titer Nonreactive LEFT HIP XRAY -NEG. PT AOX3 ,disorganized 07/21/18 15:29 Assessment: 07/21/18 12:28 WITHDRAWAL SX'S hypokalemia 07/21/18 15:31 Plan: CONT, DETOX INCREASE FLUIDS basic metabolic panel
[2018-07-21] MEDS: NICOTINE 14 MG/24 HOURS TOPICAL PATCH TD SCH (15:29)
[2018-07-21] MEDS: LIDOCAINE 5% TOPICAL PATCH TP SCH (15:29)
[2018-07-21] MEDS: LIDOCAINE PATCH REMOVAL MC SCH (23:17)
[2018-07-21] MEDS: THIAMINE HCL 100 MG TABLET (FP) PO SCH (23:17)
[2018-07-21] MEDS: chlordiazePOXIDE HCL 10 MG CAPSULE PO SCH (23:28)
[2018-07-22] MEDS: chlordiazePOXIDE HCL 10 MG CAPSULE PO SCH ×3 (06:35→18:18)
[2018-07-22] MEDS ORDERED: METHADONE HCL 10 MG TABLET (FOR DETOX USE ONLY) PO SCH (10:00)
[2018-07-22 11:11] LABS: POTASSIUM 4.4 mmol/L (3.5-5.1)
[2018-07-22] MEDS: PRENATAL VITAMINS W/ FOLIC ACID TABLET (FP) PO SCH (11:24)
[2018-07-22] MEDS: POTASSIUM CHLORIDE ORAL LIQUID 20 MEQ/15 ML PO SCH ×2 (11:24→23:34)
[2018-07-22] MEDS: LIDOCAINE 5% TOPICAL PATCH TP SCH (11:25)
[2018-07-22] MEDS: NICOTINE 14 MG/24 HOURS TOPICAL PATCH TD SCH (11:25)
[2018-07-22] MEDS: BACITRACIN 0.9 GM PACKET TP SCH ×2 (11:25→23:34)
[2018-07-22 12:49] LABS: ANION GAP 9 MMOL/L (8-16); BLOOD UREA NITROGEN 14 mg/dL (7-18); CALCIUM 7.7 mg/dL (8.5-10.1); CHLORIDE 102 mmol/L (98-107); CO2 23 mmol/L (21-32); CREATININE 0.9 mg/dL (0.55-1.3); GLUCOSE,RANDOM 86 mg/dL (74-106); SODIUM 134 mmol/L (136-145)
--- NOTE | 2018-07-22 14:39 | PN ---
[facility] Progress Note (SOAP) Subjective: pt is on both alcohol and opioid detox protocol- pt feels sleepy and with unsteady gait- O: Vital Signs - 24 hr 07/21/18 07/21/18 07/21/18 14:38 18:08 22:12 Temperature 97.0 F L 98.8 F 98.8 F Pulse Rate 83 81 80 Respiratory 18 18 18 Rate Blood Pressure 139/106 119/82 115/69 07/22/18 07/22/18 07/22/18 00:30 03:30 07:39 Temperature 98.1 F Pulse Rate 78 Respiratory 20 20 20 Rate Blood Pressure 145/74 07/22/18 07/22/18 08:47 14:09 Temperature 97.7 F 98.2 F Pulse Rate 85 79 Respiratory 16 16 Rate Blood Pressure 104/84 104/68 Laboratory Tests 07/18/18 07/19/18 07/19/18 23:22 07:00 07:00 WBC 5.6 RBC 4.37 Hgb 13.4 Hct 41.1 MCV 94.0 MCH 30.6 MCHC 32.5 RDW 15.7 Plt Count 68 L MPV 10.0 Sodium 132 L Potassium 3.2 L D Chloride 98 Carbon Dioxide 26 Anion Gap 8 BUN 16 Creatinine 0.9 Creat Clearance w eGFR > 60 Random Glucose 80 Calcium 7.6 L Total Bilirubin 1.6 H AST 149 H D ALT 38 D Alkaline Phosphatase 417 H Total Protein 8.1 Albumin 1.7 L Urine Color [place] Urine Appearance Cloudy Urine pH 6.0 Ur Specific [place] 1.023 Urine Protein 1+ H Urine Glucose (UA) Negative Urine Ketones Negative Urine Blood Negative Urine Nitrite Negative Urine Bilirubin 2.0 Urine Urobilinogen 4.0 e.u/dl Ur Leukocyte Esterase Negative Urine WBC (Auto) 1 Urine RBC (Auto) 1 Ur Epithelial Cells Rare Calcium Oxalate Crystal Many Urine Bacteria Rare Urine Mucus Rare RPR Titer 07/19/18 07/22/18 07/22/18 07:00 07:50 09:15 WBC RBC Hgb Hct MCV MCH MCHC RDW Plt Count MPV Sodium 134 L Cancelled Potassium 4.4 Cancelled Chloride 102 Cancelled Carbon Dioxide 23 Cancelled Anion Gap 9 Cancelled BUN 14 Cancelled Creatinine 0.9 Cancelled Creat Clearance w eGFR > 60 Cancelled Random Glucose 86 Cancelled Calcium 7.7 L Cancelled Total Bilirubin AST ALT Alkaline Phosphatase Total Protein Albumin Urine Color Urine Appearance Urine pH Ur Specific [place] Urine Protein Urine Glucose (UA) Urine Ketones Urine Blood Urine Nitrite Urine Bilirubin Urine Urobilinogen Ur Leukocyte Esterase Urine WBC (Auto) Urine RBC (Auto) Ur Epithelial Cells Calcium Oxalate Crystal Urine Bacteria Urine Mucus RPR Titer Nonreactive nl VS increased liver enzymes a/p: d/w nursing staff to hold detox meds- methadone and librium if pt is sedated or with unstready gait pt to leave tomorrow
[2018-07-22] MEDS: LIDOCAINE PATCH REMOVAL MC SCH (23:34)
[2018-07-22] MEDS: THIAMINE HCL 100 MG TABLET (FP) PO SCH (23:34)
[2018-07-23] MEDS ORDERED: METHADONE HCL 5 MG TABLET (FOR DETOX USE ONLY) PO SCH (06:00)
[2018-07-23] MEDS: ACETAMINOPHEN 325 MG TABLET (FP) PO PRN (06:27)
[2018-07-23 09:28] VITALS: BP 106/74; PULSE 84; TEMP 98.1
[2018-07-23] MEDS: BACITRACIN 0.9 GM PACKET TP SCH (10:38)
[2018-07-23] MEDS: PRENATAL VITAMINS W/ FOLIC ACID TABLET (FP) PO SCH (10:39)
[2018-07-23] MEDS: LIDOCAINE 5% TOPICAL PATCH TP SCH (10:39)
[2018-07-23] MEDS: NICOTINE 14 MG/24 HOURS TOPICAL PATCH TD SCH (10:39)
--- NOTE | 2018-07-23 13:14 | DS ---
[facility] Detox Discharge Summary Admission Date: 07/18/18 Discharge Date: 07/23/18 - History Present History: Alcohol Dependence, Sedative Dependence Additional Comments: 57 years old male admitted on 07/18/18 for alcohol and benzo withdrawal sx completed alcohol and benzo withdrawal sx tolerated well denies alcohol and benzo withdrawl sx wants to return to [place] alert oriented x 3 no acute distress aftercare [facility] Physical Exam Results Vital Signs: Vital Signs Temperature 98.1 F 07/23/18 09:27 Pulse Rate 84 07/23/18 09:27 Respiratory Rate 16 07/23/18 09:27 Blood Pressure 106/74 07/23/18 09:27 O2 Sat by Pulse Oximetry (%) Pertinent Admission Physical Exam Findings: alcohol and benzo withdrawal sx Vital Signs Temperature 98.1 F 07/23/18 09:27 Pulse Rate 84 07/23/18 09:27 Respiratory Rate 16 07/23/18 09:27 Blood Pressure 106/74 07/23/18 09:27 O2 Sat by Pulse Oximetry (%) Laboratory Last Values WBC 5.6 K/mm3 (4.0-10.0) 07/19/18 07:00 RBC 4.37 M/mm3 (4.00-5.60) 07/19/18 07:00 Hgb 13.4 GM/dL (11.7-16.9) 07/19/18 07:00 Hct 41.1 % (35.4-49) 07/19/18 07:00 MCV 94.0 fl (80-96) 07/19/18 07:00 MCH 30.6 pg (25.7-33.7) 07/19/18 07:00 MCHC 32.5 g/dl (32.0-35.9) 07/19/18 07:00 RDW 15.7 % (11.9-15.9) 07/19/18 07:00 Plt Count 68 K/MM3 (134-434) L 07/19/18 07:00 MPV 10.0 fl (7.5-11.1) 07/19/18 07:00 Sodium 134 mmol/L (136-145) L 07/22/18 07:50 Potassium 4.4 mmol/L (3.5-5.1) 07/22/18 07:50 Chloride 102 mmol/L (98-107) 07/22/18 07:50 Carbon Dioxide 23 mmol/L (21-32) 07/22/18 07:50 Anion Gap 9 MMOL/L (8-16) 07/22/18 07:50 BUN 14 mg/dL (7-18) 07/22/18 07:50 Creatinine 0.9 mg/dL (0.55-1.3) 07/22/18 07:50 Creat Clearance w eGFR > 60 (>60) 07/22/18 07:50 Random Glucose 86 mg/dL (74-106) 07/22/18 07:50 Calcium 7.7 mg/dL (8.5-10.1) L 07/22/18 07:50 Total Bilirubin 1.6 mg/dL (0.2-1.0) H 07/19/18 07:00 AST 149 U/L (15-37) H D 07/19/18 07:00 ALT 38 U/L (12-78) D 07/19/18 07:00 Alkaline Phosphatase 417 U/L (45-117) H 07/19/18 07:00 Total Protein 8.1 g/dl (6.4-8.2) 07/19/18 07:00 Albumin 1.7 g/dl (3.4-5.0) L 07/19/18 07:00 Urine Color [place] 07/18/18 23:22 Urine Appearance Cloudy 07/18/18 23:22 Urine pH 6.0 (5.0-8.0) 07/18/18 23:22 Ur Specific [place] 1.023 (1.001-1.035) 07/18/18 23:22 Urine Protein 1+ (NEGATIVE) H 07/18/18 23:22 Urine Glucose (UA) Negative (NEGATIVE) 07/18/18 23:22 Urine Ketones Negative (NEGATIVE) 07/18/18 23:22 Urine Blood Negative (NEGATIVE) 07/18/18 23:22 Urine Nitrite Negative (NEGATIVE) 07/18/18 23:22 Urine Bilirubin 2.0 (<2.0 mg/dL) 07/18/18 23:22 Urine Urobilinogen 4.0 e.u/dl mg/dL (0.2-1.0) 07/18/18 23:22 Ur Leukocyte Esterase Negative (NEGATIVE) 07/18/18 23:22 Urine WBC (Auto) 1 /hpf (3-5) 07/18/18 23:22 Urine RBC (Auto) 1 /hpf (0-3) 07/18/18 23:22 Ur Epithelial Cells Rare /HPF (FEW) 07/18/18 23:22 Calcium Oxalate Crystal Many /hpf (NONE SEEN) 07/18/18 23:22 Urine Bacteria Rare /hpf (NONE SEEN) 07/18/18 23:22 Urine Mucus Rare 07/18/18 23:22 RPR Titer Nonreactive (NONREACTIVE) 07/19/18 07:00 lab noted suggest calcium rich food - Treatment Hospital Course: Detox Protocol Followed, Detoxed Safely, Responded well, Discharged Condition Good, Rehab Referral Accepted Patient has Accepted a Rehab Referral to: [facility] - Medication Discharge Medications: Ambulatory Orders Amoxicillin/Potassium Clav [Augmentin 875-125 Tablet] 1 each PO BID #14 tablet 04/09/18 Nicotine Patch [Nicoderm Patch -] 21 mg TD DAILY #30 patch 04/10/18 Vitamins (Sjr) - 1 tab PO DAILY #30 tablet 04/10/18 Thiamine HCl [Vitamin B1 -] 100 mg PO HS tablet 04/10/18 Albuterol Sulfate Inhaler - [Ventolin HFA Inhaler -] 2 inh PO Q4H PRN #1 cartridge 04/17/18 Darunavir Ethanolate [Prezista -] 800 mg PO DAILY #30 tablet 04/17/18 Emtricitabine/Tenofovir [Truvada -] 1 tab PO DAILY #30 tablet 04/17/18 Ritonavir [Norvir -] 100 mg PO DAILY #30 tab 04/17/18 Sulfamethoxazole/Trimethoprim [Bactrim DS -] 1 tab PO UTDICT 30 Days #30 tablet 04/17/18 - Diagnosis (1) Alcohol dependence with uncomplicated withdrawal Current Visit: Yes Status: Acute (2) Asthma Current Visit: Yes Status: Chronic (3) Benzodiazepine dependence Current Visit: Yes Status: Acute (4) GERD (gastroesophageal reflux disease) Current Visit: Yes Status: Chronic Qualifiers: Esophagitis presence: without esophagitis Qualified Code(s): K21.9 - Gastro -esophageal reflux disease without esophagitis (5) HIV (human immunodeficiency virus infection) Current Visit: Yes Status: Chronic (6) Hypertension Current Visit: Yes Status: Chronic Qualifiers: Hypertension type: essential hypertension Qualified Code(s): I10 - Essential (primary) hypertension (7) Nicotine dependence Current Visit: Yes Status: Acute Qualifiers: Nicotine product type: cigarettes Substance use status: in withdrawal Qualified Code(s): F17.213 - Nicotine dependence, cigarettes, with withdrawal (8) Bipolar II disorder Current Visit: Yes Status: Suspected - AMA Did Patient Leave Against Medical Advice: No
== END 2018-07-23 12:43 | disposition home or self-care (01) | DRG 773 ==
LOC: YASAS 11:57 → Y6N 17:56
PROC: HZ2ZZZZ Detoxification Services for Substance Abuse Treatment (ICD-10-PCS; principal; 2018-07-18)
DX: F11.23 Opioid dependence with withdrawal (principal); F10.230 Alcohol dependence with withdrawal, uncomplicated; F13.20 Sedative, hypnotic or anxiolytic dependence, uncomplicated; F14.20 Cocaine dependence, uncomplicated; F12.20 Cannabis dependence, uncomplicated; F17.213 Nicotine dependence, cigarettes, with withdrawal; F19.24 Other psychoactive substance dependence with psychoactive substance-induced mood disorder; F31.81 Bipolar II disorder; F32.9 Major depressive disorder, single episode, unspecified; B20 Human immunodeficiency virus [HIV] disease; J18.9 Pneumonia, unspecified organism; I10 Essential (primary) hypertension; I99.8 Other disorder of circulatory system; K21.9 Gastro-esophageal reflux disease without esophagitis; J45.909 Unspecified asthma, uncomplicated; B18.2 Chronic viral hepatitis C; L03.119 Cellulitis of unspecified part of limb; M79.2 Neuralgia and neuritis, unspecified; R79.89 Other specified abnormal findings of blood chemistry; R01.1 Cardiac murmur, unspecified; R94.5 Abnormal results of liver function studies; Z86.19 Personal history of other infectious and parasitic diseases; Z88.1 Allergy status to other antibiotic agents; Z91.14 Patient's other noncompliance with medication regimen; Z94.5 Skin transplant status; Z59.0 Homelessness
CPT/HCPCS: 36415; 73502-TC-LT-FY; 80048; 80053; 81003; 81015; 85027; 86593; 93005; 93010

== ENCOUNTER 2018-08-26 13:50 | Inpatient (IN) | payer OTHER ==
[2018-08-26 14:34] VITALS: BMI 19.2
--- NOTE | 2018-08-26 16:22 | HP ---
COWS - Scale Resting Pulse: 1= FL 81-100 Sweatin=Flushed/Facial Moisture Restless Observation: 1= Difficult to Sit Still Pupil Size: 0= Normal to Room Light Bone or Joint Aches: 2= Severe Diffuse Aches Runny Nose/ Eye Tearin= Nasal Congestion GI Upset > 30mins: 1= Stomach Cramp Tremor Observation: 2= Slight Tremor Visible Yawning Observation: 0= None Anxiety or Irritability: 2=Irritable/Anxious Goose Flesh Skin: 0=Smooth Skin COWS Score: 12 CIWA Score - CIWA Score Nausea/Vomitin Muscle Tremors: 3 Anxiety: 3 Agitation: 3 Paroxysmal Sweats: 3 Orientation: 0-Oriented Tacttile Disturbances: 0-None Auditory Disturbances: 0-None Visual Disturbances: 0-None Headache: 0-None Present CIWA-Ar Total Score: 15 Admission ROS [facility] - HPI Chief Complaint: "i am trying to get help and stop the things I do" Allergies/Adverse Reactions: Allergies Allergy/AdvReac Type Severity Reaction Status Date / Time erythromycin base Allergy Severe Rash Verified 07/18/18 17:52 [Erythromycin Base] vancomycin Allergy Severe Rash Verified 07/18/18 17:52 chocolate flavor Allergy Intermediate Verified 07/18/18 17:52 nut - unspecified AdvReac Mild Itching Verified 07/18/18 17:52 History of Present Illness: 57 y/o male with a long hx of heroin and alcohol addiction. Pt has been here numerous times this year, with his last visit last month. Pt denies any remarkable period of sobriety. Pt is a [employer] client, went to [facility] for alcohol related complaint from where he was brought here by [facility]. Hx of HIV, Asthma, HTN from hx, Hep C (Pt is a poor historian and does not appear to be complaint with his meds. States he last took his HIV meds last tuesday because "they wont give it to me any more at the hospital on Tuesday" Denies any psychiatric hx. Denies past nor present SI Exam Limitations: No Limitations - Ebola screening Have you traveled outside of the country in the last 21 days: No (N) Have you had contact with anyone from an Ebola affected area: No Have you been sick,other than usual withdrawal symptoms: No Do you have a fever: No - Review of Systems Constitutional: Loss of Appetite, Night Sweats, Changes in sleep, Unintentional Wgt. Loss EENT: reports: Other (missing upper teeth) Respiratory: reports: Shortness of Breath (sometimes) Cardiac: reports: No Symptoms Reported GI: reports: No Symptoms Reported : reports: No Symptoms Reported Musculoskeletal: reports: Back Pain, Joint Pain Integumentary: reports: Dryness Neuro: reports: No Symptoms reported Endocrine: reports: No Symptoms Reported Hematology: reports: No Symptoms Reported Psychiatric: reports: No Sypmtoms Reported, Orientated x3, Anxious Other Systems: Reviewed and Negative Patient History - Patient Medical History Hx Anemia: No Hx Asthma: Yes (On meds) Hx Chronic Obstructive Pulmonary Disease (COPD): No Hx Cancer: No Hx Cardiac Disorders: No Hx Congestive Heart Failure: No Hx Hypertension: Yes (not on meds) Hx Hypercholesterolemia: No Hx Pacemaker: No HX Cerebrovascular Accident: No Hx Seizures: No Hx Dementia: No Hx Diabetes: No Hx Gastrointestinal Disorders: Yes (GERD- Not on medication n) Hx Liver Disease: Yes (Hepatitis C - Not treated) Hx Genitourinary Disorders: No Hx Sexually Transmitted Disorders: Yes (Gonorrhea, Syphilis) Hx Renal Disease (ESRD): No Hx Thyroid Disease: No Hx Human Immunodeficiency Virus (HIV): Yes (since 2007; Started on HAART meds while in [facility].) Hx Hepatitis C: Yes (Not treated) Hx Depression: Yes Hx Suicide Attempt: No (Denies current) Hx Bipolar Disorder: Yes (No treatment.) Hx Schizophrenia: No - Patient Surgical History Past Surgical History: Yes Hx Neurologic Surgery: No Hx Cataract Extraction: No Hx Cardiac Surgery: No Hx Lung Surgery: No Hx Breast Surgery: No Hx Breast Biopsy: No Hx Abdominal Surgery: No Hx Appendectomy: No Hx Cholecystectomy: No Hx Genitourinary Surgery: No Hx Section: No Hx Orthopedic Surgery: Yes (l upper arm surgery-skin graft for abscess) Hx Hysterectomy: No Other Surgical History: skin graft/abscess, left upper arm in 1992 Anesthesia Reaction: No - PPD History Previous Implant?: Yes Documented Results: Positive w/proof Implanted On Prior [facility] Admission?: Yes Date: 02/02/18 Results: 0 mm PPD to be Administered?: No - Reproductive History Patient is a Female of Child Bearing Age (11 -55 yrs old): No - Smoking Cessation Smoking history: Current every day smoker Have you smoked in the past 12 months: Yes Aproximately how many cigarettes per day: 20 Cigars Per Day: 0 Hx Chewing Tobacco Use: No Initiated information on smoking cessation: Yes 'Breaking Loose' booklet given: 08/26/18 - Substance & Tx. History Hx Alcohol Use: Yes Hx Substance Use: Yes Substance Use Type: Alcohol, Heroin, Marijuana Hx Substance Use Treatment: Yes - Substances Abused Alcohol Route: Oral Frequency: Daily Amount used: A pint of vodka Age of first use: 13 Date of Last Use: 08/25/18 Heroin Route: Smoking Frequency: Daily Amount used: 2 or 3 bags Age of first use: 13 Date of Last Use: 08/25/18 Family Disease History - Family Disease History Family Disease History: Diabetes: Mother (etoh; , [place]: Father ( [place], etoh), Mother, Sister (, Lung Ca.; Multiple Sclerosis.), Other : Grandparent (etoh.), Father, Mother, Sister Admission Physical Exam S - Vital Signs Vital Signs: Vital Signs - 24 hr 08/26/18 14:29 Temperature 96.2 F L Pulse Rate 84 Respiratory 17 Rate Blood Pressure 126/85 - Physical General Appearance: Yes: Disheveled, Moderate Distress, Cachetic, Thin HEENTM: Yes: Scleral Ictenus R, Scleral Ictenus L, Muffled/Hoarse Voice Respiratory: Yes: No Accessory Muscle Use Neck: Yes: No masses,lesions,Nodules Breast: Yes: Breast Exam Deferred Cardiology: Yes: Regular Rate Abdominal: Yes: Non Tender, Soft Genitourinary: Yes: Within Normal Limits Back: Yes: Normal Inspection Musculoskeletal: Yes: full range of Motion, Gait Steady, Other (walks slowly) Extremities: Yes: Normal Capillary Refill Neurological: Yes: Fully Oriented, Alert, Normal Response Integumentary: Yes: Dry, Other Lymphatic: Yes: Within Normal Limits - Diagnostic (1) Alcohol dependence with uncomplicated withdrawal Current Visit: No Status: Acute Comment: . (2) Nicotine dependence Current Visit: No Status: Acute Qualifiers: Nicotine product type: cigarettes Substance use status: in withdrawal Qualified Code(s): F17.213 - Nicotine dependence, cigarettes, with withdrawal (3) Acquired immune deficiency syndrome (AIDS) Current Visit: No Status: Chronic Comment: . (4) Asthma Current Visit: No Status: Chronic Comment: . (5) GERD (gastroesophageal reflux disease) Current Visit: No Status: Chronic Qualifiers: Esophagitis presence: without esophagitis Qualified Code(s): K21.9 - Gastro -esophageal reflux disease without esophagitis Comment: . (6) Hepatitis C Current Visit: No Status: Chronic Qualifiers: Viral hepatitis chronicity: unspecified Hepatic coma status: without hepatic coma Qualified Code(s): B19.20 - Unspecified viral hepatitis C without hepatic coma Comment: . (7) History of hypertension Current Visit: No Status: Chronic (8) Opioid dependence Current Visit: No Status: Chronic Qualifiers: Substance use status: in remission Qualified Code(s): F11.21 - Opioid dependence, in remission Cleared for Admission [facility] - Detox or Rehab [facility] Level of Care: Medically Managed Detox Regimen/Protocol: Methadone/Librium [facility] Breath Alcohol Content Breath Alcohol Content: 0 Urine Drug Screen - Results Drug Screen Negative: No Urine Drug Screen Results: OPI-Opiates, BZO-Benzodiazepines
[2018-08-26] MEDS ORDERED: chlordiazePOXIDE HCL 25 MG CAPSULE PO PRN (16:52)
[2018-08-26] MEDS ORDERED: LOPERAMIDE HCL 2 MG CAPSULE PO PRN (16:52)
[2018-08-26] MEDS ORDERED: guaiFENesin/D-METHORPHAN HB 10 ML UNIT-DOSE CUPS PO PRN (16:52)
[2018-08-26] MEDS ORDERED: METHADONE HCL 10 MG TABLET (FOR DETOX USE ONLY) PO ONE ×2 (16:52→23:00)
[2018-08-26] MEDS ORDERED: MAGNESIUM HYDROX 2400MG/30ML ORAL SUSPENSION 30 ML CUP PO PRN (16:52)
[2018-08-26] MEDS ORDERED: MENTHOL/PHENOL 1 EACH UD MM PRN (16:52)
[2018-08-26] MEDS ORDERED: MAG HYDROX/AL HYDROX/SIMETH 30 ML UNIT-DOSE CUP PO PRN (16:52)
[2018-08-26] MEDS ORDERED: P-EPHED 60MG/TRIPROLIDI 2.5MG TABLET PO PRN (16:52)
[2018-08-26] MEDS ORDERED: NICOTINE POLACRILEX 2 MG GUM BUC PRN (16:52)
[2018-08-26] MEDS ORDERED: MAGNESIUM CITRATE 300 ML BOTTLE PO PRN (16:52)
[2018-08-26] MEDS ORDERED: ACETAMINOPHEN 325 MG TABLET (FP) PO PRN (16:52)
[2018-08-26] MEDS ORDERED: IBUPROFEN 400 MG TABLET (FP) PO PRN (16:52)
[2018-08-26] MEDS: chlordiazePOXIDE HCL 25 MG CAPSULE PO SCH ×2 (18:31→22:47)
[2018-08-26] MEDS: NICOTINE 21 MG/24 HOURS TOPICAL PATCH TD SCH (18:32)
--- NOTE | 2018-08-26 19:19 | PN ---
[facility] Progress Note Note: Pt had yellowish sclera and upper torso, he denied hx of jaundice or liver dx
[2018-08-26] MEDS ORDERED: MELATONIN 5 MG TABLETS PO PRN (22:00)
[2018-08-26] MEDS: THIAMINE HCL 100 MG TABLET (FP) PO SCH (22:47)
[2018-08-27] MEDS: chlordiazePOXIDE HCL 25 MG CAPSULE PO SCH ×4 (05:44→23:37)
--- NOTE | 2018-08-27 07:21 | CONSULT ---
[facility] Psychiatric Consult - Data Date of interview: 08/27/18 Admission source: Self-referred Identifying data: Mr Tomas is a 57 years old single Black male, father of a 36 years old daughter, unemployed on HASA, undomiciled seeking detox treaatment for alcohol and opioid Substance Abuse History: Reports history of alcohol and heroin use. Refer to addiction counseor's summary for further information Medical History: Significant for bronchial asthma, hypertension, hepatitis C, peripheral neuropathy, HIV infection since 2007 (on ART), GERD, PPD+, history of treatment for syphilis + gonorrhea (in the ) and surgery on left upper arm in 1992 (skin graft) due to abcesses from drug injection sites. Smokes cigarettes 1ppd Psychiatric History: Patient is known to this facility from multiple previous admissions. He is a poor, vague and unreliable historian. He denies previous psychiatric treatment or suicidal attempt. However, he reported in the past history of psychiatric hospitalizations (recalled [facility]). He stated being diagnosed with MDD and total non-adherent to psychotropic medications. No contact with psychiatric OPD care providers. Reported history of suicide attempts (wrist-cutting, overdoses with street drugs or medications) with last one made in 1979. Physical/Sexual Abuse/Trauma History: Denies history of emotional, physical or sexual abuse as well as DV relationship. No service Additional Comment: Reports history of 3 previous arrests incuding a couple of felony convictions Mental Status Exam - Mental Status Exam Alert and Oriented to: Time (1979), Place, Person Mood: Depressed Affect: Appropriate Speech Pattern: Clear Voice Loudness: Normal Thought Process: Intact, Goal Oriented Hallucinations: Denies Suicidal Ideation: Denies Homicidal Ideation: Denies Insight/Judgement: Fair Sleep: Poorly Appetite: Fair Muscle strength/Tone: Normal Gait/Station: Normal Psychiatric Findings - Problem List ([place] 1, 2,3) (1) Substance induced mood disorder Current Visit: Yes Status: Acute (2) Bipolar disorder Current Visit: No Status: Ruled-out Qualifiers: Active/Remission status: remission status unspecified Qualified Code(s): F31.9 - Bipolar disorder, unspecified Comment: According to personal history.Non adherent to psychiatric aftercare for months.Currently asymptomatic. (3) Substance-induced sleep disorder Current Visit: Yes Status: Acute (4) Alcohol dependence with uncomplicated withdrawal Current Visit: No Status: Acute Comment: . (5) Opioid dependence with withdrawal Current Visit: No Status: Acute Comment: . (6) Nicotine dependence Current Visit: No Status: Chronic Qualifiers: Nicotine product type: cigarettes Substance use status: in withdrawal Qualified Code(s): F17.213 - Nicotine dependence, cigarettes, with withdrawal (7) Acquired immune deficiency syndrome (AIDS) Current Visit: No Status: Chronic Comment: . (8) Asthma Current Visit: No Status: Chronic Comment: . (9) GERD (gastroesophageal reflux disease) Current Visit: No Status: Chronic Qualifiers: Esophagitis presence: without esophagitis Qualified Code(s): K21.9 - Gastro -esophageal reflux disease without esophagitis Comment: . (10) Hepatitis C Current Visit: No Status: Chronic Qualifiers: Viral hepatitis chronicity: unspecified Hepatic coma status: without hepatic coma Qualified Code(s): B19.20 - Unspecified viral hepatitis C without hepatic coma Comment: . (11) Hypertension Current Visit: No Status: Chronic Qualifiers: Hypertension type: essential hypertension Qualified Code(s): I10 - Essential (primary) hypertension (12) Hepatitis C Current Visit: Yes Status: Chronic - Initial Treatment Plan Initial Treatment Plan: 1) Start Ambien 10 mg po HS prn for insomnia. 2) Continue inpatient detoxification
[2018-08-27 09:55] LABS: HEMATOCRIT 29.2 % (35.4-49); HEMOGLOBIN 9.6 GM/dL (11.7-16.9); MCH 32.9 pg (25.7-33.7); MEAN CELL VOLUME 99.7 fl (80-96); MEAN PLT VOLUME 9.4 fl (7.5-11.1); PLATELET COUNT 111 K/MM3 (134-434); RBC 2.93 M/mm3 (4.00-5.60); RDW 25.7 % (11.9-15.9); WHITE BLOOD COUNT 5.2 K/mm3 (4.0-10.0)
[2018-08-27] MEDS ORDERED: PRENATAL VITAMINS W/ FOLIC ACID TABLET (FP) PO SCH (10:00)
[2018-08-27] MEDS ORDERED: METHADONE HCL 10 MG TABLET (FOR DETOX USE ONLY) PO SCH (10:00)
[2018-08-27] MEDS: NICOTINE 21 MG/24 HOURS TOPICAL PATCH TD SCH (10:12)
[2018-08-27 10:35] LABS: ALBUMIN 2.4 g/dl (3.4-5.0); ALK PHOS 386 U/L (45-117); ANION GAP 7 MMOL/L (8-16); BLOOD UREA NITROGEN 19 mg/dL (7-18); CHLORIDE 107 mmol/L (98-107); CO2 22 mmol/L (21-32); CREATININE 1.2 mg/dL (0.55-1.3); GLUCOSE,RANDOM 70 mg/dL (74-106); POTASSIUM 3.9 mmol/L (3.5-5.1); SGOT/AST 104 U/L (15-37); SGPT/ALT 30 U/L (13-61); SODIUM 137 mmol/L (136-145); TOT PROT 8.2 g/dl (6.4-8.2)
[2018-08-27 11:09] LABS: BILIRUBIN,TOTAL 22.8 mg/dL (0.2-1)
--- NOTE | 2018-08-27 11:12 | EKG ---
Test Reason : Blood Pressure : / mmHG Vent. Rate : 071 BPM Atrial Rate : 071 BPM P-R Int : 138 ms QRS Dur : 096 ms QT Int : 414 ms P-R-T Axes : 072 003 037 degrees QTc Int : 449 ms NORMAL SINUS RHYTHM NORMAL ECG WHEN COMPARED WITH ECG OF 18-JUL-2018 21:56, NO SIGNIFICANT CHANGE WAS FOUND Confirmed by ANAIS CHERY MD ([id number]) on 08/27/2018 11:12:01 AM Referred By: Confirmed By:ANAIS CHERY MD
--- NOTE | 2018-08-27 13:53 | PN ---
[facility] CIWA - CIWA Score Nausea/Vomitin Muscle Tremors: 4-Moderate,w/Arms Extend Anxiety: 4-Mod. Anxious/Guarded Agitation: 4-Moderately Restless Paroxysmal Sweats: 3 Orientation: 0-Oriented Tacttile Disturbances: 0-None Auditory Disturbances: 0-None Visual Disturbances: 0-None Headache: 0-None Present CIWA-Ar Total Score: 17 S COWS - Scale Resting Pulse: 0= ID 80 or Below Sweatin= Chills/Flushing Restless Observation: 3= Extraneous Movement Pupil Size: 0= Normal to Room Light Bone or Joint Aches: 2= Severe Diffuse Aches Runny Nose/ Eye Tearin= Runny Nose/Eyes GI Upset > 30mins: 2= Nausea/Diarrhea Tremor Observation of Outstretched Hands: 2= Slight Tremor Visible Yawning Observation: 1= 1-2x During Session Anxiety or Irritability: 2=Irritable/Anxious Goose Flesh Skin: 0=Smooth Skin COWS Score: 15 [facility] Progress Note (SOAP) Subjective: Tremor, chills, interrupted sleep Objective: 08/27/18 13:49 Last Vital Signs Temp Pulse Resp BP Pulse Ox 97 F L 71 18 119/89 08/27/18 09:37 08/27/18 09:37 08/27/18 09:37 08/27/18 09:37 Laboratory Tests 08/27/18 08/27/18 08/27/18 07:30 07:30 07:30 WBC 5.2 RBC 2.93 L Hgb 9.6 L Hct 29.2 L D MCV 99.7 H MCH 32.9 MCHC 33.0 RDW 25.7 H Plt Count 111 L D MPV 9.4 Sodium 137 Potassium 3.9 Chloride 107 Carbon Dioxide 22 Anion Gap 7 L BUN 19 H Creatinine 1.2 Creat Clearance w eGFR > 60 Random Glucose 70 L Calcium 8.0 L Total Bilirubin 22.8 H* AST 104 H ALT 30 Alkaline Phosphatase 386 H Total Protein 8.2 Albumin 2.4 L RPR Titer Nonreactive Labs reviewed: plt 111, total bilirubin 22.8, alk phos 386 Assessment: 08/27/18 13:50 Withdrawal symptoms Noted with thrombocytopenia, elevated alk phos and elevated total bilirubin Plan: Continue detox Thrombocytopenia, mild: stable, follow up with PCP for monitoring Elevated alk phos: repeat serum alk phos level Elevated total bilirubin: could be related to hepatitis C, repeat serum total bilirubin level in AM
[2018-08-27 17:51] VITALS: BP 124/84; PULSE 79; TEMP 97.3
--- NOTE | 2018-08-27 18:32 | PN ---
[facility] Progress Note Note: Laboratory Last Values WBC 5.2 K/mm3 (4.0-10.0) 08/27/18 07:30 RBC 2.93 M/mm3 (4.00-5.60) L 08/27/18 07:30 Hgb 9.6 GM/dL (11.7-16.9) L 08/27/18 07:30 Hct 29.2 % (35.4-49) L D 08/27/18 07:30 MCV 99.7 fl (80-96) H 08/27/18 07:30 MCH 32.9 pg (25.7-33.7) 08/27/18 07:30 MCHC 33.0 g/dl (32.0-35.9) 08/27/18 07:30 RDW 25.7 % (11.9-15.9) H 08/27/18 07:30 Plt Count 111 K/MM3 (134-434) L D 08/27/18 07:30 MPV 9.4 fl (7.5-11.1) 08/27/18 07:30 Sodium 137 mmol/L (136-145) 08/27/18 07:30 Potassium 3.9 mmol/L (3.5-5.1) 08/27/18 07:30 Chloride 107 mmol/L (98-107) 08/27/18 07:30 Carbon Dioxide 22 mmol/L (21-32) 08/27/18 07:30 Anion Gap 7 MMOL/L (8-16) L 08/27/18 07:30 BUN 19 mg/dL (7-18) H 08/27/18 07:30 Creatinine 1.2 mg/dL (0.55-1.3) 08/27/18 07:30 Creat Clearance w eGFR > 60 (>60) 08/27/18 07:30 Random Glucose 70 mg/dL (74-106) L 08/27/18 07:30 Calcium 8.0 mg/dL (8.5-10.1) L 08/27/18 07:30 Total Bilirubin 22.8 mg/dL (0.2-1) H* 08/27/18 07:30 AST 104 U/L (15-37) H 08/27/18 07:30 ALT 30 U/L (13-61) 08/27/18 07:30 Alkaline Phosphatase 386 U/L (45-117) H 08/27/18 07:30 Total Protein 8.2 g/dl (6.4-8.2) 08/27/18 07:30 Albumin 2.4 g/dl (3.4-5.0) L 08/27/18 07:30 RPR Titer Nonreactive (NONREACTIVE) 08/27/18 07:30 Labs noted. Pt verbalized not feeling well, did not explain further, irritable. In view of pt's T.Bili level, he will be transfered to the ED at [facility] for further eval. Report given to MD Laura at the ED.
[2018-08-27] MEDS: THIAMINE HCL 100 MG TABLET (FP) PO SCH (23:36)
[2018-08-28] MEDS ORDERED: METHADONE HCL 5 MG TABLET (FOR DETOX USE ONLY) PO SCH (10:00)
[2018-08-28] MEDS ORDERED: chlordiazePOXIDE 5 MG CAPSULE PO SCH (17:00)
[2018-08-29] MEDS ORDERED: chlordiazePOXIDE HCL 10 MG CAPSULE PO SCH (17:00)
[2018-08-30] MEDS ORDERED: METHADONE HCL 10 MG TABLET (FOR DETOX USE ONLY) PO SCH (10:00)
[2018-08-31] MEDS ORDERED: METHADONE HCL 5 MG TABLET (FOR DETOX USE ONLY) PO SCH (06:00)
== END 2018-08-27 23:45 | disposition short-term general hospital (02) | DRG 773 ==
LOC: YASAS 13:50 → Y3N 17:40
PROC: HZ2ZZZZ Detoxification Services for Substance Abuse Treatment (ICD-10-PCS; principal; 2018-08-26)
DX: F11.23 Opioid dependence with withdrawal (principal); F10.230 Alcohol dependence with withdrawal, uncomplicated; F17.213 Nicotine dependence, cigarettes, with withdrawal; F19.24 Other psychoactive substance dependence with psychoactive substance-induced mood disorder; F19.282 Other psychoactive substance dependence with psychoactive substance-induced sleep disorder; F31.9 Bipolar disorder, unspecified; B20 Human immunodeficiency virus [HIV] disease; I10 Essential (primary) hypertension; J45.909 Unspecified asthma, uncomplicated; K21.9 Gastro-esophageal reflux disease without esophagitis; D69.6 Thrombocytopenia, unspecified; R94.5 Abnormal results of liver function studies; E80.6 Other disorders of bilirubin metabolism; R17 Unspecified jaundice; Z86.19 Personal history of other infectious and parasitic diseases; Z88.1 Allergy status to other antibiotic agents; Z59.0 Homelessness
CPT/HCPCS: 36415; 80053; 82962; 85027; 86593; 93005; 93010

== ENCOUNTER 2018-08-27 19:17 | Inpatient (IN) | payer OTHER ==
--- NOTE | 2018-08-27 19:26 | PDOC ---
Attending Attestation - HPI HPI: 08/27/18 21:06 The patient is a 57 year old male brought via EMS from [facility], with a significant past medical history of Heroin/Alcohol addiction with multiple visits to [facility], HIV, asthma, HTN, hepatitis C, who presents to the ED complaining of not feeling well and irritability. The patient is unable to provide a full history due to patient mental state. [place] [facility] arrival to the ED. It is noted that the patient's Bilirium is elevated. Allergies: Vancomycin, Erythromycin base, nut, chocolate flavor Past surgical history: Orthopedic surgery Social History: Heroin and alcohol use. Marijuana use. Cigarette use (20 daily) - Physicial Exam PE: 08/27/18 21:06 Vitals: Triage vital signs reviewed General Appearance: No acute distress, well nourished, well developed Head: Atraumatic Eyes: Pupils equal reactive round, extraocular movement intact Ears: TM's normal bilaterally Nose: Nares patent bilaterally; no nasal congestion Throat: Posterior oropharynx without erythema, mucous membranes moist Neck: Supple; No nuchal rigidity Chest Wall: Nontender Cardiac: Regular rate and rhythm, no murmurs, no rubs, no gallops Lungs: Clear to auscultation bilateral, good air movement bilaterally Abdomen: Soft, nondistended, normal bowel sounds, nontender to palpation Genitourinary: Rectal: Exam deferred Extremities: Full range of motion to all extremities, no cyanosis, clubbing, or edema Skin: Warm and dry, no rashes or lesions, no rash, no petechiae Neuro: AOX3; Cranial Nerves 2-12 grossly intact, Strength intact to all extremities, Sensation intact to all extremities, gait normal Psych: Normal mood, normal affect <Adolfo Villanueva - Last Filed: 08/27/18 21:06> - Resident Resident Name: Mabel Beckett - ED Attending Attestation I have performed the following: I have examined & evaluated the patient, The case was reviewed & discussed with the resident, I agree w/resident's findings & plan, Exceptions are as noted - HPI HPI: 08/27/18 20:03 57 years old with long-standing history of heroin and alcohol addiction multiple visits to [facility] rehabilitation with past medical history significant for HIV asthma hypertension hepatitis C was sent to the emergency department from [facility] secondary to verbalizing to staff not feeling well irritated and on laboratory analysis had an elevated bilirubin Patient poor historian unable to provide additional history. - Medical Decision Making 08/28/18 03:14 57 years old past medical history significant for hypertension and hep C alcohol and heroin abuse presents emergency department from [facility] for "not feeling well" and knew hyperbilirubinemia No abdominal pain on examination labs sent Head CT given patient not great historian no acute pathology noted We'll admit to medicine for further evaluation of hyperbilirubinemia <David Paige - Last Filed: 08/28/18 03:16> Heart Score/ECG Review - ECG Impressions Comment:: 08/28/18 03:14 EKG performed at 2050 demonstrates normal sinus rhythm no ST elevations or T- wave inversions. Interpreted by me. <David Paige - Last Filed: 08/28/18 03:16>
--- NOTE | 2018-08-27 20:06 | PDOC ---
History of Present Illness - General Stated Complaint: HIGH BILIRUBIN Time Seen by Provider: 08/27/18 19:25 History Source: Patient, EMS, Old Records Exam Limitations: Other (confused) - History of Present Illness Initial Comments: 08/27/18 19:30 This is a 57 YOM with h/o HIV, HCV, HTN, asthma, EtOH use, heroin use, who was BIBEMS from [facility] for elevated T. bili noted on labs today. He presents to the ED confused, tired, falling asleep during initial interview, slurred speech, noting chills and "feeling cold" but denies any specific areas of pain or discomfort, denying SOB, headache, neck pain, cough, dysuria, known skin infection. He otherwise is unable to provide any medical history or symptomology. Past History - Past Medical History Allergies/Adverse Reactions: Allergies Allergy/AdvReac Type Severity Reaction Status Date / Time erythromycin base Allergy Severe Rash Verified 08/26/18 17:31 [Erythromycin Base] vancomycin Allergy Severe Rash Verified 08/26/18 17:31 chocolate flavor Allergy Intermediate Verified 08/26/18 17:31 nut - unspecified AdvReac Mild Itching Verified 08/26/18 17:31 Home Medications: Ambulatory Orders Albuterol Sulfate Inhaler - [Ventolin HFA Inhaler -] 2 inh PO Q4H PRN #1 cartridge 04/17/18 Darunavir Ethanolate [Prezista -] 800 mg PO DAILY #30 tablet 04/17/18 Emtricitabine/Tenofovir [Truvada -] 1 tab PO DAILY #30 tablet 04/17/18 Ritonavir [Norvir -] 100 mg PO DAILY #30 tab 04/17/18 Anemia: No Asthma: Yes (On meds) Cancer: No Cardiac Disorders: No CVA: No COPD: No CHF: No Dementia: No Diabetes: No GI Disorders: Yes (GERD- Not on medication n) Disorders: No HTN: Yes (not on meds) Hypercholesterolemia: No Kidney Stones: No Liver Disease: Yes (Hepatitis C - Not treated) Seizures: No Thyroid Disease: No - Surgical History Abdominal Surgery: No Appendectomy: No Cardiac Surgery: No Cholecystectomy: No Lung Surgery: No Neurologic Surgery: No Orthopedic Surgery: Yes (l upper arm surgery-skin graft for abscess) - Reproductive History Testicular Surgery: No - Suicide/Smoking/Psychosocial Hx Smoking History: Former smoker Have you smoked in the past 12 months: No Number of Cigarettes Smoked Daily: 20 Cigars Per Day: 0 Information on smoking cessation initiated: No 'Breaking Loose' booklet given: 08/26/18 Hx Alcohol Use: No Drug/Substance Use Hx: No Substance Use Type: Alcohol, Heroin, Marijuana Hx Substance Use Treatment: Yes Review of Systems - Review of Systems Able to Perform ROS?: No (confusion) *Physical Exam - Vital Signs Last Vital Signs Temp Pulse Resp BP Pulse Ox 97.9 F 73 18 98/64 100 08/27/18 19:50 08/27/18 19:50 08/27/18 19:50 08/27/18 19:50 08/27/18 19:50 Afebrile on repeat rectal temp at 20:00 08/28/18 05:07 GENERAL: nontoxic appearing, nourished, no acute distress, wearing hospital issue dark green scrubs, a bit disheveled, slurred speech, answering simple questions appropriately but unable to provide specific symptoms HEENT: PERRLA, EOMI, moist mucous membranes, no posterior pharyngeal erythema, no tonsillar swelling or exudates, no cervical lymphadenopathy NECK: no midline ttp, no spinal stepoff or deformity, full ROM, supple CARDIOVASCULAR: regular rate and rhythm, normal S1S2, MGR, radial and DP pulses 2+ and symmetric, capillary refill <2 seconds, extremities warm and well- perfused LUNGS/RESPIRATORY: no respiratory distress, normal and symmetric chest movements during respirations, lungs CTA bilaterally, equal breath sounds, no cyanosis, no nail clubbing GI/ABDOMEN: symmetric appearance, normoactive bowel sounds, soft, no tenderness to palpation, no midline pulsatile masses, no palpated organomegaly, no external hemorrhoids on rectal exam, no stool in rectal vault, normal rectal tone : no CVA tenderness, normal external appearance, no lesions BACK: no midline ttp or stepoff or deformity of thoracic or lumbar spine EXTREMITIES: distal pulses 2+, warm and well-perfused, no LE edema SKIN: warm and dry, no pallor, no jaundice, no bruising, no rash, no skin breakdown, no cuts, no lesions NEUROLOGICAL: GCS 15, CN II-XII grossly intact, gait not initially tested, moving all extremities, 5/5 strength proximally and distally, no facial droop, no decreased sensation Heart Score/ECG Review #1 Sinus rhythm, rate 71, normal axis and intervals, no ischemic ST-T changes ED Treatment Course - LABORATORY CBC & Chemistry Diagram: 08/27/18 20:16 08/27/18 20:16 - RADIOLOGY Radiology Studies Ordered: Category Date Time Status GALLBLADDER US [US] Stat Ultrasound 08/27/18 20:03 Ordered Medical Decision Making - Medical Decision Making Adult Pt with polysubstance use disorder and HIV p/w acute worsening of mental status and hyperbilirubinemia on [facility] labs. Initial Vital Signs Temp Pulse Resp BP Pulse Ox 97.9 F 73 18 98/64 100 08/27/18 19:50 08/27/18 19:50 08/27/18 19:50 08/27/18 19:50 08/27/18 19:50 Exam: As noted in Physical Exam section. DDX IBNLT: hyperammonemia, intoxication, Wernicke encephalopathy, infectious ( e.g. cholangitis, hepatitis, UTI, PNA, bronchitis, cellulitis, meningitis, neurosyphilis, HIV-associated dementia), toxic-metabolic (e.g. medications, drugs e.g. serotonin syndrome/neuroleptic malignant syndrome or street drugs, electrolytes, hypothyroid, B12 deficiency), psychiatric (e.g. delirium, dementia , psychosis), TTP (HUS with AMS, fever, poss seizure), etc. W/U ordered: Labs as noted below, EKG CXR HCT WO contrast and US GB TX ordered: IVF EKG: Reviewed; results as noted in ECG Review section. CXR: Nothing acute. Head CT: Involutional changes. No hemorrhage. No mass. No visible infarct. Osseous structures are intact RUQ US: Fatty liver. The gallbladder is contracted making it difficult to evaluate. No definite gallstones. Gallbladder wall is thickened up to 4.5 mm but this may simply be due to nondistention. No pericholecystic fluid. Normal common bile duct at 3.7 mm. No right hydronephrosis. Question pancreatic cyst or cystic lesion. Not well imaged. Recommend followup. 08/27/18 08/27/18 08/27/18 20:16 20:16 20:16 WBC 4.4 RBC 3.12 L Hgb 10.5 L Hct 30.7 L MCV 98.4 H MCH 33.7 MCHC 34.3 RDW 24.7 H Plt Count 117 L MPV 8.7 Absolute Neuts (auto) 2.5 Neutrophils % 57.2 D Lymphocytes % 22.2 D Monocytes % 14.8 H Eosinophils % 5.0 H Basophils % 0.8 Nucleated RBC % 0 PT with INR 17.00 H INR 1.44 H PTT (Actin FS) 40.5 H VBG pH 7.36 POC VBG pCO2 49.9 POC VBG pO2 28.0 Mixed VBG HCO3 27.4 H Sodium Potassium Chloride Carbon Dioxide Anion Gap BUN Creatinine Creat Clearance w eGFR Random Glucose Lactic Acid Calcium Total Bilirubin Direct Bilirubin AST ALT Alkaline Phosphatase Ammonia Troponin I Total Protein Albumin Urine Color Urine Appearance Urine pH Ur Specific [place] Urine Protein Urine Glucose (UA) Urine Ketones Urine Blood Urine Nitrite Urine Bilirubin Urine Urobilinogen Ur Leukocyte Esterase Salicylates Opiates Screen Methadone Screen Acetaminophen Barbiturate Screen Phencyclidine Screen Ur Amphetamines Screen MDMA (Ecstasy) Screen Benzodiazepines Screen Cocaine Screen U Marijuana (THC) Screen Alcohol, Quantitative 08/27/18 08/27/18 08/27/18 20:16 20:16 20:16 WBC RBC Hgb Hct MCV MCH MCHC RDW Plt Count MPV Absolute Neuts (auto) Neutrophils % Lymphocytes % Monocytes % Eosinophils % Basophils % Nucleated RBC % PT with INR INR PTT (Actin FS) VBG pH POC VBG pCO2 POC VBG pO2 Mixed VBG HCO3 Sodium 138 Potassium 4.6 Chloride 106 Carbon Dioxide 28 Anion Gap 4 L BUN 22 H Creatinine 1.2 Creat Clearance w eGFR > 60 Random Glucose 64 L Lactic Acid 1.2 Calcium 8.0 L Total Bilirubin 22.7 H* Direct Bilirubin 18.0 H AST 105 H ALT 31 Alkaline Phosphatase 402 H Ammonia 29.96 Troponin I Total Protein 8.3 H Albumin 2.5 L Urine Color Urine Appearance Urine pH Ur Specific [place] Urine Protein Urine Glucose (UA) Urine Ketones Urine Blood Urine Nitrite Urine Bilirubin Urine Urobilinogen Ur Leukocyte Esterase Salicylates Opiates Screen Methadone Screen Acetaminophen Barbiturate Screen Phencyclidine Screen Ur Amphetamines Screen MDMA (Ecstasy) Screen Benzodiazepines Screen Cocaine Screen U Marijuana (THC) Screen Alcohol, Quantitative 08/27/18 08/27/18 08/27/18 20:16 20:16 20:21 WBC RBC Hgb Hct MCV MCH MCHC RDW Plt Count MPV Absolute Neuts (auto) Neutrophils % Lymphocytes % Monocytes % Eosinophils % Basophils % Nucleated RBC % PT with INR INR PTT (Actin FS) VBG pH POC VBG pCO2 POC VBG pO2 Mixed VBG HCO3 Sodium Potassium Chloride Carbon Dioxide Anion Gap BUN Creatinine Creat Clearance w eGFR Random Glucose Lactic Acid Calcium Total Bilirubin Direct Bilirubin AST ALT Alkaline Phosphatase Ammonia Troponin I < 0.02 Total Protein Albumin Urine Color [place] Urine Appearance Clear Urine pH 6.0 Ur Specific [place] 1.016 Urine Protein Negative Urine Glucose (UA) Negative Urine Ketones Negative Urine Blood Negative Urine Nitrite Negative Urine Bilirubin 4.0 Urine Urobilinogen 4.0 e.u/dl Ur Leukocyte Esterase Negative Salicylates < 4.0 Opiates Screen Methadone Screen Acetaminophen < 2.0 L Barbiturate Screen Phencyclidine Screen Ur Amphetamines Screen MDMA (Ecstasy) Screen Benzodiazepines Screen Cocaine Screen U Marijuana (THC) Screen Alcohol, Quantitative < 3.0 08/27/18 20:21 WBC RBC Hgb Hct MCV MCH MCHC RDW Plt Count MPV Absolute Neuts (auto) Neutrophils % Lymphocytes % Monocytes % Eosinophils % Basophils % Nucleated RBC % PT with INR INR PTT (Actin FS) VBG pH POC VBG pCO2 POC VBG pO2 Mixed VBG HCO3 Sodium Potassium Chloride Carbon Dioxide Anion Gap BUN Creatinine Creat Clearance w eGFR Random Glucose Lactic Acid Calcium Total Bilirubin Direct Bilirubin AST ALT Alkaline Phosphatase Ammonia Troponin I Total Protein Albumin Urine Color Urine Appearance Urine pH Ur Specific [place] Urine Protein Urine Glucose (UA) Urine Ketones Urine Blood Urine Nitrite Urine Bilirubin Urine Urobilinogen Ur Leukocyte Esterase Salicylates Opiates Screen Negative Methadone Screen Positive A* Acetaminophen Barbiturate Screen Negative Phencyclidine Screen Negative Ur Amphetamines Screen Negative MDMA (Ecstasy) Screen Negative Benzodiazepines Screen Positive A* Cocaine Screen Negative U Marijuana (THC) Screen Negative Alcohol, Quantitative Repeat vitals: Temperature 97.9 F 08/27/18 19:50 Pulse Rate 73 08/27/18 19:50 Respiratory Rate 18 08/27/18 19:50 Blood Pressure 98/64 08/27/18 19:50 O2 Sat by Pulse Oximetry (%) 100 08/27/18 19:50 08/27/18 22:04 Patient is unsafe for discharge at this time. They require further hospital observation, workup, and treatment. Microblog sent to [facility] for admission. Dr. Paige spoke with Dr. Solitario, patient admitted to IP M/S. Decision to Admit order placed. *DC/Admit/Observation/Transfer Diagnosis at time of Disposition: Hyperbilirubinemia Altered mental state Qualifiers: Altered mental status type: unspecified Qualified Code(s): R41.82 - Altered mental status, unspecified Anemia Qualifiers: Anemia type: unspecified type Qualified Code(s): D64.9 - Anemia, unspecified - Discharge Dispostion Condition at time of disposition: Guarded Decision to Admit order: Yes - Referrals - Patient Instructions - Post Discharge Activity
[2018-08-27] MEDS ORDERED: SODIUM CHLORIDE 0.9% 1000 ML INFUS.BAG IV ONE (20:12)
[2018-08-27 20:49] LABS: BASO % 0.8 % (0-2.0); HEMATOCRIT 30.7 % (35.4-49); HEMOGLOBIN 10.5 GM/dL (11.7-16.9); LYMPH % 22.2 % (8-40); MCH 33.7 pg (25.7-33.7); MCHC 34.3 g/dl (32.0-35.9); MEAN CELL VOLUME 98.4 fl (80-96); MEAN PLT VOLUME 8.7 fl (7.5-11.1); MONO % 14.8 % (3.8-10.2); NEUT % 57.2 % (42.8-82.8); PLATELET COUNT 117 K/MM3 (134-434); RBC 3.12 M/mm3 (4.00-5.60); RDW 24.7 % (11.9-15.9); WHITE BLOOD COUNT 4.4 K/mm3 (4.0-10.0)
[2018-08-27 21:00] LABS: VENOUS PC02 49.9 mmHg (38-52); VENOUS PH 7.36 (7.32-7.42)
[2018-08-27 21:07] LABS: INR 1.44 (0.83-1.09)
[2018-08-27 21:10] LABS: ACTIVATED PTT 40.5 SECONDS (25.2-36.5)
[2018-08-27 21:27] LABS: ALBUMIN 2.5 g/dl (3.4-5.0); ALK PHOS 402 U/L (45-117); ANION GAP 4 MMOL/L (8-16); BLOOD UREA NITROGEN 22 mg/dL (7-18); CHLORIDE 106 mmol/L (98-107); CO2 28 mmol/L (21-32); CREATININE 1.2 mg/dL (0.55-1.3); GLUCOSE,RANDOM 64 mg/dL (74-106); POTASSIUM 4.6 mmol/L (3.5-5.1); SGOT/AST 105 U/L (15-37); SGPT/ALT 31 U/L (13-61); SODIUM 138 mmol/L (136-145); TOT PROT 8.3 g/dl (6.4-8.2)
[2018-08-27 21:30] LABS: BILIRUBIN,TOTAL 22.7 mg/dL (0.2-1)
[2018-08-27 21:40] LABS: URINE APPEARANCE CLEAR; URINE COLOR AMBER; URINE GLUCOSE (UA) NEGATIVE (NEGATIVE); URINE KETONE NEGATIVE (NEGATIVE); URINE LEUK ESTERASE NEGATIVE (NEGATIVE); URINE NITRITE NEGATIVE (NEGATIVE); URINE PROTEIN NEGATIVE (NEGATIVE); URINE UROBILINOGEN 4.0 E.U/dl mg/dL (0.2-1.0)
[2018-08-27 21:58] LABS: COCAINE, UR NEGATIVE ng/ml (CUTOFF=300); OPIATES, URI NEGATIVE ng/ml (CUTOFF=300); PHENCYCLIDINE,URINE NEGATIVE ng/ml (CUTOFF=25); URINE AMPHETAMINES NEGATIVE ng/ml (CUTOFF=500); URINE BARBITURATES NEGATIVE ng/ml (CUTOFF=200)
[2018-08-27 22:00] LABS: METHADONE, UR POSITIVE ng/ml (CUTOFF=300); URINE BENZODIAZEPINES POSITIVE ng/ml (CUTOFF=200)
[2018-08-27 22:16] LABS: ANISOCYTOSIS 3+; MACROCYTOSIS 2+; PLATELET ESTIMATE SLT DECREASE
[2018-08-27] MEDS ORDERED: SODIUM CHLORIDE 1,000 ML IV SCH (22:45)
--- NOTE | 2018-08-27 23:30 | HP ---
CHIEF COMPLAINT: "I don't feel well" PCP: none HISTORY OF PRESENT ILLNESS: 57M w/ pmhx of HIV, asthma, alcohol and heroin abuse, HTN, Hep C, hx of syphilis /gonorrhea, depression, GERD who was sent from [facility] and was subsequently found to have elevated bilirubin. Pt states that it "feels like a nightmare" and he "knows about the ditch." He is, however, oriented to time and person. Pt states he feels is going to withdraw, but is unable to state if he has taken any drugs recently. Limited history taken as pt was falling asleep and did not want to answer questions. Denies headache/dizziness, nausea/vomiting, chest pain, sob, abd pain, seizures. ER course was notable for: (1) H/H 10.5/30.7, T Bili 22.7, D Bili 18, Alk P 386; Head CT no acute intracranila pathology, involution changes (2) NS 1L given (3) Blood/urine cultures ordered, Gallbladder U/S and CTAP ordered Recent Travel: Unable to obtain PAST MEDICAL HISTORY: As per HPI PAST SURGICAL HISTORY: Per previous records: L arm skin graft s/p infection Social History: Unable to obtain Family History: Unable to obtain Allergies erythromycin base [Erythromycin Base] Allergy (Severe, Verified 08/26/18 17:31) Rash vancomycin Allergy (Severe, Verified 08/26/18 17:31) Rash chocolate flavor Allergy (Intermediate, Verified 08/26/18 17:31) diarrhea nut - unspecified Adverse Reaction (Mild, Verified 08/26/18 17:31) Itching HOME MEDICATIONS: Home Medications Medication Instructions Recorded Albuterol Sulfate Inhaler - 2 inh PO Q4H PRN #1 cartridge 04/17/18 [Ventolin HFA Inhaler -] Darunavir Ethanolate [Prezista -] 800 mg PO DAILY #30 tablet 04/17/18 Emtricitabine/Tenofovir [Truvada -] 1 tab PO DAILY #30 tablet 04/17/18 Ritonavir [Norvir -] 100 mg PO DAILY #30 tab 04/17/18 REVIEW OF SYSTEMS As per HPI PHYSICAL EXAMINATION Vital Signs - 24 hr 08/27/18 19:50 Temperature 97.9 F Pulse Rate 73 Respiratory 18 Rate Blood Pressure 98/64 O2 Sat by Pulse 100 Oximetry (%) GENERAL: Oriented to time and person. HEENT: Atraumatic. Icteric sclera b/l. Dry mucus membranes. NECK: No LAD or masses. Supple. LUNGS: CTA B/L. No w/r/r noted. Symmetric chest rise. HEART: RRR. Normal S1, S2. No murmurs noted. ABDOMEN: Soft, NT/ND. +BS in all 4 Q's. No masses or bruits noted. (-)Salmeron sign. MUSCULOSKELETAL: No pedal edema noted. 2+ pedal pulses b/l. Onychogryphosis. Dry , scaly feet b/l NEUROLOGICAL: Moves all extremities. No tremors noted. PSYCHIATRIC: Hallucinating. SKIN: Multiple lesions seen on b/l knees. Laboratory Results - last 24 hr 08/27/18 08/27/18 08/27/18 20:16 20:16 20:16 WBC 4.4 RBC 3.12 L Hgb 10.5 L Hct 30.7 L MCV 98.4 H MCH 33.7 MCHC 34.3 RDW 24.7 H Plt Count 117 L MPV 8.7 Absolute Neuts (auto) 2.5 Neutrophils % 57.2 D Neutrophils % (Manual) 57.0 Lymphocytes % 22.2 D Lymphocytes % (Manual) 23.0 Monocytes % 14.8 H Monocytes % (Manual) 14 H Eosinophils % 5.0 H Eosinophils % (Manual) 6.0 H Basophils % 0.8 Nucleated RBC % 0 Platelet Estimate Slt decrease Platelet Comment No clumping noted Anisocytosis 3+ Microcytosis 1+ Macrocytosis 2+ PT with INR 17.00 H INR 1.44 H PTT (Actin FS) 40.5 H VBG pH 7.36 POC VBG pCO2 49.9 POC VBG pO2 28.0 Mixed VBG HCO3 27.4 H Sodium Potassium Chloride Carbon Dioxide Anion Gap BUN Creatinine Creat Clearance w eGFR Random Glucose Lactic Acid Calcium Total Bilirubin Direct Bilirubin AST ALT Alkaline Phosphatase Ammonia Troponin I Total Protein Albumin Urine Color Urine Appearance Urine pH Ur Specific [place] Urine Protein Urine Glucose (UA) Urine Ketones Urine Blood Urine Nitrite Urine Bilirubin Urine Urobilinogen Ur Leukocyte Esterase Salicylates Opiates Screen Methadone Screen Acetaminophen Barbiturate Screen Phencyclidine Screen Ur Amphetamines Screen MDMA (Ecstasy) Screen Benzodiazepines Screen Cocaine Screen U Marijuana (THC) Screen Alcohol, Quantitative 08/27/18 08/27/18 08/27/18 20:16 20:16 20:16 WBC RBC Hgb Hct MCV MCH MCHC RDW Plt Count MPV Absolute Neuts (auto) Neutrophils % Neutrophils % (Manual) Lymphocytes % Lymphocytes % (Manual) Monocytes % Monocytes % (Manual) Eosinophils % Eosinophils % (Manual) Basophils % Nucleated RBC % Platelet Estimate Platelet Comment Anisocytosis Microcytosis Macrocytosis PT with INR INR PTT (Actin FS) VBG pH POC VBG pCO2 POC VBG pO2 Mixed VBG HCO3 Sodium 138 Potassium 4.6 Chloride 106 Carbon Dioxide 28 Anion Gap 4 L BUN 22 H Creatinine 1.2 Creat Clearance w eGFR > 60 Random Glucose 64 L Lactic Acid 1.2 Calcium 8.0 L Total Bilirubin 22.7 H* Direct Bilirubin 18.0 H AST 105 H ALT 31 Alkaline Phosphatase 402 H Ammonia 29.96 Troponin I Total Protein 8.3 H Albumin 2.5 L Urine Color Urine Appearance Urine pH Ur Specific [place] Urine Protein Urine Glucose (UA) Urine Ketones Urine Blood Urine Nitrite Urine Bilirubin Urine Urobilinogen Ur Leukocyte Esterase Salicylates Opiates Screen Methadone Screen Acetaminophen Barbiturate Screen Phencyclidine Screen Ur Amphetamines Screen MDMA (Ecstasy) Screen Benzodiazepines Screen Cocaine Screen U Marijuana (THC) Screen Alcohol, Quantitative 08/27/18 08/27/18 08/27/18 20:16 20:16 20:21 WBC RBC Hgb Hct MCV MCH MCHC RDW Plt Count MPV Absolute Neuts (auto) Neutrophils % Neutrophils % (Manual) Lymphocytes % Lymphocytes % (Manual) Monocytes % Monocytes % (Manual) Eosinophils % Eosinophils % (Manual) Basophils % Nucleated RBC % Platelet Estimate Platelet Comment Anisocytosis Microcytosis Macrocytosis PT with INR INR PTT (Actin FS) VBG pH POC VBG pCO2 POC VBG pO2 Mixed VBG HCO3 Sodium Potassium Chloride Carbon Dioxide Anion Gap BUN Creatinine Creat Clearance w eGFR Random Glucose Lactic Acid Calcium Total Bilirubin Direct Bilirubin AST ALT Alkaline Phosphatase Ammonia Troponin I < 0.02 Total Protein Albumin Urine Color [place] Urine Appearance Clear Urine pH 6.0 Ur Specific [place] 1.016 Urine Protein Negative Urine Glucose (UA) Negative Urine Ketones Negative Urine Blood Negative Urine Nitrite Negative Urine Bilirubin 4.0 Urine Urobilinogen 4.0 e.u/dl Ur Leukocyte Esterase Negative Salicylates < 4.0 Opiates Screen Methadone Screen Acetaminophen < 2.0 L Barbiturate Screen Phencyclidine Screen Ur Amphetamines Screen MDMA (Ecstasy) Screen Benzodiazepines Screen Cocaine Screen U Marijuana (THC) Screen Alcohol, Quantitative < 3.0 08/27/18 20:21 WBC RBC Hgb Hct MCV MCH MCHC RDW Plt Count MPV Absolute Neuts (auto) Neutrophils % Neutrophils % (Manual) Lymphocytes % Lymphocytes % (Manual) Monocytes % Monocytes % (Manual) Eosinophils % Eosinophils % (Manual) Basophils % Nucleated RBC % Platelet Estimate Platelet Comment Anisocytosis Microcytosis Macrocytosis PT with INR INR PTT (Actin FS) VBG pH POC VBG pCO2 POC VBG pO2 Mixed VBG HCO3 Sodium Potassium Chloride Carbon Dioxide Anion Gap BUN Creatinine Creat Clearance w eGFR Random Glucose Lactic Acid Calcium Total Bilirubin Direct Bilirubin AST ALT Alkaline Phosphatase Ammonia Troponin I Total Protein Albumin Urine Color Urine Appearance Urine pH Ur Specific [place] Urine Protein Urine Glucose (UA) Urine Ketones Urine Blood Urine Nitrite Urine Bilirubin Urine Urobilinogen Ur Leukocyte Esterase Salicylates Opiates Screen Negative Methadone Screen Positive A* Acetaminophen Barbiturate Screen Negative Phencyclidine Screen Negative Ur Amphetamines Screen Negative MDMA (Ecstasy) Screen Negative Benzodiazepines Screen Positive A* Cocaine Screen Negative U Marijuana (THC) Screen Negative Alcohol, Quantitative ASSESSMENT/PLAN: 57M w/ pmhx of HIV, asthma, alcohol and heroin abuse, HTN, Hep C, hx of syphilis /gonorrhea, depression, GERD who was sent from [facility] and was subsequently found to have elevated bilirubin. #Acute Liver Failure 2/2 viral hepatitis vs. alcoholic hepatitis vs. autoimmune hepatitis vs. drug/toxin-induced; Pt has elevated direct bilirubin of 18 which shows possible evidence of obstruction. Pt has significant history of HIV, HCV, and alcohol abuse all of which could be contributing factors causing his liver failure. MELD score 24. Child-Richard 11. CTAP showed no def. gallstones, no pericholecystic fluid, ? pancreatic cyst/lesion, normal CBD. Head CT showed involution changes, but no evidence of hemorrhage, infarct, mass. -GI consult ordered -Lactulose 20 mg PO Q6H; Goal is to have 3-4 bowel movements/day and then titrate dose accordingly. -Banana bag given -NPO until speech/swallow eval -Ativan 2 mg IVP Q4H for agitation -Utox/Acetaminophen level/alcohol level ordered -ZULMA ordered to assess for autoimmune hepatitis -BNP ordered #Anemia; Hgb 10.5 -FOBT ordered -iron studies (Fe, TIBC, Transferrin, Fe sat) ordered -retic count ordered #HIV; CD4 count unknown -Viral load ordered Resume home meds (HAART regimen): -Prezista 800 mg PO QD -Truvada 1 tab PO QD -Norvir 100 mg PO QD #Hepatitis C -Acute Hepatitis panel (Hep A, B, C) ordered #HTN; BP stable currently. -Cont to monitor BP #Asthma -Albuterol PRN #Alcohol/Heroine abuse -Drug counseling/cessation #DVT Ppx -Heparin 5000U SQ TID #FEN -NS @ 75 -recheck lytes in AM -NPO, until swallow eval dispo -admit to med-surg Visit type - Emergency Visit Emergency Visit: Yes ED Registration Date: 08/27/18 Care time: The patient presented to the Emergency Department on the above date and was hospitalized for further evaluation of their emergent condition. - New Patient This patient is new to me today: Yes Date on this admission: 08/28/18 - Critical Care Critical Care patient: No
[2018-08-27] MEDS: HEPARIN NA (PORCINE) 5,000 UNITS/ML 1ML VIAL SQ SCH (23:40)
[2018-08-27] MEDS ORDERED: HEPARIN NA (PORCINE) 5,000 UNITS/ML 1ML VIAL ONE (23:57)
[2018-08-28] MEDS ORDERED: LACTULOSE 20 GM/30 ML UDC (FOR ORAL USE ONLY) PO PRN (04:35)
[2018-08-28] MEDS ORDERED: SODIUM CHLORIDE 1,000 ML IV SCH (04:45)
[2018-08-28] MEDS ORDERED: FOLIC ACID INJECTION - 1 MG, THIAMINE HCL 100 MG, MULTIVIT INJECTION ADULT 10 ML in SOD... IVPB ONE (04:45)
--- NOTE | 2018-08-28 05:20 | PN ---
Teaching Attending Note Name of Resident: Maria Esther Rand ATTENDING PHYSICIAN STATEMENT I saw and evaluated the patient. Chart, data, imaging reviewed. I reviewed the resident's note and discussed the case with the resident. I agree with the resident's findings and plan as documented. SUBJECTIVE: 57 man with HIV, asthma, alcohol, heroin abuse, HTN, Hep C, hx of syphilis/ gonorrhea, depression, GERD who was sent from [facility] and for high bilirubin. Pt with is not able to provide any history when speaking to him as he is disoriented. OBJECTIVE: Last Vital Signs Temp Pulse Resp BP Pulse Ox 97.9 F 73 18 98/64 100 08/27/18 19:50 08/27/18 19:50 08/27/18 19:50 08/27/18 19:50 08/27/18 19:50 HEENT - atraumatic, normocephalic, icteric sclera cv-s1+[id number]+[id number] chest- clear abdomen- soft, mild distention, no tenderness, decreased BS+ ext- 1+ pedal edema, no rashes appreciated Skin- jaundice, no rashes neuro- awake, alert, not following commands Abnormal Lab Results 08/27/18 08/27/18 08/27/18 00:30 20:16 20:16 RBC 3.12 L Hgb 10.5 L Hct 30.7 L MCV 98.4 H RDW 24.7 H Plt Count 117 L Monocytes % 14.8 H Monocytes % (Manual) 14 H Eosinophils % 5.0 H Eosinophils % (Manual) 6.0 H Retic Count 1.87 H PT with INR 17.00 H INR 1.44 H PTT (Actin FS) 40.5 H Mixed VBG HCO3 Anion Gap BUN Random Glucose Calcium Total Bilirubin Direct Bilirubin AST Alkaline Phosphatase Total Protein Albumin Methadone Screen Acetaminophen Benzodiazepines Screen 08/27/18 08/27/18 08/27/18 20:16 20:16 20:16 RBC Hgb Hct MCV RDW Plt Count Monocytes % Monocytes % (Manual) Eosinophils % Eosinophils % (Manual) Retic Count PT with INR INR PTT (Actin FS) Mixed VBG HCO3 27.4 H Anion Gap 4 L BUN 22 H Random Glucose 64 L Calcium 8.0 L Total Bilirubin 22.7 H* Direct Bilirubin 18.0 H AST 105 H Alkaline Phosphatase 402 H Total Protein 8.3 H Albumin 2.5 L Methadone Screen Acetaminophen < 2.0 L Benzodiazepines Screen 08/27/18 20:21 RBC Hgb Hct MCV RDW Plt Count Monocytes % Monocytes % (Manual) Eosinophils % Eosinophils % (Manual) Retic Count PT with INR INR PTT (Actin FS) Mixed VBG HCO3 Anion Gap BUN Random Glucose Calcium Total Bilirubin Direct Bilirubin AST Alkaline Phosphatase Total Protein Albumin Methadone Screen Positive A* Acetaminophen Benzodiazepines Screen Positive A* ekg- reviewed Abdomen U/S - reviewed ASSESSMENT AND PLAN: #57yo man HIV, unknown CD4 count, with acute liver failure- MELD score 24, found to have concurrent hepatic encephalopathy. Liver failure may be 2/2 to hep C + etoh abuse. Unable to answer questions successfully. -admit to med/surg -CXR -BNP -GI consult -send Hep B serologies, Hep C ab, RNA -tylenol level -ZULMA to assess for autoimmune hepatitis -BNP -NPO for now -speech and swallow eval -thiamine -folate -gentle IV fluid hydration -i/o -daily weight -PO lactulose to aim for 3-4 BMs/day #HIV - unknown CD4 count -send CD4 count -HIV viral load -c/w HAART regimen -heparin sc for dvt ppx
[2018-08-28] MEDS ORDERED: HEPARIN NA (PORCINE) 5,000 UNITS/ML 1ML VIAL ONE (06:21)
[2018-08-28] MEDS: HEPARIN NA (PORCINE) 5,000 UNITS/ML 1ML VIAL SQ SCH ×3 (06:55→22:32)
[2018-08-28 08:28] LABS: ALBUMIN 2.1 g/dl (3.4-5.0); ALK PHOS 304 U/L (45-117); ANION GAP 7 MMOL/L (8-16); BLOOD UREA NITROGEN 21 mg/dL (7-18); CHLORIDE 112 mmol/L (98-107); CO2 22 mmol/L (21-32); GLUCOSE,RANDOM 73 mg/dL (74-106); SGOT/AST 83 U/L (15-37); SGPT/ALT 25 U/L (13-61); SODIUM 141 mmol/L (136-145)
[2018-08-28 08:41] LABS: BASO % 1.3 % (0-2.0); EOS % 5.3 % (0-4.5); HEMATOCRIT 28.3 % (35.4-49); HEMOGLOBIN 9.6 GM/dL (11.7-16.9); MCH 33.8 pg (25.7-33.7); MEAN CELL VOLUME 99.2 fl (80-96); MEAN PLT VOLUME 8.8 fl (7.5-11.1); MONO % 9.9 % (3.8-10.2); NEUT % 58.5 % (42.8-82.8); PLATELET COUNT 103 K/MM3 (134-434); RBC 2.86 M/mm3 (4.00-5.60); WHITE BLOOD COUNT 4.1 K/mm3 (4.0-10.0)
[2018-08-28 08:43] LABS: BILIRUBIN,TOTAL 18.4 mg/dL (0.2-1)
[2018-08-28 08:51] LABS: N-TERMINAL BNP 184.3 pg/ml (5-125)
[2018-08-28] MEDS: DARUNAVIR ETHANOLATE 800 MG TAB PO SCH (09:16)
[2018-08-28] MEDS: RITONAVIR 100 MG TABLET PO SCH (09:16)
[2018-08-28] MEDS: EMTRICITABINE 200MG/TENOFOVIR 300MG PO SCH (09:16)
[2018-08-28 11:25] LABS: ANISOCYTOSIS 2+; MACROCYTOSIS 2+; PLATELET ESTIMATE DECREASED; TARGET CELLS 3+
[2018-08-28 11:27] LABS: BILIRUBIN,DIRECT 13.8 mg/dL (0.0-0.2)
[2018-08-28] MEDS ORDERED: chlordiazePOXIDE HCL 25 MG CAPSULE PO ONE (11:33)
[2018-08-28] MEDS ORDERED: chlordiazePOXIDE HCL 25 MG CAPSULE PO PRN (11:33)
[2018-08-28] MEDS ORDERED: predniSONE 20 MG TABLET (UD) PO SCH (11:45)
[2018-08-28] MEDS ORDERED: chlordiazePOXIDE HCL 25 MG CAPSULE ONE (12:05)
[2018-08-28] MEDS ORDERED: predniSONE 20 MG TABLET (UD) ONE (12:07)
--- NOTE | 2018-08-28 14:51 | CONSULT ---
Admitting History and Physical - Primary Care Physician PCP: Kristi De Leon - Admission History of Present Illness: 57M w/ pmhx of HIV, asthma, alcohol and heroin abuse, HTN, Hep C, hx of syphilis /gonorrhea, depression, GERD who was sent from [facility] and was subsequently found to have elevated bilirubin. This is my first consult with this pt History Source: Patient, Medical Record Limitations to Obtaining History: Clinical Condition - Smoking History Smoking history: Former smoker Have you smoked in the past 12 months: No Aproximately how many cigarettes per day: 20 - Alcohol/Substance Use Hx Alcohol Use: No History - Admission Reason For Visit: ANEMIA,HYPERBILIRUBINEMIA,ALTERED MENTAL STATUS - Diagnostics X-ray: Report Reviewed - General Mental Status: Awake and Alert, Able to Follow Commands Attention: Intact Ability to Follow Directions: Good Head/Neck Control: WFL - Hearing Hearing: Functional Speech Evaluation - Communication Primary Language: CHILEAN Communication: Yes: Within Normal Limits - Speech Production Able to Make Needs Known: Yes: WNL Intelligibility: Yes: WNL - Speech Characteristics Voice Loudness: Normal Voice Pitch: Yes: Normal Voice Phonatory-based Quality: Yes: Vocal Wetness Speech Clarity: < 100% Nasal Resonance: Normal Articulation: Yes: Precise - Language/Auditory Comprehension Follows: Yes: 1 Stage Simple Commands - Language/Verbal Expression Able to Respond to Simple Queries: Yes: WNL Able to Communicate Wants and Needs: Yes: WNL Functional Communication Status: Yes: WNL - Swallow Evaluation/Bedside Assessment Current Nutritional Intake: NPO (Regular food ordered/thin liquid. Pt was upset and wanted to eat.) Oral Secretions: Yes: Drooling Dentition: Yes: Missing Teeth (a few anterior teeth) Facial Symmetry at Rest: Symmetrical Facial Symmetry on Retraction: Symmetrical Against Resistance Opening: Normal Against Resistance Closing: Normal Pucker Lips: Normal Lingual Movement: Normal, Symmetric Lingual Speed of Movement: Normal Lingual Movement Strgth Against Opposition: Normal Lingual Movement Characteristics: Normal Laryngeal Movement: Able to Palpate Rate of Intake: WFL, Impulsive Labial Seal: WFL Chewing: WFL (efficient. few teeth) Oral Prep Time: WFL A-P Transit: WFL Pocketing: None Coughing/Throat Clear: No Change in Voice: No Recommendations - Speech Evaluation, Impression/Plan Impression: Intermittent drooling and vocal wetness. Mastication/swallow overtly functional. - Dysphagia Impressions/Plan Dysphagia Impressions: Ongoing Evaluation *Silent aspiration: cannot be R/O at bedside Recommendations: Modified Barium Swallow (if cough, congestion, fever spikes.) - Recommendations Diet Consistency: Regular Medication Administration: Whole with water Liquids: Thin Liquids
--- NOTE | 2018-08-28 15:11 | PN ---
Physical Exam: SUBJECTIVE: Patient seen and examined at bedside. OBJECTIVE: Vital Signs Period Temp Pulse Resp BP Sys/Blank Pulse Ox Last 24 Hr 97.3 F-98 F 64-78 18-20 98-111/64-74 99-100 GENERAL/NEURO: The patient is awake, alert, and fully oriented. Cranial nerves II through XII grossly intact. Agitated, pacing, loudly demanding. HEAD: Normal with no signs of trauma. EYES: PERRL, icteric sclera NECK: Trachea midline, full range of motion, supple. LUNGS: CTA HEART: S1, S2, rrrhm, S1, S2 without murmur, rub or gallop. ABDOMEN: Soft, nontender, nondistended EXTREMITIES: 2+ pulses, warm, well-perfused, no edema. Laboratory Results - last 24 hr 08/27/18 08/27/18 08/27/18 00:30 20:16 20:16 WBC 4.4 RBC 3.12 L Hgb 10.5 L Hct 30.7 L MCV 98.4 H MCH 33.7 MCHC 34.3 RDW 24.7 H Plt Count 117 L MPV 8.7 Absolute Neuts (auto) 2.5 Neutrophils % 57.2 D Neutrophils % (Manual) 57.0 Band Neutrophils % Lymphocytes % 22.2 D Lymphocytes % (Manual) 23.0 Monocytes % 14.8 H Monocytes % (Manual) 14 H Eosinophils % 5.0 H Eosinophils % (Manual) 6.0 H Basophils % 0.8 Basophils % (Manual) Myelocytes % (Man) Promyelocytes % (Man) Blast Cells % (Manual) Nucleated RBC % 0 Metamyelocytes Hypochromia Platelet Estimate Slt decrease Platelet Comment No clumping noted Polychromasia Poikilocytosis Anisocytosis 3+ Microcytosis 1+ Macrocytosis 2+ Target Cells Stomatocytes Schistocytes Retic Count 1.87 H PT with INR 17.00 H INR 1.44 H PTT (Actin FS) 40.5 H VBG pH POC VBG pCO2 POC VBG pO2 Mixed VBG HCO3 Sodium Potassium Chloride Carbon Dioxide Anion Gap BUN Creatinine Creat Clearance w eGFR POC Glucometer Random Glucose Lactic Acid Calcium Total Bilirubin Direct Bilirubin AST ALT Alkaline Phosphatase Ammonia Troponin I B-Natriuretic Peptide Total Protein Albumin Urine Color Urine Appearance Urine pH Ur Specific [place] Urine Protein Urine Glucose (UA) Urine Ketones Urine Blood Urine Nitrite Urine Bilirubin Urine Urobilinogen Ur Leukocyte Esterase Salicylates Opiates Screen Methadone Screen Acetaminophen Barbiturate Screen Phencyclidine Screen Ur Amphetamines Screen MDMA (Ecstasy) Screen Benzodiazepines Screen Cocaine Screen U Marijuana (THC) Screen Alcohol, Quantitative HIV 1&2 Antibody Screen HIV P24 Antigen 08/27/18 08/27/18 08/27/18 20:16 20:16 20:16 WBC RBC Hgb Hct MCV MCH MCHC RDW Plt Count MPV Absolute Neuts (auto) Neutrophils % Neutrophils % (Manual) Band Neutrophils % Lymphocytes % Lymphocytes % (Manual) Monocytes % Monocytes % (Manual) Eosinophils % Eosinophils % (Manual) Basophils % Basophils % (Manual) Myelocytes % (Man) Promyelocytes % (Man) Blast Cells % (Manual) Nucleated RBC % Metamyelocytes Hypochromia Platelet Estimate Platelet Comment Polychromasia Poikilocytosis Anisocytosis Microcytosis Macrocytosis Target Cells Stomatocytes Schistocytes Retic Count PT with INR INR PTT (Actin FS) VBG pH 7.36 POC VBG pCO2 49.9 POC VBG pO2 28.0 Mixed VBG HCO3 27.4 H Sodium 138 Potassium 4.6 Chloride 106 Carbon Dioxide 28 Anion Gap 4 L BUN 22 H Creatinine 1.2 Creat Clearance w eGFR > 60 POC Glucometer Random Glucose 64 L Lactic Acid Calcium 8.0 L Total Bilirubin 22.7 H* Direct Bilirubin 18.0 H AST 105 H ALT 31 Alkaline Phosphatase 402 H Ammonia 29.96 Troponin I B-Natriuretic Peptide Total Protein 8.3 H Albumin 2.5 L Urine Color Urine Appearance Urine pH Ur Specific [place] Urine Protein Urine Glucose (UA) Urine Ketones Urine Blood Urine Nitrite Urine Bilirubin Urine Urobilinogen Ur Leukocyte Esterase Salicylates Opiates Screen Methadone Screen Acetaminophen Barbiturate Screen Phencyclidine Screen Ur Amphetamines Screen MDMA (Ecstasy) Screen Benzodiazepines Screen Cocaine Screen U Marijuana (THC) Screen Alcohol, Quantitative HIV 1&2 Antibody Screen HIV P24 Antigen 08/27/18 08/27/18 08/27/18 20:16 20:16 20:16 WBC RBC Hgb Hct MCV MCH MCHC RDW Plt Count MPV Absolute Neuts (auto) Neutrophils % Neutrophils % (Manual) Band Neutrophils % Lymphocytes % Lymphocytes % (Manual) Monocytes % Monocytes % (Manual) Eosinophils % Eosinophils % (Manual) Basophils % Basophils % (Manual) Myelocytes % (Man) Promyelocytes % (Man) Blast Cells % (Manual) Nucleated RBC % Metamyelocytes Hypochromia Platelet Estimate Platelet Comment Polychromasia Poikilocytosis Anisocytosis Microcytosis Macrocytosis Target Cells Stomatocytes Schistocytes Retic Count PT with INR INR PTT (Actin FS) VBG pH POC VBG pCO2 POC VBG pO2 Mixed VBG HCO3 Sodium Potassium Chloride Carbon Dioxide Anion Gap BUN Creatinine Creat Clearance w eGFR POC Glucometer Random Glucose Lactic Acid 1.2 Calcium Total Bilirubin Direct Bilirubin AST ALT Alkaline Phosphatase Ammonia Troponin I < 0.02 Cancelled B-Natriuretic Peptide Total Protein Albumin Urine Color Urine Appearance Urine pH Ur Specific [place] Urine Protein Urine Glucose (UA) Urine Ketones Urine Blood Urine Nitrite Urine Bilirubin Urine Urobilinogen Ur Leukocyte Esterase Salicylates < 4.0 Opiates Screen Methadone Screen Acetaminophen < 2.0 L Barbiturate Screen Phencyclidine Screen Ur Amphetamines Screen MDMA (Ecstasy) Screen Benzodiazepines Screen Cocaine Screen U Marijuana (THC) Screen Alcohol, Quantitative < 3.0 HIV 1&2 Antibody Screen HIV P24 Antigen 08/27/18 08/27/18 08/27/18 20:21 20:21 22:20 WBC RBC Hgb Hct MCV MCH MCHC RDW Plt Count MPV Absolute Neuts (auto) Neutrophils % Neutrophils % (Manual) Band Neutrophils % Lymphocytes % Lymphocytes % (Manual) Monocytes % Monocytes % (Manual) Eosinophils % Eosinophils % (Manual) Basophils % Basophils % (Manual) Myelocytes % (Man) Promyelocytes % (Man) Blast Cells % (Manual) Nucleated RBC % Metamyelocytes Hypochromia Platelet Estimate Platelet Comment Polychromasia Poikilocytosis Anisocytosis Microcytosis Macrocytosis Target Cells Stomatocytes Schistocytes Retic Count PT with INR INR PTT (Actin FS) VBG pH POC VBG pCO2 POC VBG pO2 Mixed VBG HCO3 Sodium Potassium Chloride Carbon Dioxide Anion Gap BUN Creatinine Creat Clearance w eGFR POC Glucometer 113.79299 Random Glucose Lactic Acid Calcium Total Bilirubin Direct Bilirubin AST ALT Alkaline Phosphatase Ammonia Troponin I B-Natriuretic Peptide Total Protein Albumin Urine Color [place] Urine Appearance Clear Urine pH 6.0 Ur Specific [place] 1.016 Urine Protein Negative Urine Glucose (UA) Negative Urine Ketones Negative Urine Blood Negative Urine Nitrite Negative Urine Bilirubin 4.0 Urine Urobilinogen 4.0 e.u/dl Ur Leukocyte Esterase Negative Salicylates Opiates Screen Negative Methadone Screen Positive A* Acetaminophen Barbiturate Screen Negative Phencyclidine Screen Negative Ur Amphetamines Screen Negative MDMA (Ecstasy) Screen Negative Benzodiazepines Screen Positive A* Cocaine Screen Negative U Marijuana (THC) Screen Negative Alcohol, Quantitative HIV 1&2 Antibody Screen HIV P24 Antigen 08/28/18 08/28/18 08/28/18 06:30 07:30 07:30 WBC 4.1 RBC 2.86 L Hgb 9.6 L Hct 28.3 L MCV 99.2 H MCH 33.8 H MCHC 34.0 RDW 25.0 H Plt Count 103 L MPV 8.8 Absolute Neuts (auto) 2.4 Neutrophils % 58.5 Neutrophils % (Manual) 70.7 D Band Neutrophils % 2.0 Lymphocytes % 25.0 Lymphocytes % (Manual) 11.1 D Monocytes % 9.9 Monocytes % (Manual) 6 Eosinophils % 5.3 H Eosinophils % (Manual) 1.0 D Basophils % 1.3 Basophils % (Manual) 9.1 H* D Myelocytes % (Man) 0 Promyelocytes % (Man) 0 Blast Cells % (Manual) 0 Nucleated RBC % 0 Metamyelocytes 0 Hypochromia 2+ Platelet Estimate Decreased Platelet Comment Present Polychromasia 0 Poikilocytosis 3+ Anisocytosis 2+ Microcytosis 1+ Macrocytosis 2+ Target Cells 3+ Stomatocytes 1+ Schistocytes 2+ Retic Count PT with INR INR PTT (Actin FS) VBG pH POC VBG pCO2 POC VBG pO2 Mixed VBG HCO3 Sodium 141 Potassium 4.0 Chloride 112 H Carbon Dioxide 22 Anion Gap 7 L BUN 21 H Creatinine 1.0 Creat Clearance w eGFR > 60 POC Glucometer Random Glucose 73 L Lactic Acid Calcium 8.0 L Total Bilirubin 18.4 H* Direct Bilirubin 13.8 H AST 83 H ALT 25 Alkaline Phosphatase 304 H Ammonia Troponin I B-Natriuretic Peptide 184.3 H Total Protein 7.0 Albumin 2.1 L Urine Color Urine Appearance Urine pH Ur Specific [place] Urine Protein Urine Glucose (UA) Urine Ketones Urine Blood Urine Nitrite Urine Bilirubin Urine Urobilinogen Ur Leukocyte Esterase Salicylates Opiates Screen Methadone Screen Acetaminophen Barbiturate Screen Phencyclidine Screen Ur Amphetamines Screen MDMA (Ecstasy) Screen Benzodiazepines Screen Cocaine Screen U Marijuana (THC) Screen Alcohol, Quantitative HIV 1&2 Antibody Screen Preliminary positive HIV P24 Antigen Negative ASSESSMENT/PLAN 57 year-old male with a PMH significant for HTN, asthma, Hep C, HIV, polysubstance abuse (heroin, alcohol, marijuana, current smoker) admitted for acute liver failure. Acute liver failure --total bili 22.7 (was 1.6 one month ago), direct bili 18.0; AST 2x>ALT --ammonia level wnl --jaundiced --trend LFTs --seen and evaluated by GI, start pentoxifylline x 4 week course Hypertension --BP stable --not on anti-hypertensives Asthma --stable HIV --continue anti-retrovirals Hepatitis C --no reported h/o treatment Acute alcohol withdrawal --switch to ativan protocol due to liver dysfunction --Dr. Kathleen following Acute heroin withdrawal --methadone taper FEN Fluids: PO intake adequate Electrolytes: replete as indicated Nutrition: regular diet DVT prophylaxis: subq heparin Dispo: continues to require inpatient care. Full code. Visit type - Emergency Visit Emergency Visit: Yes ED Registration Date: 08/27/18 Care time: The patient presented to the Emergency Department on the above date and was hospitalized for further evaluation of their emergent condition. - New Patient This patient is new to me today: No - Critical Care Critical Care patient: No
[2018-08-28] MEDS ORDERED: chlordiazePOXIDE HCL 25 MG CAPSULE PO SCH (17:00)
--- NOTE | 2018-08-28 18:14 | CON.GI ---
Consult Consult Specialty:: GI - History of Present Illness History of Present Illness: 57 y/ male with poly substance abuse was asked to seen because of jaundice and T >bili of 18/. He is asymptomatic. There was no change in bowel habits, rectal bleeding and abdominal pain. - Alcohol/Substance Use Hx Alcohol Use: No - Smoking History Smoking history: Former smoker Have you smoked in the past 12 months: No Aproximately how many cigarettes per day: 20 Home Medications - Allergies Allergies/Adverse Reactions: Allergies Allergy/AdvReac Type Severity Reaction Status Date / Time erythromycin base Allergy Severe Rash Verified 08/26/18 17:31 [Erythromycin Base] vancomycin Allergy Severe Rash Verified 08/26/18 17:31 chocolate flavor Allergy Intermediate Verified 08/26/18 17:31 nut - unspecified AdvReac Mild Itching Verified 08/26/18 17:31 - Home Medications Home Medications: Ambulatory Orders Albuterol Sulfate Inhaler - [Ventolin HFA Inhaler -] 2 inh PO Q4H PRN #1 cartridge 04/17/18 Darunavir Ethanolate [Prezista -] 800 mg PO DAILY #30 tablet 04/17/18 Emtricitabine/Tenofovir [Truvada -] 1 tab PO DAILY #30 tablet 04/17/18 Ritonavir [Norvir -] 100 mg PO DAILY #30 tab 04/17/18 Family Disease History - Family Disease History Family Disease History: Diabetes: Mother (etoh; , [place].), [place]: Father ( [place], etoh), Mother, Sister (, Lung Ca.; Multiple Sclerosis.), Other : Grandparent (etoh.), Father, Mother, Sister Physical Exam-GI Vital Signs: Vital Signs Temperature 97.3 F L 08/28/18 11:53 Pulse Rate 64 08/28/18 11:53 Respiratory Rate 18 08/28/18 11:53 Blood Pressure 108/73 08/28/18 11:53 O2 Sat by Pulse Oximetry (%) 99 08/28/18 11:53 Constitutional: Yes: No Distress Eyes: Yes: Sclera Icterus HENT: Yes: Atraumatic Neck: Yes: Supple Cardiovascular: Yes: Regular Rate and Rhythm Respiratory: Yes: CTA Bilaterally ...Palpate: Yes: Soft. No: Firm/Rigid, Guarding, Hepatomegaly, Mass, Pulsatile Mass, Splenomegaly, Tenderness ...Percussion: Yes: Tympanitic Labs: CBC, BMP 08/28/18 07:30 INR, PTT INR 1.44 (0.83-1.09) H 08/27/18 20:16 CBC,CMP WBC 4.1 K/mm3 (4.0-10.0) 08/28/18 06:30 RBC 2.86 M/mm3 (4.00-5.60) L 08/28/18 06:30 Hgb 9.6 GM/dL (11.7-16.9) L 08/28/18 06:30 Hct 28.3 % (35.4-49) L 08/28/18 06:30 MCV 99.2 fl (80-96) H 08/28/18 06:30 MCH 33.8 pg (25.7-33.7) H 08/28/18 06:30 MCHC 34.0 g/dl (32.0-35.9) 08/28/18 06:30 RDW 25.0 % (11.9-15.9) H 08/28/18 06:30 Plt Count 103 K/MM3 (134-434) L 08/28/18 06:30 MPV 8.8 fl (7.5-11.1) 08/28/18 06:30 Absolute Neuts (auto) 2.4 K/mm3 (1.5-8.0) 08/28/18 06:30 Neutrophils % 58.5 % (42.8-82.8) 08/28/18 06:30 Neutrophils % (Manual) 70.7 % (42.8-82.8) D 08/28/18 06:30 Band Neutrophils % 2.0 % 08/28/18 06:30 Lymphocytes % 25.0 % (8-40) 08/28/18 06:30 Lymphocytes % (Manual) 11.1 % (8-40) D 08/28/18 06:30 Monocytes % 9.9 % (3.8-10.2) 08/28/18 06:30 Monocytes % (Manual) 6 % (3.8-10.2) 08/28/18 06:30 Eosinophils % 5.3 % (0-4.5) H 08/28/18 06:30 Eosinophils % (Manual) 1.0 % (0-4.5) D 08/28/18 06:30 Basophils % 1.3 % (0-2.0) 08/28/18 06:30 Basophils % (Manual) 9.1 % (0-2.0) H* D 08/28/18 06:30 Myelocytes % (Man) 0 % (0-2) 08/28/18 06:30 Promyelocytes % (Man) 0 % (0-2) 08/28/18 06:30 Blast Cells % (Manual) 0 % (0-0) 08/28/18 06:30 Nucleated RBC % 0 % (0-0) 08/28/18 06:30 Metamyelocytes 0 % (0-2) 08/28/18 06:30 Hypochromia 2+ 08/28/18 06:30 Platelet Estimate Decreased 08/28/18 06:30 Platelet Comment Present 08/28/18 06:30 Polychromasia 0 08/28/18 06:30 Poikilocytosis 3+ 08/28/18 06:30 Anisocytosis 2+ 08/28/18 06:30 Microcytosis 1+ 08/28/18 06:30 Macrocytosis 2+ 08/28/18 06:30 Target Cells 3+ 08/28/18 06:30 Stomatocytes 1+ 08/28/18 06:30 Schistocytes 2+ 08/28/18 06:30 Retic Count 1.87 % (0.5-1.5) H 08/27/18 00:30 Sodium 141 mmol/L (136-145) 08/28/18 07:30 Potassium 4.0 mmol/L (3.5-5.1) 08/28/18 07:30 Chloride 112 mmol/L (98-107) H 08/28/18 07:30 Carbon Dioxide 22 mmol/L (21-32) 08/28/18 07:30 Anion Gap 7 MMOL/L (8-16) L 08/28/18 07:30 BUN 21 mg/dL (7-18) H 08/28/18 07:30 Creatinine 1.0 mg/dL (0.55-1.3) 08/28/18 07:30 Creat Clearance w eGFR > 60 (>60) 08/28/18 07:30 POC Glucometer 113.03480 UNITS (80-120) 08/27/18 22:20 Random Glucose 73 mg/dL (74-106) L 08/28/18 07:30 Lactic Acid 1.2 mmol/L (0.4-2.0) 08/27/18 20:16 Calcium 8.0 mg/dL (8.5-10.1) L 08/28/18 07:30 Total Bilirubin 18.4 mg/dL (0.2-1) H* 08/28/18 07:30 Direct Bilirubin 13.8 mg/dL (0.0-0.2) H 08/28/18 07:30 AST 83 U/L (15-37) H 08/28/18 07:30 ALT 25 U/L (13-61) 08/28/18 07:30 Alkaline Phosphatase 304 U/L (45-117) H 08/28/18 07:30 Ammonia 29.96 umol/L (11-32) 08/27/18 20:16 Troponin I < 0.02 ng/ml (0.00-0.05) 08/27/18 20:16 B-Natriuretic Peptide 184.3 pg/ml (5-125) H 08/28/18 07:30 Total Protein 7.0 g/dl (6.4-8.2) 08/28/18 07:30 Albumin 2.1 g/dl (3.4-5.0) L 08/28/18 07:30 Problem List - Problems (1) Liver failure Assessment/Plan: polypsubstance abuse,CHC R> consider skilled nursing Pentoxyfilline 400mg tid for 4 weeks trend Lfts poor candidate for liver transplant at this time , Code(s): K72.90 - HEPATIC FAILURE, UNSPECIFIED WITHOUT COMA
[2018-08-28 18:38] VITALS: BMI 20.2
[2018-08-28] MEDS ORDERED: METHADONE HCL 10 MG TABLET PO STA (19:51)
--- NOTE | 2018-08-28 21:27 | EKG ---
Test Reason : Blood Pressure : / mmHG Vent. Rate : 081 BPM Atrial Rate : 081 BPM P-R Int : 152 ms QRS Dur : 096 ms QT Int : 398 ms P-R-T Axes : 071 -13 025 degrees QTc Int : 462 ms NORMAL SINUS RHYTHM NORMAL ECG WHEN COMPARED WITH ECG OF 26-AUG-2018 18:14, NO SIGNIFICANT CHANGE WAS FOUND Confirmed by OSITO MORA MD ([id number]) on 08/28/2018 9:27:00 PM Referred By: Confirmed By:OSITO MORA MD
[2018-08-28] MEDS: LORazepam 2 MG/ML SDV VIAL IVPUSH PRN (22:29)
[2018-08-28] MEDS: PENTOXIFYLLINE 400 MG TABLET.ER PO SCH (22:29)
[2018-08-29] MEDS: LORazepam 2 MG/ML SDV VIAL IVPUSH SCH ×2 (01:17→06:25)
[2018-08-29 06:09] LABS: HEP.C VIRUS AB >11.0 s/co ratio (0.0-0.9)
[2018-08-29] MEDS: HEPARIN NA (PORCINE) 5,000 UNITS/ML 1ML VIAL SQ SCH ×3 (06:25→21:07)
[2018-08-29 07:23] LABS: BASO % 0.8 % (0-2.0); EOS % 0.1 % (0-4.5); HEMATOCRIT 27.1 % (35.4-49); HEMOGLOBIN 9.1 GM/dL (11.7-16.9); LYMPH % 20.7 % (8-40); MCH 33.2 pg (25.7-33.7); MCHC 33.7 g/dl (32.0-35.9); MEAN CELL VOLUME 98.6 fl (80-96); MEAN PLT VOLUME 8.6 fl (7.5-11.1); MONO % 6.5 % (3.8-10.2); NEUT % 71.9 % (42.8-82.8); PLATELET COUNT 90 K/MM3 (134-434); RBC 2.75 M/mm3 (4.00-5.60); WHITE BLOOD COUNT 5.7 K/mm3 (4.0-10.0)
[2018-08-29 07:42] LABS: ALBUMIN 1.9 g/dl (3.4-5.0); ALK PHOS 236 U/L (45-117); ANION GAP 6 MMOL/L (8-16); BILIRUBIN,DIRECT 12.6 mg/dL (0.0-0.2); BLOOD UREA NITROGEN 26 mg/dL (7-18); CALCIUM 8.3 mg/dL (8.5-10.1); CHLORIDE 109 mmol/L (98-107); CO2 23 mmol/L (21-32); CREATININE 1.1 mg/dL (0.55-1.3); GLUCOSE,RANDOM 90 mg/dL (74-106); SGOT/AST 81 U/L (15-37); SGPT/ALT 25 U/L (13-61); SODIUM 138 mmol/L (136-145); TOT PROT 7.1 g/dl (6.4-8.2)
[2018-08-29 08:12] LABS: BILIRUBIN,TOTAL 16.4 mg/dL (0.2-1)
[2018-08-29] MEDS ORDERED: PT OWN MED DRAWER 7, Y5N ONE ×2 (08:40→08:59)
[2018-08-29] MEDS: PENTOXIFYLLINE 400 MG TABLET.ER PO SCH ×3 (09:02→17:54)
[2018-08-29] MEDS: EMTRICITABINE 200MG/TENOFOVIR 300MG PO SCH (09:05)
[2018-08-29] MEDS: DARUNAVIR ETHANOLATE 800 MG TAB PO SCH (09:06)
[2018-08-29] MEDS: RITONAVIR 100 MG TABLET PO SCH (09:06)
--- NOTE | 2018-08-29 09:41 | CONSULT ---
Consult Detox [facility] Reason for Current Admission/Consult: h/o alcohol and heroin use - History History of Present Illness: 57 yo with h/o HIV, HCV pos transferred from [facility] on 08/27 for further eval and management of liver abnormalities: high bili and alk phos. Pt has had several admissions to [facility] for detox, recently admitted to [facility] for detox from alcohol and heroin on 08/26. Urine tox screen pos for opiates. Neg alcohol breath test. The next day, 08/27, on lab evaluation, pt was noted to be anemic, with increased bilirubin and irritability-transferred to [facility]. Pt is currently being evaluated. Pt currently on methadone po detox protocol and getting standing dose ativan IV for alcohol withdrawal management. Pt is very irritable and not able to answer questions- c/o being hungry. Says he uses " a lot" of alcohol and "heroin"- could not give details. Confidential Drug Utilization Report Search Terms: noni arndt, 1960 Search Date: 08/29/2018 09:40:32 AM The Drug Utilization Report below displays all of the controlled substance prescriptions, if any, that your patient has filled in the last twelve months. The information displayed on this report is compiled from pharmacy submissions to the Department, and accurately reflects the information as submitted by the pharmacies. This report was requested by: Lydia Kathleen | Reference #: [id number] There are no results for the search terms that you entered. - History Source History Provided By: Patient - Alcohol/Substance Use Hx Alcohol Use: No CIWA Score - CIWA Score Nausea/Vomitin-No Nausea/No Vomiting Muscle Tremors: None Anxiety: 4-Mod. Anxious/Guarded Agitation: 3 Paroxysmal Sweats: No Perspiration Orientation: 3-Disoriented Date>2 days Tacttile Disturbances: 0-None Auditory Disturbances: 0-None Visual Disturbances: 0-None Headache: 0-None Present (pt on ativan) CIWA-Ar Total Score: 10 COWS - Scale Resting Pulse: 0= GA 80 or Below Sweatin= No chills or Flushing Restless Observation: 1= Difficult to Sit Still Pupil Size: 0= Normal to Room Light Bone or Joint Aches: 0= None Runny Nose/ Eye Tearin= None GI Upset > 30mins: 0= None (pt on methadone) Tremor Observation: 0= None Yawning Observation: 0= None Anxiety or Irritability: 2=Irritable/Anxious Goose Flesh Skin: 0=Smooth Skin COWS Score: 3 Assessment Plan - Diagnosis (1) Alcohol dependence Status: Acute Qualifiers: Substance use status: in remission Qualified Code(s): F10.21 - Alcohol dependence, in remission (2) Opioid dependence Status: Chronic Qualifiers: Substance use status: in remission Qualified Code(s): F11.21 - Opioid dependence, in remission - Plan Plan: Pt confused and with increased bili and alk po4- ongoing evaluation for etiology. Pt has been hospitalized for about 4 days. Will continue methadone detox protocol. Switch from ativan IV to continue with po ativan detox protocol. Please call us if we can be of assistance: [phone] - Medication Detox Regimen/Protocol: Methadone (and ativan)
[2018-08-29] MEDS ORDERED: METHADONE HCL 10 MG TABLET PO ONE (10:00)
[2018-08-29] MEDS: LORazepam 2 MG/ML SDV VIAL IVPUSH PRN (10:22)
--- NOTE | 2018-08-29 11:30 | PN ---
Progress Note, [employer] - Note Progress Note: Sleeping. Selected Entries 08/28/18 08/28/18 08/28/18 06:00 11:53 14:30 Breakfast Supper Temperature 98 F 97.3 F L 97.6 F 08/28/18 08/28/18 08/28/18 18:00 21:16 22:00 Breakfast Supper 100% Temperature 98.6 F 98.4 F 08/29/18 08/29/18 08/29/18 01:41 04:44 09:29 Breakfast 50% Supper Temperature 97.7 F 97.9 F 08/29/18 10:00 Breakfast Supper Temperature 98.2 F No difficulty with PO tolerance reported. PO intake only when fully alert.
[2018-08-29] MEDS ORDERED: LORazepam 2 MG/ML SDV VIAL IVPUSH PRN (12:05)
--- NOTE | 2018-08-29 14:10 | CONSULT ---
Consult - text type - Consultation Consultation Note: Podiatry Consultation: 57 year old M, history of polysubstance abuse and multiple comorbidities, presents with elongated, thickened toe nails. PMHx: HIV, asthma, alcohol and heroin abuse, HTN, Hep C, hx of syphilis/ gonorrhea, depression, GERD Meds: noted ALL: erythromycin, vanco DERIC: Pedal pulses palpable, TG wnl, CFT brisk to all toes. Nails are elongated, discolored, thickened with subungual debris, tender to palpation x 10. No nail bed ulcers, no signs of infection. Imp: 57 year old M with onychomycosis 1. Manual debridement of mycotic nails x 10 using nail nipper. 2. Appropriate foot hygiene discussed at length. 3. NO further intervention. Sohail Patel DPM
[2018-08-29 14:52] LABS: ANISOCYTOSIS 2+; MACROCYTOSIS 1+; PLATELET ESTIMATE DECREASED
[2018-08-29] MEDS ORDERED: chlordiazePOXIDE HCL 25 MG CAPSULE PO SCH (17:00)
[2018-08-29] MEDS: LORazepam 1 MG TABLET PO SCH (17:59)
--- NOTE | 2018-08-29 18:18 | PN ---
Physical Exam: SUBJECTIVE: Patient seen and examined at bedside. OBJECTIVE: Vital Signs Period Temp Pulse Resp BP Sys/Blank Pulse Ox Last 24 Hr 97.3 F-98.4 F 61-82 18-20 94-132/67-79 97-98 GENERAL/NEURO: The patient is sleeping but arousable, oriented. Cranial nerves II through XII grossly intact. HEAD: Normal with no signs of trauma. EYES: PERRL, icteric sclera NECK: Trachea midline, full range of motion, supple. LUNGS: CTA HEART: S1, S2, rrrhm, S1, S2 without murmur, rub or gallop. ABDOMEN: Soft, nontender, nondistended EXTREMITIES: 2+ pulses, warm, well-perfused, no edema. Laboratory Results - last 24 hr 08/28/18 08/28/18 08/28/18 00:25 07:30 07:30 WBC RBC Hgb Hct MCV MCH MCHC RDW Plt Count MPV Absolute Neuts (auto) Total Counted Neutrophils % Neutrophils % (Manual) Band Neutrophils % Lymphocytes % Lymphocytes % (Manual) Monocytes % Monocytes % (Manual) Eosinophils % Basophils % Myelocytes % (Man) Nucleated RBC % Platelet Estimate Anisocytosis Microcytosis Macrocytosis Sodium Potassium Chloride Carbon Dioxide Anion Gap BUN Creatinine Creat Clearance w eGFR Random Glucose Calcium Magnesium Transferrin 135 L Total Bilirubin Direct Bilirubin AST ALT Alkaline Phosphatase Total Protein Albumin Hepatitis A IgM Ab Negative Hep Bs Antigen Negative Hep B Core IgM Ab Negative Hepatitis C Antibody >11.0 H HCV Quantitation [id number] HCV RNA log copies/mL 6.308 08/29/18 08/29/18 06:45 06:45 WBC 5.7 RBC 2.75 L Hgb 9.1 L Hct 27.1 L MCV 98.6 H MCH 33.2 MCHC 33.7 RDW 25.0 H Plt Count 90 L MPV 8.6 Absolute Neuts (auto) 4.1 Total Counted 100 Neutrophils % 71.9 D Neutrophils % (Manual) 77.0 Band Neutrophils % 1.0 Lymphocytes % 20.7 Lymphocytes % (Manual) 18.0 D Monocytes % 6.5 Monocytes % (Manual) 3 L Eosinophils % 0.1 D Basophils % 0.8 Myelocytes % (Man) 1 Nucleated RBC % 0 Platelet Estimate Decreased Anisocytosis 2+ Microcytosis 1+ Macrocytosis 1+ Sodium 138 Potassium 4.0 Chloride 109 H Carbon Dioxide 23 Anion Gap 6 L BUN 26 H Creatinine 1.1 Creat Clearance w eGFR > 60 Random Glucose 90 Calcium 8.3 L Magnesium 2.0 Transferrin Total Bilirubin 16.4 H* Direct Bilirubin 12.6 H AST 81 H ALT 25 Alkaline Phosphatase 236 H Total Protein 7.1 Albumin 1.9 L Hepatitis A IgM Ab Hep Bs Antigen Hep B Core IgM Ab Hepatitis C Antibody HCV Quantitation HCV RNA log copies/mL Active Medications Generic Name Dose Route Start Last Admin Trade Name Freq PRN Reason Stop Dose Admin Darunavir 800 mg 08/28/18 10:00 08/29/18 09:06 Prezista - PO 800 mg DAILY CATARINO Administration Emtricitabine/Tenofovir 1 tab 08/28/18 10:00 08/29/18 09:05 Truvada PO 1 tab DAILY [facility]ARINO Administration Heparin Sodium (Porcine) 5,000 unit 08/27/18 23:00 08/29/18 14:32 Heparin - SQ 5,000 unit TID CATARINO Administration Lorazepam 1 mg 08/29/18 18:00 08/29/18 17:59 Ativan - PO 08/31/18 18:01 1 mg Q6HPO CATARINO Administration Lorazepam 1 mg 08/29/18 12:09 Ativan - PO TID PRN ANXIETY Methadone HCl 15 mg 08/30/18 10:00 Dolophine - PO 08/30/18 23:59 ONCE ONE Methadone HCl 5 mg 09/02/18 06:00 Dolophine - PO 09/02/18 06:01 ONCE@0600 ONE Methadone HCl 15 mg 08/31/18 10:00 Dolophine - PO 08/31/18 23:59 ONCE ONE Methadone HCl 10 mg 09/01/18 10:00 Dolophine - PO 09/01/18 10:01 ONCE ONE Pentoxifylline 400 mg 08/28/18 18:15 08/29/18 17:54 Trental - PO 400 mg TIDCM [facility]INO Administration Ritonavir 100 mg 08/28/18 10:00 08/29/18 09:06 Norvir - PO 100 mg DAILY [facility]INO Administration ASSESSMENT/PLAN: 57 year-old male with a PMH significant for HTN, asthma, Hep C, HIV, polysubstance abuse (heroin, alcohol, marijuana, current smoker) admitted for acute liver failure. Acute liver failure --total bili 22.7 (was 1.6 one month ago), direct bili 18.0; AST 2x>ALT --jaundiced --LFTs starting to trend down --continue pentoxifylline x 4 week course Hypertension --BP stable --not on anti-hypertensives Asthma --stable HIV --continue anti-retrovirals Hepatitis C --no reported h/o treatment Acute alcohol withdrawal --continue ativan protocol --Dr. Kathleen following Acute heroin withdrawal --methadone taper FEN Fluids: PO intake adequate Electrolytes: replete as indicated Nutrition: regular diet DVT prophylaxis: subq heparin Dispo: continues to require inpatient care. Full code. Visit type - Emergency Visit Emergency Visit: Yes ED Registration Date: 08/27/18 Care time: The patient presented to the Emergency Department on the above date and was hospitalized for further evaluation of their emergent condition. - New Patient This patient is new to me today: No - Critical Care Critical Care patient: No
[2018-08-29] MEDS: LORazepam 1 MG TABLET PO PRN (21:07)
[2018-08-30] MEDS: LORazepam 1 MG TABLET PO SCH ×5 (00:02→19:00)
[2018-08-30 06:09] LABS: HBSAG SCREEN Negative (Negative); HEP A AB, IGM Negative (Negative); HEP B CORE AB, TOT Positive (Negative)
[2018-08-30] MEDS: HEPARIN NA (PORCINE) 5,000 UNITS/ML 1ML VIAL SQ SCH ×3 (06:32→21:22)
[2018-08-30] MEDS: PENTOXIFYLLINE 400 MG TABLET.ER PO SCH ×3 (09:00→19:00)
[2018-08-30] MEDS ORDERED: METHADONE HCL 5 MG TABLET PO ONE (10:00)
[2018-08-30] MEDS ORDERED: chlordiazePOXIDE 5 MG CAPSULE PO SCH (17:00)
[2018-08-30] MEDS: RITONAVIR 100 MG TABLET PO SCH (19:00)
[2018-08-30] MEDS: EMTRICITABINE 200MG/TENOFOVIR 300MG PO SCH (19:00)
[2018-08-30] MEDS: DARUNAVIR ETHANOLATE 800 MG TAB PO SCH (19:00)
--- NOTE | 2018-08-30 21:07 | PN ---
Physical Exam: SUBJECTIVE: Patient seen and examined at bedside. OBJECTIVE: Vital Signs Period Temp Pulse Resp BP Sys/Blank Pulse Ox Last 24 Hr 97.2 F-98.0 F 56-69 16-18 97-130/67-85 99 GENERAL/NEURO: A&Ox3. EYES: PERRL, icteric sclera LUNGS: CTA HEART: S1, S2, rrr ABDOMEN: Soft, nontender, nondistended EXTREMITIES: 2+ pulses, warm, well-perfused, no edema Laboratory Results - last 24 hr 08/28/18 08/28/18 08/28/18 07:30 07:30 08:00 WBC 4.7 Absolute Lymphs (auto) 1.2 Lymphocytes 24 Nucleated RBCs TNP ZULMA Screen Negative Absolute CD3 Count 1067 % CD3+ Lymphocytes 88.9 H Absolute CD4 [place] 106 L % CD4+ Lymphocyte 8.8 L CD4/CD8 Ratio 0.11 L % CD8+ Lymphocyte 79.9 H Absolute CD8 Count 959 H Hep A IgM Ab Confirm Negative Hepatitis A Ab Total Positive H Hep Bs Antigen Negative Hep Bs Antibody Non reactive Hep B Core Total Ab Positive H HIV-1 Antibody Positive H Positive H HIV-2 Antibody Indeterminate H Indeterminate H HIV 1&2 Ag/Ab, 4th Gen Reactive H Reactive H HIV Note Hiv-1 positive Hiv-1 positive Active Medications Generic Name Dose Route Start Last Admin Trade Name Freq PRN Reason Stop Dose Admin Darunavir 800 mg 08/28/18 10:00 08/30/18 19:00 Prezista - PO Not Given DAILY [facility]ARINO Emtricitabine/Tenofovir 1 tab 08/28/18 10:00 08/30/18 19:00 Truvada PO Not Given DAILY [facility]ARINO Heparin Sodium (Porcine) 5,000 unit 08/27/18 23:00 08/30/18 15:54 Heparin - SQ 5,000 unit TID CATARINO Administration Lorazepam 1 mg 08/29/18 18:00 08/30/18 19:00 Ativan - PO 08/31/18 18:01 Not Given Q6HPO CATARINO Lorazepam 1 mg 08/29/18 12:09 08/29/18 21:07 Ativan - PO 1 mg TID PRN Administration ANXIETY Methadone HCl 15 mg 08/30/18 10:00 Dolophine - PO 08/30/18 23:59 ONCE ONE Methadone HCl 5 mg 09/02/18 06:00 Dolophine - PO 09/02/18 06:01 ONCE@0600 ONE Methadone HCl 15 mg 08/31/18 10:00 Dolophine - PO 08/31/18 23:59 ONCE ONE Methadone HCl 10 mg 09/01/18 10:00 Dolophine - PO 09/01/18 10:01 ONCE ONE Pentoxifylline 400 mg 08/28/18 18:15 08/30/18 19:00 Trental - PO Not Given TIDCM CATARINO Ritonavir 100 mg 08/28/18 10:00 08/30/18 19:00 Norvir - PO Not Given DAILY [facility]ARINO ASSESSMENT/PLAN 57 year-old male with a PMH significant for HTN, asthma, Hep C, HIV, polysubstance abuse (heroin, alcohol, marijuana, current smoker) admitted for acute liver failure. Acute liver failure --total bili/dir bili 22.8/18.0 on admission, now 16.4/12.6 --continue to trend --continue pentoxifylline x 4 week course Hypertension --BP stable --not on anti-hypertensives Asthma --stable HIV --continue anti-retrovirals Hepatitis C --no reported h/o treatment Acute alcohol withdrawal --continue ativan protocol --Dr. Kathleen following Acute heroin withdrawal --methadone taper FEN Fluids: PO intake adequate Electrolytes: replete as indicated Nutrition: regular diet; Ensure Enlive daily; MVI DVT prophylaxis: subq heparin Dispo: continues to require inpatient care. Full code. Visit type - Emergency Visit Emergency Visit: Yes ED Registration Date: 08/27/18 Care time: The patient presented to the Emergency Department on the above date and was hospitalized for further evaluation of their emergent condition. - New Patient This patient is new to me today: No - Critical Care Critical Care patient: No
[2018-08-30] MEDS: LORazepam 1 MG TABLET PO PRN (21:23)
[2018-08-31] MEDS: LORazepam 1 MG TABLET PO SCH ×4 (00:53→18:53)
[2018-08-31] MEDS: HEPARIN NA (PORCINE) 5,000 UNITS/ML 1ML VIAL SQ SCH ×3 (06:14→21:39)
[2018-08-31] MEDS ORDERED: PT OWN MED DRAWER 7, Y5N ONE ×3 (07:55→12:19)
[2018-08-31] MEDS: PENTOXIFYLLINE 400 MG TABLET.ER PO SCH ×3 (08:15→18:52)
[2018-08-31 08:33] LABS: BASO % 0.5 % (0-2.0); HEMOGLOBIN 11.3 GM/dL (11.7-16.9); LYMPH % 27.3 % (8-40); MCH 33.3 pg (25.7-33.7); MCHC 33.3 g/dl (32.0-35.9); MEAN CELL VOLUME 99.9 fl (80-96); MEAN PLT VOLUME 8.3 fl (7.5-11.1); MONO % 6.7 % (3.8-10.2); NEUT % 61.5 % (42.8-82.8); PLATELET COUNT 83 K/MM3 (134-434); RDW 25.5 % (11.9-15.9); WHITE BLOOD COUNT 4.9 K/mm3 (4.0-10.0)
--- NOTE | 2018-08-31 08:49 | PN ---
Physical Exam: SUBJECTIVE: Patient seen and examined OBJECTIVE: Vital Signs Period Temp Pulse Resp BP Sys/Blank Pulse Ox Last 24 Hr 97.2 F-98.8 F 60-88 16-20 106-135/75-85 99-99 GENERAL/NEURO: A&Ox3. EYES: PERRL, icteric sclera LUNGS: CTA HEART: S1, S2, rrr ABDOMEN: Soft, nontender, nondistended EXTREMITIES: 2+ pulses, warm, well-perfused, no edema Laboratory Results - last 24 hr 08/31/18 08:00 WBC 4.9 RBC 3.40 L Hgb 11.3 L Hct 34.0 L D MCV 99.9 H MCH 33.3 MCHC 33.3 RDW 25.5 H Plt Count 83 L MPV 8.3 Absolute Neuts (auto) 3.0 Neutrophils % 61.5 Lymphocytes % 27.3 D Monocytes % 6.7 Eosinophils % 4.0 D Basophils % 0.5 Nucleated RBC % 0 Active Medications Generic Name Dose Route Start Last Admin Trade Name Freq PRN Reason Stop Dose Admin Darunavir 800 mg 08/28/18 10:00 08/30/18 19:00 Prezista - PO Not Given DAILY [facility]INO Emtricitabine/Tenofovir 1 tab 08/28/18 10:00 08/30/18 19:00 Truvada PO Not Given DAILY CATARINO Folic Acid 1 mg 08/31/18 10:00 Folic Acid - PO DAILY [facility]ARINO Heparin Sodium (Porcine) 5,000 unit 08/27/18 23:00 08/31/18 06:14 Heparin - SQ 5,000 unit TID [facility]ARINO Administration Lorazepam 1 mg 08/29/18 18:00 08/31/18 06:14 Ativan - PO 08/31/18 18:01 1 mg Q6HPO [facility]INO Administration Lorazepam 1 mg 08/29/18 12:09 08/30/18 21:23 Ativan - PO 1 mg TID PRN Administration ANXIETY Methadone HCl 15 mg 08/30/18 10:00 Dolophine - PO 08/30/18 23:59 ONCE ONE Methadone HCl 5 mg 09/02/18 06:00 Dolophine - PO 09/02/18 06:01 ONCE@0600 ONE Methadone HCl 15 mg 08/31/18 10:00 Dolophine - PO 08/31/18 23:59 ONCE ONE Methadone HCl 10 mg 09/01/18 10:00 Dolophine - PO 09/01/18 10:01 ONCE ONE Multivitamins/Minerals/Vitamin C 1 tab 08/31/18 10:00 Tab-A-Vit - PO DAILY [facility] Pentoxifylline 400 mg 08/28/18 18:15 08/31/18 08:15 Trental - PO 400 mg TIDCM CATARINO Administration Ritonavir 100 mg 08/28/18 10:00 08/30/18 19:00 Norvir - PO Not Given DAILY [facility]ARINO Thiamine HCl 100 mg 08/31/18 10:00 Vitamin B1 - PO DAILY PENDING SALE TO [facility] ASSESSMENT/PLAN 57 year-old male with a PMH significant for HTN, asthma, Hep C, HIV, polysubstance abuse (heroin, alcohol, marijuana, current smoker) admitted for acute liver failure. Acute liver failure --total bili/dir bili 22.8/18.0 on admission, now 16.8/12.0 --continue to trend --continue pentoxifylline x 4 week course Hypertension --BP stable --not on anti-hypertensives Asthma --stable HIV --continue anti-retrovirals Hepatitis C --no reported h/o treatment Acute alcohol withdrawal --continue ativan protocol --thiamine, folic acid --Dr. Kathleen following Acute heroin withdrawal --methadone taper FEN Fluids: PO intake adequate Electrolytes: replete as indicated Nutrition: regular diet; Ensure Enlive daily; MVI DVT prophylaxis: subq heparin Dispo: continues to require inpatient care. Full code. Visit type - Emergency Visit Emergency Visit: Yes ED Registration Date: 08/27/18 Care time: The patient presented to the Emergency Department on the above date and was hospitalized for further evaluation of their emergent condition. - New Patient This patient is new to me today: No - Critical Care Critical Care patient: No
[2018-08-31 09:15] LABS: ALBUMIN 2.2 g/dl (3.4-5.0); ALK PHOS 206 U/L (45-117); ANION GAP 7 MMOL/L (8-16); BLOOD UREA NITROGEN 26 mg/dL (7-18); CALCIUM 8.6 mg/dL (8.5-10.1); CHLORIDE 104 mmol/L (98-107); CO2 25 mmol/L (21-32); CREATININE 1.2 mg/dL (0.55-1.3); GLUCOSE,RANDOM 61 mg/dL (74-106); PHOSPHOROUS 2.8 mg/dL (2.5-4.9); SGOT/AST 106 U/L (15-37); SGPT/ALT 30 U/L (13-61); SODIUM 136 mmol/L (136-145); TOT PROT 8.2 g/dl (6.4-8.2)
[2018-08-31] MEDS: RITONAVIR 100 MG TABLET PO SCH (09:40)
[2018-08-31] MEDS: FOLIC ACID 1 MG TABLET (FP) PO SCH (09:40)
[2018-08-31] MEDS: MULTIVITAMINS (DAILY MVI) TABLET (FP) PO SCH (09:40)
[2018-08-31] MEDS: THIAMINE HCL 100 MG TABLET (FP) PO SCH (09:40)
[2018-08-31] MEDS: DARUNAVIR ETHANOLATE 800 MG TAB PO SCH (09:40)
[2018-08-31] MEDS: LORazepam 1 MG TABLET PO PRN (09:40)
[2018-08-31] MEDS: EMTRICITABINE 200MG/TENOFOVIR 300MG PO SCH (09:41)
[2018-08-31 09:43] LABS: ALBUMIN 2.2 g/dl (3.4-5.0)
[2018-08-31] MEDS ORDERED: METHADONE HCL 5 MG TABLET PO ONE (10:00)
[2018-08-31 10:02] LABS: BILIRUBIN,TOTAL 16.8 mg/dL (0.2-1)
[2018-08-31 10:04] LABS: POTASSIUM 4.2 mmol/L (3.5-5.1)
[2018-08-31] MEDS ORDERED: LORazepam 2 MG/ML SDV VIAL IVPUSH PRN (10:05)
[2018-08-31 10:06] LABS: BILIRUBIN,TOTAL 16.8 mg/dL (0.2-1)
[2018-08-31 14:23] LABS: ANISOCYTOSIS 1+; MACROCYTOSIS 1+; OVALOCYTE 1+; TARGET CELLS 1+
[2018-08-31] MEDS ORDERED: chlordiazePOXIDE HCL 10 MG CAPSULE PO SCH (17:00)
[2018-09-01] MEDS: HEPARIN NA (PORCINE) 5,000 UNITS/ML 1ML VIAL SQ SCH ×3 (06:47→21:23)
[2018-09-01 08:38] LABS: ALBUMIN 2.1 g/dl (3.4-5.0); ALK PHOS 219 U/L (45-117); ANION GAP 8 MMOL/L (8-16); BILIRUBIN,DIRECT 11.6 mg/dL (0.0-0.2); BLOOD UREA NITROGEN 20 mg/dL (7-18); CALCIUM 8.1 mg/dL (8.5-10.1); CHLORIDE 105 mmol/L (98-107); CO2 26 mmol/L (21-32); GLUCOSE,RANDOM 63 mg/dL (74-106); MAGNESIUM 1.7 mg/dL (1.8-2.4); POTASSIUM 4.2 mmol/L (3.5-5.1); SGOT/AST 102 U/L (15-37); SGPT/ALT 30 U/L (13-61); SODIUM 139 mmol/L (136-145); TOT PROT 7.9 g/dl (6.4-8.2)
[2018-09-01 09:06] LABS: BASO % 1.4 % (0-2.0); HEMOGLOBIN 11.3 GM/dL (11.7-16.9); LYMPH % 32.8 % (8-40); MCHC 34.2 g/dl (32.0-35.9); MEAN CELL VOLUME 99.5 fl (80-96); MONO % 6.9 % (3.8-10.2); NEUT % 55.9 % (42.8-82.8); PLATELET COUNT 82 K/MM3 (134-434); RBC 3.31 M/mm3 (4.00-5.60); RDW 24.8 % (11.9-15.9); WHITE BLOOD COUNT 4.8 K/mm3 (4.0-10.0)
[2018-09-01] MEDS ORDERED: METHADONE HCL 10 MG TABLET PO ONE (10:00)
[2018-09-01] MEDS: EMTRICITABINE 200MG/TENOFOVIR 300MG PO SCH (10:18)
[2018-09-01] MEDS: RITONAVIR 100 MG TABLET PO SCH (10:19)
[2018-09-01] MEDS: DARUNAVIR ETHANOLATE 800 MG TAB PO SCH (10:19)
[2018-09-01] MEDS: PENTOXIFYLLINE 400 MG TABLET.ER PO SCH ×3 (10:19→17:58)
[2018-09-01] MEDS: MULTIVITAMINS (DAILY MVI) TABLET (FP) PO SCH (10:24)
[2018-09-01] MEDS: THIAMINE HCL 100 MG TABLET (FP) PO SCH (10:24)
[2018-09-01] MEDS: FOLIC ACID 1 MG TABLET (FP) PO SCH (10:24)
--- NOTE | 2018-09-01 12:08 | PN ---
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 Selected Entries 08/31/18 08/31/18 08/31/18 06:00 09:22 10:00 Breakfast 25% Lunch Supper Temperature 98.0 F 97.9 F 08/31/18 08/31/18 09/01/18 14:25 18:00 06:00 Breakfast Lunch 25% Supper 25% Temperature 98.2 F 98.1 F 98.6 F 09/01/18 09:00 Breakfast Lunch Supper Temperature 98.0 F Laboratory Tests 08/31/18 09/01/18 08:00 06:00 WBC 4.8 Ammonia 83.37 H Selected Entries 09/01/18 09/01/18 06:00 09:00 Temperature 98.6 F 98.0 F Laboratory Tests 09/01/18 06:00 WBC 4.8 Diet downgraded to puree/thin liquid. Swallowing reassessed with strong responsive cough with thin apple juice.Confused. Disoriented.Impaired insight. Rec: Dysphagia puree, Honey thick liquid, Magic cup.
[2018-09-01] MEDS: LORazepam 1 MG TABLET PO PRN (14:53)
--- NOTE | 2018-09-01 20:04 | PN ---
Physical Exam: SUBJECTIVE: Patient seen and examined at bedside. OBJECTIVE: Vital Signs Period Temp Pulse Resp BP Sys/Blank Pulse Ox Last 24 Hr 97.9 F-98.6 F 62-85 18-20 112-146/78-88 98-99 GENERAL: The patient is awake. Mental status waxes and wanes. Agitated and then lethargic. Thin, frail, cachectic. Absence of body fat. Temporal wasting. Protruding clavicles EYES: Icteric sclera LUNGS: Breath sounds CTA HEART: Regular rate and rhythm, S1, S2 ABDOMEN: Soft, nontender, nondistended EXTREMITIES: 2+ pulses, warm, well-perfused, no edema. NEUROLOGICAL: Cranial nerves II through XII grossly intact. Normal speech Laboratory Results - last 24 hr 08/28/18 09/01/18 09/01/18 07:30 06:00 06:00 WBC 4.8 RBC 3.31 L Hgb 11.3 L Hct 33.0 L MCV 99.5 H MCH 34.0 H MCHC 34.2 RDW 24.8 H Plt Count 82 L MPV 9.0 Absolute Neuts (auto) 2.7 Neutrophils % 55.9 Lymphocytes % 32.8 D Monocytes % 6.9 Eosinophils % 3.0 Basophils % 1.4 Nucleated RBC % 0 Sodium 139 Potassium 4.2 Chloride 105 Carbon Dioxide 26 Anion Gap 8 BUN 20 H Creatinine 1.0 Creat Clearance w eGFR > 60 Random Glucose 63 L Calcium 8.1 L Magnesium 1.7 L Total Bilirubin 15.0 H Direct Bilirubin 11.6 H AST 102 H ALT 30 Alkaline Phosphatase 219 H Total Protein 7.9 Albumin 2.1 L HCV RNA PCR log copywriting intern/ml 5.049 Active Medications Generic Name Dose Route Start Last Admin Trade Name Freq PRN Reason Stop Dose Admin Darunavir 800 mg 08/28/18 10:00 09/01/18 10:19 Prezista - PO 800 mg DAILY CATARINO Administration Emtricitabine/Tenofovir 1 tab 08/28/18 10:00 09/01/18 10:18 Truvada PO 1 tab DAILY CATARINO Administration Folic Acid 1 mg 08/31/18 10:00 09/01/18 10:24 Folic Acid - PO 1 mg DAILY CATARINO Administration Heparin Sodium (Porcine) 5,000 unit 08/27/18 23:00 09/01/18 14:53 Heparin - SQ 5,000 unit TID CATARINO Administration Lorazepam 1 mg 08/29/18 12:09 09/01/18 14:53 Ativan - PO 1 mg TID PRN Administration ANXIETY Methadone HCl 15 mg 08/30/18 10:00 Dolophine - PO 08/30/18 23:59 ONCE ONE Methadone HCl 5 mg 09/02/18 06:00 Dolophine - PO 09/02/18 06:01 ONCE@0600 ONE Methadone HCl 15 mg 08/31/18 10:00 Dolophine - PO 08/31/18 23:59 ONCE ONE Multivitamins/Minerals/Vitamin C 1 tab 08/31/18 10:00 09/01/18 10:24 Tab-A-Vit - PO 1 tab DAILY CATARINO Administration Pentoxifylline 400 mg 08/28/18 18:15 09/01/18 17:58 Trental - PO 400 mg TIDCM CATARINO Administration Ritonavir 100 mg 08/28/18 10:00 09/01/18 10:19 Norvir - PO 100 mg DAILY CATARINO Administration Thiamine HCl 100 mg 08/31/18 10:00 09/01/18 10:24 Vitamin B1 - PO 100 mg DAILY CATARINO Administration ASSESSMENT/PLAN 57 year-old male with a PMH significant for HTN, asthma, Hep C, HIV, polysubstance abuse (heroin, alcohol, marijuana, current smoker) admitted for acute liver failure. Acute liver failure --total bili/dir bili continues to improve 21/09.6 --continue pentoxifylline x 4 week course Hypertension --BP stable --not on anti-hypertensives Asthma --stable HIV --continue anti-retrovirals Hepatitis C --no reported h/o treatment Acute alcohol withdrawal --ativan protocol completed Acute heroin withdrawal --methadone taper continuing FEN Fluids: PO intake adequate Electrolytes: replete as indicated Nutrition: regular diet; Ensure Enlive daily; MVI DVT prophylaxis: subq heparin Dispo: continues to require inpatient care. Full code. Visit type - Emergency Visit Emergency Visit: Yes ED Registration Date: 08/27/18 Care time: The patient presented to the Emergency Department on the above date and was hospitalized for further evaluation of their emergent condition. - New Patient This patient is new to me today: No - Critical Care Critical Care patient: No
[2018-09-01 21:54] LABS: ANISOCYTOSIS 2+; PLATELET ESTIMATE DECREASED
[2018-09-02] MEDS: AMMONIUM LACTATE 12% LOTION 225 GM BOTTLE TP SCH ×3 (01:43→22:29)
[2018-09-02] MEDS: MINERAL OIL/PET HY-PHL TOPICAL OINTMENT 454 GM JAR TP SCH ×3 (05:41→22:30)
[2018-09-02] MEDS: HEPARIN NA (PORCINE) 5,000 UNITS/ML 1ML VIAL SQ SCH ×3 (05:42→22:30)
[2018-09-02] MEDS ORDERED: METHADONE HCL 5 MG TABLET PO ONE (06:00)
[2018-09-02] MEDS: FOLIC ACID 1 MG TABLET (FP) PO SCH (11:54)
[2018-09-02] MEDS: MULTIVITAMINS (DAILY MVI) TABLET (FP) PO SCH (11:54)
[2018-09-02] MEDS: THIAMINE HCL 100 MG TABLET (FP) PO SCH (11:54)
[2018-09-02] MEDS: RITONAVIR 100 MG TABLET PO SCH (11:55)
[2018-09-02] MEDS: PENTOXIFYLLINE 400 MG TABLET.ER PO SCH ×3 (11:55→18:35)
[2018-09-02] MEDS: DARUNAVIR ETHANOLATE 800 MG TAB PO SCH (11:56)
[2018-09-02] MEDS: EMTRICITABINE 200MG/TENOFOVIR 300MG PO SCH (11:57)
[2018-09-02] MEDS ORDERED: LACTULOSE 20 GM/30 ML UDC (FOR ORAL USE ONLY) PO PRN (14:14)
[2018-09-02] MEDS ORDERED: MAGNESIUM SULF 50% (8.12 MEQ/2 ML-1 GM VIAL) IVPB ONE (14:15)
[2018-09-02] MEDS: LORazepam 1 MG TABLET PO PRN (22:26)
[2018-09-03] MEDS: LORazepam 1 MG TABLET PO PRN ×2 (05:38→21:18)
[2018-09-03] MEDS: LACTULOSE 20 GM/30 ML UDC (FOR ORAL USE ONLY) PO SCH ×3 (05:41→21:18)
[2018-09-03] MEDS: HEPARIN NA (PORCINE) 5,000 UNITS/ML 1ML VIAL SQ SCH ×3 (05:46→21:18)
[2018-09-03 08:05] LABS: BASO % 0.5 % (0-2.0); EOS % 4.8 % (0-4.5); HEMATOCRIT 38.6 % (35.4-49); HEMOGLOBIN 12.7 GM/dL (11.7-16.9); LYMPH % 34.8 % (8-40); MCH 33.4 pg (25.7-33.7); MCHC 32.8 g/dl (32.0-35.9); MEAN CELL VOLUME 101.9 fl (80-96); MEAN PLT VOLUME 9.1 fl (7.5-11.1); MONO % 3.7 % (3.8-10.2); NEUT % 56.2 % (42.8-82.8); PLATELET COUNT 65 K/MM3 (134-434); RBC 3.79 M/mm3 (4.00-5.60); RDW 24.4 % (11.9-15.9); WHITE BLOOD COUNT 4.8 K/mm3 (4.0-10.0)
[2018-09-03] MEDS ORDERED: PT OWN MED DRAWER 7, Y5N ONE ×5 (08:47→17:21)
[2018-09-03] MEDS: PENTOXIFYLLINE 400 MG TABLET.ER PO SCH ×3 (08:49→17:23)
[2018-09-03] MEDS: RITONAVIR 100 MG TABLET PO SCH (09:05)
[2018-09-03] MEDS: EMTRICITABINE 200MG/TENOFOVIR 300MG PO SCH (09:05)
[2018-09-03] MEDS: MULTIVITAMINS (DAILY MVI) TABLET (FP) PO SCH (09:05)
[2018-09-03] MEDS: THIAMINE HCL 100 MG TABLET (FP) PO SCH (09:05)
[2018-09-03] MEDS: FOLIC ACID 1 MG TABLET (FP) PO SCH (09:05)
[2018-09-03] MEDS: MINERAL OIL/PET HY-PHL TOPICAL OINTMENT 454 GM JAR TP SCH ×2 (09:06→21:17)
[2018-09-03] MEDS: AMMONIUM LACTATE 12% LOTION 225 GM BOTTLE TP SCH ×2 (09:06→21:17)
[2018-09-03] MEDS: DARUNAVIR ETHANOLATE 800 MG TAB PO SCH (09:06)
[2018-09-03 09:14] LABS: ALBUMIN 2.4 g/dl (3.4-5.0); ALK PHOS 226 U/L (45-117); ANION GAP 9 MMOL/L (8-16); BLOOD UREA NITROGEN 19 mg/dL (7-18); CALCIUM 8.4 mg/dL (8.5-10.1); CHLORIDE 105 mmol/L (98-107); CO2 24 mmol/L (21-32); CREATININE 1.2 mg/dL (0.55-1.3); GLUCOSE,RANDOM 65 mg/dL (74-106); POTASSIUM 5.1 mmol/L (3.5-5.1); SGOT/AST 112 U/L (15-37); SGPT/ALT 32 U/L (13-61); SODIUM 138 mmol/L (136-145); TOT PROT 9.1 g/dl (6.4-8.2)
[2018-09-03 09:54] LABS: ANISOCYTOSIS 0; MACROCYTOSIS 0; PLATELET ESTIMATE DECREASED
--- NOTE | 2018-09-03 13:31 | PN ---
Physical Exam: SUBJECTIVE: Patient seen and examined. Sleeping but arousable. OBJECTIVE: Vital Signs Period Temp Pulse Resp BP Sys/Blank Pulse Ox Last 24 Hr 97.5 F-98.1 F 72-89 20-22 112-126/69-100 GENERAL: The patient is awake. Mental status waxes and wanes. Agitated and then lethargic. Thin, frail, cachectic. Absence of body fat. Temporal wasting. Protruding clavicles EYES: Icteric sclera LUNGS: Breath sounds CTA HEART: Regular rate and rhythm, S1, S2 ABDOMEN: Soft, nontender, nondistended EXTREMITIES: 2+ pulses, warm, well-perfused, no edema. NEUROLOGICAL: Cranial nerves II through XII grossly intact. Normal speech Laboratory Results - last 24 hr 09/03/18 09/03/18 07:49 07:49 WBC 4.8 RBC 3.79 L Hgb 12.7 Hct 38.6 D MCV 101.9 H MCH 33.4 MCHC 32.8 RDW 24.4 H Plt Count 65 L D MPV 9.1 Absolute Neuts (auto) 2.7 Neutrophils % 56.2 Neutrophils % (Manual) 59.8 Band Neutrophils % 0.0 Lymphocytes % 34.8 Lymphocytes % (Manual) 25.8 D Monocytes % 3.7 L Monocytes % (Manual) 2 L Eosinophils % 4.8 H Eosinophils % (Manual) 9.3 H D Basophils % 0.5 Basophils % (Manual) 2.0 Myelocytes % (Man) 0 Promyelocytes % (Man) 0 Blast Cells % (Manual) 0 Nucleated RBC % 0 Metamyelocytes 0 Hypochromia 0 Platelet Estimate Decreased Polychromasia 2+ Poikilocytosis 0 Anisocytosis 0 Microcytosis 0 Macrocytosis 0 Sodium 138 Potassium 5.1 Chloride 105 Carbon Dioxide 24 Anion Gap 9 BUN 19 H Creatinine 1.2 Creat Clearance w eGFR > 60 Random Glucose 65 L Calcium 8.4 L Magnesium 2.0 Total Bilirubin 14.0 H AST 112 H ALT 32 Alkaline Phosphatase 226 H Total Protein 9.1 H Albumin 2.4 L Current Medications Generic Name Dose Route Start Last Admin Trade Name Freq PRN Reason Stop Dose Admin Darunavir 800 mg 08/28/18 10:00 09/03/18 09:06 Prezista - PO 800 mg DAILY CATARINO Administration Emollient Ointment 1 applic 09/01/18 22:00 09/03/18 09:06 Aquaphor - TP 1 applic BID CATARINO Administration Emtricitabine/Tenofovir 1 tab 08/28/18 10:00 09/03/18 09:05 Truvada PO 1 tab DAILY CATARINO Administration Folic Acid 1 mg 08/31/18 10:00 09/03/18 09:05 Folic Acid - PO 1 mg DAILY CATARINO Administration Heparin Sodium (Porcine) 5,000 unit 08/27/18 23:00 09/03/18 14:46 Heparin - SQ 5,000 unit TID CATARINO Administration Lactic Acid 1 applic 09/01/18 22:00 09/03/18 09:06 Lac-Hydrin 12 TP 1 applic BID CATARINO Administration Lactulose 20 gm 09/03/18 06:00 09/03/18 14:46 Cephulac (Oral Use) PO 20 gm TID CATARINO Administration Lorazepam 1 mg 08/29/18 12:09 09/03/18 05:38 Ativan - PO 1 mg TID PRN Administration ANXIETY Methadone HCl 15 mg 08/30/18 10:00 Dolophine - PO 08/30/18 23:59 ONCE ONE Methadone HCl 15 mg 08/31/18 10:00 Dolophine - PO 08/31/18 23:59 ONCE ONE Multivitamins/Minerals/Vitamin C 1 tab 08/31/18 10:00 09/03/18 09:05 Tab-A-Vit - PO 1 tab DAILY CATARINO Administration Pentoxifylline 400 mg 08/28/18 18:15 09/03/18 17:23 Trental - PO 400 mg TIDCM CATARINO Administration Ritonavir 100 mg 08/28/18 10:00 09/03/18 09:05 Norvir - PO 100 mg DAILY CATARINO Administration Thiamine HCl 100 mg 08/31/18 10:00 09/03/18 09:05 Vitamin B1 - PO 100 mg DAILY CATARINO Administration ASSESSMENT/PLAN: 57 year-old male with a PMH significant for HTN, asthma, Hep C, HIV, polysubstance abuse (heroin, alcohol, marijuana, current smoker) admitted for acute liver failure. Acute liver failure Transaminitis --total bili continues to improve 22 on admission -->14 --continue pentoxifylline x 4 week course Hypertension --BP stable --not on anti-hypertensives Asthma --stable HIV --continue anti-retrovirals Hepatitis C --no reported h/o treatment Acute alcohol withdrawal --ativan protocol completed Acute heroin withdrawal --methadone taper completed FEN Fluids: PO intake adequate Electrolytes: replete as indicated Nutrition: regular diet; Ensure Enlive daily; MVI DVT prophylaxis: subq heparin Dispo: continues to require inpatient care. Full code. Visit type - Emergency Visit Emergency Visit: Yes ED Registration Date: 08/27/18 Care time: The patient presented to the Emergency Department on the above date and was hospitalized for further evaluation of their emergent condition. - New Patient This patient is new to me today: No - Critical Care Critical Care patient: No
--- NOTE | 2018-09-03 13:31 | PN ---
Physical Exam: SUBJECTIVE: Patient seen and examined. Reports from nursing staff of periods of demanding, loud behavior, alternating with sleeping. OBJECTIVE: Vital Signs Period Temp Pulse Resp BP Sys/Blank Pulse Ox Last 24 Hr 97.5 F-98.1 F 72-89 20-22 112-126/69-100 GENERAL: The patient is awake. Thin, frail, cachectic. Absence of body fat. Temporal wasting. Protruding clavicles EYES: Icteric sclera LUNGS: Breath sounds CTA HEART: Regular rate and rhythm, S1, S2 ABDOMEN: Soft, nontender, nondistended EXTREMITIES: 2+ pulses, warm, well-perfused, no edema. NEUROLOGICAL: Cranial nerves II through XII grossly intact. Normal speech Laboratory Results - last 24 hr 09/03/18 09/03/18 07:49 07:49 WBC 4.8 RBC 3.79 L Hgb 12.7 Hct 38.6 D MCV 101.9 H MCH 33.4 MCHC 32.8 RDW 24.4 H Plt Count 65 L D MPV 9.1 Absolute Neuts (auto) 2.7 Neutrophils % 56.2 Neutrophils % (Manual) 59.8 Band Neutrophils % 0.0 Lymphocytes % 34.8 Lymphocytes % (Manual) 25.8 D Monocytes % 3.7 L Monocytes % (Manual) 2 L Eosinophils % 4.8 H Eosinophils % (Manual) 9.3 H D Basophils % 0.5 Basophils % (Manual) 2.0 Myelocytes % (Man) 0 Promyelocytes % (Man) 0 Blast Cells % (Manual) 0 Nucleated RBC % 0 Metamyelocytes 0 Hypochromia 0 Platelet Estimate Decreased Polychromasia 2+ Poikilocytosis 0 Anisocytosis 0 Microcytosis 0 Macrocytosis 0 Sodium 138 Potassium 5.1 Chloride 105 Carbon Dioxide 24 Anion Gap 9 BUN 19 H Creatinine 1.2 Creat Clearance w eGFR > 60 Random Glucose 65 L Calcium 8.4 L Magnesium 2.0 Total Bilirubin 14.0 H AST 112 H ALT 32 Alkaline Phosphatase 226 H Total Protein 9.1 H Albumin 2.4 L Active Medications Generic Name Dose Route Start Last Admin Trade Name Freq PRN Reason Stop Dose Admin Darunavir 800 mg 08/28/18 10:00 09/03/18 09:06 Prezista - PO 800 mg DAILY CATARINO Administration Emollient Ointment 1 applic 09/01/18 22:00 09/03/18 09:06 Aquaphor - TP 1 applic BID CATARINO Administration Emtricitabine/Tenofovir 1 tab 08/28/18 10:00 09/03/18 09:05 Truvada PO 1 tab DAILY CATARINO Administration Folic Acid 1 mg 08/31/18 10:00 09/03/18 09:05 Folic Acid - PO 1 mg DAILY CATARINO Administration Heparin Sodium (Porcine) 5,000 unit 08/27/18 23:00 09/03/18 05:46 Heparin - SQ 5,000 unit TID CATARINO Administration Lactic Acid 1 applic 09/01/18 22:00 09/03/18 09:06 Lac-Hydrin 12 TP 1 applic BID CATARION Administration Lactulose 20 gm 09/03/18 06:00 09/03/18 05:41 Cephulac (Oral Use) PO 20 gm TID CATARINO Administration Lorazepam 1 mg 08/29/18 12:09 09/03/18 05:38 Ativan - PO 1 mg TID PRN Administration ANXIETY Methadone HCl 15 mg 08/30/18 10:00 Dolophine - PO 08/30/18 23:59 ONCE ONE Methadone HCl 15 mg 08/31/18 10:00 Dolophine - PO 08/31/18 23:59 ONCE ONE Multivitamins/Minerals/Vitamin C 1 tab 08/31/18 10:00 09/03/18 09:05 Tab-A-Vit - PO 1 tab DAILY CATARINO Administration Pentoxifylline 400 mg 08/28/18 18:15 09/03/18 12:45 Trental - PO 400 mg TIDCM CATARINO Administration Ritonavir 100 mg 08/28/18 10:00 09/03/18 09:05 Norvir - PO 100 mg DAILY CATARINO Administration Thiamine HCl 100 mg 08/31/18 10:00 09/03/18 09:05 Vitamin B1 - PO 100 mg DAILY CATARINO Administration ASSESSMENT/PLAN: 57 year-old male with a PMH significant for HTN, asthma, Hep C, HIV, polysubstance abuse (heroin, alcohol, marijuana, current smoker) admitted for acute liver failure. Acute liver failure --total bili/dir bili continues to improve 21/09.6 --continue pentoxifylline x 4 week course Hypertension --BP stable --not on anti-hypertensives Asthma --stable HIV --continue anti-retrovirals Hepatitis C --no reported h/o treatment Acute alcohol withdrawal --ativan protocol completed Acute heroin withdrawal --methadone taper continuing FEN Fluids: PO intake adequate Electrolytes: replete as indicated Nutrition: regular diet; Ensure Enlive daily; MVI DVT prophylaxis: subq heparin Dispo: continues to require inpatient care. Full code. Visit type - Emergency Visit Emergency Visit: Yes ED Registration Date: 08/27/18 Care time: The patient presented to the Emergency Department on the above date and was hospitalized for further evaluation of their emergent condition. - New Patient This patient is new to me today: No - Critical Care Critical Care patient: No
[2018-09-04] MEDS: LACTULOSE 20 GM/30 ML UDC (FOR ORAL USE ONLY) PO SCH ×3 (06:23→23:11)
[2018-09-04] MEDS: HEPARIN NA (PORCINE) 5,000 UNITS/ML 1ML VIAL SQ SCH ×3 (06:24→23:11)
[2018-09-04 08:32] LABS: BILIRUBIN,DIRECT 9.7 mg/dL (0.0-0.2); TOT PROT 8.1 g/dl (6.4-8.2)
[2018-09-04] MEDS ORDERED: PT OWN MED DRAWER 7, Y5N ONE (09:16)
[2018-09-04] MEDS: THIAMINE HCL 100 MG TABLET (FP) PO SCH (09:23)
[2018-09-04] MEDS: FOLIC ACID 1 MG TABLET (FP) PO SCH (09:23)
[2018-09-04] MEDS: RITONAVIR 100 MG TABLET PO SCH (09:24)
[2018-09-04] MEDS: MULTIVITAMINS (DAILY MVI) TABLET (FP) PO SCH (09:24)
[2018-09-04] MEDS: LORazepam 1 MG TABLET PO PRN ×3 (09:24→23:10)
[2018-09-04] MEDS: PENTOXIFYLLINE 400 MG TABLET.ER PO SCH ×3 (09:24→17:50)
[2018-09-04] MEDS: EMTRICITABINE 200MG/TENOFOVIR 300MG PO SCH (09:24)
[2018-09-04] MEDS: AMMONIUM LACTATE 12% LOTION 225 GM BOTTLE TP SCH ×2 (09:25→23:11)
[2018-09-04] MEDS: MINERAL OIL/PET HY-PHL TOPICAL OINTMENT 454 GM JAR TP SCH ×2 (09:25→23:11)
[2018-09-04] MEDS: DARUNAVIR ETHANOLATE 800 MG TAB PO SCH (09:25)
--- NOTE | 2018-09-04 10:22 | PN ---
Physical Exam: SUBJECTIVE: Patient seen and examined. Patient fully detoxed from alcohol and heroin. Says he feels "normal" for the first time in 12 years. Exhibits demanding behavior with the nurses regarding food which he promises to curtail. OBJECTIVE: Vital Signs Period Temp Pulse Resp BP Sys/Blank Pulse Ox Last 24 Hr 97.5 F-98.9 F 69-83 20-22 92-106/53-73 100-100 GENERAL: The patient is awake, alert, and fully oriented. LUNGS: CTA HEART: RRR, S1, S2 ABDOMEN: Soft, nontender, nondistended EXTREMITIES: 2+ pulses, warm, well-perfused, no edema. NEUROLOGICAL: Cranial nerves II through XII grossly intact. Normal speech, steady Laboratory Results - last 24 hr 09/03/18 09/04/18 07:49 07:40 Neutrophils % (Manual) 59.8 Band Neutrophils % 0.0 Lymphocytes % (Manual) 25.8 D Monocytes % (Manual) 2 L Eosinophils % (Manual) 9.3 H D Basophils % (Manual) 2.0 Myelocytes % (Man) 0 Promyelocytes % (Man) 0 Blast Cells % (Manual) 0 Metamyelocytes 0 Hypochromia 0 Platelet Estimate Decreased Polychromasia 2+ Poikilocytosis 0 Anisocytosis 0 Microcytosis 0 Macrocytosis 0 Total Bilirubin 12.0 H Direct Bilirubin 9.7 H AST 86 H ALT 26 Alkaline Phosphatase 187 H Total Protein 8.1 Albumin 2.0 L Active Medications Generic Name Dose Route Start Last Admin Trade Name Onesimoq PRN Reason Stop Dose Admin Darunavir 800 mg 08/28/18 10:00 09/04/18 09:25 Prezista - PO 800 mg DAILY CAT[facility]INO Administration Emollient Ointment 1 applic 09/01/18 22:00 09/04/18 09:25 Aquaphor - TP 1 applic BID CATARINO Administration Emtricitabine/Tenofovir 1 tab 08/28/18 10:00 09/04/18 09:24 Truvada PO 1 tab DAILY [facility]INO Administration Folic Acid 1 mg 08/31/18 10:00 09/04/18 09:23 Folic Acid - PO 1 mg DAILY [facility]INO Administration Heparin Sodium (Porcine) 5,000 unit 08/27/18 23:00 09/04/18 06:24 Heparin - SQ Not Given TID CATARINO Lactic Acid 1 applic 09/01/18 22:00 09/04/18 09:25 Lac-Hydrin 12 TP 1 applic BID CATARINO Administration Lactulose 20 gm 09/03/18 06:00 09/04/18 06:23 Cephulac (Oral Use) PO Not Given TID CATARINO Lorazepam 1 mg 08/29/18 12:09 09/04/18 09:24 Ativan - PO 1 mg TID PRN Administration ANXIETY Methadone HCl 15 mg 08/30/18 10:00 Dolophine - PO 08/30/18 23:59 ONCE ONE Methadone HCl 15 mg 08/31/18 10:00 Dolophine - PO 08/31/18 23:59 ONCE ONE Multivitamins/Minerals/Vitamin C 1 tab 08/31/18 10:00 09/04/18 09:24 Tab-A-Vit - PO 1 tab DAILY [facility]INO Administration Pentoxifylline 400 mg 08/28/18 18:15 09/04/18 09:24 Trental - PO 400 mg TIDCM CATARINO Administration Ritonavir 100 mg 08/28/18 10:00 09/04/18 09:24 Norvir - PO 100 mg DAILY [facility]INO Administration Thiamine HCl 100 mg 08/31/18 10:00 09/04/18 09:23 Vitamin B1 - PO 100 mg DAILY [facility]INO Administration ASSESSMENT/PLAN: 57 year-old male with a PMH significant for HTN, asthma, Hep C, HIV, polysubstance abuse (heroin, alcohol, marijuana, current smoker) admitted for acute liver failure. Acute liver failure Transaminitis --total bili continues to improve 22 on admission -->14 --continue pentoxifylline x 4 week course (started 08/28, last day 09/25) Hypertension --BP stable --not on anti-hypertensives Asthma --stable HIV --continue anti-retrovirals Hepatitis C --no reported h/o treatment Acute alcohol withdrawal --ativan protocol completed Acute heroin withdrawal --methadone taper completed FEN Fluids: PO intake adequate Electrolytes: replete as indicated Nutrition: soft, thin; Ensure Enlive DVT prophylaxis: subq heparin Dispo: psych consult ordered to determine competency; patient presently refusing rehab, wants to go to [facility] in [place]. Full code. Visit type - Emergency Visit Emergency Visit: Yes ED Registration Date: 08/27/18 Care time: The patient presented to the Emergency Department on the above date and was hospitalized for further evaluation of their emergent condition. - New Patient This patient is new to me today: No - Critical Care Critical Care patient: No
--- NOTE | 2018-09-04 12:18 | PN ---
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 Tolerated pill whole in applesauce. Asking for a hamburger and a Pepsi. Sitting on side of bed, feeding himself Magic cup. Dislikes puree. Swallow reassessed with good tolerance with 3 oz water test. Attempted to chew pal cracker, but spit it out. IMP: Awake, wants diet upgrade Rec: Trial of soft, easy to chew foods, thin liquid Supervision with meals. Reduce impulsivity
--- NOTE | 2018-09-04 15:09 | CON.PSY ---
Psychiatry Consult Chief Complaint: 57 year old male with a long history of mixed substance abuse and chronic nedical conditions, Patient was detoxed from alcohol and heroin. Patient seen for Psych eval. Symptoms: reports: Aggressivity - Previous Psychiatric Treatment Outpatient: Less than 6 mos ago Inpatient: None - Reason for Previous Treatment Reason for Previous Treatment: Alcohol Abuse, Heroin or Other Narcotics - Current Medications Current Medications: Active Medications Darunavir (Prezista -) 800 mg PO DAILY [facility] Last Admin: 09/04/18 09:25 Dose: 800 mg Emollient Ointment (Aquaphor -) 1 applic TP BID [facility] Last Admin: 09/04/18 09:25 Dose: 1 applic Emtricitabine/Tenofovir (Truvada) 1 tab PO DAILY [facility] Last Admin: 09/04/18 09:24 Dose: 1 tab Folic Acid (Folic Acid -) 1 mg PO DAILY [facility] Last Admin: 09/04/18 09:23 Dose: 1 mg Heparin Sodium (Porcine) (Heparin -) 5,000 unit SQ TID [facility] Last Admin: 09/04/18 06:24 Dose: Not Given Lactic Acid (Lac-Hydrin 12) 1 applic TP BID [facility] Last Admin: 09/04/18 09:25 Dose: 1 applic Lactulose (Cephulac (Oral Use)) 20 gm PO TID [facility] Last Admin: 09/04/18 06:23 Dose: Not Given Lorazepam (Ativan -) 1 mg PO TID PRN PRN Reason: ANXIETY Last Admin: 09/04/18 09:24 Dose: 1 mg Methadone HCl (Dolophine -) 15 mg PO ONCE ONE Stop: 08/30/18 23:59 Methadone HCl (Dolophine -) 15 mg PO ONCE ONE Stop: 08/31/18 23:59 Multivitamins/Minerals/Vitamin C (Tab-A-Vit -) 1 tab PO DAILY [facility] Last Admin: 09/04/18 09:24 Dose: 1 tab Olanzapine (Zyprexa -) 5 mg PO [facility] Pentoxifylline (Trental -) 400 mg PO TIDCM [facility] Last Admin: 09/04/18 09:24 Dose: 400 mg Ritonavir (Norvir -) 100 mg PO DAILY [facility] Last Admin: 09/04/18 09:24 Dose: 100 mg Thiamine HCl (Vitamin B1 -) 100 mg PO DAILY [facility] Last Admin: 09/04/18 09:23 Dose: 100 mg - Allergies Allergies: Allergies Allergy/AdvReac Type Severity Reaction Status Date / Time erythromycin base Allergy Severe Rash Verified 08/26/18 17:31 [Erythromycin Base] vancomycin Allergy Severe Rash Verified 08/26/18 17:31 chocolate flavor Allergy Intermediate Verified 08/26/18 17:31 nut - unspecified AdvReac Mild Itching Verified 08/26/18 17:31 - Current Living Status Usual Living Arrangement: Alone - Current Mental Status Evaluation Appearance: Disheveled Attitude: Guarded - Affect Affect: Constrictive Appropriateness: Appropriate to Content - Mood Mood: Angry - Speech/Language Expressive: Coherent - Psychomotor Activity Psychomotor Activity: Hyperactive - Thought Process Thought Process: Intact - Thought Content Hallucinations: Absent Delusions: Absent - Self Perception Self Perception: No Impairment - Cognition Attention: Alert Orientation: Time Memory, Short Term: 2/3 Memory, Remote with Promptin/3 - Concentration Serial Sevens Intact: No Simple Calculations Intact: No - Abstraction Proverb Interpretation: [place] Judgement: Minimally Impaired - Insight Insight: Impaired - Impulse Control Impulse Control: Minimally Impaired - Suicidal Ideation Suicidal Ideation: No - Homicidal Ideation Homicidal Ideation: No Assessment/Plan 1) Zyprexa 5mg po hs for acute agitation. @) Patient wants to go home, refusing Rehab. 3) Patient has the Mental capacity to make decisions at this time.
--- NOTE | 2018-09-04 15:39 | DS ---
Physical Exam: SUBJECTIVE: Patient seen and examined OBJECTIVE: Vital Signs Period Temp Pulse Resp BP Sys/Blank Pulse Ox Last 24 Hr 97.5 F-98.9 F 69-83 20-20 92-106/67-73 100-100 PHYSICAL EXAM GENERAL: The patient is awake, alert, and fully oriented, in no acute distress. HEAD: Normal with no signs of trauma. EYES: PERRL, extraocular movements intact, sclera anicteric, conjunctiva clear. ENT: Ears normal, nares patent, oropharynx clear without exudates, moist mucous membranes. NECK: Trachea midline, full range of motion, supple. LUNGS: Breath sounds equal, clear to auscultation bilaterally, no wheezes, no crackles, no accessory muscle use. HEART: Regular rate and rhythm, S1, S2 without murmur, rub or gallop. ABDOMEN: Soft, nontender, nondistended, normoactive bowel sounds, no guarding, no rebound, no hepatosplenomegaly, no masses. EXTREMITIES: 2+ pulses, warm, well-perfused, no edema. NEUROLOGICAL: Cranial nerves II through XII grossly intact. Normal speech, gait not observed. PSYCH: Normal mood, normal affect. SKIN: Warm, dry, normal turgor, no rashes or lesions noted. LABS Laboratory Results - last 24 hr 09/04/18 07:40 Total Bilirubin 12.0 H Direct Bilirubin 9.7 H AST 86 H ALT 26 Alkaline Phosphatase 187 H Total Protein 8.1 Albumin 2.0 L HOSPITAL COURSE: Date of Admission:08/27/18 Date of Discharge: 09/04/18 Minutes to complete discharge: 35 Discharge Summary Reason For Visit: ANEMIA,HYPERBILIRUBINEMIA,ALTERED MENTAL STATUS Current Active Problems Altered mental state (Acute) Anemia (Acute) Hyperbilirubinemia (Acute) Liver failure (Acute) Condition: Guarded - Instructions - Home Medications Comprehensive Discharge Medication List: Ambulatory Orders Albuterol Sulfate Inhaler - [Ventolin HFA Inhaler -] 2 inh PO Q4H PRN #1 cartridge 04/17/18 Darunavir Ethanolate [Prezista -] 800 mg PO DAILY #30 tablet 04/17/18 Emtricitabine/Tenofovir [Truvada -] 1 tab PO DAILY #30 tablet 04/17/18 Ritonavir [Norvir -] 100 mg PO DAILY #30 tab 04/17/18
[2018-09-04] MEDS ORDERED: OLANZapine 5 MG TABLET PO SCH (22:00)
[2018-09-05] MEDS: HEPARIN NA (PORCINE) 5,000 UNITS/ML 1ML VIAL SQ SCH ×2 (05:40→15:00)
[2018-09-05] MEDS: LACTULOSE 20 GM/30 ML UDC (FOR ORAL USE ONLY) PO SCH ×2 (05:40→15:00)
[2018-09-05] MEDS ORDERED: PT OWN MED DRAWER 7, Y5N ONE (09:07)
[2018-09-05] MEDS: MULTIVITAMINS (DAILY MVI) TABLET (FP) PO SCH (09:33)
[2018-09-05] MEDS: PENTOXIFYLLINE 400 MG TABLET.ER PO SCH ×2 (09:33→12:00)
[2018-09-05] MEDS: THIAMINE HCL 100 MG TABLET (FP) PO SCH (09:33)
[2018-09-05] MEDS: FOLIC ACID 1 MG TABLET (FP) PO SCH (09:34)
--- NOTE | 2018-09-05 10:04 | DS ---
Physical Exam: SUBJECTIVE: Patient seen and examined OBJECTIVE: discharge to [facility] patient is homeless Vital Signs Period Temp Pulse Resp BP Sys/Blank Pulse Ox Last 24 Hr 97.6 F-98.5 F 72-78 20-20 107/73 98 PHYSICAL EXAM GENERAL: The patient is awake, alert, and fully oriented, in no acute distress. - deemed competent to make his own decisions by Psyche HEAD: Normal with no signs of trauma. EYES: jaundiced sclera, bili levels improved. repeat bili levels outpat. ENT: Ears normal, nares patent, oropharynx clear without exudates, moist mucous membranes. NECK: Trachea midline, full range of motion, supple. LUNGS: Breath sounds equal, clear to auscultation bilaterally, no wheezes, no crackles, no accessory muscle use. HEART: Regular rate and rhythm ABDOMEN: Soft, nontender, nondistended, normoactive bowel sounds, no guarding, no rebound, no hepatosplenomegaly, no masses. EXTREMITIES: no edema. NEUROLOGICAL: Normal speech, gait not observed. PSYCH: Normal mood, normal affect. LABS HOSPITAL COURSE: Date of Admission:08/27/18 Date of Discharge: 09/05/18 Discharge Summary Reason For Visit: ANEMIA,HYPERBILIRUBINEMIA,ALTERED MENTAL STATUS Current Active Problems Altered mental state (Acute) Anemia (Acute) Hyperbilirubinemia (Acute) Liver failure (Acute) Condition: Guarded - Instructions Diet, Activity, Other Instructions: Mr. oTmas: You were admitted on 08/27/18 for Jaundice (yellow skin and eyes), anemia and liver failure. It is important that you abstain from drinking alcohol and drug use. Here is what we recommend: Liver failure: Please continue taking the pentoxifylline for 4 weeks total. This medication is a first line treatment for severe alcohol hepatitis. You started taking this medication on 08/28/2018 and your last day on this medication will be on . Please do not skip doses. this medication taken 3 times per day. It is important that you see Dr. Vargas within 2-3 weeks. Your liver numbers need to be monitored closely. Alcohol use/Drug use: We will give you a list of places that you can go to to get help with alcohol and drug addition. You life depends on you stopping using alcohol and drugs. We will be sending you to [facility]. Please call me with any questions that you may have. Thank you. Referrals: Issac Vargas MD [Staff Physician] - 2 Weeks Disposition: LONG TERM FACILITY - Home Medications Comprehensive Discharge Medication List: Ambulatory Orders Albuterol Sulfate Inhaler - [Ventolin HFA Inhaler -] 2 inh PO Q4H PRN #1 cartridge 04/17/18 Darunavir Ethanolate [Prezista -] 800 mg PO DAILY #30 tablet 04/17/18 Emtricitabine/Tenofovir [Truvada -] 1 tab PO DAILY #30 tablet 04/17/18 Ritonavir [Norvir -] 100 mg PO DAILY #30 tab 04/17/18 Folic Acid - 1 mg PO DAILY #0 tablet 09/05/18 Lactulose (Oral Use) [Cephulac -] 20 gm PO TID #2 bottle 09/05/18 Multivitamins [Multivit ([facility])] 1 tab PO DAILY #0 tab 09/05/18 Pentoxifylline [Trental -] 400 mg PO TIDCM #63 tablet.er 09/05/18
[2018-09-05] MEDS: EMTRICITABINE 200MG/TENOFOVIR 300MG PO SCH (10:50)
[2018-09-05] MEDS: RITONAVIR 100 MG TABLET PO SCH (10:50)
[2018-09-05] MEDS: DARUNAVIR ETHANOLATE 800 MG TAB PO SCH (10:51)
[2018-09-05] MEDS: MINERAL OIL/PET HY-PHL TOPICAL OINTMENT 454 GM JAR TP SCH (10:56)
[2018-09-05] MEDS: AMMONIUM LACTATE 12% LOTION 225 GM BOTTLE TP SCH (10:56)
--- NOTE | 2018-09-05 12:57 | PN ---
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 PO as tolerated.
[2018-09-05 14:48] VITALS: BP 81/50; PULSE 74; TEMP 97.7
== END 2018-09-05 16:51 | DRG 279 ==
LOC: JER 19:17 → JERBED 22:03 → J7W 08-28 13:02 → J5S 08-29 18:59
PROVIDERS: ADMIT Internal Medicine; ATTEND Nurse Practitioner Family
PROC: HZ2ZZZZ Detoxification Services for Substance Abuse Treatment (ICD-10-PCS; 2018-08-28)
PROC: 0HBRXZZ Excision of Toe Nail, External Approach (ICD-10-PCS; principal; 2018-08-29)
PROC: 0HBRXZZ Excision of Toe Nail, External Approach (ICD-10-PCS; 2018-08-29)
PROC: 0HBRXZZ Excision of Toe Nail, External Approach (ICD-10-PCS; 2018-08-29)
PROC: 0HBRXZZ Excision of Toe Nail, External Approach (ICD-10-PCS; 2018-08-29)
PROC: 0HBRXZZ Excision of Toe Nail, External Approach (ICD-10-PCS; 2018-08-29)
PROC: 0HBRXZZ Excision of Toe Nail, External Approach (ICD-10-PCS; 2018-08-29)
PROC: 0HBRXZZ Excision of Toe Nail, External Approach (ICD-10-PCS; 2018-08-29)
PROC: 0HBRXZZ Excision of Toe Nail, External Approach (ICD-10-PCS; 2018-08-29)
PROC: 0HBRXZZ Excision of Toe Nail, External Approach (ICD-10-PCS; 2018-08-29)
PROC: 0HBRXZZ Excision of Toe Nail, External Approach (ICD-10-PCS; 2018-08-29)
DX: K72.90 Hepatic failure, unspecified without coma (principal); D64.9 Anemia, unspecified; J45.909 Unspecified asthma, uncomplicated; I10 Essential (primary) hypertension; Z21 Asymptomatic human immunodeficiency virus [HIV] infection status; K70.10 Alcoholic hepatitis without ascites; K21.9 Gastro-esophageal reflux disease without esophagitis; F32.9 Major depressive disorder, single episode, unspecified; F11.20 Opioid dependence, uncomplicated; B19.20 Unspecified viral hepatitis C without hepatic coma; B35.1 Tinea unguium; R64 Cachexia; Z68.20 Body mass index [BMI] 20.0-20.9, adult; F17.210 Nicotine dependence, cigarettes, uncomplicated; F19.939 Other psychoactive substance use, unspecified with withdrawal, unspecified; F10.239 Alcohol dependence with withdrawal, unspecified; Y90.0 Blood alcohol level of less than 20 mg/100 ml; Z59.0 Homelessness; E43 Unspecified severe protein-calorie malnutrition
CPT/HCPCS: 36415; 70450-TC; 71045-TC-FY; 76705-TC; 80048; 80053; 80074; 80076; 80307; 81003; 82140; 82248; 82803; 82962; 83540; 83550; 83605; 83735; 83880; 84100; 84466; 84484; 85025; 85044; 85610; 85730; 86038; 86359; 86360; 86704; 86706; 86708; 87040; 87086; 87340; 87389; 87522; 93005; 93010; 97116-GP; 97162-GP; 99283-25; J1644; J7030